=== PATIENT | female | born 1950 | race American Indian/Alaskan Native ===

== ENCOUNTER 2018-10-23 15:21 | Inpatient (IN) | payer MEDICARE, OTHER ==
[2018-10-23] MEDS ORDERED: MAGNESIUM SULFATE 2GM/50ML 2 GM/50 ML BAG IV ONE (15:53)
[2018-10-23] MEDS ORDERED: SUBLIMAZE IV PRN (15:53)
[2018-10-23] MEDS ORDERED: SOLU-Medrol IV ONE (15:53)
[2018-10-23] MEDS ORDERED: PROVENTIL IH ONE (15:53)
[2018-10-23] MEDS ORDERED: VASELINE LIP THERAPY TP PRN (15:53)
[2018-10-23] MEDS ORDERED: ATROVENT IH ONE (15:53)
[2018-10-23] MEDS ORDERED: VERSED IV PRN (15:53)
[2018-10-23] MEDS ORDERED: NACL 0.9% 500 ML IV PRN (15:53)
[2018-10-23] MEDS ORDERED: NACL 0.9% 500 ML 500 ML IV ONE (15:53)
[2018-10-23] MEDS ORDERED: ARTIFICIAL TEARS OPHTH OINT OU PRN (15:53)
[2018-10-23] MEDS ORDERED: NACL 0.9% 1000 ML IV ONE (15:59)
[2018-10-23] MEDS ORDERED: VANCOMYCIN 1,500 MG in NACL 0.9% 500 ML 500 ML IV ONE (15:59)
[2018-10-23] MEDS ORDERED: VANCOMYCIN PHARMACY TO DOSE IV SCH (16:00)
[2018-10-23] MEDS ORDERED: DECADRON IV ONE (16:00)
[2018-10-23] MEDS ORDERED: MIDAZOLAM 100 MG in NACL 0.9% 80 ML IV SCH (16:00)
[2018-10-23] MEDS ORDERED: ROCEPHIN/NS 2 GM/100 ML 2 GM/100 ML BAG IV SCH (16:00)
--- NOTE | 2018-10-23 16:01 | Emergency Department Report ---
<MARIA LUISA PHOENIX - Last Filed: 10/23/18 21:21> ED General Adult HPI - General Chief complaint: Altered Mental Status Stated complaint: UNRESPONSIVE Time Seen by Provider: 10/23/18 15:52 - Related Data Home Medications Medication Instructions Recorded Confirmed Last Taken ARIPiprazole [Abilify TAB] 5 mg PO DAILY 01/02/15 10/25/18 01/08/15 Acetaminophen [Tylenol] 325 mg PO Q6HR PRN 01/02/15 01/09/15 01/07/15 Albuterol Sulfate [Proair Hfa] 2 puff IH TID 01/02/15 01/09/15 01/09/15 Budesoni/Formotero 160-4.5(Nf) 1 puff IH QDAY 01/02/15 01/09/15 01/09/15 [Symbicort 160-4.5] Carvedilol 6.25 mg PO BID 01/02/15 10/25/18 01/09/15 Cetirizine HCl [ZyrTEC] 10 mg PO QDAY 01/02/15 10/25/18 01/08/15 Furosemide 40 mg PO QDAY 01/02/15 10/25/18 01/08/15 Levothyroxine [Synthroid] 0.125 mcg PO QAM 01/02/15 10/25/18 01/09/15 Lisinopril 2.5 mg PO QDAY 01/02/15 10/25/18 01/09/15 Simvastatin 5 mg PO QDAY 01/02/15 10/25/18 01/08/15 buPROPion XL [Wellbutrin Xl] 300 mg PO QDAY 01/02/15 10/25/18 01/08/15 Norvasc 10 mg PO DAILY 01/09/15 10/25/18 01/09/15 Omeprazole Magnesium [PriLOSEC Otc] 20 mg PO DAILY 10/25/18 10/25/18 Unknown acetaZOLAMIDE ER [Diamox Sequels] 500 mg PO Q12HR 10/25/18 10/25/18 Unknown traZODone [Desyrel] 50 mg PO HS 10/25/18 10/25/18 Unknown Allergies Allergy/AdvReac Type Severity Reaction Status Date / Time ibuprofen [From Motrin] AdvReac Shortness Verified 10/25/18 08:15 of Breath nickel AdvReac Rash Verified 10/25/18 08:15 ED Past Medical Hx - Medications Home Medications: Home Medications Medication Instructions Recorded Confirmed Last Taken Type ARIPiprazole [Abilify TAB] 5 mg PO DAILY 01/02/15 10/25/18 01/08/15 History Acetaminophen [Tylenol] 325 mg PO Q6HR PRN 01/02/15 01/09/15 01/07/15 History Albuterol Sulfate [Proair Hfa] 2 puff IH TID 01/02/15 01/09/15 01/09/15 History Budesoni/Formotero 160-4.5(Nf) 1 puff IH QDAY 01/02/15 01/09/15 01/09/15 History [Symbicort 160-4.5] Carvedilol 6.25 mg PO BID 01/02/15 10/25/18 01/09/15 History Cetirizine HCl [ZyrTEC] 10 mg PO QDAY 01/02/15 10/25/18 01/08/15 History Furosemide 40 mg PO QDAY 01/02/15 10/25/18 01/08/15 History Levothyroxine [Synthroid] 0.125 mcg PO QAM 01/02/15 10/25/18 01/09/15 History Lisinopril 2.5 mg PO QDAY 01/02/15 10/25/18 01/09/15 History Simvastatin 5 mg PO QDAY 01/02/15 10/25/18 01/08/15 History buPROPion XL [Wellbutrin Xl] 300 mg PO QDAY 01/02/15 10/25/18 01/08/15 History Norvasc 10 mg PO DAILY 01/09/15 10/25/18 01/09/15 History Omeprazole Magnesium [PriLOSEC Otc] 20 mg PO DAILY 10/25/18 10/25/18 Unknown History acetaZOLAMIDE ER [Diamox Sequels] 500 mg PO Q12HR 10/25/18 10/25/18 Unknown History traZODone [Desyrel] 50 mg PO HS 10/25/18 10/25/18 Unknown History ED Medical Decision Making - Lab Data Result diagrams: 10/23/18 16:27 10/23/18 16:27 - Medical Decision Making I assumed care of patient Mrs. Negro from my colleague Dr. Quinn who performed a comprehensive work up. Mrs. Negro presents with acute respiratory failure, acute encephalopathy as well as hyperthermia. Intubated for airway control and ventilation. I reviewed arterial blood gas values with respiratory therapist. I agreed with suggested ventilator setting changes including increased respiratory rate and increased tidal volume. I spoke with hospitalist Dr. Salguero for admission to ICU. Reviewed CT head did not reveal acute process. I revealed CT cervical spine which did not reveal acute fracture but abnormality at the C1 arch. Also reviewed CT abdomen and pelvis and CT angiogram of the chest did not reveal acute process. No obvious source of infection. My colleague appropriately treated Ms. Negro for sepsis considering hypothermia and SIRS. Admitted to the ICU in critical condition. 100 total minutes of critical care time excluding procedures were used in the care of the patient. Patient required multiple interventions and assessments. I spoke directly with hospitalist Dr. Cary and Dr. Salazar. I also coordinated care with respiratory therapist. I reassessed the patient several times. Reviewed electronic record. I reviewed workup including lab, CT results, x-ray results I reassessed Mrs. Negro several times. Critical care time in (mins) excluding proc time.: 100 ED Disposition Clinical Impression: Respiratory arrest, Systemic inflammatory response syndrome (SIRS), Acute encephalopathy, Acute respiratory failure, End stage COPD Disposition: OP ADMIT IP TO THIS HOSP Is pt being admited?: Yes Does the pt Need Aspirin: No Condition: Critical <DENIS QUINN - Last Filed: 10/25/18 19:52> ED General Adult HPI - General Source: EMS (verbal report received from EMS.ems notes not available at time of chart dictation), RN notes reviewed, old records reviewed Mode of arrival: Stretcher Limitations: Altered Mental Status, Other - History of Present Illness Initial comments: This is a 67-year-old female. Past medical history includes congestive heart failure, hypotension, hypothyroidism, history of adenoma in the cecum, status post right hemicolectomy The patient is brought to the hospital by emergency medical services for altered mental status and respiratory distress. The patient apparently lives at a fci facility or neighborhood. She was apparently found down, by neighbors, naked, for uncertain duration of time, and uncertain mechanism. The patient's last known well time is not known. EMS reports normal Accu-Chek in the field. Upon arrival to the emergency room, the patient is obtunded, with insufficient respiratory effort, and inability to maintain or protect her airway. She is placed on a nasal cannula at 15 L/m, received [id number] ventilation, and is intubated with direct laryngoscopy. She does not desaturate. The remainder of her primary survey is remarkable for a GCS of 3, preintubation, postintubation, and hypothermia with a core temperature of 94. She is also found to have a left lower quadrant ecchymosis of uncertain etiology. No family or friends available at this time for collateral information or additional information. -: unknown Radiation: other Quality: other Consistency: other Improves with: other Worsens with: other ED Review of Systems ROS: Stated complaint: UNRESPONSIVE Other details as noted in HPI Comment: Unobtainable due to pts medical conditions ED Past Medical Hx - Past Medical History Hx Hypertension: Yes (several meds took beta carlita today) Hx Heart Attack/AMI: (high cholesterol - no chest pain) - Social History Smoking Status: Former Smoker ED Physical Exam - General Limitations: Altered Mental Status, Other General appearance: obtunded - Head Head exam: Present: atraumatic - Eye Eye exam: Absent: normal appearance (bilateral proptotic eyes noted. Pupils are 2 mm minimal reaction to light) - ENT ENT exam: Present: normal exam, normal external ear exam, other (copious secre tions noted in the oropharynx) - Neck Neck exam: Present: normal inspection. Absent: tenderness, meningismus - Respiratory Respiratory exam: Present: respiratory distress, wheezes, rhonchi - Cardiovascular Cardiovascular Exam: Present: regular rate, normal rhythm, tachycardia, normal heart sounds - GI/Abdominal GI/Abdominal exam: Present: soft, other (left lower quadrant ecchymosis). Absent: distended, tenderness, guarding, rebound, rigid, pulsatile mass - Rectal Rectal exam: Present: normal inspection - External exam: Present: normal external exam - Extremities Exam Extremities exam: Present: normal inspection, other (2+ pulses noted in the bilateral upper, lower extremities. Compartments soft. No long bony te nderness. The pelvis is stable.). Absent: tenderness, calf tenderness - Back Exam Back exam: Present: normal inspection. Absent: CVA tenderness (R), paraspinal tenderness - Neurological Exam Neurological exam: Present: altered, other (GCS of 3) - Psychiatric Psychiatric exam: Present: other (patient is nonverbal) - Skin Skin exam: Present: ecchymosis (ecchymosis in the left lower quadrant) ED Course Vital Signs 10/23/18 10/23/18 10/23/18 15:51 16:00 16:17 Temperature 94.3 F L Pulse Rate 81 82 Pulse Rate [ 92 H Anterior Bilateral Throughout] Respiratory 15 Rate Respiratory 20 Rate [Anterior Bilateral Throughout] Blood Pressure 125/60 125/60 Blood Pressure 125/60 [Right] O2 Sat by Pulse 100 100 Oximetry 10/23/18 10/23/18 10/23/18 16:40 17:05 17:18 Temperature Pulse Rate 82 75 Pulse Rate [ 96 H Anterior Bilateral Throughout] Respiratory 18 Rate Respiratory 20 Rate [Anterior Bilateral Throughout] Blood Pressure 125/60 125/60 Blood Pressure [Right] O2 Sat by Pulse 100 100 Oximetry 10/23/18 10/23/18 10/23/18 17:30 17:42 17:46 Temperature Pulse Rate 75 78 68 Pulse Rate [ Anterior Bilateral Throughout] Respiratory 18 18 18 Rate Respiratory Rate [Anterior Bilateral Throughout] Blood Pressure 140/85 140/85 Blood Pressure 140/85 [Right] O2 Sat by Pulse 100 100 99 Oximetry 10/23/18 10/23/18 10/23/18 18:00 18:06 19:16 Temperature Pulse Rate 70 71 78 Pulse Rate [ Anterior Bilateral Throughout] Respiratory 18 10 L Rate Respiratory Rate [Anterior Bilateral Throughout] Blood Pressure 140/85 140/85 140/85 Blood Pressure [Right] O2 Sat by Pulse 100 100 100 Oximetry 10/23/18 10/23/18 10/23/18 19:17 19:30 19:46 Temperature 96.6 F L Pulse Rate 81 82 80 Pulse Rate [ Anterior Bilateral Throughout] Respiratory 22 20 18 Rate Respiratory Rate [Anterior Bilateral Throughout] Blood Pressure 137/84 137/84 Blood Pressure 137/84 [Right] O2 Sat by Pulse 100 100 99 Oximetry 10/23/18 10/23/18 10/23/18 20:00 20:15 20:30 Temperature 97.5 F L Pulse Rate 86 81 80 Pulse Rate [ Anterior Bilateral Throughout] Respiratory 24 19 20 Rate Respiratory Rate [Anterior Bilateral Throughout] Blood Pressure 65/27 125/75 110/74 Blood Pressure 113/68 [Right] O2 Sat by Pulse 100 98 99 Oximetry 10/23/18 10/23/18 10/23/18 20:41 20:46 21:00 Temperature Pulse Rate 80 83 76 Pulse Rate [ Anterior Bilateral Throughout] Respiratory 24 17 Rate Respiratory Rate [Anterior Bilateral Throughout] Blood Pressure 110/74 122/84 114/74 Blood Pressure 112/88 [Right] O2 Sat by Pulse 98 100 100 Oximetry 10/23/18 10/23/18 10/23/18 21:18 21:30 21:45 Temperature Pulse Rate 75 70 73 Pulse Rate [ Anterior Bilateral Throughout] Respiratory 26 H 26 H 26 H Rate Respiratory Rate [Anterior Bilateral Throughout] Blood Pressure 107/66 105/68 Blood Pressure [Right] O2 Sat by Pulse 100 100 100 Oximetry 10/23/18 10/23/18 10/23/18 22:00 22:15 22:30 Temperature Pulse Rate 73 74 77 Pulse Rate [ Anterior Bilateral Throughout] Respiratory 26 H 26 H 26 H Rate Respiratory Rate [Anterior Bilateral Throughout] Blood Pressure 111/68 101/67 99/67 Blood Pressure [Right] O2 Sat by Pulse 100 100 Oximetry 10/23/18 10/23/18 10/23/18 22:45 23:00 23:15 Temperature Pulse Rate 82 77 76 Pulse Rate [ Anterior Bilateral Throughout] Respiratory 26 H 26 H 26 H Rate Respiratory Rate [Anterior Bilateral Throughout] Blood Pressure 95/64 90/59 100/61 Blood Pressure [Right] O2 Sat by Pulse Oximetry 10/23/18 10/23/18 10/24/18 23:30 23:45 00:00 Temperature Pulse Rate 77 78 81 Pulse Rate [ Anterior Bilateral Throughout] Respiratory 26 H 26 H 24 Rate Respiratory Rate [Anterior Bilateral Throughout] Blood Pressure 96/63 104/63 93/63 Blood Pressure [Right] O2 Sat by Pulse 100 99 100 Oximetry 10/24/18 10/24/18 10/24/18 00:02 00:05 00:15 Temperature Pulse Rate 89 81 79 Pulse Rate [ Anterior Bilateral Throughout] Respiratory 18 24 Rate Respiratory Rate [Anterior Bilateral Throughout] Blood Pressure 93/63 93/63 108/66 Blood Pressure [Right] O2 Sat by Pulse 100 98 100 Oximetry 10/24/18 10/24/18 10/24/18 00:30 00:45 01:00 Temperature Pulse Rate 78 79 76 Pulse Rate [ Anterior Bilateral Throughout] Respiratory 24 24 24 Rate Respiratory Rate [Anterior Bilateral Throughout] Blood Pressure 106/69 103/67 110/68 Blood Pressure [Right] O2 Sat by Pulse Oximetry 10/24/18 10/24/18 01:15 01:52 Temperature 100.8 F H Pulse Rate 80 Pulse Rate [ Anterior Bilateral Throughout] Respiratory 24 Rate Respiratory Rate [Anterior Bilateral Throughout] Blood Pressure 105/67 Blood Pressure [Right] O2 Sat by Pulse Oximetry - Reevaluation(s) Reevaluation #1: 10/23/18 17:01 Differential diagnosis, including but not limited to: Intracranial injury, cervical spine injury, hypercarbic respiratory failure, pulmonary embolus, intra-abdominal injury, intra-abdominal infection, bacteremia, viremia, urinary tract infection, toxic encephalopathy, metabolic encephalopathy, multiple factorial encephalopathy Assessment and plan: 67-year-old female, hypothermic, altered, found down, last known well time is not known, requiring intubation for respiratory support. We will treat the patient empirically for sepsis, with vancomycin, ceftriaxone. She'll be treated for presumed COPD exacerbation, with albuterol, Atrovent, steroids and magnesium. She will be given appropriate IV fluids. CT imaging of the brain, cervical spine will be obtained. CT scan of the abdomen and pelvis will be obtained. Patient will be placed on isolation precautions. We may need to obtain a spinal tap to exclude infectious etiology. Suspect a component of hypercarbic respiratory failure, therefore, the patient will be ventilated on the lung protective strategy, with an appropriate inspiration to expiration ratio. Discussed with critical care physician, Dr. Waldron, who will follow in consultation. Reevaluation #2: 10/23/18 17:50 Additional history obtained from family. Patient apparently has a history of end-stage COPD. The patient was instructed previously to look at a lung transplant list, but apparently has not done so. She's had multiple hospitalizations at [facility] within the past few weeks to months. She also may have had a recent echocardiogram or stress test, which suggested, "silent heart attack" as per the family. I have updated the patient's family on her condition, plan of care, and thus far they are amenable. CT scans pending at this time. Reevaluation #3: 10/23/18 20:00 CT scan of brain negative for acute disease. CT scan of the cervical spine demonstrates incidental abnormality at C1, likely nontraumatic. Patient does not have any external physical exam findings on her neck to suggest acute neck fracture. Furthermore, even on sedation, she was moving 4 extremities. Therefore, I doubt an acute cervical spine injury. Spinal tap was attempted however, unsuccessful secondary to patient's body habitus. CT scan of the chest, abdomen and pelvis pending at this time. Care will be transferred to oncoming physician, Dr. Elsa Phoenix, to follow up on CT scan of the chest, abdomen, pelvis, and then one Speck, contact the medical team to arrange admission. - EJ/Peripheral Line Neck L Time Out Performed: Yes Indications: nurses unable to establis Skin Cleansed in Sterile Fashion: Yes Size: 18 Dressing Placed: Tegaderm Patient Tolerated Procedure: well Neck R Time Out Performed: Yes Indications: nurses unable to establis Skin Cleansed in Sterile Fashion: Yes Size: 18 Dressing Placed: Tegaderm Patient Tolerated Procedure: well - Intubation Time Out Performed: No (emergency situation) Sedative: Etomidate Mg Given: 20 Paralytic: Rocuronium Mg Given: 100 Laryngoscope: Krysten Size: 3 Assist Device Used: fiberoptic device ET Tube Size: 7.5 Tube Secured Depth (cm): 23 Tube Secured Location: teeth Tube Placement Confirmation: visualized tube passing t, equal breath sounds bilat, no breath sounds over epi, confirmation by capnometr Patient Tolerated Procedure: well Intubation Complications: none - Lumbar Puncture Consent Obtained: written consent (discussed with brother, verbalizes understanding) Time Out Performed: Yes Indication for Procedure: change in mental status Patient Position: left lateral decubitus Local Anesthetic Used: Lidocaine 1% Amount of anesthesia used (mls): 10 Spinal Needle Gauge: 20G Spinal Needle Length: 3in Interspace Used: L4-L5 Complications: none, unable to obtain CSF ED Medical Decision Making - Lab Data Result diagrams: 10/25/18 06:38 10/25/18 03:57 Vital Signs 10/23/18 15:51 Pulse Rate 81 Blood Pressure 125/60 O2 Sat by Pulse 100 Oximetry Vital Signs 10/23/18 10/23/18 10/23/18 15:51 16:00 16:40 Temperature 94.3 F L Pulse Rate 81 82 82 Respiratory 15 Rate Blood Pressure 125/60 125/60 125/60 Blood Pressure 125/60 [Right] O2 Sat by Pulse 100 100 100 Oximetry Lab Results 10/23/18 10/23/18 10/23/18 Range/Units 16:18 16:18 16:27 WBC 12.5 H (4.5-11.0) K/mm3 RBC 4.82 (3.65-5.03) M/mm3 Hgb 11.3 (10.1-14.3) gm/dl Hct 37.5 (30.3-42.9) % MCV 78 L (79-97) fl MCH 23 L (28-32) pg MCHC 30 (30-34) % RDW 16.0 H (13.2-15.2) % Plt Count 239 (140-440) K/mm3 PT (12.2-14.9) Sec. INR (0.87-1.13) APTT (24.2-36.6) Sec. Sodium (137-145) mmol/L Potassium (3.6-5.0) mmol/L Chloride (98-107) mmol/L Carbon Dioxide (22-30) mmol/L Anion Gap mmol/L BUN (7-17) mg/dL Creatinine (0.7-1.2) mg/dL Estimated GFR ml/min BUN/Creatinine Ratio % Glucose (65-100) mg/dL Lactic Acid (0.7-2.0) mmol/L Calcium (8.4-10.2) mg/dL Magnesium (1.7-2.3) mg/dL Total Bilirubin (0.1-1.2) mg/dL AST (5-40) units/L ALT (7-56) units/L Alkaline Phosphatase (35-129) units/L Total Creatine Kinase (30-135) units/L Troponin T (0.00-0.029) ng/mL Total Protein (6.3-8.2) g/dL Albumin (3.9-5) g/dL Albumin/Globulin Ratio % Urine Color Yellow (Yellow) Urine Turbidity Slightly-cloudy (Clear) Urine pH 5.0 (5.0-7.0) Ur Specific [place] 1.016 (1.003-1.030) Urine Protein <15 mg/dl (Negative) mg/dL Urine Glucose (UA) Neg (Negative) mg/dL Urine Ketones Neg (Negative) mg/dL Urine Blood Neg (Negative) Urine Nitrite Neg (Negative) Urine Bilirubin Neg (Negative) Urine Urobilinogen 2.0 (<2.0) mg/dL Ur Leukocyte Esterase Neg (Negative) Urine WBC (Auto) < 1.0 (0.0-6.0) /HPF Urine RBC (Auto) 1.0 (0.0-6.0) /HPF U Epithel Cells (Auto) < 1.0 (0-13.0) /HPF Urine Mucus Few /HPF Urine Opiates Screen Presumptive negative Urine Methadone Screen Presumptive negative Ur Barbiturates Screen Presumptive negative Ur Phencyclidine Scrn Presumptive negative Ur Amphetamines Screen Presumptive negative U Benzodiazepines Scrn Presumptive negative Urine Cocaine Screen Presumptive negative U Marijuana (THC) Screen Presumptive negative Drugs of Abuse Note Disclamer Plasma/Serum Alcohol (0-0.07) % 10/23/18 10/23/18 10/23/18 Range/Units 16:27 16:27 16:27 WBC (4.5-11.0) K/mm3 RBC (3.65-5.03) M/mm3 Hgb (10.1-14.3) gm/dl Hct (30.3-42.9) % MCV (79-97) fl MCH (28-32) pg MCHC (30-34) % RDW (13.2-15.2) % Plt Count (140-440) K/mm3 PT 12.0 L (12.2-14.9) Sec. INR 0.84 L (0.87-1.13) APTT 21.0 L (24.2-36.6) Sec. Sodium 136 L (137-145) mmol/L Potassium 4.5 (3.6-5.0) mmol/L Chloride 95.8 L (98-107) mmol/L Carbon Dioxide 30 (22-30) mmol/L Anion Gap 15 mmol/L BUN 29 H (7-17) mg/dL Creatinine 0.4 L (0.7-1.2) mg/dL Estimated GFR > 60 ml/min BUN/Creatinine Ratio 73 % Glucose 115 H (65-100) mg/dL Lactic Acid (0.7-2.0) mmol/L Calcium 9.2 (8.4-10.2) mg/dL Magnesium (1.7-2.3) mg/dL Total Bilirubin 0.30 (0.1-1.2) mg/dL AST 61 H (5-40) units/L ALT 72 H (7-56) units/L Alkaline Phosphatase 97 (35-129) units/L Total Creatine Kinase (30-135) units/L Troponin T < 0.010 (0.00-0.029) ng/mL Total Protein 6.7 (6.3-8.2) g/dL Albumin 3.7 L (3.9-5) g/dL Albumin/Globulin Ratio 1.2 % Urine Color (Yellow) Urine Turbidity (Clear) Urine pH (5.0-7.0) Ur Specific [place] (1.003-1.030) Urine Protein (Negative) mg/dL Urine Glucose (UA) (Negative) mg/dL Urine Ketones (Negative) mg/dL Urine Blood (Negative) Urine Nitrite (Negative) Urine Bilirubin (Negative) Urine Urobilinogen (<2.0) mg/dL Ur Leukocyte Esterase (Negative) Urine WBC (Auto) (0.0-6.0) /HPF Urine RBC (Auto) (0.0-6.0) /HPF U Epithel Cells (Auto) (0-13.0) /HPF Urine Mucus /HPF Urine Opiates Screen Urine Methadone Screen Ur Barbiturates Screen Ur Phencyclidine Scrn Ur Amphetamines Screen U Benzodiazepines Scrn Urine Cocaine Screen U Marijuana (THC) Screen Drugs of Abuse Note Plasma/Serum Alcohol < 0.01 (0-0.07) % 10/23/18 10/23/18 Range/Units 16:27 16:27 WBC (4.5-11.0) K/mm3 RBC (3.65-5.03) M/mm3 Hgb (10.1-14.3) gm/dl Hct (30.3-42.9) % MCV (79-97) fl MCH (28-32) pg MCHC (30-34) % RDW (13.2-15.2) % Plt Count (140-440) K/mm3 PT (12.2-14.9) Sec. INR (0.87-1.13) APTT (24.2-36.6) Sec. Sodium (137-145) mmol/L Potassium (3.6-5.0) mmol/L Chloride (98-107) mmol/L Carbon Dioxide (22-30) mmol/L Anion Gap mmol/L BUN (7-17) mg/dL Creatinine (0.7-1.2) mg/dL Estimated GFR ml/min BUN/Creatinine Ratio % Glucose (65-100) mg/dL Lactic Acid 0.80 (0.7-2.0) mmol/L Calcium (8.4-10.2) mg/dL Magnesium 4.60 H (1.7-2.3) mg/dL Total Bilirubin (0.1-1.2) mg/dL AST (5-40) units/L ALT (7-56) units/L Alkaline Phosphatase (35-129) units/L Total Creatine Kinase 66 (30-135) units/L Troponin T (0.00-0.029) ng/mL Total Protein (6.3-8.2) g/dL Albumin (3.9-5) g/dL Albumin/Globulin Ratio % Urine Color (Yellow) Urine Turbidity (Clear) Urine pH (5.0-7.0) Ur Specific [place] (1.003-1.030) Urine Protein (Negative) mg/dL Urine Glucose (UA) (Negative) mg/dL Urine Ketones (Negative) mg/dL Urine Blood (Negative) Urine Nitrite (Negative) Urine Bilirubin (Negative) Urine Urobilinogen (<2.0) mg/dL Ur Leukocyte Esterase (Negative) Urine WBC (Auto) (0.0-6.0) /HPF Urine RBC (Auto) (0.0-6.0) /HPF U Epithel Cells (Auto) (0-13.0) /HPF Urine Mucus /HPF Urine Opiates Screen Urine Methadone Screen Ur Barbiturates Screen Ur Phencyclidine Scrn Ur Amphetamines Screen U Benzodiazepines Scrn Urine Cocaine Screen U Marijuana (THC) Screen Drugs of Abuse Note Plasma/Serum Alcohol (0-0.07) % - EKG Data -: EKG Interpreted by Nm EKG shows normal: sinus rhythm - EKG Data 10/23/18 18:49 This is a sinus rhythm, approximately 60 bpm, normal axis, QTC prolonged, motion artifact, abnormal EKG, not consistent with ST elevation myocardial infarction. - Radiology Data Radiology results: report reviewed, image reviewed X-ray of the chest shows appropriate placement of endotracheal tube. No obvious pneumothorax. No obvious pneumonia. Critical Care Time: Yes Critical care time in (mins) excluding proc time.: 60 Critical care attestation.: If time is entered above; I have spent that time in minutes in the direct care of this critically ill patient, excluding procedure time. ED Disposition Is pt being admited?: Yes
[2018-10-23] MEDS: fentaNYL DRIP Premix 2,000 MCG/100 ML BAG IV SCH (16:24)
--- NOTE | 2018-10-23 16:25 | XRay Report ---
XR CHEST 1V AP CLINICAL INDICATION: Female, 67 years of age. ETT placement COMPARISON: None available. Findings: Frontal view(s) of the chest obtained. Heart borderline enlarged. ET tube present. Distal tip approximately 5.7 cm from the leslie. Lungs are grossly clear. No pneumothorax. IMPRESSION: ET tube in satisfactory position. Lungs are grossly clear. This document is electronically signed by Pacheco Serna DO., October 23 2018 04:23:35 PM ET
[2018-10-23 17:00] LABS: Bilirubin,Urine NEG (Negative); Blood,Urine NEG (Negative); Color,Urine Yellow (Yellow); Mucus,Urine FEW /HPF; Protein,Urine <15 mg/dL mg/dL (Negative); WBC,Urine < 1.0 /HPF (0.0-6.0)
[2018-10-23 17:04] LABS: Amphetamine Screen,Urine PRESUMPTIVE NEGATIVE; Benzodiazepines Screen,Urine PRESUMPTIVE NEGATIVE; Cannabinoid Screen,Urine PRESUMPTIVE NEGATIVE; Cocaine Screen,Urine PRESUMPTIVE NEGATIVE; Methadone Screen,Urine PRESUMPTIVE NEGATIVE; Opiate Screen,Urine PRESUMPTIVE NEGATIVE
[2018-10-23 17:22] LABS: Mean Corpuscular HGB Conc 30 % (30-34); Mean Corpuscular Volume 78 fl (79-97); Platelet Count 239 K/mm3 (140-440); Red Blood Count 4.82 M/mm3 (3.65-5.03)
[2018-10-23 17:24] LABS: Hematocrit 37.5 % (30.3-42.9); Hemoglobin 11.3 gm/dl (10.1-14.3)
[2018-10-23 17:32] LABS: Alanine Aminotransferase 72 units/L (7-56); Albumin 3.7 g/dL (3.9-5); BUN/Creatinine Ratio 73; Blood Urea Nitrogen 29 mg/dL (7-17); Calcium 9.2 mg/dL (8.4-10.2); Hemolysis Index 25; INR 0.84 (0.87-1.13)
[2018-10-23] MEDS ORDERED: XYLOCAINE 2%/EPI 1:100,000 INFILTRATI ONE (18:58)
--- NOTE | 2018-10-23 19:37 | Cat Scan Report ---
CT HEAD/BRAIN WO CON CLINICAL INDICATION: Female, 67 years of age. ams resp failure COMPARISON: None TECHNIQUE: Contiguous axial images were obtained from the vertex through the skull base.This CT exam was perform ed using one or more of the following dose reduction techniques: automated exposure control, adjustme nt of the mA and/or kV according to patient size, or use of iterative reconstruction technique. FINDINGS: No acute intracranial hemorrhage, midline shift, or extra-axial fluid collection. Ventricles and cis terns are normal in size and configuration for the patient's age. Méndez white differentiation is main tained. Calvarium is grossly intact. Mild chronic small vessel ischemic disease. Fluid in the dependent portion of nasopharynx. This may relate to patient's intubated state. Mild verónica ateral proptosis. IMPRESSION: No grossly acute intracranial abnormality. This document is electronically signed by Pacheco Serna DO., October 23 2018 07:35:32 PM ET
--- NOTE | 2018-10-23 19:41 | Cat Scan Report ---
CT CERVICAL SPINE WO CON CLINICAL INDICATION: Female, 67 years of age. ams fall COMPARISON: None available. TECHNIQUE: Contiguous axial images were obtained of the cervical spine. This CT exam was performed u sing one or more of the following dose reduction techniques: automated exposure control, adjustment o f the mA and/or kV according to patient size, or use of iterative reconstruction technique. Additiona l sagittal and coronal reformatted images were obtained. Findings: There is straightening of the cervical spine which may reflect patient positioning or under lying muscle spasm. Cervical vertebral body heights are maintained. No acute fracture or traumatic subluxation of the vertebral body. This focal disruption of the left C1 lateral body. (Series 2, daniel ge 25). This does not have the appearance of a focal fracture line may be developmental or could rela te to sequelae of prior trauma or degenerative change. Otherwise, the odontoid process, articular pil lars, and occipital condyles are intact. Moderate loss of disc height of the majority of the cervical spine. Hjjp-za-[id number] canal stenosis a nd moderate severe foraminal narrowing at several levels due to endplate osteophyte, uncovertebral hy pertrophy and facet changes. Lung apices are clear. Partial visualization of ET tube. Visualized ET tube is in satisfactory position. IMPRESSION: 1. Focal disruption at the lateral margin of the left C1 arch. This does not have the typical appeara nce of an acute fracture and may relate to sequelae of prior trauma or may be developmental or relate d to degenerative change. MRI of the cervical spine may be of benefit to assess for bony edema in thi s region. Presence of edema would favor acute injury. 2. No acute fracture or traumatic subluxation of the cervical spine otherwise. There is straightening of the cervical spine which may reflect patient positioning or underlying muscle spasm. Moderate deg enerative changes. This document is electronically signed by Pacheco Serna DO., October 23 2018 07:39:29 PM PAMELA
--- NOTE | 2018-10-23 20:05 | Cat Scan Report ---
CT ABDOMEN PELVIS W CON CLINICAL INDICATION: Female, 67 years of age. and found down llq ecchmyosuis COMPARISON: None available. TECHNIQUE: Contiguous axial images were obtained. This CT exam was performed using one or more of th e following dose reduction techniques: automated exposure control, adjustment of the mA and/or kV acc ording to patient size, or use of iterative reconstruction technique. Additional sagittal and coronal reformatted images were obtained. IV contrast administered per institution protocol. Images are subm itted for interpretation. FINDINGS: Please see CT of the chest from the same day for further details of the lung bases. Diffuse fatty infiltration of the liver. Liver is normal in size measuring 23 cm in axial dimension. Gallbladder is distended but otherwise unremarkable. No biliary dilatation. The common bile duct neftali ures 5 mm. Symmetric enhancement kidneys. Small benign bilateral renal cysts. Aorta and IVC are normal in calibe r. Miller catheter decompresses the urinary bladder. Uterus is surgically absent. No free fluid or lympha denopathy in the pelvic cavity. Moderate large amount stool throughout the colon most pronounced within the right colon. No focal inf lammatory changes of bowel or bowel obstruction. Probable prior surgery involving the right colon. Th e appendix is not visualized. However, there is no pericecal stranding or fluid collection to suggest acute inflammation. No free air or hemoperitoneum. Lumbar vertebral body heights preserved. Probable benign hemangioma at the L4 and L5 levels. Bony pelvis is grossly intact. IMPRESSION: 1. No acute abdominal or pelvic organ injury. No focal inflammatory changes. 2. Fatty infiltration of the liver. 3. Moderate large amount stool within the colon most pronounced within the right colon. Probable prio r surgery involving the right colon. This document is electronically signed by Pacheco Serna DO., October 23 2018 08:03:08 PM ET
--- NOTE | 2018-10-23 20:20 | Cat Scan Report ---
CT ANGIO CHEST CLINICAL INDICATION: Female, 67 years of age. ams resp failure COMPARISON: CT abdomen and pelvis from the same day. TECHNIQUE: Contiguous axial images were obtained. This CT exam was performed using one or more of th e following dose reduction techniques: automated exposure control, adjustment of the mA and/or kV acc ording to patient size, or use of iterative reconstruction technique. Additional sagittal and coronal reformatted images were obtained. IV contrast administered per institution protocol. Images are subm itted for interpretation. Maximum intensity projection images. FINDINGS: Mild cardiac enlargement. Thoracic aorta normal in caliber. No acute dissection or rupture of the thoracic aorta. Ascending thoracic aorta measures 2.6 cm in diameter. Descending thoracic aort a measures up to 2.4 cm in diameter. Slight tortuous course of the thoracic aorta. No pulmonary embolus. Mild dilatation of the main pulmonary arteries measuring up to 2.6 in diameter compatible with mild pulmonary arterial hypertension. No pathologically enlarged intrathoracic or axi llary lymph nodes. ET tube is present. Distal tip terminates above the leslie. There is frothy material at the margin of the ET tube likely reflecting secretions or mucous. No obstructive lesions within the mainstem bronc hi. Nonspecific nodular airspace opacities right lower lobe concerning for infection. This has a bronchov ascular distribution. Moderate to severe underlying emphysema. Linear density left lower lobe likely reflecting atelectasis. No pneumothorax or pneumomediastinum. [id number] degenerative changes of the thoracic spine. No acute, displaced rib fractures. Sternum is intact. Please see CT of the abdomen and pelvis from the same date for further details of visualized upper ab domen. IMPRESSION: 1. No acute intrathoracic injury. 2. Thoracic aorta is normal in caliber. No acute dissection or rupture. No pulmonary embolus. Mild pu lmonary arterial hypertension. 3. Small patchy nodular airspace opacity right lower lobe concerning for infection. 4. Moderate to severe emphysema. 5. ET tube in satisfactory position. Frothy material along the margin of the distal ET tube likely re flecting mucus or secretions. This document is electronically signed by Pacheco Serna DO., October 23 2018 08:18:49 PM ET
[2018-10-23] MEDS ORDERED: ZOFRAN IV PRN (21:55)
[2018-10-23] MEDS ORDERED: SODIUM CHLORIDE FLUSH SYRINGE 10 ML IV PRN (21:55)
[2018-10-23] MEDS ORDERED: NACL 0.9% 1000 ML 1,000 ML IV SCH (22:00)
--- NOTE | 2018-10-23 22:34 | History and Physical Report ---
History of Present Illness Date of examination: 10/23/18 Date of admission: 10/23/18 21:55 Chief complaint: Patient was found unresponsive at home per report History of present illness: Pt is a 67-year-old -[place] female with history of end-stage COPD and h ypothyroidism who was brought to the ED via EMS on account of unresponsiveness.The patient lives at a half-way facility and was apparently found down, by neighbors for uncertain duration of time. Her last known well time is not known. EMS reported normal Accu-Chek in the field. Upon arrival to the emergency room, the patient was obtunded, with insufficient respiratory effort, and inability to maintain or protect her airway. She was then intubated and placed on mechanical ventilator. No family or friends were available for additional information. Past History Past Medical History: COPD (on home oxygen 2 L), heart failure, hyperlipidemia, hypothyroidism, other (depression, adenoma in the caecum) Past Surgical History: thyroidectomy, Other (right hemicolectomy) Social history: smoking (patient is a former smoker per chart), other (alcohol and illicit drug use history could not be obtained due to altered mental status) Family history: other (could not be obtained due to altered mental status) Medications and Allergies Allergies Allergy/AdvReac Type Severity Reaction Status Date / Time ibuprofen [From Motrin] AdvReac Shortness Unverified 01/02/15 16:37 of Breath nickel AdvReac Rash Verified 01/09/15 11:22 Home Medications Medication Instructions Recorded Confirmed Last Taken Type ARIPiprazole [Abilify TAB] 10 mg PO DAILY 01/02/15 01/09/15 01/08/15 History Acetaminophen [Tylenol] 325 mg PO Q6HR PRN 01/02/15 01/09/15 01/07/15 History Albuterol Sulfate [Proair Hfa] 2 puff IH TID 01/02/15 01/09/15 01/09/15 History Budesoni/Formotero 160-4.5(Nf) 1 puff IH QDAY 01/02/15 01/09/15 01/09/15 History [Symbicort 160-4.5] Carvedilol 6.25 mg PO BID 01/02/15 01/09/15 01/09/15 History Cetirizine HCl [ZyrTEC] 10 mg PO QDAY 01/02/15 01/09/15 01/08/15 History Estradiol 0.5 mg PO QDAY 01/02/15 01/09/15 01/08/15 History Furosemide 20 mg PO QDAY 01/02/15 01/09/15 01/08/15 History Levothyroxine [Synthroid] 125 mcg PO QAM 01/02/15 01/09/15 01/09/15 History Lisinopril 10 mg PO QDAY 01/02/15 01/09/15 01/09/15 History Mirtazapine 30 mg PO QDAY 01/02/15 01/09/15 01/08/15 History Simvastatin 10 mg PO QDAY 01/02/15 01/09/15 01/08/15 History buPROPion XL [Wellbutrin Xl] 300 mg PO QDAY 01/02/15 01/09/15 01/08/15 History Norvasc 10 mg PO DAILY 01/09/15 01/09/15 01/09/15 History Active Meds: Active Medications Acetaminophen (Tylenol) 650 mg PO Q4H PRN PRN Reason: Pain MILD(1-3)/Fever >100.5/LOU Enoxaparin Sodium (Lovenox) 40 mg SUB-Q QDAY GABRIEL Fentanyl (Sublimaze) 50 mcg IV Q10MIN PRN PRN Reason: ANALGESIA Last Admin: 10/23/18 16:10 Dose: 50 mcg Documented by: Hydrophilic Ointment (Vaseline Lip Therapy) 1 applic TP Q2HR PRN PRN Reason: Dry Lips Fentanyl Citrate (Fentanyl Drip Premix) 2,000 mcg in 100 mls @ 3.7 mls/hr IV TITR GABRIEL; Protocol Last Admin: 10/23/18 16:24 Dose: 1 mcg/kg/hr, 3.7 mls/hr Documented by: Midazolam HCl 100 mg/ Sodium (Chloride) 100 mls @ 2 mls/hr IV TITR GABRIEL; Protocol Last Admin: 10/23/18 16:40 Dose: 2 mg/hr, 2 mls/hr Documented by: Ceftriaxone Sodium (Rocephin/Ns 2 Gm/100 Ml) 2 gm in 100 mls @ 200 mls/hr IV NOW GABRIEL; Protocol Last Admin: 10/23/18 17:40 Dose: 200 mls/hr Documented by: Vancomycin HCl 1,250 mg/ (Sodium Chloride) 275 mls @ 166.667 mls/hr IV Q12H GABRIEL Sodium Chloride (Nacl 0.9% 1000 Ml) 1,000 mls @ 75 mls/hr IV DIRECT GABRIEL Piperacillin Sod/Tazobactam Sod (Zosyn/Ns 4.5gm/100ml) 4.5 gm in 100 mls @ 200 mls/hr IV Q8HR GABRIEL; Protocol Methylprednisolone Sodium Succinate (Solu-Medrol) 80 mg IV Q6HR GABRIEL Midazolam HCl (Versed) 2 mg IV Q10MIN PRN PRN Reason: Sedation Multi-Ingred Cream/Lotion/Oil/Oint (Artificial Tears Ophth Oint) 1 applic OU Q4HR PRN PRN Reason: Dry Eye(s) Ondansetron HCl (Zofran) 4 mg IV Q8H PRN PRN Reason: Nausea And Vomiting Sodium Chloride (Nacl 0.9% 500 Ml) 5 ml IV DIRECT PRN PRN Reason: [employer]ERIAL [employer] Sodium Chloride (Sodium Chloride Flush Syringe 10 Ml) 10 ml IV BID GABRIEL Sodium Chloride (Sodium Chloride Flush Syringe 10 Ml) 10 ml IV PRN PRN PRN Reason: LINE FLUSH Review of Systems ROS unobtainable: due to mental status (patient is altered and intubated) Exam - Constitutional Vitals: Temp Pulse Resp BP Pulse Ox 97.5 F L 75 26 H 112/88 100 10/23/18 20:00 10/23/18 21:18 10/23/18 21:18 10/23/18 21:00 10/23/18 21:18 General appearance: Present: mild distress (patient is mildly tachypneic), other (patient is intubated) - EENT Eyes: Present: PERRL ENT: other (patient is intubated) - Neck Neck: Present: supple - Respiratory Respiratory effort: other (patient is mildly tachypneic) Respiratory: bilateral: CTA, diminished - Cardiovascular Rhythm: regular Heart Sounds: Present: S1 & S2 - Extremities Extremities: No edema Peripheral Pulses: within normal limits - Abdominal General gastrointestinal: Present: soft, non-tender, non-distended, normal bowel sounds Female genitourinary: Present: deferred - Integumentary Integumentary: Present: clear, warm, dry - Musculoskeletal Musculoskeletal: other (unable to assess because patient is intubated and sedated) - Psychiatric Psychiatric: other (unable to assess because patient is intubated and sedated) - Neurologic Neurologic: other (patient is intubated and sedated) Results - Labs CBC & Chem 7: 10/23/18 16:27 10/23/18 16:27 Labs: Laboratory Last Values WBC 12.5 K/mm3 (4.5-11.0) H 10/23/18 16:27 RBC 4.82 M/mm3 (3.65-5.03) 10/23/18 16:27 Hgb 11.3 gm/dl (10.1-14.3) 10/23/18 16:27 Hct 37.5 % (30.3-42.9) 10/23/18 16:27 MCV 78 fl (79-97) L 10/23/18 16:27 MCH 23 pg (28-32) L 10/23/18 16:27 MCHC 30 % (30-34) 10/23/18 16:27 RDW 16.0 % (13.2-15.2) H 10/23/18 16:27 Plt Count 239 K/mm3 (140-440) 10/23/18 16:27 PT 12.0 Sec. (12.2-14.9) L 10/23/18 16:27 INR 0.84 (0.87-1.13) L 10/23/18 16:27 APTT 21.0 Sec. (24.2-36.6) L 10/23/18 16:27 POC ABG pH 7.231 (7.35-7.45) L 10/23/18 20:41 POC ABG pCO2 66.6 (35-45) H 10/23/18 20:41 POC ABG pO2 72 (80-105) L 10/23/18 20:41 POC ABG HCO3 27.9 (22-26 mml/L) 10/23/18 20:41 POC ABG Total CO2 30 (23-27mmol/L) 10/23/18 20:41 POC ABG O2 Sat 90 10/23/18 20:41 POC ABG Base Excess 0 ((-2) - (+3)mmol/L) 10/23/18 20:41 FiO2 40 % 10/23/18 20:41 Sodium 136 mmol/L (137-145) L 10/23/18 16:27 Potassium 4.5 mmol/L (3.6-5.0) 10/23/18 16:27 Chloride 95.8 mmol/L (98-107) L 10/23/18 16:27 Carbon Dioxide 30 mmol/L (22-30) 10/23/18 16:27 Anion Gap 15 mmol/L 10/23/18 16:27 BUN 29 mg/dL (7-17) H 10/23/18 16:27 Creatinine 0.4 mg/dL (0.7-1.2) L 10/23/18 16:27 Estimated GFR > 60 ml/min 10/23/18 16:27 BUN/Creatinine Ratio 73 % 10/23/18 16:27 Glucose 115 mg/dL (65-100) H 10/23/18 16:27 POC Glucose 113 (70-105) H 10/23/18 15:38 Lactic Acid 0.80 mmol/L (0.7-2.0) 10/23/18 16:27 Calcium 9.2 mg/dL (8.4-10.2) 10/23/18 16:27 Magnesium 4.60 mg/dL (1.7-2.3) H 10/23/18 16:27 Total Bilirubin 0.30 mg/dL (0.1-1.2) 10/23/18 16:27 AST 61 units/L (5-40) H 10/23/18 16:27 ALT 72 units/L (7-56) H 10/23/18 16:27 Alkaline Phosphatase 97 units/L (35-129) 10/23/18 16:27 Total Creatine Kinase 66 units/L (30-135) 10/23/18 16:27 Troponin T < 0.010 ng/mL (0.00-0.029) 10/23/18 16:27 Total Protein 6.7 g/dL (6.3-8.2) 10/23/18 16:27 Albumin 3.7 g/dL (3.9-5) L 10/23/18 16:27 Albumin/Globulin Ratio 1.2 % 10/23/18 16:27 Urine Color Yellow (Yellow) 10/23/18 16:18 Urine Turbidity Slightly-cloudy (Clear) 10/23/18 16:18 Urine pH 5.0 (5.0-7.0) 10/23/18 16:18 Ur Specific [place] 1.016 (1.003-1.030) 10/23/18 16:18 Urine Protein <15 mg/dl mg/dL (Negative) 10/23/18 16:18 Urine Glucose (UA) Neg mg/dL (Negative) 10/23/18 16:18 Urine Ketones Neg mg/dL (Negative) 10/23/18 16:18 Urine Blood Neg (Negative) 10/23/18 16:18 Urine Nitrite Neg (Negative) 10/23/18 16:18 Urine Bilirubin Neg (Negative) 10/23/18 16:18 Urine Urobilinogen 2.0 mg/dL (<2.0) 10/23/18 16:18 Ur Leukocyte Esterase Neg (Negative) 10/23/18 16:18 Urine WBC (Auto) < 1.0 /HPF (0.0-6.0) 10/23/18 16:18 Urine RBC (Auto) 1.0 /HPF (0.0-6.0) 10/23/18 16:18 U Epithel Cells (Auto) < 1.0 /HPF (0-13.0) 10/23/18 16:18 Urine Mucus Few /HPF 10/23/18 16:18 Salicylates < 0.3 mg/dL (2.8-20.0) L 10/23/18 16:27 Urine Opiates Screen Presumptive negative 10/23/18 16:18 Urine Methadone Screen Presumptive negative 10/23/18 16:18 Acetaminophen < 5.0 ug/mL (10.0-30.0) L 10/23/18 16:27 Ur Barbiturates Screen Presumptive negative 10/23/18 16:18 Ur Phencyclidine Scrn Presumptive negative 10/23/18 16:18 Ur Amphetamines Screen Presumptive negative 10/23/18 16:18 U Benzodiazepines Scrn Presumptive negative 10/23/18 16:18 Urine Cocaine Screen Presumptive negative 10/23/18 16:18 U Marijuana (THC) Screen Presumptive negative 10/23/18 16:18 Drugs of Abuse Note Disclamer 10/23/18 16:18 Plasma/Serum Alcohol < 0.01 % (0-0.07) 10/23/18 16:27 Assessment and Plan Assessment and plan: Acute on chronic respiratory failure with hypoxia and hypercapnia -Probably secondary to acute COPD exacerbation -Status post intubation and mechanical ventilator -On IV steroid and antibiotics -Pulmonology consulted Acute metabolic encephalopathy -Probably secondary to CO2 narcosis -CT head negative Sepsis (evidenced by hypothermia and leukocytosis) probably secondary to p neumonia -CTA chest showed small patchy nodular airspace opacity in the RT lower lobe concerning for infection -On IV broad-spectrum antibiotics with vanc and zosyn -Blood and sputum cultures pending Hypotension -Probably secondary to the sepsis -Her Blood pressure responded to IV fluid, will monitor Transaminitis -Probably due to the sepsis, will monitor levels Abnormal cervical spine CT scan -MRI cervical spine for further evaluation pending Hypermagnesemia -We'll hydrate patient and monitor level Hypothyroidism -We will check thyroid function test levels History of CHF -EF unknown, will order echocardiogram History of end-stage COPD on lung transplant list per report DVT prophylaxis with Lovenox Disposition: I spent 45 minutes providing critical care to this seriously ill patient who requires frequent reassessments of her respiratory and neurological status
[2018-10-23] MEDS: SODIUM CHLORIDE FLUSH SYRINGE 10 ML IV SCH (23:50)
[2018-10-23] MEDS: ZOSYN/NS 4.5GM/100ML 4.5 GM/100 ML VIAL IV SCH (23:50)
[2018-10-23] MEDS ORDERED: SOLU-Medrol ONE (23:58)
[2018-10-24] MEDS: SOLU-Medrol IV SCH ×5 (00:44→23:38)
[2018-10-24] MEDS: fentaNYL DRIP Premix 2,000 MCG/100 ML BAG IV SCH (06:16)
--- NOTE | 2018-10-24 08:16 | Progress Note ---
Assessment and Plan Pt is a 67-year-old -Italian female with history of end-stage COPD and hypothyroidism who was brought to the ED via EMS on account of unresponsiveness.The patient lives at a [place] [facility] facility and was apparently found down, by neighbors for uncertain duration of time. Her last known well time is not known. EMS reported normal Accu-Chek in the field. Upon arrival to the emergency room, the patient was obtunded, with insufficient respiratory effort, and inability to maintain or protect her airway. She was then intubated and placed on mechanical ventilator. No family or friends were available for additional information. Acute on chronic respiratory failure with hypoxia and hypercapnia. < 96 hrs on mechanical ventilation support. Intubated 10/23/18 -Continue bronchodilators -On IV steroid and antibiotics -Pulmonology inputs appreciated Acute metabolic encephalopathy -Probably secondary to CO2 narcosis -CT head negative - unremarkable Sepsis (evidenced by hypothermia and leukocytosis) probably secondary to pneu monia -CTA chest showed small patchy nodular airspace opacity in the RT lower lobe concerning for infection -On IV broad-spectrum antibiotics with vanc and zosyn -Follow up with Blood and sputum cultures Hypotension -Probably secondary to the sepsis -Her Blood pressure responded to IV fluid, -Continue to monitor Transaminitis -Probably due to the sepsis, -will trend Abnormal cervical spine CT scan -MRI cervical spine for further evaluation pending Hypermagnesemia -We'll hydrate patient - Trend Hypothyroidism -We will check thyroid function test levels History of CHF -EF unknown, will order echocardiogram -F/u with ECHO Reports History of end-stage COPD on lung transplant list per report DVT prophylaxis with Lovenox Disposition: CCT 35 min Subjective Date of service: 10/24/18 Principal diagnosis: acute respiratory failure, COPD exacerbation, pneumonia, sepsis with hypote Interval history: Patient remains intubated. Discussed with metastatic. No fever. Objective - Exam Narrative Exam: Constitutional: Ill-looking. On mechanical ventilation. Intubated on Head: Normocephalic atraumatic Eyes: Pupils are equal round and reactive to light Nose: No enlarged turbinates, no septal deviation. Mouth: ET tube in place Neck: Supple no thyromegaly. No bruit. No JVD Heart: Regular rate and rhythm, S1-S2 normal. No rubs murmurs or gallop Lungs: Decreased breath sounds bilaterally. no rales or rhonchi Abdomen: Soft, nontender. Bowel sound are present. Extremities: No edema, no cyanosis, no clubbing. Neuro: On mechanical ventilation . No focal sensory or motor deficit. Skin: No rashes or hyperpigmented spots Musculoskeletal system: No joint pain or swelling Hematological: No petechia or subcutanous hemorrhages. Immunological: No multiple septic spots on the skin Lymphatic: No generalized lymphadenopathy Psychiatry: Intubated - Constitutional Vitals: Vital Signs - 12hr 10/23/18 10/23/18 10/23/18 20:15 20:30 20:41 Temperature Pulse Rate 81 80 80 Pulse Rate [ From Monitor] Respiratory 19 20 Rate Blood Pressure 125/75 110/74 110/74 Blood Pressure [Right] O2 Sat by Pulse 98 99 98 Oximetry 10/23/18 10/23/18 10/23/18 20:46 21:00 21:18 Temperature Pulse Rate 83 76 75 Pulse Rate [ From Monitor] Respiratory 24 17 26 H Rate Blood Pressure 122/84 114/74 Blood Pressure 112/88 [Right] O2 Sat by Pulse 100 100 100 Oximetry 10/23/18 10/23/18 10/23/18 21:30 21:45 22:00 Temperature Pulse Rate 70 73 73 Pulse Rate [ From Monitor] Respiratory 26 H 26 H 26 H Rate Blood Pressure 107/66 105/68 111/68 Blood Pressure [Right] O2 Sat by Pulse 100 100 100 Oximetry 10/23/18 10/23/18 10/23/18 22:15 22:30 22:45 Temperature Pulse Rate 74 77 82 Pulse Rate [ From Monitor] Respiratory 26 H 26 H 26 H Rate Blood Pressure 101/67 99/67 95/64 Blood Pressure [Right] O2 Sat by Pulse 100 Oximetry 10/23/18 10/23/18 10/23/18 23:00 23:15 23:30 Temperature Pulse Rate 77 76 77 Pulse Rate [ From Monitor] Respiratory 26 H 26 H 26 H Rate Blood Pressure 90/59 100/61 96/63 Blood Pressure [Right] O2 Sat by Pulse 100 Oximetry 10/23/18 10/24/18 10/24/18 23:45 00:00 00:02 Temperature Pulse Rate 78 81 89 Pulse Rate [ From Monitor] Respiratory 26 H 24 18 Rate Blood Pressure 104/63 93/63 93/63 Blood Pressure [Right] O2 Sat by Pulse 99 100 100 Oximetry 10/24/18 10/24/18 10/24/18 00:05 00:15 00:30 Temperature Pulse Rate 81 79 78 Pulse Rate [ From Monitor] Respiratory 24 24 Rate Blood Pressure 93/63 108/66 106/69 Blood Pressure [Right] O2 Sat by Pulse 98 100 Oximetry 10/24/18 10/24/18 10/24/18 00:45 01:00 01:15 Temperature Pulse Rate 79 76 80 Pulse Rate [ From Monitor] Respiratory 24 24 24 Rate Blood Pressure 103/67 110/68 105/67 Blood Pressure [Right] O2 Sat by Pulse Oximetry 10/24/18 10/24/18 10/24/18 01:52 03:40 04:00 Temperature 100.8 F H 100.9 F H Pulse Rate 63 Pulse Rate [ 83 From Monitor] Respiratory Rate Blood Pressure 119/73 Blood Pressure [Right] O2 Sat by Pulse 98 Oximetry 10/24/18 10/24/18 07:37 08:00 Temperature 98.6 F Pulse Rate 58 L Pulse Rate [ From Monitor] Respiratory Rate Blood Pressure 114/72 Blood Pressure [Right] O2 Sat by Pulse 98 Oximetry - Labs CBC & Chem 7: 10/23/18 16:27 10/23/18 16:27 Labs: Abnormal lab results 10/23/18 10/23/18 10/23/18 Range/Units 15:38 16:27 16:27 WBC 12.5 H (4.5-11.0) K/mm3 MCV 78 L (79-97) fl MCH 23 L (28-32) pg RDW 16.0 H (13.2-15.2) % PT 12.0 L (12.2-14.9) Sec. INR 0.84 L (0.87-1.13) APTT 21.0 L (24.2-36.6) Sec. POC ABG pH (7.35-7.45) POC ABG pCO2 (35-45) POC ABG pO2 (80-105) Sodium (137-145) mmol/L Chloride (98-107) mmol/L BUN (7-17) mg/dL Creatinine (0.7-1.2) mg/dL Glucose (65-100) mg/dL POC Glucose 113 H (70-105) Lactic Acid (0.7-2.0) mmol/L Magnesium (1.7-2.3) mg/dL AST (5-40) units/L ALT (7-56) units/L Albumin (3.9-5) g/dL Salicylates (2.8-20.0) mg/dL Acetaminophen (10.0-30.0) ug/mL 10/23/18 10/23/18 10/23/18 Range/Units 16:27 16:27 16:27 WBC (4.5-11.0) K/mm3 MCV (79-97) fl MCH (28-32) pg RDW (13.2-15.2) % PT (12.2-14.9) Sec. INR (0.87-1.13) APTT (24.2-36.6) Sec. POC ABG pH (7.35-7.45) POC ABG pCO2 (35-45) POC ABG pO2 (80-105) Sodium 136 L (137-145) mmol/L Chloride 95.8 L (98-107) mmol/L BUN 29 H (7-17) mg/dL Creatinine 0.4 L (0.7-1.2) mg/dL Glucose 115 H (65-100) mg/dL POC Glucose (70-105) Lactic Acid (0.7-2.0) mmol/L Magnesium (1.7-2.3) mg/dL AST 61 H (5-40) units/L ALT 72 H (7-56) units/L Albumin 3.7 L (3.9-5) g/dL Salicylates < 0.3 L (2.8-20.0) mg/dL Acetaminophen < 5.0 L (10.0-30.0) ug/mL 10/23/18 10/23/18 10/23/18 Range/Units 16:27 16:40 18:06 WBC (4.5-11.0) K/mm3 MCV (79-97) fl MCH (28-32) pg RDW (13.2-15.2) % PT (12.2-14.9) Sec. INR (0.87-1.13) APTT (24.2-36.6) Sec. POC ABG pH 7.320 L 7.258 L (7.35-7.45) POC ABG pCO2 65.1 H 62.6 H (35-45) POC ABG pO2 79 L (80-105) Sodium (137-145) mmol/L Chloride (98-107) mmol/L BUN (7-17) mg/dL Creatinine (0.7-1.2) mg/dL Glucose (65-100) mg/dL POC Glucose (70-105) Lactic Acid (0.7-2.0) mmol/L Magnesium 4.60 H (1.7-2.3) mg/dL AST (5-40) units/L ALT (7-56) units/L Albumin (3.9-5) g/dL Salicylates (2.8-20.0) mg/dL Acetaminophen (10.0-30.0) ug/mL 10/23/18 10/23/18 10/24/18 Range/Units 20:41 21:53 00:06 WBC (4.5-11.0) K/mm3 MCV (79-97) fl MCH (28-32) pg RDW (13.2-15.2) % PT (12.2-14.9) Sec. INR (0.87-1.13) APTT (24.2-36.6) Sec. POC ABG pH 7.231 L 7.489 H (7.35-7.45) POC ABG pCO2 66.6 H 33.0 L (35-45) POC ABG pO2 72 L 108 H (80-105) Sodium (137-145) mmol/L Chloride (98-107) mmol/L BUN (7-17) mg/dL Creatinine (0.7-1.2) mg/dL Glucose (65-100) mg/dL POC Glucose (70-105) Lactic Acid 2.30 H* (0.7-2.0) mmol/L Magnesium (1.7-2.3) mg/dL AST (5-40) units/L ALT (7-56) units/L Albumin (3.9-5) g/dL Salicylates (2.8-20.0) mg/dL Acetaminophen (10.0-30.0) ug/mL 10/24/18 10/24/18 Range/Units 01:05 04:59 WBC (4.5-11.0) K/mm3 MCV (79-97) fl MCH (28-32) pg RDW (13.2-15.2) % PT (12.2-14.9) Sec. INR (0.87-1.13) APTT (24.2-36.6) Sec. POC ABG pH 7.498 H (7.35-7.45) POC ABG pCO2 32.3 L (35-45) POC ABG pO2 114 H (80-105) Sodium (137-145) mmol/L Chloride (98-107) mmol/L BUN (7-17) mg/dL Creatinine (0.7-1.2) mg/dL Glucose (65-100) mg/dL POC Glucose (70-105) Lactic Acid 3.60 H* (0.7-2.0) mmol/L Magnesium (1.7-2.3) mg/dL AST (5-40) units/L ALT (7-56) units/L Albumin (3.9-5) g/dL Salicylates (2.8-20.0) mg/dL Acetaminophen (10.0-30.0) ug/mL
[2018-10-24] MEDS: ZOSYN/NS 4.5GM/100ML 4.5 GM/100 ML VIAL IV SCH ×3 (09:18→22:05)
[2018-10-24] MEDS: VANCOMYCIN 1,250 MG in NACL 0.9% 250ML 250 ML IV SCH ×2 (09:53→20:18)
[2018-10-24] MEDS: SODIUM CHLORIDE FLUSH SYRINGE 10 ML IV SCH ×2 (09:54→22:06)
[2018-10-24] MEDS: LOVENOX SUB-Q SCH (10:16)
--- NOTE | 2018-10-24 10:25 | XRay Report ---
PROCEDURE: XR CHEST 1V AP TECHNIQUE: Single frontal view of the chest HISTORY: follow up respiratory failure COMPARISONS: The 32,019 FINDINGS: Endotracheal tube with tip in the midtrachea. The cardiomediastinal silhouette is normal in appearance. Streaky opacity at the right lung base. No pleural effusion or pneumothorax. No acute bony or soft tissue abnormality. IMPRESSION: Streaky opacity at the right lung base that may reflect atelectasis. This document is electronically signed by Anastacia Murguia MD., October 24 2018 10:23:03 AM ET
[2018-10-24 12:09] LABS: BUN/Creatinine Ratio 44; Blood Urea Nitrogen 22 mg/dL (7-17); Calcium 8.8 mg/dL (8.4-10.2); Hemolysis Index 95
[2018-10-24] MEDS ORDERED: LASIX IV ONE (12:11)
[2018-10-24 12:13] LABS: Bilirubin,Direct < 0.2 mg/dL (0-0.2)
--- NOTE | 2018-10-24 12:20 | Consultation ---
History of Present Illness Consult date: 10/24/18 Requesting physician: DENIS PALMER Reason for consult: other (Altered Mental State with acute respiratory failure. ) History of present illness: 67 y/o female, admitted yesterday via the ED for altered mental status and acute respiratory failure with hypothermia. Per ED charting, patient was brought from [facility] [place]. She was altered (per documentation, obtunded with GCS of 3 and not able to protect her airway). Patient was intubated and then ABG was obtained. Patient was then immediately started on continuous sedation despite the documentation of mental state. This morning, all sedation is now off, and patient is awake and alert. She follows with Dr. Fausto Spears in [place]. She does have end stage COPD and was being considered for transplant at one point. She wears oxygen at home. There is no family at bedside and not able to obtain any more history. Past History Past Medical History: COPD (on home oxygen 2 L), heart failure, hyperlipidemia, hypothyroidism, other (depression, adenoma in the caecum) Past Surgical History: thyroidectomy, Other (right hemicolectomy) Social history: smoking (patient is a former smoker per chart), other (alcohol and illicit drug use history could not be obtained due to altered mental status) Family history: other (could not be obtained due to altered mental status) Medications and Allergies Allergies Allergy/AdvReac Type Severity Reaction Status Date / Time ibuprofen [From Motrin] AdvReac Shortness Unverified 01/02/15 16:37 of Breath nickel AdvReac Rash Verified 01/09/15 11:22 Home Medications Medication Instructions Recorded Confirmed Last Taken Type ARIPiprazole [Abilify TAB] 10 mg PO DAILY 01/02/15 01/09/15 01/08/15 History Acetaminophen [Tylenol] 325 mg PO Q6HR PRN 01/02/15 01/09/15 01/07/15 History Albuterol Sulfate [Proair Hfa] 2 puff IH TID 01/02/15 01/09/15 01/09/15 History Budesoni/Formotero 160-4.5(Nf) 1 puff IH QDAY 01/02/15 01/09/15 01/09/15 History [Symbicort 160-4.5] Carvedilol 6.25 mg PO BID 01/02/15 01/09/15 01/09/15 History Cetirizine HCl [ZyrTEC] 10 mg PO QDAY 01/02/15 01/09/15 01/08/15 History Estradiol 0.5 mg PO QDAY 01/02/15 01/09/15 01/08/15 History Furosemide 20 mg PO QDAY 01/02/15 01/09/15 01/08/15 History Levothyroxine [Synthroid] 125 mcg PO QAM 01/02/15 01/09/15 01/09/15 History Lisinopril 10 mg PO QDAY 01/02/15 01/09/15 01/09/15 History Mirtazapine 30 mg PO QDAY 01/02/15 01/09/15 01/08/15 History Simvastatin 10 mg PO QDAY 01/02/15 01/09/15 01/08/15 History buPROPion XL [Wellbutrin Xl] 300 mg PO QDAY 01/02/15 01/09/15 01/08/15 History Norvasc 10 mg PO DAILY 01/09/15 01/09/15 01/09/15 History Active Meds: Active Medications Acetaminophen (Tylenol) 650 mg PO Q4H PRN PRN Reason: Pain MILD(1-3)/Fever >100.5/LOU Enoxaparin Sodium (Lovenox) 40 mg SUB-Q QDAY [facility] Last Admin: 10/24/18 10:16 Dose: 40 mg Documented by: Fentanyl (Sublimaze) 50 mcg IV Q10MIN PRN PRN Reason: ANALGESIA Last Admin: 10/23/18 16:10 Dose: 50 mcg Documented by: Furosemide (Lasix) 20 mg IV ONCE ONE Stop: 10/24/18 12:12 Hydrophilic Ointment (Vaseline Lip Therapy) 1 applic TP Q2HR PRN PRN Reason: Dry Lips Vancomycin HCl 1,250 mg/ (Sodium Chloride) 275 mls @ 166.667 mls/hr IV Q12H [facility] Last Admin: 10/24/18 09:53 Dose: 166.667 mls/hr Documented by: Sodium Chloride (Nacl 0.9% 1000 Ml) 1,000 mls @ 75 mls/hr IV DIRECT [facility] Piperacillin Sod/Tazobactam Sod (Zosyn/Ns 4.5gm/100ml) 4.5 gm in 100 mls @ 200 mls/hr IV Q8HR [facility]; Protocol Last Admin: 10/24/18 09:18 Dose: 200 mls/hr Documented by: Methylprednisolone Sodium Succinate (Solu-Medrol) 60 mg IV Q6HR [facility] Midazolam HCl (Versed) 2 mg IV Q10MIN PRN PRN Reason: Sedation Multi-Ingred Cream/Lotion/Oil/Oint (Artificial Tears Ophth Oint) 1 applic OU Q4HR PRN PRN Reason: Dry Eye(s) Ondansetron HCl (Zofran) 4 mg IV Q8H PRN PRN Reason: Nausea And Vomiting Sodium Chloride (Nacl 0.9% 500 Ml) 5 ml IV DIRECT PRN PRN Reason: [employer] Sodium Chloride (Sodium Chloride Flush Syringe 10 Ml) 10 ml IV BID [facility] Last Admin: 10/24/18 09:54 Dose: 10 ml Documented by: Sodium Chloride (Sodium Chloride Flush Syringe 10 Ml) 10 ml IV PRN PRN PRN Reason: LINE FLUSH Review of Systems ROS unobtainable: due to endotracheal tube Physical Examination Vital signs: Vital Signs Pulse BP Pulse Ox 81 125/60 100 10/23/18 15:51 10/23/18 15:51 10/23/18 15:51 General appearance: no acute distress, alert Eyes: non-icteric ENT: other (orally intubated, not on sedation) Effort: normal Ascultation: Bilateral: diminished breath sounds Percussion: Bilateral: not dull Cardiovascular: regular rate and rhythm Gastrointestinal: normoactive bowel sounds, soft, non-tender Integumentary: normal Extremities: no edema, pink and warm, pulses normal normal mental status Results - Laboratory Findings CBC and BMP: 10/23/18 16:27 10/24/18 10:35 ABG POC ABG pH 7.498 (7.35-7.45) H 10/24/18 04:59 POC ABG pCO2 32.3 (35-45) L 10/24/18 04:59 POC ABG pO2 114 (80-105) H 10/24/18 04:59 POC ABG HCO3 25.1 (22-26 mml/L) 10/24/18 04:59 POC ABG Total CO2 26 (23-27mmol/L) 10/24/18 04:59 POC ABG O2 Sat 99 10/24/18 04:59 PT/INR, D-dimer PT 12.0 Sec. (12.2-14.9) L 10/23/18 16:27 INR 0.84 (0.87-1.13) L 10/23/18 16:27 Abnormal lab findings: Abnormal Labs 10/23/18 10/23/18 10/23/18 15:38 16:27 16:27 WBC 12.5 H MCV 78 L MCH 23 L RDW 16.0 H PT 12.0 L INR 0.84 L APTT 21.0 L POC ABG pH POC ABG pCO2 POC ABG pO2 Sodium Chloride BUN Creatinine Glucose POC Glucose 113 H Lactic Acid Magnesium AST ALT Total Protein Albumin Salicylates Acetaminophen 10/23/18 10/23/18 10/23/18 16:27 16:27 16:27 WBC MCV MCH RDW PT INR APTT POC ABG pH POC ABG pCO2 POC ABG pO2 Sodium 136 L Chloride 95.8 L BUN 29 H Creatinine 0.4 L Glucose 115 H POC Glucose Lactic Acid Magnesium AST 61 H ALT 72 H Total Protein Albumin 3.7 L Salicylates < 0.3 L Acetaminophen < 5.0 L 10/23/18 10/23/18 10/23/18 16:27 16:40 18:06 WBC MCV MCH RDW PT INR APTT POC ABG pH 7.320 L 7.258 L POC ABG pCO2 65.1 H 62.6 H POC ABG pO2 79 L Sodium Chloride BUN Creatinine Glucose POC Glucose Lactic Acid Magnesium 4.60 H AST ALT Total Protein Albumin Salicylates Acetaminophen 10/23/18 10/23/18 10/24/18 20:41 21:53 00:06 WBC MCV MCH RDW PT INR APTT POC ABG pH 7.231 L 7.489 H POC ABG pCO2 66.6 H 33.0 L POC ABG pO2 72 L 108 H Sodium Chloride BUN Creatinine Glucose POC Glucose Lactic Acid 2.30 H* Magnesium AST ALT Total Protein Albumin Salicylates Acetaminophen 10/24/18 10/24/18 10/24/18 01:05 04:59 10:35 WBC MCV MCH RDW PT INR APTT POC ABG pH 7.498 H POC ABG pCO2 32.3 L POC ABG pO2 114 H Sodium Chloride BUN 22 H Creatinine 0.5 L Glucose 111 H POC Glucose Lactic Acid 3.60 H* Magnesium 2.50 H AST ALT Total Protein 5.9 L Albumin 3.0 L Salicylates Acetaminophen - Diagnostic Findings Chest x-ray: image reviewed CT scan - chest: image reviewed Assessment and Plan 67 y/o female with known COPD, chronic respiratory failure, admitted with altered mental state, hypothermia and possible acute respiratory failure with hypercapnea. 1. Will attempt PSV and then attempt extubation 2. Will given lasix 20mg IV x1 now. Per patient has taken lasix in the past. 3. Agree with steroids but changed them to 60q6 4. Continue pulmicort and brovana 5. Agree with broad spectrum abx but need to start to tailor soon as cultures come back CCT 31 minutes.
[2018-10-24 12:30] LABS: Alanine Aminotransferase 60 units/L (7-56)
[2018-10-24 13:54] LABS: Monocytes # (Auto) 0.4 K/mm3 (0.0-0.8); Monocytes % (Auto) 4.8 % (0.0-7.3)
[2018-10-24 13:55] LABS: Hematocrit 34.1 % (30.3-42.9); Hemoglobin 10.7 gm/dl (10.1-14.3); Mean Corpuscular HGB Conc 31 % (30-34); Mean Corpuscular Volume 76 fl (79-97); Platelet Count 246 K/mm3 (140-440); Red Blood Count 4.51 M/mm3 (3.65-5.03); Red Cell Distribution Width 15.6 % (13.2-15.2)
[2018-10-24 13:56] LABS: Basophils % (Auto) 0.1 % (0.0-1.8); Lymphocytes # (Auto) 0.6 K/mm3 (1.2-5.4); Lymphocytes % (Auto) 6.9 % (13.4-35.0)
--- NOTE | 2018-10-25 02:39 | XRay Report ---
PROCEDURE: XR CHEST 1V AP TECHNIQUE: Chest radiograph single view. HISTORY: follow up respiratory failure COMPARISONS: None . FINDINGS: Heart: Normal. Mediastinum/Vessels: Normal. Lungs/Pleural space: Normal. Bony thorax: No acute osseous abnormality. Life support devices: None. IMPRESSION: No acute cardiopulmonary abnormality. This document is electronically signed by Angie Phoeinx DO., October 25 2018 02:37:34 AM ET
[2018-10-25 05:11] LABS: Alanine Aminotransferase 55 units/L (7-56); Albumin 3.3 g/dL (3.9-5); BUN/Creatinine Ratio 43; Blood Urea Nitrogen 26 mg/dL (7-17); Hemolysis Index 12
[2018-10-25] MEDS: ZOSYN/NS 4.5GM/100ML 4.5 GM/100 ML VIAL IV SCH ×2 (05:31→15:00)
[2018-10-25] MEDS: SOLU-Medrol IV SCH ×2 (05:32→13:00)
[2018-10-25 07:50] LABS: Mean Corpuscular HGB Conc 30 % (30-34); Mean Corpuscular Volume 78 fl (79-97); Platelet Count 225 K/mm3 (140-440); Red Blood Count 4.81 M/mm3 (3.65-5.03); Red Cell Distribution Width 16.9 % (13.2-15.2)
[2018-10-25 08:01] LABS: Hematocrit 37.5 % (30.3-42.9); Hemoglobin 11.2 gm/dl (10.1-14.3)
--- NOTE | 2018-10-25 08:51 | Progress Note ---
Assessment and Plan COPD. Status post extubation. acute/chronic respiratory failure AMS Hypothermia Rec She had no order for today so are going to start her on DuoNeb every 4-6 hours Initiate BiPAP support postextubation to minimize work of breathing Continue pulmicort and brovana Thyroid profile lapse Advanced nutrition/diet as tolerated DVT prophylaxis Increase, encourage water sips Findings discussed with the patient and nursing detail. All questions answered. Critical care time was 31 minutes of [id number] evaluation and coordination of care Subjective Date of service: 10/25/18 Principal diagnosis: acute respiratory failure, COPD exacerbation, pneumonia, sepsis with hypote Interval history: Some shortness of breath. Noted with eye swelling, she reports that this problem was present before admission Objective Vital Signs - 12hr 10/24/18 10/24/18 10/24/18 21:00 21:10 21:20 Temperature Pulse Rate 77 98 H 83 Pulse Rate [ From Monitor] Respiratory 25 H 25 H 23 Rate Blood Pressure 123/66 123/66 123/66 O2 Sat by Pulse 98 98 98 Oximetry 10/24/18 10/24/18 10/24/18 21:30 21:40 21:50 Temperature Pulse Rate 90 87 79 Pulse Rate [ From Monitor] Respiratory 26 H 24 26 H Rate Blood Pressure 117/68 123/66 123/66 O2 Sat by Pulse 98 98 99 Oximetry 10/24/18 10/24/18 10/24/18 22:00 22:10 22:20 Temperature Pulse Rate 93 H 85 79 Pulse Rate [ From Monitor] Respiratory 29 H 25 H 25 H Rate Blood Pressure 121/66 117/68 117/68 O2 Sat by Pulse 97 98 99 Oximetry 10/24/18 10/24/18 10/24/18 22:30 22:40 22:50 Temperature Pulse Rate 83 92 H 92 H Pulse Rate [ From Monitor] Respiratory 24 16 24 Rate Blood Pressure 122/59 122/59 122/59 O2 Sat by Pulse 100 98 97 Oximetry 10/24/18 10/24/18 10/24/18 23:00 23:10 23:18 Temperature 98.9 F Pulse Rate 88 100 H Pulse Rate [ From Monitor] Respiratory 27 H 26 H Rate Blood Pressure 111/63 111/63 O2 Sat by Pulse 97 97 Oximetry 10/24/18 10/24/18 10/24/18 23:20 23:30 23:40 Temperature Pulse Rate 90 86 91 H Pulse Rate [ From Monitor] Respiratory 26 H 25 H 20 Rate Blood Pressure 111/63 119/61 111/63 O2 Sat by Pulse 98 99 98 Oximetry 10/24/18 10/25/18 10/25/18 23:50 00:00 00:10 Temperature Pulse Rate 89 93 H 102 H Pulse Rate [ 95 H From Monitor] Respiratory 27 H 23 19 Rate Blood Pressure 111/63 112/66 119/61 O2 Sat by Pulse 98 98 97 Oximetry 10/25/18 10/25/18 10/25/18 00:20 00:22 00:30 Temperature Pulse Rate 92 H 99 H 90 Pulse Rate [ From Monitor] Respiratory 26 H 29 H 19 Rate Blood Pressure 119/61 119/61 109/65 O2 Sat by Pulse 97 97 97 Oximetry 10/25/18 10/25/18 10/25/18 00:40 00:50 01:00 Temperature Pulse Rate 94 H 93 H 91 H Pulse Rate [ From Monitor] Respiratory 22 27 H 28 H Rate Blood Pressure 109/65 109/65 115/65 O2 Sat by Pulse 98 98 98 Oximetry 10/25/18 10/25/18 10/25/18 01:10 01:20 01:30 Temperature Pulse Rate 88 86 93 H Pulse Rate [ From Monitor] Respiratory 26 H 24 27 H Rate Blood Pressure 115/65 115/65 113/63 O2 Sat by Pulse 98 99 98 Oximetry 10/25/18 10/25/18 10/25/18 01:40 01:50 02:00 Temperature Pulse Rate 90 86 83 Pulse Rate [ From Monitor] Respiratory 17 33 H 34 H Rate Blood Pressure 113/63 113/63 122/64 O2 Sat by Pulse 99 99 100 Oximetry 10/25/18 10/25/18 10/25/18 02:10 02:20 02:30 Temperature Pulse Rate 81 83 85 Pulse Rate [ From Monitor] Respiratory 32 H 27 H 27 H Rate Blood Pressure 122/64 122/64 119/69 O2 Sat by Pulse 99 99 100 Oximetry 10/25/18 10/25/18 10/25/18 02:40 02:50 03:00 Temperature Pulse Rate 95 H 86 84 Pulse Rate [ From Monitor] Respiratory 23 24 24 Rate Blood Pressure 122/64 122/64 121/58 O2 Sat by Pulse 99 99 99 Oximetry 10/25/18 10/25/18 10/25/18 03:10 03:16 03:18 Temperature 97.8 F Pulse Rate 90 80 Pulse Rate [ From Monitor] Respiratory 24 24 Rate Blood Pressure 121/58 121/58 O2 Sat by Pulse 98 99 Oximetry 10/25/18 10/25/18 10/25/18 03:30 03:46 04:00 Temperature Pulse Rate 83 81 86 Pulse Rate [ 82 From Monitor] Respiratory 25 H 22 21 Rate Blood Pressure 114/61 114/61 119/67 O2 Sat by Pulse 98 99 100 Oximetry 10/25/18 10/25/18 10/25/18 04:16 04:30 04:46 Temperature Pulse Rate 82 89 79 Pulse Rate [ From Monitor] Respiratory 26 H 29 H 26 H Rate Blood Pressure 119/67 126/61 119/67 O2 Sat by Pulse 98 99 99 Oximetry 10/25/18 10/25/18 10/25/18 05:00 05:16 05:30 Temperature Pulse Rate 81 87 76 Pulse Rate [ From Monitor] Respiratory 25 H 29 H 27 H Rate Blood Pressure 118/50 118/50 126/57 O2 Sat by Pulse 99 100 100 Oximetry 10/25/18 10/25/18 10/25/18 05:46 06:00 06:16 Temperature Pulse Rate 79 87 93 H Pulse Rate [ From Monitor] Respiratory 22 23 37 H Rate Blood Pressure 126/57 105/57 105/57 O2 Sat by Pulse 100 99 100 Oximetry 10/25/18 10/25/18 10/25/18 06:30 06:46 07:00 Temperature Pulse Rate 85 79 85 Pulse Rate [ From Monitor] Respiratory 34 H 31 H 23 Rate Blood Pressure 105/57 112/64 116/62 O2 Sat by Pulse 99 99 99 Oximetry 10/25/18 10/25/18 10/25/18 07:16 07:30 07:46 Temperature Pulse Rate 86 94 H 80 Pulse Rate [ From Monitor] Respiratory 25 H 26 H 24 Rate Blood Pressure 116/62 109/69 109/69 O2 Sat by Pulse 99 99 99 Oximetry 10/25/18 10/25/18 10/25/18 08:00 08:16 08:30 Temperature Pulse Rate 97 H 83 91 H Pulse Rate [ From Monitor] Respiratory 14 34 H 21 Rate Blood Pressure 112/70 112/70 124/73 O2 Sat by Pulse 99 99 100 Oximetry 10/25/18 08:46 Temperature Pulse Rate 113 H Pulse Rate [ From Monitor] Respiratory 19 Rate Blood Pressure 124/73 O2 Sat by Pulse 95 Oximetry Constitutional: alert, other (mild respiratory distress) Eyes: non-icteric, other (moderate eyelid and scleral conjunctival swelling. Exophthalmus?) Neck: no JVD Effort: normal Ascultation: Bilateral: diminished breath sounds Percussion: Bilateral: not dull Cardiovascular: regular rate and rhythm Gastrointestinal: normoactive bowel sounds, soft, non-tender Integumentary: normal Extremities: no edema, pink and warm, pulses normal Neurologic: normal mental status Psychiatric: mood appropriate CBC and BMP: 10/25/18 06:38 10/25/18 03:57 ABG, PT/INR, D-dimer: ABG POC ABG pH 7.498 (7.35-7.45) H 10/24/18 04:59 POC ABG pCO2 32.3 (35-45) L 10/24/18 04:59 POC ABG pO2 114 (80-105) H 10/24/18 04:59 POC ABG HCO3 25.1 (22-26 mml/L) 10/24/18 04:59 POC ABG Total CO2 26 (23-27mmol/L) 10/24/18 04:59 POC ABG O2 Sat 99 10/24/18 04:59 PT/INR, D-dimer PT 12.0 Sec. (12.2-14.9) L 10/23/18 16:27 INR 0.84 (0.87-1.13) L 10/23/18 16:27 Abnormal lab findings: Abnormal Labs 10/23/18 10/23/18 10/23/18 15:38 16:27 16:27 WBC 12.5 H MCV 78 L MCH 23 L RDW 16.0 H Lymph % (Auto) Lymph # Seg Neutrophils % PT 12.0 L INR 0.84 L APTT 21.0 L POC ABG pH POC ABG pCO2 POC ABG pO2 Sodium Chloride BUN Creatinine Glucose POC Glucose 113 H Lactic Acid Magnesium AST ALT Total Protein Albumin Salicylates Acetaminophen 10/23/18 10/23/18 10/23/18 16:27 16:27 16:27 WBC MCV MCH RDW Lymph % (Auto) Lymph # Seg Neutrophils % PT INR APTT POC ABG pH POC ABG pCO2 POC ABG pO2 Sodium 136 L Chloride 95.8 L BUN 29 H Creatinine 0.4 L Glucose 115 H POC Glucose Lactic Acid Magnesium AST 61 H ALT 72 H Total Protein Albumin 3.7 L Salicylates < 0.3 L Acetaminophen < 5.0 L 10/23/18 10/23/18 10/23/18 16:27 16:40 18:06 WBC MCV MCH RDW Lymph % (Auto) Lymph # Seg Neutrophils % PT INR APTT POC ABG pH 7.320 L 7.258 L POC ABG pCO2 65.1 H 62.6 H POC ABG pO2 79 L Sodium Chloride BUN Creatinine Glucose POC Glucose Lactic Acid Magnesium 4.60 H AST ALT Total Protein Albumin Salicylates Acetaminophen 10/23/18 10/23/18 10/24/18 20:41 21:53 00:06 WBC MCV MCH RDW Lymph % (Auto) Lymph # Seg Neutrophils % PT INR APTT POC ABG pH 7.231 L 7.489 H POC ABG pCO2 66.6 H 33.0 L POC ABG pO2 72 L 108 H Sodium Chloride BUN Creatinine Glucose POC Glucose Lactic Acid 2.30 H* Magnesium AST ALT Total Protein Albumin Salicylates Acetaminophen 10/24/18 10/24/18 10/24/18 01:05 04:59 10:35 WBC MCV MCH RDW Lymph % (Auto) Lymph # Seg Neutrophils % PT INR APTT POC ABG pH 7.498 H POC ABG pCO2 32.3 L POC ABG pO2 114 H Sodium Chloride BUN 22 H Creatinine 0.5 L Glucose 111 H POC Glucose Lactic Acid 3.60 H* Magnesium 2.50 H AST 42 H ALT 60 H Total Protein 5.9 L Albumin 3.0 L Salicylates Acetaminophen 10/24/18 10/24/18 10/24/18 13:25 13:56 18:49 WBC MCV 76 L MCH 24 L RDW 15.6 H Lymph % (Auto) 6.9 L Lymph # 0.6 L Seg Neutrophils % 88.2 H PT INR APTT POC ABG pH POC ABG pCO2 POC ABG pO2 Sodium Chloride BUN Creatinine Glucose POC Glucose 124 H 131 H Lactic Acid Magnesium AST ALT Total Protein Albumin Salicylates Acetaminophen 10/24/18 10/25/18 10/25/18 21:41 02:04 03:57 WBC MCV MCH RDW Lymph % (Auto) Lymph # Seg Neutrophils % PT INR APTT POC ABG pH POC ABG pCO2 POC ABG pO2 Sodium 149 H D Chloride 109.5 H BUN 26 H Creatinine 0.6 L Glucose 127 H POC Glucose 119 H 123 H Lactic Acid Magnesium 2.50 H AST ALT Total Protein 6.1 L Albumin 3.3 L Salicylates Acetaminophen 10/25/18 10/25/18 05:22 06:38 WBC MCV 78 L MCH 23 L RDW 16.9 H Lymph % (Auto) Lymph # Seg Neutrophils % PT INR APTT POC ABG pH POC ABG pCO2 POC ABG pO2 Sodium Chloride BUN Creatinine Glucose POC Glucose 115 H Lactic Acid Magnesium AST ALT Total Protein Albumin Salicylates Acetaminophen
[2018-10-25] MEDS: LOVENOX SUB-Q SCH (09:31)
[2018-10-25] MEDS: VANCOMYCIN 1,250 MG in NACL 0.9% 250ML 250 ML IV SCH ×2 (09:32→20:33)
[2018-10-25] MEDS: SODIUM CHLORIDE FLUSH SYRINGE 10 ML IV SCH ×2 (09:33→21:24)
[2018-10-25 09:41] LABS: Basophils % (Manual) 0 % (0.0-1.8); Eosinophils % (Manual) 0 % (0.0-4.3); Ovalocytes Rare; Poikilocytosis Few; Target Cells 1+; Total Cells Counted 100
[2018-10-25 09:42] LABS: Platelet Estimate Consistent w Auto
[2018-10-25] MEDS: DUONEB *Not for PRN Use IH SCH ×3 (10:53→19:58)
[2018-10-25] MEDS ORDERED: LASIX PO SCH ×2 (12:00→15:00)
[2018-10-25] MEDS ORDERED: ZESTRIL PO SCH ×2 (13:00→15:00)
--- NOTE | 2018-10-25 14:25 | Progress Note ---
Assessment and Plan Pt is a 67-year-old -[place] female with history of end-stage COPD and hypothyroidism who was brought to the ED via EMS on account of unresponsiveness.The patient lives at a halfway facility and was apparently found down, by neighbors for uncertain duration of time. Her last known well time is not known. EMS reported normal Accu-Chek in the field. Upon arrival to the emergency room, the patient was obtunded, with insufficient respiratory effort, and inability to maintain or protect her airway. She was then intubated and placed on mechanical ventilator. No family or friends were available for additional information. CT Abdomen and pelvis - 10/23/18 IMPRESSION: 1. No acute intrathoracic injury. 2. Thoracic aorta is normal in caliber. No acute dissection or rupture. No pulmonary embolus. Mild pulmonary arterial hypertension. 3. Small patchy nodular airspace opacity right lower lobe concerning for infection. 4. Moderate to severe emphysema. 5. ET tube in satisfactory position. Frothy material along the margin of the distal ET tube likely reflecting mucus or secretions. Assessment and Plan Acute on chronic respiratory failure with hypoxia and hypercapnia. < 96 hrs on mechanical ventilation support. Intubated 10/23/18 extubated 10/24/18 -Continue bronchodilators -On IV steroid and antibiotics -Pulmonology inputs appreciated Acute metabolic encephalopathy -Probably secondary to CO2 narcosis -CT head negative - unremarkable Sepsis (evidenced by hypothermia and leukocytosis) probably secondary to pneumonia -CTA chest showed small patchy nodular airspace opacity in the RT lower lobe concerning for infection CT abdomen and pelvis showed no fatty liver disease. Avoid APAP -On IV broad-spectrum antibiotics with vanc and zosyn -Follow up with Blood and sputum cultures Hypotension - imporved -Probably secondary to the sepsis -Her Blood pressure responded to IV fluid, -Continue to monitor Transaminitis -Probably due to the sepsis, -will trend Abnormal cervical spine CT scan -MRI cervical spine for further evaluation pending Hypermagnesemia -We'll hydrate patient - Trend Hypothyroidism -We will check thyroid function test levels History of CHF -EF unknown, will order echocardiogram -F/u with ECHO Reports History of end-stage COPD on lung transplant list per report DVT prophylaxis with Lovenox Disposition: CCT > 35 mins Subjective Date of service: 10/25/18 Principal diagnosis: acute respiratory failure, COPD exacerbation, pneumonia, sepsis with hypote Interval history: Extubated. still having shortness of breath. No fever. Objective - Exam Narrative Exam: Constitutional: Ill-looking. Extubated 10/24/18 < 96 hrs on mechanical vent Still having increased work of breathing Head: Normocephalic atraumatic Eyes: Pupils are equal round and reactive to light Nose: No enlarged turbinates, no septal deviation. Mouth: ET tube in place Neck: Supple no thyromegaly. No bruit. No JVD Heart: Regular rate and rhythm, S1-S2 normal. No rubs murmurs or gallop Lungs: Decreased breath sounds bilaterally. no rales or rhonchi Abdomen: Soft, nontender. Bowel sound are present. Extremities: No edema, no cyanosis, no clubbing. Neuro: On mechanical ventilation . No focal sensory or motor deficit. Skin: No rashes or hyperpigmented spots Musculoskeletal system: No joint pain or swelling Hematological: No petechia or subcutanous hemorrhages. Immunological: No multiple septic spots on the skin Lymphatic: No generalized lymphadenopathy Psychiatry: Intubated - Constitutional Vitals: Vital Signs - 12hr 10/25/18 10/25/18 10/25/18 02:30 02:40 02:50 Temperature Pulse Rate 85 95 H 86 Pulse Rate [ Anterior Bilateral Throughout] Pulse Rate [ From Monitor] Respiratory 27 H 23 24 Rate Respiratory Rate [Anterior Bilateral Throughout] Blood Pressure 119/69 122/64 122/64 O2 Sat by Pulse 100 99 99 Oximetry 10/25/18 10/25/18 10/25/18 03:00 03:10 03:16 Temperature Pulse Rate 84 90 80 Pulse Rate [ Anterior Bilateral Throughout] Pulse Rate [ From Monitor] Respiratory 24 24 24 Rate Respiratory Rate [Anterior Bilateral Throughout] Blood Pressure 121/58 121/58 121/58 O2 Sat by Pulse 99 98 99 Oximetry 10/25/18 10/25/18 10/25/18 03:18 03:30 03:46 Temperature 97.8 F Pulse Rate 83 81 Pulse Rate [ Anterior Bilateral Throughout] Pulse Rate [ From Monitor] Respiratory 25 H 22 Rate Respiratory Rate [Anterior Bilateral Throughout] Blood Pressure 114/61 114/61 O2 Sat by Pulse 98 99 Oximetry 10/25/18 10/25/18 10/25/18 04:00 04:16 04:30 Temperature Pulse Rate 86 82 89 Pulse Rate [ Anterior Bilateral Throughout] Pulse Rate [ 82 From Monitor] Respiratory 21 26 H 29 H Rate Respiratory Rate [Anterior Bilateral Throughout] Blood Pressure 119/67 119/67 126/61 O2 Sat by Pulse 100 98 99 Oximetry 10/25/18 10/25/18 10/25/18 04:46 05:00 05:16 Temperature Pulse Rate 79 81 87 Pulse Rate [ Anterior Bilateral Throughout] Pulse Rate [ From Monitor] Respiratory 26 H 25 H 29 H Rate Respiratory Rate [Anterior Bilateral Throughout] Blood Pressure 119/67 118/50 118/50 O2 Sat by Pulse 99 99 100 Oximetry 10/25/18 10/25/18 10/25/18 05:30 05:46 06:00 Temperature Pulse Rate 76 79 87 Pulse Rate [ Anterior Bilateral Throughout] Pulse Rate [ From Monitor] Respiratory 27 H 22 23 Rate Respiratory Rate [Anterior Bilateral Throughout] Blood Pressure 126/57 126/57 105/57 O2 Sat by Pulse 100 100 99 Oximetry 10/25/18 10/25/18 10/25/18 06:16 06:30 06:46 Temperature Pulse Rate 93 H 85 79 Pulse Rate [ Anterior Bilateral Throughout] Pulse Rate [ From Monitor] Respiratory 37 H 34 H 31 H Rate Respiratory Rate [Anterior Bilateral Throughout] Blood Pressure 105/57 105/57 112/64 O2 Sat by Pulse 100 99 99 Oximetry 10/25/18 10/25/18 10/25/18 07:00 07:16 07:30 Temperature Pulse Rate 85 86 94 H Pulse Rate [ Anterior Bilateral Throughout] Pulse Rate [ From Monitor] Respiratory 23 25 H 26 H Rate Respiratory Rate [Anterior Bilateral Throughout] Blood Pressure 116/62 116/62 109/69 O2 Sat by Pulse 99 99 99 Oximetry 10/25/18 10/25/18 10/25/18 07:46 08:00 08:16 Temperature 98.3 F Pulse Rate 80 97 H 83 Pulse Rate [ Anterior Bilateral Throughout] Pulse Rate [ 103 H From Monitor] Respiratory 24 14 34 H Rate Respiratory Rate [Anterior Bilateral Throughout] Blood Pressure 109/69 112/70 112/70 O2 Sat by Pulse 99 99 99 Oximetry 10/25/18 10/25/18 10/25/18 08:30 08:46 09:00 Temperature Pulse Rate 91 H 113 H 103 H Pulse Rate [ Anterior Bilateral Throughout] Pulse Rate [ From Monitor] Respiratory 21 19 19 Rate Respiratory Rate [Anterior Bilateral Throughout] Blood Pressure 124/73 124/73 121/74 O2 Sat by Pulse 100 95 96 Oximetry 10/25/18 10/25/18 10/25/18 09:15 09:20 09:52 Temperature Pulse Rate 101 H 118 H Pulse Rate [ 82 Anterior Bilateral Throughout] Pulse Rate [ From Monitor] Respiratory 30 H Rate Respiratory 38 H Rate [Anterior Bilateral Throughout] Blood Pressure 121/74 O2 Sat by Pulse Oximetry 10/25/18 10/25/18 10/25/18 10:10 10:57 12:00 Temperature 97.8 F Pulse Rate Pulse Rate [ 63 Anterior Bilateral Throughout] Pulse Rate [ From Monitor] Respiratory Rate Respiratory 15 Rate [Anterior Bilateral Throughout] Blood Pressure O2 Sat by Pulse 99 Oximetry 10/25/18 10/25/18 14:07 14:14 Temperature Pulse Rate Pulse Rate [ 71 88 Anterior Bilateral Throughout] Pulse Rate [ From Monitor] Respiratory Rate Respiratory 20 15 Rate [Anterior Bilateral Throughout] Blood Pressure O2 Sat by Pulse Oximetry - Labs CBC & Chem 7: 10/25/18 06:38 10/25/18 03:57 Labs: Abnormal lab results 10/24/18 10/24/18 10/25/18 Range/Units 18:49 21:41 02:04 MCV (79-97) fl MCH (28-32) pg RDW (13.2-15.2) % Seg Neuts % (Manual) (40.0-70.0) % Lymphocytes % (Manual) (13.4-35.0) % Seg Neutrophils # Man (1.8-7.7) K/mm3 Lymphocytes # (Manual) (1.2-5.4) K/mm3 Sodium (137-145) mmol/L Chloride (98-107) mmol/L BUN (7-17) mg/dL Creatinine (0.7-1.2) mg/dL Glucose (65-100) mg/dL POC Glucose 131 H 119 H 123 H (70-105) Magnesium (1.7-2.3) mg/dL Total Protein (6.3-8.2) g/dL Albumin (3.9-5) g/dL 10/25/18 10/25/18 10/25/18 Range/Units 03:57 05:22 06:38 MCV 78 L (79-97) fl MCH 23 L (28-32) pg RDW 16.9 H (13.2-15.2) % Seg Neuts % (Manual) 96.0 H (40.0-70.0) % Lymphocytes % (Manual) 2.0 L (13.4-35.0) % Seg Neutrophils # Man 8.8 H (1.8-7.7) K/mm3 Lymphocytes # (Manual) 0.2 L (1.2-5.4) K/mm3 Sodium 149 H D (137-145) mmol/L Chloride 109.5 H (98-107) mmol/L BUN 26 H (7-17) mg/dL Creatinine 0.6 L (0.7-1.2) mg/dL Glucose 127 H (65-100) mg/dL POC Glucose 115 H (70-105) Magnesium 2.50 H (1.7-2.3) mg/dL Total Protein 6.1 L (6.3-8.2) g/dL Albumin 3.3 L (3.9-5) g/dL
[2018-10-25] MEDS ORDERED: NON-FORMULARY (Budesoni/Formotero 160-4.5(Nf) 1 PUFF) IH SCH (14:30)
[2018-10-25] MEDS ORDERED: NON-FORMULARY (Norvasc 10 MG) PO SCH (14:30)
[2018-10-25] MEDS ORDERED: WELLBUTRIN XL PO SCH (15:00)
[2018-10-25] MEDS: DIAMOX PO SCH (21:23)
[2018-10-25] MEDS: REMERON PO SCH (21:23)
[2018-10-25] MEDS: DESYREL PO SCH (21:23)
[2018-10-25] MEDS: PRAVACHOL PO SCH (21:23)
[2018-10-25] MEDS: COREG PO SCH (21:23)
[2018-10-26] MEDS: SOLU-Medrol IV SCH ×5 (01:47→20:04)
[2018-10-26] MEDS: DUONEB *Not for PRN Use IH SCH ×4 (04:25→21:25)
[2018-10-26 05:13] LABS: Mean Corpuscular HGB Conc 30 % (30-34); Mean Corpuscular Volume 79 fl (79-97); Platelet Count 200 K/mm3 (140-440); Red Blood Count 4.35 M/mm3 (3.65-5.03); Red Cell Distribution Width 16.5 % (13.2-15.2)
[2018-10-26 05:23] LABS: Hematocrit 34.3 % (30.3-42.9); Hemoglobin 10.1 gm/dl (10.1-14.3)
[2018-10-26 05:45] LABS: Alanine Aminotransferase 42 units/L (7-56); Albumin 3.1 g/dL (3.9-5); BUN/Creatinine Ratio 50; Blood Urea Nitrogen 30 mg/dL (7-17); Calcium 8.8 mg/dL (8.4-10.2); Hemolysis Index 7
[2018-10-26 06:11] LABS: Basophils % (Manual) 0 % (0.0-1.8); Eosinophils % (Manual) 0 % (0.0-4.3); Hypochromasia 2+; Platelet Estimate Consistent w Auto; Target Cells 1+; Total Cells Counted 100
[2018-10-26] MEDS: ZOSYN/NS 4.5GM/100ML 4.5 GM/100 ML VIAL IV SCH ×3 (06:43→21:56)
[2018-10-26] MEDS: SYNTHROID PO SCH (06:47)
--- NOTE | 2018-10-26 08:52 | XRay Report ---
AP CHEST: HISTORY: Followup respiratory failure No significant change is appreciated since 10/25/18. The lungs appear mildly hyperinflated. Heart size and pulmonary vessels are borderline with mild cephalization of blood flow. The lungs are clear. No evidence for pneumonia, CHF or pneumothorax. IMPRESSION: No acute process identified. Mild hyperinflation. Borderline heart size and pulmonary vessels.
[2018-10-26] MEDS: COREG PO SCH (10:00)
[2018-10-26] MEDS ORDERED: SYNTHROID PO SCH (10:00)
--- NOTE | 2018-10-26 10:36 | Progress Note ---
Assessment and Plan COPD. Status post extubation. acute/chronic respiratory failure AMS Hypothermia Rec Continue nebs Discontinue BiPAP support, and continue with nasal cannula support during the day as tolerated Continue pulmicort and brovana Thyroid profile lapse Advanced nutrition/diet as tolerated DVT prophylaxis Increase, encourage water sips Findings discussed with the patient and nursing detail. All questions answered. Subjective Date of service: 10/26/18 Principal diagnosis: acute respiratory failure, COPD exacerbation, pneumonia, s epsis with hypote Interval history: No events overnight. Patient reports breathing comfortably with BiPAP overnight, no respiratory complaints this morning Objective Vital Signs - 12hr 10/25/18 10/25/18 10/25/18 22:46 23:00 23:16 Temperature Pulse Rate 76 60 58 L Pulse Rate [ Anterior Bilateral Throughout] Pulse Rate [ From Monitor] Pulse Rate [ Throughout] Respiratory 21 19 27 H Rate Respiratory Rate [Anterior Bilateral Throughout] Respiratory Rate [ Throughout] Blood Pressure 117/56 109/60 O2 Sat by Pulse 90 96 97 Oximetry 10/25/18 10/25/18 10/26/18 23:30 23:46 00:00 Temperature Pulse Rate 68 60 56 L Pulse Rate [ Anterior Bilateral Throughout] Pulse Rate [ 52 L From Monitor] Pulse Rate [ Throughout] Respiratory 25 H 26 H 26 H Rate Respiratory Rate [Anterior Bilateral Throughout] Respiratory Rate [ Throughout] Blood Pressure 109/60 109/60 109/60 O2 Sat by Pulse 92 98 99 Oximetry 10/26/18 10/26/18 10/26/18 00:16 00:30 00:46 Temperature Pulse Rate 53 L 50 L 73 Pulse Rate [ Anterior Bilateral Throughout] Pulse Rate [ From Monitor] Pulse Rate [ Throughout] Respiratory 27 H 25 H 22 Rate Respiratory Rate [Anterior Bilateral Throughout] Respiratory Rate [ Throughout] Blood Pressure 113/60 113/60 113/60 O2 Sat by Pulse 98 97 96 Oximetry 10/26/18 10/26/18 10/26/18 01:00 01:16 01:30 Temperature Pulse Rate 63 47 L 77 Pulse Rate [ Anterior Bilateral Throughout] Pulse Rate [ From Monitor] Pulse Rate [ Throughout] Respiratory 23 23 23 Rate Respiratory Rate [Anterior Bilateral Throughout] Respiratory Rate [ Throughout] Blood Pressure 113/60 118/58 113/60 O2 Sat by Pulse 97 98 99 Oximetry 10/26/18 10/26/18 10/26/18 01:39 01:46 02:00 Temperature Pulse Rate 52 L 43 L 42 L Pulse Rate [ Anterior Bilateral Throughout] Pulse Rate [ From Monitor] Pulse Rate [ Throughout] Respiratory 28 H 17 18 Rate Respiratory Rate [Anterior Bilateral Throughout] Respiratory Rate [ Throughout] Blood Pressure 118/58 118/58 118/58 O2 Sat by Pulse 99 99 100 Oximetry 10/26/18 10/26/18 10/26/18 02:16 02:30 02:46 Temperature Pulse Rate 42 L 43 L 46 L Pulse Rate [ Anterior Bilateral Throughout] Pulse Rate [ From Monitor] Pulse Rate [ Throughout] Respiratory 19 19 18 Rate Respiratory Rate [Anterior Bilateral Throughout] Respiratory Rate [ Throughout] Blood Pressure 109/65 109/65 109/65 O2 Sat by Pulse 100 100 100 Oximetry 10/26/18 10/26/18 10/26/18 03:00 03:16 03:30 Temperature Pulse Rate 43 L 49 L 46 L Pulse Rate [ Anterior Bilateral Throughout] Pulse Rate [ From Monitor] Pulse Rate [ Throughout] Respiratory 19 18 19 Rate Respiratory Rate [Anterior Bilateral Throughout] Respiratory Rate [ Throughout] Blood Pressure 117/66 117/66 117/66 O2 Sat by Pulse 100 100 100 Oximetry 10/26/18 10/26/18 10/26/18 03:46 03:48 04:00 Temperature 98.0 F Pulse Rate 45 L 44 L Pulse Rate [ Anterior Bilateral Throughout] Pulse Rate [ 40 L From Monitor] Pulse Rate [ Throughout] Respiratory 18 19 Rate Respiratory Rate [Anterior Bilateral Throughout] Respiratory Rate [ Throughout] Blood Pressure 117/66 107/58 O2 Sat by Pulse 100 99 Oximetry 10/26/18 10/26/18 10/26/18 04:16 04:27 04:30 Temperature Pulse Rate 46 L 42 L Pulse Rate [ 51 L Anterior Bilateral Throughout] Pulse Rate [ From Monitor] Pulse Rate [ Throughout] Respiratory 20 18 Rate Respiratory 17 Rate [Anterior Bilateral Throughout] Respiratory Rate [ Throughout] Blood Pressure 107/58 107/58 O2 Sat by Pulse 99 100 Oximetry 10/26/18 10/26/18 10/26/18 04:31 04:46 04:51 Temperature Pulse Rate 46 L 46 L Pulse Rate [ 57 L Anterior Bilateral Throughout] Pulse Rate [ From Monitor] Pulse Rate [ Throughout] Respiratory 19 16 Rate Respiratory 19 Rate [Anterior Bilateral Throughout] Respiratory Rate [ Throughout] Blood Pressure 107/58 107/58 O2 Sat by Pulse 100 99 Oximetry 10/26/18 10/26/18 10/26/18 05:00 05:16 07:59 Temperature Pulse Rate 40 L 68 Pulse Rate [ 52 L Anterior Bilateral Throughout] Pulse Rate [ From Monitor] Pulse Rate [ 58 L Throughout] Respiratory 16 30 H Rate Respiratory 16 Rate [Anterior Bilateral Throughout] Respiratory 16 Rate [ Throughout] Blood Pressure 105/56 105/56 O2 Sat by Pulse 99 100 Oximetry 10/26/18 10/26/18 08:00 08:01 Temperature 97.4 F L Pulse Rate Pulse Rate [ Anterior Bilateral Throughout] Pulse Rate [ From Monitor] Pulse Rate [ Throughout] Respiratory Rate Respiratory Rate [Anterior Bilateral Throughout] Respiratory Rate [ Throughout] Blood Pressure O2 Sat by Pulse 100 Oximetry Constitutional: no acute distress, alert Eyes: non-icteric, other (moderate eyelid and scleral conjunctival swelling. Exophthalmus?) Neck: no JVD Effort: normal Ascultation: Bilateral: clear, diminished breath sounds Cardiovascular: regular rate and rhythm Gastrointestinal: normoactive bowel sounds, soft, non-tender Integumentary: normal Extremities: no edema, pink and warm, pulses normal Neurologic: normal mental status, non-focal exam, pupils equal and round, CN II-XII normal, motor strength normal and Psychiatric: mood appropriate CBC and BMP: 10/26/18 04:38 10/26/18 04:38 ABG, PT/INR, D-dimer: ABG POC ABG pH 7.498 (7.35-7.45) H 10/24/18 04:59 POC ABG pCO2 32.3 (35-45) L 10/24/18 04:59 POC ABG pO2 114 (80-105) H 10/24/18 04:59 POC ABG HCO3 25.1 (22-26 mml/L) 10/24/18 04:59 POC ABG Total CO2 26 (23-27mmol/L) 10/24/18 04:59 POC ABG O2 Sat 99 10/24/18 04:59 PT/INR, D-dimer PT 12.0 Sec. (12.2-14.9) L 10/23/18 16:27 INR 0.84 (0.87-1.13) L 10/23/18 16:27 Abnormal lab findings: Abnormal Labs 10/23/18 10/23/18 10/23/18 15:38 16:27 16:27 WBC 12.5 H MCV 78 L MCH 23 L RDW 16.0 H Lymph % (Auto) Lymph # Seg Neutrophils % Seg Neuts % (Manual) Lymphocytes % (Manual) Nucleated RBC % Seg Neutrophils # Man Lymphocytes # (Manual) PT 12.0 L INR 0.84 L APTT 21.0 L POC ABG pH POC ABG pCO2 POC ABG pO2 Sodium Chloride Carbon Dioxide BUN Creatinine Glucose POC Glucose 113 H Lactic Acid Magnesium AST ALT Total Protein Albumin Salicylates Acetaminophen 10/23/18 10/23/18 10/23/18 16:27 16:27 16:27 WBC MCV MCH RDW Lymph % (Auto) Lymph # Seg Neutrophils % Seg Neuts % (Manual) Lymphocytes % (Manual) Nucleated RBC % Seg Neutrophils # Man Lymphocytes # (Manual) PT INR APTT POC ABG pH POC ABG pCO2 POC ABG pO2 Sodium 136 L Chloride 95.8 L Carbon Dioxide BUN 29 H Creatinine 0.4 L Glucose 115 H POC Glucose Lactic Acid Magnesium AST 61 H ALT 72 H Total Protein Albumin 3.7 L Salicylates < 0.3 L Acetaminophen < 5.0 L 10/23/18 10/23/18 10/23/18 16:27 16:40 18:06 WBC MCV MCH RDW Lymph % (Auto) Lymph # Seg Neutrophils % Seg Neuts % (Manual) Lymphocytes % (Manual) Nucleated RBC % Seg Neutrophils # Man Lymphocytes # (Manual) PT INR APTT POC ABG pH 7.320 L 7.258 L POC ABG pCO2 65.1 H 62.6 H POC ABG pO2 79 L Sodium Chloride Carbon Dioxide BUN Creatinine Glucose POC Glucose Lactic Acid Magnesium 4.60 H AST ALT Total Protein Albumin Salicylates Acetaminophen 10/23/18 10/23/18 10/24/18 20:41 21:53 00:06 WBC MCV MCH RDW Lymph % (Auto) Lymph # Seg Neutrophils % Seg Neuts % (Manual) Lymphocytes % (Manual) Nucleated RBC % Seg Neutrophils # Man Lymphocytes # (Manual) PT INR APTT POC ABG pH 7.231 L 7.489 H POC ABG pCO2 66.6 H 33.0 L POC ABG pO2 72 L 108 H Sodium Chloride Carbon Dioxide BUN Creatinine Glucose POC Glucose Lactic Acid 2.30 H* Magnesium AST ALT Total Protein Albumin Salicylates Acetaminophen 10/24/18 10/24/18 10/24/18 01:05 04:59 10:35 WBC MCV MCH RDW Lymph % (Auto) Lymph # Seg Neutrophils % Seg Neuts % (Manual) Lymphocytes % (Manual) Nucleated RBC % Seg Neutrophils # Man Lymphocytes # (Manual) PT INR APTT POC ABG pH 7.498 H POC ABG pCO2 32.3 L POC ABG pO2 114 H Sodium Chloride Carbon Dioxide BUN 22 H Creatinine 0.5 L Glucose 111 H POC Glucose Lactic Acid 3.60 H* Magnesium 2.50 H AST 42 H ALT 60 H Total Protein 5.9 L Albumin 3.0 L Salicylates Acetaminophen 10/24/18 10/24/18 10/24/18 13:25 13:56 18:49 WBC MCV 76 L MCH 24 L RDW 15.6 H Lymph % (Auto) 6.9 L Lymph # 0.6 L Seg Neutrophils % 88.2 H Seg Neuts % (Manual) Lymphocytes % (Manual) Nucleated RBC % Seg Neutrophils # Man Lymphocytes # (Manual) PT INR APTT POC ABG pH POC ABG pCO2 POC ABG pO2 Sodium Chloride Carbon Dioxide BUN Creatinine Glucose POC Glucose 124 H 131 H Lactic Acid Magnesium AST ALT Total Protein Albumin Salicylates Acetaminophen 10/24/18 10/25/18 10/25/18 21:41 02:04 03:57 WBC MCV MCH RDW Lymph % (Auto) Lymph # Seg Neutrophils % Seg Neuts % (Manual) Lymphocytes % (Manual) Nucleated RBC % Seg Neutrophils # Man Lymphocytes # (Manual) PT INR APTT POC ABG pH POC ABG pCO2 POC ABG pO2 Sodium 149 H D Chloride 109.5 H Carbon Dioxide BUN 26 H Creatinine 0.6 L Glucose 127 H POC Glucose 119 H 123 H Lactic Acid Magnesium 2.50 H AST ALT Total Protein 6.1 L Albumin 3.3 L Salicylates Acetaminophen 10/25/18 10/25/18 10/26/18 05:22 06:38 02:00 WBC MCV 78 L MCH 23 L RDW 16.9 H Lymph % (Auto) Lymph # Seg Neutrophils % Seg Neuts % (Manual) 96.0 H Lymphocytes % (Manual) 2.0 L Nucleated RBC % Seg Neutrophils # Man 8.8 H Lymphocytes # (Manual) 0.2 L PT INR APTT POC ABG pH POC ABG pCO2 POC ABG pO2 Sodium Chloride Carbon Dioxide BUN Creatinine Glucose POC Glucose 115 H 126 H Lactic Acid Magnesium AST ALT Total Protein Albumin Salicylates Acetaminophen 10/26/18 10/26/18 10/26/18 04:38 04:38 05:51 WBC MCV MCH 23 L RDW 16.5 H Lymph % (Auto) Lymph # Seg Neutrophils % Seg Neuts % (Manual) 91.0 H Lymphocytes % (Manual) 6.0 L Nucleated RBC % 1.0 H Seg Neutrophils # Man Lymphocytes # (Manual) 0.4 L PT INR APTT POC ABG pH POC ABG pCO2 POC ABG pO2 Sodium 146 H Chloride 108.5 H Carbon Dioxide 32 H BUN 30 H Creatinine 0.6 L Glucose 123 H POC Glucose 147 H Lactic Acid Magnesium AST ALT Total Protein 5.7 L Albumin 3.1 L Salicylates Acetaminophen
[2018-10-26] MEDS: VANCOMYCIN 1,250 MG in NACL 0.9% 250ML 250 ML IV SCH ×2 (11:22→20:53)
[2018-10-26] MEDS: WELLBUTRIN XL PO SCH (11:23)
[2018-10-26] MEDS: DIAMOX PO SCH ×2 (11:24→21:57)
[2018-10-26] MEDS: LOVENOX SUB-Q SCH (11:24)
[2018-10-26] MEDS: ABILIFY PO SCH ×2 (11:25→11:26)
[2018-10-26] MEDS: NORVASC PO SCH (13:52)
[2018-10-26] MEDS: CLARITIN PO SCH (13:59)
[2018-10-26] MEDS: ZESTRIL PO SCH (14:00)
[2018-10-26] MEDS: SODIUM CHLORIDE FLUSH SYRINGE 10 ML IV SCH ×2 (14:00→21:59)
[2018-10-26] MEDS: LASIX PO SCH (14:01)
--- NOTE | 2018-10-26 14:52 | Progress Note ---
Assessment and Plan Assessment and plan: 67-year-old woman with history of end-stage COPD on home oxygen, hypothyroid. She was brought to the hospital for decreased responsiveness. She was admitted for respiratory failure, she was intubated for airway protection and because she was obtunded. She was treated with the ventilator, steroids nebs. The patient improved. She was weaned of ventilator to nasal cannula oxygen. She continued to improve. She received pulmonology consult. She received echo which showed preserved EF. -She became bradycardic after initiation of carvedilol. Coreg was therefore discontinued. Tentative discharge tomorrow if patient continues to improve Diagnoses Acute on chronic hypoxic respiratory failure, requiring mechanical ventilator less than 96 hours COPD exacerbation Pneumonia was ruled out, with serial imaging Sepsis was ruled out SIRS without acute organ dysfunction Bradycardia, likely iatrogenic History Interval history: Review of systems Constitutional: No fevers, no malaise, no joint pains CVS: No chest pain, no orthopnea, no dyspnea on exertion, no pedal edema GI: No abdominal pain, no diarrhea, no vomiting, no constipation Respiratory: No shortness of breath, no wheezing, no coughing Hospitalist Physical - Physical exam Narrative exam: General.: Appears well, no distress, nontoxic HEENT: Moist mucous membranes, extraocular muscles intact, no lymphadenopathy Neck: supple Cardiac: S1-S2 heard Lungs: Diminished air entry Abdomen: soft , nontender, nondistended, bowel sounds positive Extremities: no edema clubbing or cyanosis Skin: no rash or lesions Neurologic: no gross focal deficits Psych: calm, and cooperative - Constitutional Vitals: Temp Pulse Resp BP Pulse Ox 99.0 F 83 31 H 126/65 94 10/26/18 12:00 10/26/18 14:30 10/26/18 14:30 10/26/18 14:30 10/26/18 14:30 General appearance: Present: mild distress (patient is mildly tachypneic), other (patient is intubated) Results - Labs CBC & Chem 7: 10/26/18 04:38 10/26/18 04:38 Labs: Laboratory Last Values WBC 6.5 K/mm3 (4.5-11.0) 10/26/18 04:38 RBC 4.35 M/mm3 (3.65-5.03) 10/26/18 04:38 Hgb 10.1 gm/dl (10.1-14.3) 10/26/18 04:38 Hct 34.3 % (30.3-42.9) 10/26/18 04:38 MCV 79 fl (79-97) 10/26/18 04:38 MCH 23 pg (28-32) L 10/26/18 04:38 MCHC 30 % (30-34) 10/26/18 04:38 RDW 16.5 % (13.2-15.2) H 10/26/18 04:38 Plt Count 200 K/mm3 (140-440) 10/26/18 04:38 Lymph % (Auto) 6.9 % (13.4-35.0) L 10/24/18 13:25 [place] % (Auto) 4.8 % (0.0-7.3) 10/24/18 13:25 Eos % (Auto) 0.0 % (0.0-4.3) 10/24/18 13:25 Baso % (Auto) 0.1 % (0.0-1.8) 10/24/18 13:25 Lymph # 0.6 K/mm3 (1.2-5.4) L 10/24/18 13:25 [place] # 0.4 K/mm3 (0.0-0.8) 10/24/18 13:25 Eos # 0.0 K/mm3 (0.0-0.4) 10/24/18 13:25 Baso # 0.0 K/mm3 (0.0-0.1) 10/24/18 13:25 Add Manual Diff Complete 10/26/18 04:38 Total Counted 100 10/26/18 04:38 Seg Neutrophils % Perioperative Manager 10/26/18 04:38 Seg Neuts % (Manual) 91.0 % (40.0-70.0) H 10/26/18 04:38 Band Neutrophils % 0 % 10/26/18 04:38 Lymphocytes % (Manual) 6.0 % (13.4-35.0) L 10/26/18 04:38 Reactive Lymphs % (Man) 0 % 10/26/18 04:38 Monocytes % (Manual) 3.0 % (0.0-7.3) 10/26/18 04:38 Eosinophils % (Manual) 0 % (0.0-4.3) 10/26/18 04:38 Basophils % (Manual) 0 % (0.0-1.8) 10/26/18 04:38 Metamyelocytes % 0 % 10/26/18 04:38 Myelocytes % 0 % 10/26/18 04:38 Promyelocytes % 0 % 10/26/18 04:38 Blast Cells % 0 % 10/26/18 04:38 Nucleated RBC % 1.0 % (0.0-0.9) H 10/26/18 04:38 Seg Neutrophils # 7.4 K/mm3 (1.8-7.7) 10/24/18 13:25 Seg Neutrophils # Man 5.9 K/mm3 (1.8-7.7) 10/26/18 04:38 Band Neutrophils # 0.0 K/mm3 10/26/18 04:38 Lymphocytes # (Manual) 0.4 K/mm3 (1.2-5.4) L 10/26/18 04:38 Abs React Lymphs (Man) 0.0 K/mm3 10/26/18 04:38 Monocytes # (Manual) 0.2 K/mm3 (0.0-0.8) 10/26/18 04:38 Eosinophils # (Manual) 0.0 K/mm3 (0.0-0.4) 10/26/18 04:38 Basophils # (Manual) 0.0 K/mm3 (0.0-0.1) 10/26/18 04:38 Metamyelocytes # 0.0 K/mm3 10/26/18 04:38 Myelocytes # 0.0 K/mm3 10/26/18 04:38 Promyelocytes # 0.0 K/mm3 10/26/18 04:38 Blast Cells # 0.0 K/mm3 10/26/18 04:38 WBC Morphology Not Reportable 10/26/18 04:38 Hypersegmented Neuts Not Reportable 10/26/18 04:38 Hyposegmented Neuts Not Reportable 10/26/18 04:38 Hypogranular Neuts Not Reportable 10/26/18 04:38 Smudge Cells Not Reportable 10/26/18 04:38 Toxic Granulation Not Reportable 10/26/18 04:38 Toxic Vacuolation Not Reportable 10/26/18 04:38 Dohle Bodies Not Reportable 10/26/18 04:38 Pelger-Huet Anomaly Not Reportable 10/26/18 04:38 Damien Rods Not Reportable 10/26/18 04:38 Platelet Estimate Consistent w auto 10/26/18 04:38 Clumped Platelets Not Reportable 10/26/18 04:38 Plt Clumps, EDTA Not Reportable 10/26/18 04:38 Large Platelets Not Reportable 10/26/18 04:38 Giant Platelets Not Reportable 10/26/18 04:38 Platelet Satelliting Not Reportable 10/26/18 04:38 Plt Morphology Comment Not Reportable 10/26/18 04:38 RBC Morphology Not Reportable 10/26/18 04:38 Dimorphic RBCs Not Reportable 10/26/18 04:38 Polychromasia Not Reportable 10/26/18 04:38 Hypochromasia 2+ 10/26/18 04:38 Poikilocytosis Not Reportable 10/26/18 04:38 Anisocytosis Not Reportable 10/26/18 04:38 Microcytosis Not Reportable 10/26/18 04:38 Macrocytosis Not Reportable 10/26/18 04:38 Spherocytes Not Reportable 10/26/18 04:38 Pappenheimer Bodies Not Reportable 10/26/18 04:38 Sickle Cells Not Reportable 10/26/18 04:38 Target Cells 1+ 10/26/18 04:38 Tear Drop Cells Not Reportable 10/26/18 04:38 Ovalocytes Not Reportable 10/26/18 04:38 Helmet Cells Not Reportable 10/26/18 04:38 Fong-Ricketts Bodies Not Reportable 10/26/18 04:38 [place] Rings Not Reportable 10/26/18 04:38 Ariella Cells Not Reportable 10/26/18 04:38 Bite Cells Not Reportable 10/26/18 04:38 Crenated Cell Not Reportable 10/26/18 04:38 Elliptocytes Not Reportable 10/26/18 04:38 Acanthocytes (Spur) Not Reportable 10/26/18 04:38 Rouleaux Not Reportable 10/26/18 04:38 Hemoglobin C Crystals Not Reportable 10/26/18 04:38 Schistocytes Not Reportable 10/26/18 04:38 Malaria parasites Not Reportable 10/26/18 04:38 [place] Bodies Not Reportable 10/26/18 04:38 Hem Pathologist Commnt No 10/26/18 04:38 PT 12.0 Sec. (12.2-14.9) L 10/23/18 16:27 INR 0.84 (0.87-1.13) L 10/23/18 16:27 APTT 21.0 Sec. (24.2-36.6) L 10/23/18 16:27 POC ABG pH 7.498 (7.35-7.45) H 10/24/18 04:59 POC ABG pCO2 32.3 (35-45) L 10/24/18 04:59 POC ABG pO2 114 (80-105) H 10/24/18 04:59 POC ABG HCO3 25.1 (22-26 mml/L) 10/24/18 04:59 POC ABG Total CO2 26 (23-27mmol/L) 10/24/18 04:59 POC ABG O2 Sat 99 10/24/18 04:59 POC ABG Base Excess 2 ((-2) - (+3)mmol/L) 10/24/18 04:59 FiO2 40 % 10/24/18 04:59 Sodium 146 mmol/L (137-145) H 10/26/18 04:38 Potassium 4.3 mmol/L (3.6-5.0) 10/26/18 04:38 Chloride 108.5 mmol/L (98-107) H 10/26/18 04:38 Carbon Dioxide 32 mmol/L (22-30) H 10/26/18 04:38 Anion Gap 10 mmol/L 10/26/18 04:38 BUN 30 mg/dL (7-17) H 10/26/18 04:38 Creatinine 0.6 mg/dL (0.7-1.2) L 10/26/18 04:38 Estimated GFR > 60 ml/min 10/26/18 04:38 BUN/Creatinine Ratio 50 % 10/26/18 04:38 Glucose 123 mg/dL (65-100) H 10/26/18 04:38 POC Glucose 147 (70-105) H 10/26/18 05:51 Lactic Acid 1.00 mmol/L (0.7-2.0) 10/24/18 13:25 Calcium 8.8 mg/dL (8.4-10.2) 10/26/18 04:38 Magnesium 2.50 mg/dL (1.7-2.3) H 10/25/18 03:57 Total Bilirubin 0.30 mg/dL (0.1-1.2) 10/26/18 04:38 Direct Bilirubin < 0.2 mg/dL (0-0.2) 10/24/18 10:35 Indirect Bilirubin 0.2 mg/dL 10/24/18 10:35 AST 16 units/L (5-40) 10/26/18 04:38 ALT 42 units/L (7-56) 10/26/18 04:38 Alkaline Phosphatase 63 units/L (35-129) 10/26/18 04:38 Total Creatine Kinase 66 units/L (30-135) 10/23/18 16:27 Troponin T < 0.010 ng/mL (0.00-0.029) 10/23/18 16:27 NT-Pro-B Natriuret Pep 835.8 pg/mL (0-900) 10/24/18 13:25 Total Protein 5.7 g/dL (6.3-8.2) L 10/26/18 04:38 Albumin 3.1 g/dL (3.9-5) L 10/26/18 04:38 Albumin/Globulin Ratio 1.2 % 10/26/18 04:38 TSH 0.527 mlU/mL (0.270-4.200) 10/24/18 10:35 Free T4 1.10 ng/dL (0.76-1.46) 10/24/18 10:35 Urine Color Yellow (Yellow) 10/23/18 16:18 Urine Turbidity Slightly-cloudy (Clear) 10/23/18 16:18 Urine pH 5.0 (5.0-7.0) 10/23/18 16:18 Ur Specific [place] 1.016 (1.003-1.030) 10/23/18 16:18 Urine Protein <15 mg/dl mg/dL (Negative) 10/23/18 16:18 Urine Glucose (UA) Neg mg/dL (Negative) 10/23/18 16:18 Urine Ketones Neg mg/dL (Negative) 10/23/18 16:18 Urine Blood Neg (Negative) 10/23/18 16:18 Urine Nitrite Neg (Negative) 10/23/18 16:18 Urine Bilirubin Neg (Negative) 10/23/18 16:18 Urine Urobilinogen 2.0 mg/dL (<2.0) 10/23/18 16:18 Ur Leukocyte Esterase Neg (Negative) 10/23/18 16:18 Urine WBC (Auto) < 1.0 /HPF (0.0-6.0) 10/23/18 16:18 Urine RBC (Auto) 1.0 /HPF (0.0-6.0) 10/23/18 16:18 U Epithel Cells (Auto) < 1.0 /HPF (0-13.0) 10/23/18 16:18 Urine Mucus Few /HPF 10/23/18 16:18 Salicylates < 0.3 mg/dL (2.8-20.0) L 10/23/18 16:27 Urine Opiates Screen Presumptive negative 10/23/18 16:18 Urine Methadone Screen Presumptive negative 10/23/18 16:18 Acetaminophen < 5.0 ug/mL (10.0-30.0) L 10/23/18 16:27 Ur Barbiturates Screen Presumptive negative 10/23/18 16:18 Ur Phencyclidine Scrn Presumptive negative 10/23/18 16:18 Ur Amphetamines Screen Presumptive negative 10/23/18 16:18 U Benzodiazepines Scrn Presumptive negative 10/23/18 16:18 Urine Cocaine Screen Presumptive negative 10/23/18 16:18 U Marijuana (THC) Screen Presumptive negative 10/23/18 16:18 Drugs of Abuse Note Disclamer 10/23/18 16:18 Plasma/Serum Alcohol < 0.01 % (0-0.07) 10/23/18 16:27 Active Medications - Current Medications Current Medications: Generic Name Dose Route Start Last Admin Trade Name Freq PRN Reason Stop Dose Admin Acetaminophen 650 mg 10/23/18 21:55 Tylenol PO Q4H PRN Pain MILD(1-3)/Fever >100.5/LOU Acetazolamide 500 mg 10/25/18 22:00 10/26/18 11:24 Diamox PO 500 mg BID GABRIEL Administration Albuterol/Ipratropium 1 ampul 10/25/18 10:15 10/26/18 13:31 Duoneb *Not For Prn Use* IH 1 ampul Q6HRT GABRIEL Administration Amlodipine Besylate 10 mg 10/25/18 12:00 10/26/18 13:52 Norvasc PO Not Given DAILY GABRIEL Aripiprazole 10 mg 10/25/18 12:00 10/26/18 11:26 Abilify PO 10 mg QDAY GABRIEL Administration Bupropion HCl 300 mg 10/25/18 12:00 10/26/18 11:23 Wellbutrin Xl PO 300 mg DAILY GABRIEL Administration Enoxaparin Sodium 40 mg 10/24/18 10:00 10/26/18 11:24 Lovenox SUB-Q 40 mg QDAY GABRIEL Administration Furosemide 40 mg 10/26/18 10:00 10/26/18 14:01 Lasix PO 40 mg QAM GABRIEL Administration Hydrophilic Ointment 1 applic 10/23/18 15:53 Vaseline Lip Therapy TP Q2HR PRN Dry Lips Vancomycin HCl 1,250 mg/ 275 mls @ 166.667 mls/hr 10/24/18 08:30 10/26/18 11:22 Sodium Chloride IV 10/27/18 23:59 166.667 mls/hr Q12H GABRIEL Administration Piperacillin Sod/Tazobactam Sod 4.5 gm in 100 mls @ 200 mls/hr 10/23/18 23:00 10/26/18 13:56 Zosyn/Ns 4.5gm/100ml IV 10/29/18 22:59 200 mls/hr Q8HR GABRIEL Administration Protocol Levothyroxine Sodium 125 mcg 10/25/18 13:00 10/26/18 06:47 Synthroid PO 125 mcg DAILY@0600 GABRIEL Administration Lisinopril 2.5 mg 10/26/18 10:00 10/26/18 14:00 Zestril PO Not Given QDAY GABRIEL Loratadine 10 mg 10/25/18 13:00 10/26/18 13:59 Claritin PO 10 mg DAILY GABRIEL Administration Methylprednisolone Sodium Succinate 60 mg 10/24/18 12:11 10/26/18 13:55 Solu-Medrol IV 60 mg Q6HR GABRIEL Administration Mirtazapine 30 mg 10/25/18 22:00 10/25/18 21:23 Remeron PO 30 mg QHS GABRIEL Administration Multi-Ingred Cream/Lotion/Oil/Oint 1 applic 10/23/18 15:53 Artificial Tears Ophth Oint OU Q4HR PRN Dry Eye(s) Ondansetron HCl 4 mg 10/23/18 21:55 Zofran IV Q8H PRN Nausea And Vomiting Pravastatin Sodium 20 mg 10/25/18 22:00 10/25/18 21:23 Pravachol PO 20 mg QHS GABRIEL Administration Sodium Chloride 5 ml 10/23/18 15:53 Nacl 0.9% 500 Ml IV DIRECT PRN ARTERIAL DIRECTOR OF FIELD SALES Sodium Chloride 10 ml 10/23/18 22:00 10/26/18 14:00 Sodium Chloride Flush Syringe 10 Ml IV 10 ml BID GABRIEL Administration Sodium Chloride 10 ml 10/23/18 21:55 Sodium Chloride Flush Syringe 10 Ml IV PRN PRN LINE FLUSH Trazodone HCl 50 mg 10/25/18 22:00 10/25/18 21:23 Desyrel PO 50 mg HS GABRIEL Administration Nutrition/Malnutrition Assess - Dietary Evaluation Nutrition/Malnutrition Findings: Nutrition Notes Start: 10/25/18 16:29 Freq: Status: Active Protocol: Document 10/26/18 12:58 EB (Rec: 10/26/18 13:04 [id number]) Co-Sign 10/26/18 12:58 LP Nutrition Notes Initial or Follow up Reassessment Current Diet Cardiac diet Labs/Tests Reviewed Pertinent Medications Lasix Height 5 ft 6 in Weight 77.7 kg [place] Body Weight (kg) 59.09 BMI 27.6 Subjective/Other Information Pt on oxygen mask and cannot eat meal that was delivered to her for breakfast. RN states nasal canula will be placed today so pt can begin eating again. Percent of energy/protein needs met: 0%/0% Burn Absent Trauma Absent #1 Nutrition Diagnosis Inadequate oral intake Etiology pt on oxygen mask As Evidenced by Signs and Symptoms unable to eat meals with mask on, resulting in 0% consumption of breakfast this am Diagnosis Progress(for reassessment Continues documentation) Is patient on ventilator? No Is Patient Ambulatory and/or Out of Bed No REE-([place]-St[place] Jeor-confined to bed) 0165.900 Calculation Used for Recommendations [place] Jeor Additional Notes protein (1-1.2g/kg): 78-94g fluid: 1mL/kcal Nutrition Intervention Change Diet Order: Continue cardiac diet Add Supplement/Snack (indicate name/kcal Ensure Enlive daily /protein ) Provides kCal: 350 Provides Protein (gm) 20 Goal #1 meet at least 75% [place] and pro needs via PO and ONS intake Anticipated Discharge Needs: Cardiac Follow-Up By: 10/28/18 Additional Comments f/u: PO and ONS intake
[2018-10-26] MEDS: REMERON PO SCH (21:57)
[2018-10-26] MEDS: PRAVACHOL PO SCH (21:58)
[2018-10-26] MEDS: DESYREL PO SCH (21:59)
[2018-10-27] MEDS: SOLU-Medrol IV SCH ×6 (00:12→23:26)
[2018-10-27] MEDS: DUONEB *Not for PRN Use IH SCH ×4 (02:25→20:06)
[2018-10-27 05:32] LABS: Mean Corpuscular HGB Conc 30 % (30-34); Mean Corpuscular Volume 78 fl (79-97); Platelet Count 195 K/mm3 (140-440); Red Blood Count 4.44 M/mm3 (3.65-5.03); Red Cell Distribution Width 16.2 % (13.2-15.2)
[2018-10-27 05:49] LABS: Hematocrit 34.8 % (30.3-42.9); Hemoglobin 10.3 gm/dl (10.1-14.3)
[2018-10-27] MEDS: ZOSYN/NS 4.5GM/100ML 4.5 GM/100 ML VIAL IV SCH ×3 (06:00→21:02)
[2018-10-27] MEDS: SYNTHROID PO SCH ×2 (06:01→23:20)
[2018-10-27 06:04] LABS: Alanine Aminotransferase 40 units/L (7-56); Albumin 3.3 g/dL (3.9-5); BUN/Creatinine Ratio 55; Blood Urea Nitrogen 33 mg/dL (7-17); Calcium 8.5 mg/dL (8.4-10.2); Hemolysis Index 0
[2018-10-27 06:57] LABS: Basophils % (Manual) 0 % (0.0-1.8); Eosinophils % (Manual) 0 % (0.0-4.3); Hypochromasia 2+; Platelet Estimate Consistent w Auto; Total Cells Counted 100
--- NOTE | 2018-10-27 08:08 | XRay Report ---
Single view chest: Compared to 10/26/18. History: Followup respiratory failure. Findings: Borderline cardiomegaly. Trachea is midline. No consolidation, pneumothorax or pleural effusion. Impression: Cardiomegaly. No acute lung changes.
[2018-10-27] MEDS: VANCOMYCIN 1,250 MG in NACL 0.9% 250ML 250 ML IV SCH ×2 (08:52→21:04)
[2018-10-27] MEDS: CLARITIN PO SCH ×2 (09:00→23:20)
[2018-10-27] MEDS: NORVASC PO SCH ×2 (09:01→23:20)
[2018-10-27] MEDS: ABILIFY PO SCH ×2 (09:01→23:20)
[2018-10-27] MEDS: WELLBUTRIN XL PO SCH ×2 (09:01→23:20)
[2018-10-27] MEDS: LASIX PO SCH (09:02)
[2018-10-27] MEDS: SODIUM CHLORIDE FLUSH SYRINGE 10 ML IV SCH ×2 (09:02→21:08)
[2018-10-27] MEDS: LOVENOX SUB-Q SCH ×3 (09:02→23:23)
[2018-10-27] MEDS: ZESTRIL PO SCH (09:07)
--- NOTE | 2018-10-27 09:34 | Progress Note ---
Assessment and Plan COPD. Status post extubation. acute/chronic respiratory failure AMS Hypothermia Rec Continue nebs Discontinue BiPAP support, and continue with nasal cannula support during the day as tolerated Continue pulmicort and brovana while inpatient Ambulate patient as tolerated and monitor oximetry May need inpatient rehabilitation depending on level of tolerance Update influenza and pneumonia vaccination, if not completed already. Candidate for pulmonary rehabilitation after outpatient check. She follows with Dr. Spears in [place] for pulmonary Outpatient pulmonary evaluation, PFT workup for COPD severity stratification Inhaler therapy including LAMA, LABA/ICS therapy, per GOLD guidelines. Recommend Trelegy one inhalation daily plus her nebulization albuterol every 4 hours as needed plus oxygen support Prednisone 30 mg by mouth unless limited by blood sugar problems with 7 day taper We'll continue to follow up as inpatient and then sign off Findings discussed with the patient and nursing detail. All questions answered. Subjective Date of service: 10/27/18 Principal diagnosis: acute respiratory failure, COPD exacerbation, pneumonia, sepsis with hypote Interval history: Breathing much better. No events overnight. Tolerated BiPAP at night without problems. Now on nasal cannula at 3 L/m, bedside oximetry is 95% Objective Vital Signs - 12hr 10/26/18 10/26/18 10/26/18 21:39 21:46 22:00 Temperature Pulse Rate 72 62 Pulse Rate [ 75 Anterior Bilateral Throughout] Respiratory 33 H 35 H Rate Respiratory Rate [Anterior Bilateral Throughout] Blood Pressure 106/61 118/68 O2 Sat by Pulse 98 97 Oximetry 10/26/18 10/26/18 10/26/18 22:02 22:15 22:30 Temperature Pulse Rate 50 L 67 62 Pulse Rate [ Anterior Bilateral Throughout] Respiratory 29 H 33 H 20 Rate Respiratory Rate [Anterior Bilateral Throughout] Blood Pressure 118/68 118/68 106/61 O2 Sat by Pulse 100 100 100 Oximetry 10/26/18 10/26/18 10/26/18 22:46 23:00 23:16 Temperature Pulse Rate 62 71 65 Pulse Rate [ Anterior Bilateral Throughout] Respiratory 22 23 24 Rate Respiratory Rate [Anterior Bilateral Throughout] Blood Pressure 118/68 118/68 111/63 O2 Sat by Pulse 99 98 99 Oximetry 10/26/18 10/26/18 10/27/18 23:30 23:46 00:00 Temperature 98.9 F Pulse Rate 65 65 66 Pulse Rate [ Anterior Bilateral Throughout] Respiratory 23 16 21 Rate Respiratory Rate [Anterior Bilateral Throughout] Blood Pressure 111/63 111/63 113/60 O2 Sat by Pulse 99 99 95 Oximetry 10/27/18 10/27/18 10/27/18 00:16 00:30 00:46 Temperature Pulse Rate 59 L 62 61 Pulse Rate [ Anterior Bilateral Throughout] Respiratory 16 23 18 Rate Respiratory Rate [Anterior Bilateral Throughout] Blood Pressure 113/60 113/60 113/60 O2 Sat by Pulse 99 100 100 Oximetry 10/27/18 10/27/18 10/27/18 01:00 01:16 01:30 Temperature Pulse Rate 66 49 L 60 Pulse Rate [ Anterior Bilateral Throughout] Respiratory 25 H 24 21 Rate Respiratory Rate [Anterior Bilateral Throughout] Blood Pressure 113/60 116/70 116/70 O2 Sat by Pulse 100 100 Oximetry 10/27/18 10/27/18 10/27/18 01:46 02:00 02:16 Temperature Pulse Rate 61 61 63 Pulse Rate [ Anterior Bilateral Throughout] Respiratory 22 20 20 Rate Respiratory Rate [Anterior Bilateral Throughout] Blood Pressure 116/70 106/61 106/61 O2 Sat by Pulse 100 98 100 Oximetry 10/27/18 10/27/18 10/27/18 02:25 02:30 02:35 Temperature Pulse Rate 54 L Pulse Rate [ 67 52 L Anterior Bilateral Throughout] Respiratory 23 Rate Respiratory 37 H 27 H Rate [Anterior Bilateral Throughout] Blood Pressure 106/61 O2 Sat by Pulse 100 Oximetry 10/27/18 10/27/18 10/27/18 02:46 03:00 03:16 Temperature Pulse Rate 64 59 L 69 Pulse Rate [ Anterior Bilateral Throughout] Respiratory 20 17 21 Rate Respiratory Rate [Anterior Bilateral Throughout] Blood Pressure 106/61 106/61 117/69 O2 Sat by Pulse 100 100 100 Oximetry 10/27/18 10/27/18 10/27/18 03:30 03:46 04:00 Temperature 98.7 F Pulse Rate 64 60 49 L Pulse Rate [ Anterior Bilateral Throughout] Respiratory 20 18 17 Rate Respiratory Rate [Anterior Bilateral Throughout] Blood Pressure 117/69 117/69 117/69 O2 Sat by Pulse 100 100 100 Oximetry 10/27/18 10/27/18 10/27/18 04:16 04:30 04:46 Temperature Pulse Rate 58 L 59 L 61 Pulse Rate [ Anterior Bilateral Throughout] Respiratory 17 21 21 Rate Respiratory Rate [Anterior Bilateral Throughout] Blood Pressure 122/69 122/69 122/69 O2 Sat by Pulse 100 100 99 Oximetry 10/27/18 10/27/18 10/27/18 05:00 05:16 05:30 Temperature Pulse Rate 55 L 59 L 61 Pulse Rate [ Anterior Bilateral Throughout] Respiratory 19 20 19 Rate Respiratory Rate [Anterior Bilateral Throughout] Blood Pressure 119/69 119/69 119/69 O2 Sat by Pulse 98 99 100 Oximetry 10/27/18 10/27/18 10/27/18 05:46 06:00 06:16 Temperature Pulse Rate 60 51 L 49 L Pulse Rate [ Anterior Bilateral Throughout] Respiratory 16 16 16 Rate Respiratory Rate [Anterior Bilateral Throughout] Blood Pressure 119/69 120/57 120/57 O2 Sat by Pulse 100 98 100 Oximetry 10/27/18 06:30 Temperature Pulse Rate 45 L Pulse Rate [ Anterior Bilateral Throughout] Respiratory 20 Rate Respiratory Rate [Anterior Bilateral Throughout] Blood Pressure 120/57 O2 Sat by Pulse 100 Oximetry Constitutional: no acute distress, alert Eyes: non-icteric Neck: no JVD Effort: normal Ascultation: Bilateral: clear, diminished breath sounds Percussion: Bilateral: not dull Cardiovascular: regular rate and rhythm Gastrointestinal: normoactive bowel sounds, soft, non-tender Integumentary: normal Extremities: no edema, pink and warm, pulses normal Neurologic: normal mental status, non-focal exam, pupils equal and round, CN II- XII normal, motor strength normal and Psychiatric: mood appropriate CBC and BMP: 10/27/18 04:18 10/27/18 04:18 ABG, PT/INR, D-dimer: ABG POC ABG pH 7.498 (7.35-7.45) H 10/24/18 04:59 POC ABG pCO2 32.3 (35-45) L 10/24/18 04:59 POC ABG pO2 114 (80-105) H 10/24/18 04:59 POC ABG HCO3 25.1 (22-26 mml/L) 10/24/18 04:59 POC ABG Total CO2 26 (23-27mmol/L) 10/24/18 04:59 POC ABG O2 Sat 99 10/24/18 04:59 PT/INR, D-dimer PT 12.0 Sec. (12.2-14.9) L 10/23/18 16:27 INR 0.84 (0.87-1.13) L 10/23/18 16:27 Abnormal lab findings: Abnormal Labs 10/23/18 10/23/18 10/23/18 15:38 16:27 16:27 WBC 12.5 H MCV 78 L MCH 23 L RDW 16.0 H Lymph % (Auto) Lymph # Seg Neutrophils % Seg Neuts % (Manual) Lymphocytes % (Manual) Nucleated RBC % Seg Neutrophils # Man Lymphocytes # (Manual) PT 12.0 L INR 0.84 L APTT 21.0 L POC ABG pH POC ABG pCO2 POC ABG pO2 Sodium Chloride Carbon Dioxide BUN Creatinine Glucose POC Glucose 113 H Lactic Acid Magnesium AST ALT Total Protein Albumin Salicylates Acetaminophen 10/23/18 10/23/18 10/23/18 16:27 16:27 16:27 WBC MCV MCH RDW Lymph % (Auto) Lymph # Seg Neutrophils % Seg Neuts % (Manual) Lymphocytes % (Manual) Nucleated RBC % Seg Neutrophils # Man Lymphocytes # (Manual) PT INR APTT POC ABG pH POC ABG pCO2 POC ABG pO2 Sodium 136 L Chloride 95.8 L Carbon Dioxide BUN 29 H Creatinine 0.4 L Glucose 115 H POC Glucose Lactic Acid Magnesium AST 61 H ALT 72 H Total Protein Albumin 3.7 L Salicylates < 0.3 L Acetaminophen < 5.0 L 10/23/18 10/23/18 10/23/18 16:27 16:40 18:06 WBC MCV MCH RDW Lymph % (Auto) Lymph # Seg Neutrophils % Seg Neuts % (Manual) Lymphocytes % (Manual) Nucleated RBC % Seg Neutrophils # Man Lymphocytes # (Manual) PT INR APTT POC ABG pH 7.320 L 7.258 L POC ABG pCO2 65.1 H 62.6 H POC ABG pO2 79 L Sodium Chloride Carbon Dioxide BUN Creatinine Glucose POC Glucose Lactic Acid Magnesium 4.60 H AST ALT Total Protein Albumin Salicylates Acetaminophen 10/23/18 10/23/18 10/24/18 20:41 21:53 00:06 WBC MCV MCH RDW Lymph % (Auto) Lymph # Seg Neutrophils % Seg Neuts % (Manual) Lymphocytes % (Manual) Nucleated RBC % Seg Neutrophils # Man Lymphocytes # (Manual) PT INR APTT POC ABG pH 7.231 L 7.489 H POC ABG pCO2 66.6 H 33.0 L POC ABG pO2 72 L 108 H Sodium Chloride Carbon Dioxide BUN Creatinine Glucose POC Glucose Lactic Acid 2.30 H* Magnesium AST ALT Total Protein Albumin Salicylates Acetaminophen 10/24/18 10/24/18 10/24/18 01:05 04:59 10:35 WBC MCV MCH RDW Lymph % (Auto) Lymph # Seg Neutrophils % Seg Neuts % (Manual) Lymphocytes % (Manual) Nucleated RBC % Seg Neutrophils # Man Lymphocytes # (Manual) PT INR APTT POC ABG pH 7.498 H POC ABG pCO2 32.3 L POC ABG pO2 114 H Sodium Chloride Carbon Dioxide BUN 22 H Creatinine 0.5 L Glucose 111 H POC Glucose Lactic Acid 3.60 H* Magnesium 2.50 H AST 42 H ALT 60 H Total Protein 5.9 L Albumin 3.0 L Salicylates Acetaminophen 10/24/18 10/24/18 10/24/18 13:25 13:56 18:49 WBC MCV 76 L MCH 24 L RDW 15.6 H Lymph % (Auto) 6.9 L Lymph # 0.6 L Seg Neutrophils % 88.2 H Seg Neuts % (Manual) Lymphocytes % (Manual) Nucleated RBC % Seg Neutrophils # Man Lymphocytes # (Manual) PT INR APTT POC ABG pH POC ABG pCO2 POC ABG pO2 Sodium Chloride Carbon Dioxide BUN Creatinine Glucose POC Glucose 124 H 131 H Lactic Acid Magnesium AST ALT Total Protein Albumin Salicylates Acetaminophen 10/24/18 10/25/18 10/25/18 21:41 02:04 03:57 WBC MCV MCH RDW Lymph % (Auto) Lymph # Seg Neutrophils % Seg Neuts % (Manual) Lymphocytes % (Manual) Nucleated RBC % Seg Neutrophils # Man Lymphocytes # (Manual) PT INR APTT POC ABG pH POC ABG pCO2 POC ABG pO2 Sodium 149 H D Chloride 109.5 H Carbon Dioxide BUN 26 H Creatinine 0.6 L Glucose 127 H POC Glucose 119 H 123 H Lactic Acid Magnesium 2.50 H AST ALT Total Protein 6.1 L Albumin 3.3 L Salicylates Acetaminophen 10/25/18 10/25/18 10/25/18 05:22 06:38 08:13 WBC MCV 78 L MCH 23 L RDW 16.9 H Lymph % (Auto) Lymph # Seg Neutrophils % Seg Neuts % (Manual) 96.0 H Lymphocytes % (Manual) 2.0 L Nucleated RBC % Seg Neutrophils # Man 8.8 H Lymphocytes # (Manual) 0.2 L PT INR APTT POC ABG pH POC ABG pCO2 POC ABG pO2 Sodium Chloride Carbon Dioxide BUN Creatinine Glucose POC Glucose 115 H 117 H Lactic Acid Magnesium AST ALT Total Protein Albumin Salicylates Acetaminophen 10/26/18 10/26/18 10/26/18 02:00 04:38 04:38 WBC MCV MCH 23 L RDW 16.5 H Lymph % (Auto) Lymph # Seg Neutrophils % Seg Neuts % (Manual) 91.0 H Lymphocytes % (Manual) 6.0 L Nucleated RBC % 1.0 H Seg Neutrophils # Man Lymphocytes # (Manual) 0.4 L PT INR APTT POC ABG pH POC ABG pCO2 POC ABG pO2 Sodium 146 H Chloride 108.5 H Carbon Dioxide 32 H BUN 30 H Creatinine 0.6 L Glucose 123 H POC Glucose 126 H Lactic Acid Magnesium AST ALT Total Protein 5.7 L Albumin 3.1 L Salicylates Acetaminophen 10/26/18 10/26/18 10/26/18 05:51 15:06 20:01 WBC MCV MCH RDW Lymph % (Auto) Lymph # Seg Neutrophils % Seg Neuts % (Manual) Lymphocytes % (Manual) Nucleated RBC % Seg Neutrophils # Man Lymphocytes # (Manual) PT INR APTT POC ABG pH POC ABG pCO2 POC ABG pO2 Sodium Chloride Carbon Dioxide BUN Creatinine Glucose POC Glucose 147 H 167 H 226 H Lactic Acid Magnesium AST ALT Total Protein Albumin Salicylates Acetaminophen 10/27/18 10/27/18 10/27/18 01:19 04:18 04:18 WBC 4.2 L MCV 78 L MCH 23 L RDW 16.2 H Lymph % (Auto) Lymph # Seg Neutrophils % Seg Neuts % (Manual) 96.0 H Lymphocytes % (Manual) 3.0 L Nucleated RBC % 2.0 H Seg Neutrophils # Man Lymphocytes # (Manual) 0.1 L PT INR APTT POC ABG pH POC ABG pCO2 POC ABG pO2 Sodium Chloride Carbon Dioxide 32 H BUN 33 H Creatinine 0.6 L Glucose 150 H POC Glucose 150 H Lactic Acid Magnesium AST ALT Total Protein 5.8 L Albumin 3.3 L Salicylates Acetaminophen
--- NOTE | 2018-10-27 10:12 | Consultation ---
History of Present Illness Consult date: 10/27/18 Requesting physician: PARAM CRANE Consult reason: bradycardia, other (cad) History of present illness: The pt is a 67 YO female with a past medical history of HTN, CAD, HF, COPD, chronic respiratory failure requiring home O2, hypothyroidism, tobacco use. She reports that she is regularly followed by [facility] [place]. She presented on 10/23 for evaluation of altered mental status and respiratory dist ress. Per pt, she fell out of her bed on the day of admission and was "out of it" until her neighbor came and found her on the floor and called EMS. Pt is unsure whether she experienced a syncopal episode. Following arrival, pt was intubated for airway protection and because she was obtunded. She has since been extubated. Coreg was initated and she developed bradycardia and thus cardiology has been consulted. Review of telemetry shows a transient period of sinus bradycardia with HR 40s. She is currently in NSR with HR 90s. No current cardiac complaints. Echo done here on 10/23 showed EF 50-55%, RV systolic function moderately reduced, mild MVP, mild MR, trace TR. [place] records reviewed: Echo done 08/2018 showed EF 55%, mild to mod MR, apical aneurysm. Lexiscan MPI stress test done 08/2018 showed partially reversible apical defect. LHC done 10/14/2018 showed 100% distal lcx, 100% distal LAD, EF 45%. Medical management was recommended. Past History Past Medical History: CAD, COPD (on home oxygen 2 L), heart failure, hypertension, hypothyroidism Past Surgical History: thyroidectomy, Other (right hemicolectomy) Social history: smoking (patient is a former smoker ) Medications and Allergies Allergies Allergy/AdvReac Type Severity Reaction Status Date / Time ibuprofen [From Motrin] AdvReac Shortness Verified 10/25/18 08:15 of Breath nickel AdvReac Rash Verified 10/25/18 08:15 Home Medications Medication Instructions Recorded Confirmed Last Taken Type ARIPiprazole [Abilify TAB] 5 mg PO DAILY 01/02/15 10/25/18 01/08/15 History Acetaminophen [Tylenol] 325 mg PO Q6HR PRN 01/02/15 01/09/15 01/07/15 History Albuterol Sulfate [Proair Hfa] 2 puff IH TID 01/02/15 01/09/15 01/09/15 History Budesoni/Formotero 160-4.5(Nf) 1 puff IH QDAY 01/02/15 01/09/15 01/09/15 History [Symbicort 160-4.5] Carvedilol 6.25 mg PO BID 01/02/15 10/25/18 01/09/15 History Cetirizine HCl [ZyrTEC] 10 mg PO QDAY 01/02/15 10/25/18 01/08/15 History Furosemide 40 mg PO QDAY 01/02/15 10/25/18 01/08/15 History Levothyroxine [Synthroid] 0.125 mcg PO QAM 01/02/15 10/25/18 01/09/15 History Lisinopril 2.5 mg PO QDAY 01/02/15 10/25/18 01/09/15 History Simvastatin 5 mg PO QDAY 01/02/15 10/25/18 01/08/15 History buPROPion XL [Wellbutrin Xl] 300 mg PO QDAY 01/02/15 10/25/18 01/08/15 History Norvasc 10 mg PO DAILY 01/09/15 10/25/18 01/09/15 History Omeprazole Magnesium [PriLOSEC Otc] 20 mg PO DAILY 10/25/18 10/25/18 Unknown History acetaZOLAMIDE ER [Diamox Sequels] 500 mg PO Q12HR 10/25/18 10/25/18 Unknown History traZODone [Desyrel] 50 mg PO HS 10/25/18 10/25/18 Unknown History Active Meds: Active Medications Acetaminophen (Tylenol) 650 mg PO Q4H PRN PRN Reason: Pain MILD(1-3)/Fever >100.5/LOU Acetazolamide (Diamox) 500 mg PO BID [facility] Last Admin: 10/26/18 21:57 Dose: 500 mg Documented by: Albuterol/Ipratropium (Duoneb *Not For Prn Use*) 1 ampul IH Q6HRT [facility] Last Admin: 10/27/18 02:25 Dose: 1 ampul Documented by: Amlodipine Besylate (Norvasc) 10 mg PO DAILY [facility] Last Admin: 10/27/18 09:01 Dose: 10 mg Documented by: Aripiprazole (Abilify) 10 mg PO QDAY [facility] Last Admin: 10/27/18 09:01 Dose: 10 mg Documented by: Bupropion HCl (Wellbutrin Xl) 300 mg PO DAILY [facility] Last Admin: 10/27/18 09:01 Dose: 300 mg Documented by: Enoxaparin Sodium (Lovenox) 40 mg SUB-Q QDAY [facility] Last Admin: 10/27/18 09:02 Dose: 40 mg Documented by: Furosemide (Lasix) 40 mg PO QAM [facility] Last Admin: 10/27/18 09:02 Dose: 40 mg Documented by: Hydrophilic Ointment (Vaseline Lip Therapy) 1 applic TP Q2HR PRN PRN Reason: Dry Lips Vancomycin HCl 1,250 mg/ (Sodium Chloride) 275 mls @ 166.667 mls/hr IV Q12H [facility] Stop: 10/27/18 23:59 Last Admin: 10/27/18 08:52 Dose: 166.667 mls/hr Documented by: Piperacillin Sod/Tazobactam Sod (Zosyn/Ns 4.5gm/100ml) 4.5 gm in 100 mls @ 200 mls/hr IV Q8HR [facility]; Protocol Stop: 10/29/18 22:59 Last Admin: 10/27/18 06:00 Dose: 200 mls/hr Documented by: Levothyroxine Sodium (Synthroid) 125 mcg PO DAILY@0600 [facility] Last Admin: 10/27/18 06:01 Dose: 125 mcg Documented by: Lisinopril (Zestril) 2.5 mg PO QDAY [facility] Last Admin: 10/27/18 09:07 Dose: 2.5 mg Documented by: Loratadine (Claritin) 10 mg PO DAILY [facility] Last Admin: 10/27/18 09:00 Dose: 10 mg Documented by: Methylprednisolone Sodium Succinate (Solu-Medrol) 60 mg IV Q6HR [facility] Last Admin: 10/27/18 06:03 Dose: 60 mg Documented by: Mirtazapine (Remeron) 30 mg PO QHS [facility] Last Admin: 10/26/18 21:57 Dose: 30 mg Documented by: Multi-Ingred Cream/Lotion/Oil/Oint (Artificial Tears Ophth Oint) 1 applic OU Q4HR PRN PRN Reason: Dry Eye(s) Ondansetron HCl (Zofran) 4 mg IV Q8H PRN PRN Reason: Nausea And Vomiting Pravastatin Sodium (Pravachol) 20 mg PO QHS [facility] Last Admin: 10/26/18 21:58 Dose: 20 mg Documented by: Sodium Chloride (Nacl 0.9% 500 Ml) 5 ml IV DIRECT PRN PRN Reason: [employer] Sodium Chloride (Sodium Chloride Flush Syringe 10 Ml) 10 ml IV BID [facility] Last Admin: 10/27/18 09:02 Dose: 10 ml Documented by: Sodium Chloride (Sodium Chloride Flush Syringe 10 Ml) 10 ml IV PRN PRN PRN Reason: LINE FLUSH Trazodone HCl (Desyrel) 50 mg PO HS [facility] Last Admin: 10/26/18 21:59 Dose: 50 mg Documented by: Review of Systems Constitutional: weakness, no fever, no chills, no sweats Ears, nose, mouth and throat: no ear pain, no nose pain, no sinus pressure, no sinus pain Cardiovascular: syncope (questionable), shortness of breath, dyspnea on exertion, no chest pain, no orthopnea, no palpitations, no rapid/irregular heart beat, no edema, no lightheadedness, no leg edema Respiratory: cough, shortness of breath, dyspnea on exertion, wheezing, no congestion, no pain on inspiration Gastrointestinal: no abdominal pain, no nausea, no vomiting, no diarrhea, no constipation, no change in bowel habits Genitourinary Female: no pelvic pain, no flank pain, no dysuria, no urinary frequency, no urgency Musculoskeletal: no neck stiffness, no neck pain, no shooting arm pain, no arm numbness/tingling, no low back pain, no shooting leg pain Integumentary: no rash, no pruritis, no redness, no sores, no wounds Neurological: weakness (generalized), syncope (questionable), no head injury, no paralysis, no parathesias, no numbness, no tingling, no seizures Psychiatric: no anxiety Endocrine: no cold intolerance, no heat intolerance Hematologic/Lymphatic: no easy bruising, no easy bleeding Allergic/Immunologic: no urticaria, no wheezing Physical Examination Vital Signs Pulse BP Pulse Ox 81 125/60 100 10/23/18 15:51 10/23/18 15:51 10/23/18 15:51 General appearance: no acute distress HEENT: Positive: PERRL, Normocephaly, Mucus Membranes Moist Neck: Positive: neck supple, trachea midline Cardiac: Positive: Reg Rate and Rhythm, S1/S2, Systolic Murmur Lungs: Positive: Decreased Breath Sounds Neuro: Positive: Grossly Intact Abdomen: Positive: Soft. Negative: Tender Skin: Negative: Rash, Wound Musculoskeletal: No Pain Extremities: Absent: edema Results 10/27/18 04:18 10/27/18 04:18 Cardiac Enzymes 10/27/18 Range/Units 04:18 AST 13 (5-40) units/L CBC 10/27/18 Range/Units 04:18 WBC 4.2 L (4.5-11.0) K/mm3 RBC 4.44 (3.65-5.03) M/mm3 Hgb 10.3 (10.1-14.3) gm/dl Hct 34.8 (30.3-42.9) % Plt Count 195 (140-440) K/mm3 Comprehensive Metabolic Panel 10/27/18 Range/Units 04:18 Sodium 145 (137-145) mmol/L Potassium 3.7 (3.6-5.0) mmol/L Chloride 104.0 (98-107) mmol/L Carbon Dioxide 32 H (22-30) mmol/L BUN 33 H (7-17) mg/dL Creatinine 0.6 L (0.7-1.2) mg/dL Glucose 150 H (65-100) mg/dL Calcium 8.5 (8.4-10.2) mg/dL AST 13 (5-40) units/L ALT 40 (7-56) units/L Alkaline Phosphatase 61 (35-129) units/L Total Protein 5.8 L (6.3-8.2) g/dL Albumin 3.3 L (3.9-5) g/dL - Imaging and Cardiology Echo: report reviewed (10/23 showed EF 50-55%, RV systolic function moderately reduced, mild MVP, mild MR, trace TR. ) Cardiac cath: report reviewed (10/14/2018 showed 100% distal lcx, 100% distal LAD, EF 45%. Medical management was recommended. ) EKG: report reviewed, image reviewed EKG interpretations - Telemetry EKG Rhythm: Sinus Rhythm - EKG Sinus rhythms and dysrhythmias: sinus rhythm Assessment and Plan Currently stable cardiac status. Sinus bradycardia appears to be resolved after discontinuation of coreg. Cont to avoid AV willie blocking agents. Thyroid profile noted to be WNL. [place] records reviewed: Echo done 08/2018 showed EF 55%, mild to mod MR, apical aneurysm. Lexiscan MPI stress test done 08/2018 showed partially reversible apical defect. LHC done 10/14/2018 showed 100% distal lcx, 100% distal LAD, EF 45%. Medical management was recommended. The patient has been seen in conjunction with Dr. Trevnio who agrees with the assessment and plan of care. - Patient Problems (1) Sinus bradycardia Current Visit: Yes Status: Resolved (2) Acute and chronic respiratory failure Current Visit: Yes Status: Acute (3) End stage COPD Current Visit: Yes Status: Chronic (4) Altered mental status Current Visit: Yes Status: Acute (5) Syncope and collapse Current Visit: Yes Status: Suspected (6) CAD (coronary artery disease) Current Visit: Yes Status: Chronic (7) HTN (hypertension) Current Visit: Yes Status: Chronic (8) History of heart failure Current Visit: Yes Status: Chronic
--- NOTE | 2018-10-27 11:08 | Discharge Summary ---
Providers - Providers Date of Admission: 10/23/18 21:55 Attending physician: PARAM CRANE MD 10/23/18 15:53 Consult to Physician [CONS] Stat Comment: Dr. Waldron notified @ 16:47- [facility] Consulting Provider: GARETT WALDRON Physician Instructions: Reason For Exam: resp failure 10/26/18 19:56 Consult to Physician [CONS] Routine Comment: Consulting Provider: JOSETTE RAMEY Physician Instructions: Reason For Exam: cad, bradycardia Hospitalization Condition: Critical Hospital course: 67-year-old woman with history of end-stage COPD on home oxygen, hypothyroid. She was brought to the hospital for decreased responsiveness. She was admitted for respiratory failure, she was intubated for airway protection and because she was obtunded. She was treated with the ventilator, steroids nebs. The patient improved. She was weaned of ventilator to nasal cannula oxygen. She continued to improve. She received pulmonology consult. She received echo which showed preserved EF. -She became bradycardic after initiation of carvedilol. Coreg was therefore discontinued. Tentative discharge tomorrow if patient continues to improve Diagnoses Acute on chronic hypoxic respiratory failure, requiring mechanical ventilator less than 96 hours COPD exacerbation Pneumonia was ruled out, with serial imaging Sepsis was ruled out SIRS without acute organ dysfunction Bradycardia, likely iatrogenic Disposition: [id number] HOME UNDER HOME [facility] Time spent for discharge: 33 mins Core Measure Documentation - Palliative Care Palliative Care/ Comfort Measures: Not Applicable - Core Measures Any of the following diagnoses?: none Exam - Physical Exam Narrative exam: General.: Appears well, no distress, nontoxic HEENT: Moist mucous membranes, extraocular muscles intact, no lymphadenopathy Neck: supple Cardiac: S1-S2 heard Lungs: Diminished air entry Abdomen: soft , nontender, nondistended, bowel sounds positive Extremities: no edema clubbing or cyanosis Skin: no rash or lesions Neurologic: no gross focal deficits Psych: calm, and cooperative - Constitutional Vitals: Temp Pulse Resp BP Pulse Ox 98.7 F 100 H 28 H 107/77 96 10/27/18 04:00 10/27/18 10:00 10/27/18 10:00 10/27/18 10:00 10/27/18 09:00 Plan Follow up with: JESSICA MARTINEZ [Other] - 3-5 Days Prescriptions: Furosemide [Lasix TAB] 40 mg PO QAM #30 tablet
--- NOTE | 2018-10-27 13:16 | Magnetic Resonance Report ---
MRI scan of cervical spine: History: Abnormal cervical spine CT scan. Technique multiple multisequence images were obtained without contrast injection. Findings: The upper half of the odontoid process and the C1 arch is not included in the study on axial images. On sagittal images there is no obvious evidence of fracture noted. There is no prevertebral soft tissue edema and identified. Height and signal intensity of vertebral bodies appears normal. Decrease in height and signal intensity of intervertebral disc spaces with evidence of severe cervical spondylosis. C1 not optimally visualized. C2-C3 normal. C3-C4. Bilateral moderate neuroforaminal narrowing secondary to disc osteophyte complex and uncovertebral joint hypertrophy and facet hypertrophy. No definite central canal spinal stenosis. C4-C5. Mild bilateral neuroforamina narrowing secondary disc osteophyte complex and joint hypertrophy and facet joint hypertrophy. No central canal spinal stenosis. C5-C6. Mild bilateral neural foramina narrowing secondary to disc osteophyte complex and uncovertebral joint hypertrophy and facet joint hypertrophy. No central canal spinal stenosis. C6-C7. Mild bilateral neuroforaminal narrowing secondary disc osteophyte complex and uncovertebral joint hypertrophy and facet joint hypertrophy. No central canal spinal stenosis. No evidence of cord edema or hemorrhage. Normal cervicomedullary junction and cerebellar tonsils. Impression: Multilevel bilateral neural foramina narrowing secondary to disc osteophyte complex and uncovertebral joint hypertrophy. No central canal spinal stenosis or cord edema.
[2018-10-27] MEDS ORDERED: LOPRESSOR IV PRN (14:16)
--- NOTE | 2018-10-27 14:29 | Progress Note ---
Assessment and Plan Assessment and plan: 67-year-old woman with history of end-stage COPD on home oxygen, hypothyroid. She was brought to the hospital for decreased responsiveness. She was admitted for respiratory failure, she was intubated for airway protection and because she was obtunded. She was treated with the ventilator, steroids nebs. The patient improved. She was weaned of ventilator to nasal cannula oxygen. She continued to improve. She received pulmonology consult. She received echo which showed preserved EF. -She became bradycardic after initiation of carvedilol. Coreg was therefore discontinued. she was planned for discharge, but then went into rapid A. fib with heart rates in the 140s. She was then started on Cardizem drip, cardiology input appreciated Diagnoses rapid afib Acute on chronic hypoxic respiratory failure, requiring mechanical ventilator less than 96 hours COPD exacerbation Pneumonia was ruled out, with serial imaging Sepsis was ruled out SIRS without acute organ dysfunction Bradycardia, likely iatrogenic, now resolved History Interval history: Review of systems Constitutional: No fevers, no malaise, no joint pains CVS: No chest pain, no orthopnea, no dyspnea on exertion, no pedal edema c/o palpitations GI: No abdominal pain, no diarrhea, no vomiting, no constipation Respiratory: No shortness of breath, no wheezing, no coughing Hospitalist Physical - Physical exam Narrative exam: General.: Appears well, no distress, nontoxic HEENT: Moist mucous membranes, extraocular muscles intact, no lymphadenopathy Neck: supple Cardiac: S1-S2 heard Lungs: Diminished air entry Abdomen: soft , nontender, nondistended, bowel sounds positive Extremities: no edema clubbing or cyanosis Skin: no rash or lesions Neurologic: no gross focal deficits Psych: calm, and cooperative - Constitutional Vitals: Temp Pulse Resp BP Pulse Ox 97.9 F 112 H 16 122/73 99 10/27/18 12:00 10/27/18 13:46 10/27/18 13:46 10/27/18 12:00 10/27/18 12:00 General appearance: Present: no acute distress Results - Labs CBC & Chem 7: 10/27/18 04:18 10/27/18 04:18 Labs: Laboratory Last Values WBC 4.2 K/mm3 (4.5-11.0) L 10/27/18 04:18 RBC 4.44 M/mm3 (3.65-5.03) 10/27/18 04:18 Hgb 10.3 gm/dl (10.1-14.3) 10/27/18 04:18 Hct 34.8 % (30.3-42.9) 10/27/18 04:18 MCV 78 fl (79-97) L 10/27/18 04:18 MCH 23 pg (28-32) L 10/27/18 04:18 MCHC 30 % (30-34) 10/27/18 04:18 RDW 16.2 % (13.2-15.2) H 10/27/18 04:18 Plt Count 195 K/mm3 (140-440) 10/27/18 04:18 Lymph % (Auto) 6.9 % (13.4-35.0) L 10/24/18 13:25 [place] % (Auto) 4.8 % (0.0-7.3) 10/24/18 13:25 Eos % (Auto) 0.0 % (0.0-4.3) 10/24/18 13:25 Baso % (Auto) 0.1 % (0.0-1.8) 10/24/18 13:25 Lymph # 0.6 K/mm3 (1.2-5.4) L 10/24/18 13:25 [place] # 0.4 K/mm3 (0.0-0.8) 10/24/18 13:25 Eos # 0.0 K/mm3 (0.0-0.4) 10/24/18 13:25 Baso # 0.0 K/mm3 (0.0-0.1) 10/24/18 13:25 Add Manual Diff Complete 10/27/18 04:18 Total Counted 100 10/27/18 04:18 Seg Neutrophils % Fence Machine Operator 10/27/18 04:18 Seg Neuts % (Manual) 96.0 % (40.0-70.0) H 10/27/18 04:18 Band Neutrophils % 0 % 10/27/18 04:18 Lymphocytes % (Manual) 3.0 % (13.4-35.0) L 10/27/18 04:18 Reactive Lymphs % (Man) 0 % 10/27/18 04:18 Monocytes % (Manual) 1.0 % (0.0-7.3) 10/27/18 04:18 Eosinophils % (Manual) 0 % (0.0-4.3) 10/27/18 04:18 Basophils % (Manual) 0 % (0.0-1.8) 10/27/18 04:18 Metamyelocytes % 0 % 10/27/18 04:18 Myelocytes % 0 % 10/27/18 04:18 Promyelocytes % 0 % 10/27/18 04:18 Blast Cells % 0 % 10/27/18 04:18 Nucleated RBC % 2.0 % (0.0-0.9) H 10/27/18 04:18 Seg Neutrophils # 7.4 K/mm3 (1.8-7.7) 10/24/18 13:25 Seg Neutrophils # Man 4.0 K/mm3 (1.8-7.7) 10/27/18 04:18 Band Neutrophils # 0.0 K/mm3 10/27/18 04:18 Lymphocytes # (Manual) 0.1 K/mm3 (1.2-5.4) L 10/27/18 04:18 Abs React Lymphs (Man) 0.0 K/mm3 10/27/18 04:18 Monocytes # (Manual) 0.0 K/mm3 (0.0-0.8) 10/27/18 04:18 Eosinophils # (Manual) 0.0 K/mm3 (0.0-0.4) 10/27/18 04:18 Basophils # (Manual) 0.0 K/mm3 (0.0-0.1) 10/27/18 04:18 Metamyelocytes # 0.0 K/mm3 10/27/18 04:18 Myelocytes # 0.0 K/mm3 10/27/18 04:18 Promyelocytes # 0.0 K/mm3 10/27/18 04:18 Blast Cells # 0.0 K/mm3 10/27/18 04:18 WBC Morphology Not Reportable 10/27/18 04:18 Hypersegmented Neuts Not Reportable 10/27/18 04:18 Hyposegmented Neuts Not Reportable 10/27/18 04:18 Hypogranular Neuts Not Reportable 10/27/18 04:18 Smudge Cells Not Reportable 10/27/18 04:18 Toxic Granulation Not Reportable 10/27/18 04:18 Toxic Vacuolation Not Reportable 10/27/18 04:18 Dohle Bodies Not Reportable 10/27/18 04:18 Pelger-Huet Anomaly Not Reportable 10/27/18 04:18 Damien Rods Not Reportable 10/27/18 04:18 Platelet Estimate Consistent w auto 10/27/18 04:18 Clumped Platelets Not Reportable 10/27/18 04:18 Plt Clumps, EDTA Not Reportable 10/27/18 04:18 Large Platelets Not Reportable 10/27/18 04:18 Giant Platelets Not Reportable 10/27/18 04:18 Platelet Satelliting Not Reportable 10/27/18 04:18 Plt Morphology Comment Not Reportable 10/27/18 04:18 RBC Morphology Not Reportable 10/27/18 04:18 Dimorphic RBCs Not Reportable 10/27/18 04:18 Polychromasia Not Reportable 10/27/18 04:18 Hypochromasia 2+ 10/27/18 04:18 Poikilocytosis Not Reportable 10/27/18 04:18 Anisocytosis Not Reportable 10/27/18 04:18 Microcytosis Not Reportable 10/27/18 04:18 Macrocytosis Not Reportable 10/27/18 04:18 Spherocytes Not Reportable 10/27/18 04:18 Pappenheimer Bodies Not Reportable 10/27/18 04:18 Sickle Cells Not Reportable 10/27/18 04:18 Target Cells Not Reportable 10/27/18 04:18 Tear Drop Cells Not Reportable 10/27/18 04:18 Ovalocytes Not Reportable 10/27/18 04:18 Helmet Cells Not Reportable 10/27/18 04:18 [place] Bodies Not Reportable 10/27/18 04:18 [place] Rings Not Reportable 10/27/18 04:18 [place] Cells Not Reportable 10/27/18 04:18 Bite Cells Not Reportable 10/27/18 04:18 Crenated Cell Not Reportable 10/27/18 04:18 Elliptocytes Not Reportable 10/27/18 04:18 Acanthocytes (Spur) Not Reportable 10/27/18 04:18 Rouleaux Not Reportable 10/27/18 04:18 Hemoglobin C Crystals Not Reportable 10/27/18 04:18 Schistocytes Not Reportable 10/27/18 04:18 Malaria parasites Not Reportable 10/27/18 04:18 [place] Bodies Not Reportable 10/27/18 04:18 Hem Pathologist Commnt No 10/27/18 04:18 PT 12.0 Sec. (12.2-14.9) L 10/23/18 16:27 INR 0.84 (0.87-1.13) L 10/23/18 16:27 APTT 21.0 Sec. (24.2-36.6) L 10/23/18 16:27 POC ABG pH 7.498 (7.35-7.45) H 10/24/18 04:59 POC ABG pCO2 32.3 (35-45) L 10/24/18 04:59 POC ABG pO2 114 (80-105) H 10/24/18 04:59 POC ABG HCO3 25.1 (22-26 mml/L) 10/24/18 04:59 POC ABG Total CO2 26 (23-27mmol/L) 10/24/18 04:59 POC ABG O2 Sat 99 10/24/18 04:59 POC ABG Base Excess 2 ((-2) - (+3)mmol/L) 10/24/18 04:59 FiO2 40 % 10/24/18 04:59 Sodium 145 mmol/L (137-145) 10/27/18 04:18 Potassium 3.7 mmol/L (3.6-5.0) 10/27/18 04:18 Chloride 104.0 mmol/L (98-107) 10/27/18 04:18 Carbon Dioxide 32 mmol/L (22-30) H 10/27/18 04:18 Anion Gap 13 mmol/L 10/27/18 04:18 BUN 33 mg/dL (7-17) H 10/27/18 04:18 Creatinine 0.6 mg/dL (0.7-1.2) L 10/27/18 04:18 Estimated GFR > 60 ml/min 10/27/18 04:18 BUN/Creatinine Ratio 55 % 10/27/18 04:18 Glucose 150 mg/dL (65-100) H 10/27/18 04:18 POC Glucose 182 (70-105) H 10/27/18 12:08 Lactic Acid 1.00 mmol/L (0.7-2.0) 10/24/18 13:25 Calcium 8.5 mg/dL (8.4-10.2) 10/27/18 04:18 Magnesium 2.50 mg/dL (1.7-2.3) H 10/25/18 03:57 Total Bilirubin 0.20 mg/dL (0.1-1.2) 10/27/18 04:18 Direct Bilirubin < 0.2 mg/dL (0-0.2) 10/24/18 10:35 Indirect Bilirubin 0.2 mg/dL 10/24/18 10:35 AST 13 units/L (5-40) 10/27/18 04:18 ALT 40 units/L (7-56) 10/27/18 04:18 Alkaline Phosphatase 61 units/L (35-129) 10/27/18 04:18 Total Creatine Kinase 66 units/L (30-135) 10/23/18 16:27 Troponin T < 0.010 ng/mL (0.00-0.029) 10/23/18 16:27 NT-Pro-B Natriuret Pep 835.8 pg/mL (0-900) 10/24/18 13:25 Total Protein 5.8 g/dL (6.3-8.2) L 10/27/18 04:18 Albumin 3.3 g/dL (3.9-5) L 10/27/18 04:18 Albumin/Globulin Ratio 1.3 % 10/27/18 04:18 TSH 0.527 mlU/mL (0.270-4.200) 10/24/18 10:35 Free T4 1.10 ng/dL (0.76-1.46) 10/24/18 10:35 Urine Color Yellow (Yellow) 10/23/18 16:18 Urine Turbidity Slightly-cloudy (Clear) 10/23/18 16:18 Urine pH 5.0 (5.0-7.0) 10/23/18 16:18 Ur Specific [place] 1.016 (1.003-1.030) 10/23/18 16:18 Urine Protein <15 mg/dl mg/dL (Negative) 10/23/18 16:18 Urine Glucose (UA) Neg mg/dL (Negative) 10/23/18 16:18 Urine Ketones Neg mg/dL (Negative) 10/23/18 16:18 Urine Blood Neg (Negative) 10/23/18 16:18 Urine Nitrite Neg (Negative) 10/23/18 16:18 Urine Bilirubin Neg (Negative) 10/23/18 16:18 Urine Urobilinogen 2.0 mg/dL (<2.0) 10/23/18 16:18 Ur Leukocyte Esterase Neg (Negative) 10/23/18 16:18 Urine WBC (Auto) < 1.0 /HPF (0.0-6.0) 10/23/18 16:18 Urine RBC (Auto) 1.0 /HPF (0.0-6.0) 10/23/18 16:18 U Epithel Cells (Auto) < 1.0 /HPF (0-13.0) 10/23/18 16:18 Urine Mucus Few /HPF 10/23/18 16:18 Salicylates < 0.3 mg/dL (2.8-20.0) L 10/23/18 16:27 Urine Opiates Screen Presumptive negative 10/23/18 16:18 Urine Methadone Screen Presumptive negative 10/23/18 16:18 Acetaminophen < 5.0 ug/mL (10.0-30.0) L 10/23/18 16:27 Ur Barbiturates Screen Presumptive negative 10/23/18 16:18 Ur Phencyclidine Scrn Presumptive negative 10/23/18 16:18 Ur Amphetamines Screen Presumptive negative 10/23/18 16:18 U Benzodiazepines Scrn Presumptive negative 10/23/18 16:18 Urine Cocaine Screen Presumptive negative 10/23/18 16:18 U Marijuana (THC) Screen Presumptive negative 10/23/18 16:18 Drugs of Abuse Note Disclamer 10/23/18 16:18 Plasma/Serum Alcohol < 0.01 % (0-0.07) 10/23/18 16:27 Active Medications - Current Medications Current Medications: Generic Name Dose Route Start Last Admin Trade Name Freq PRN Reason Stop Dose Admin Acetaminophen 650 mg 10/23/18 21:55 Tylenol PO Q4H PRN Pain MILD(1-3)/Fever >100.5/LOU Acetazolamide 500 mg 10/25/18 22:00 10/26/18 21:57 Diamox PO 500 mg BID GABRIEL Administration Albuterol/Ipratropium 1 ampul 10/25/18 10:15 10/27/18 13:50 Duoneb *Not For Prn Use* IH Not Given Q6HRT [facility] Amlodipine Besylate 10 mg 10/25/18 12:00 10/27/18 09:01 Norvasc PO 10 mg DAILY GABRIEL Administration Aripiprazole 10 mg 10/25/18 12:00 10/27/18 09:01 Abilify PO 10 mg QDAY GABRIEL Administration Aspirin 81 mg 10/28/18 10:00 Baby Aspirin PO QDAY GABRIEL Bupropion HCl 300 mg 10/25/18 12:00 10/27/18 09:01 Wellbutrin Xl PO 300 mg DAILY GABRIEL Administration Enoxaparin Sodium 40 mg 10/24/18 10:00 10/27/18 09:02 Lovenox SUB-Q 40 mg QDAY GABRIEL Administration Furosemide 40 mg 10/26/18 10:00 10/27/18 09:02 Lasix PO 40 mg QAM GABRIEL Administration Hydrophilic Ointment 1 applic 10/23/18 15:53 Vaseline Lip Therapy TP Q2HR PRN Dry Lips Vancomycin HCl 1,250 mg/ 275 mls @ 166.667 mls/hr 10/24/18 08:30 10/27/18 08:52 Sodium Chloride IV 10/27/18 23:59 166.667 mls/hr Q12H GABRIEL Administration Piperacillin Sod/Tazobactam Sod 4.5 gm in 100 mls @ 200 mls/hr 10/23/18 23:00 10/27/18 13:14 Zosyn/Ns 4.5gm/100ml IV 10/29/18 22:59 200 mls/hr Q8HR GABRIEL Administration Protocol Levothyroxine Sodium 125 mcg 10/25/18 13:00 10/27/18 06:01 Synthroid PO 125 mcg DAILY@0600 GABRIEL Administration Lisinopril 2.5 mg 10/26/18 10:00 10/27/18 09:07 Zestril PO 2.5 mg QDAY GABRIEL Administration Loratadine 10 mg 10/25/18 13:00 10/27/18 09:00 Claritin PO 10 mg DAILY GABRIEL Administration Methylprednisolone Sodium Succinate 60 mg 10/24/18 12:11 10/27/18 12:04 Solu-Medrol IV 60 mg Q6HR GABRIEL Administration Metoprolol Tartrate 5 mg 10/27/18 14:16 Lopressor IV Q6HR PRN sustained HR >130 Multi-Ingred Cream/Lotion/Oil/Oint 1 applic 10/23/18 15:53 Artificial Tears Ophth Oint OU Q4HR PRN Dry Eye(s) Ondansetron HCl 4 mg 10/23/18 21:55 Zofran IV Q8H PRN Nausea And Vomiting Pravastatin Sodium 20 mg 10/25/18 22:00 10/26/18 21:58 Pravachol PO 20 mg QHS GABRIEL Administration Sodium Chloride 5 ml 10/23/18 15:53 Nacl 0.9% 500 Ml IV DIRECT PRN ARTERIAL ASSISTANT INFANT TODDLER TEACHER Sodium Chloride 10 ml 10/23/18 22:00 10/27/18 09:02 Sodium Chloride Flush Syringe 10 Ml IV 10 ml BID GABRIEL Administration Sodium Chloride 10 ml 10/23/18 21:55 Sodium Chloride Flush Syringe 10 Ml IV PRN PRN LINE FLUSH Trazodone HCl 50 mg 10/25/18 22:00 10/26/18 21:59 Desyrel PO 50 mg HS GABRIEL Administration Nutrition/Malnutrition Assess - Dietary Evaluation Nutrition/Malnutrition Findings: Nutrition Notes Start: 10/25/18 16:29 Freq: Status: Active Protocol: Document 10/26/18 12:58 EB (Rec: 10/26/18 13:04 [id number]) Co-Sign 10/26/18 12:58 LP Nutrition Notes Initial or Follow up Reassessment Current Diet Cardiac diet Labs/Tests Reviewed Pertinent Medications Lasix Height 5 ft 6 in Weight 77.7 kg [place] Body Weight (kg) 59.09 BMI 27.6 Subjective/Other Information Pt on oxygen mask and cannot eat meal that was delivered to her for breakfast. RN states nasal canula will be placed today so pt can begin eating again. Percent of energy/protein needs met: 0%/0% Burn Absent Trauma Absent #1 Nutrition Diagnosis Inadequate oral intake Etiology pt on oxygen mask As Evidenced by Signs and Symptoms unable to eat meals with mask on, resulting in 0% consumption of breakfast this am Diagnosis Progress(for reassessment Continues documentation) Is patient on ventilator? No Is Patient Ambulatory and/or Out of Bed No REE-([place]-StEmelina Nixon-confined to bed) 1605.900 Calculation Used for Recommendations [place]-St Jeor Additional Notes protein (1-1.2g/kg): 78-94g fluid: 1mL/kcal Nutrition Intervention Change Diet Order: Continue cardiac diet Add Supplement/Snack (indicate name/kcal Ensure Enlive daily /protein ) Provides kCal: 350 Provides Protein (gm) 20 Goal #1 meet at least 75% [place] and pro needs via PO and ONS intake Anticipated Discharge Needs: Cardiac Follow-Up By: 10/28/18 Additional Comments f/u: PO and ONS intake
--- NOTE | 2018-10-27 14:37 | Event Note ---
Date: 10/27/18 Pt noted to have rhythm change to AFib with RVR. Cancel discharge. Initiate cardizem gtt and full dosage lovenox. Storm JARRETT NP / DR. LERNER
[2018-10-27] MEDS: DIAMOX PO SCH ×2 (14:52→21:07)
[2018-10-27] MEDS: BABY ASPIRIN PO SCH (14:53)
[2018-10-27] MEDS ORDERED: LOVENOX SUB-Q SCH (15:00)
[2018-10-27] MEDS ORDERED: CARDIZEM IV ONE (15:00)
[2018-10-27] MEDS ORDERED: CARDIZEM 100 MG in D5W 80 ML IV SCH (15:30)
[2018-10-27] MEDS: DESYREL PO SCH (21:02)
[2018-10-27] MEDS: PRAVACHOL PO SCH (23:00)
[2018-10-27] MEDS: COREG PO SCH (23:27)
[2018-10-28] MEDS: SOLU-Medrol IV SCH ×3 (01:00→13:00)
[2018-10-28] MEDS: DUONEB *Not for PRN Use IH SCH ×4 (01:38→19:27)
--- NOTE | 2018-10-28 03:57 | XRay Report ---
PROCEDURE: XR CHEST 1V AP TECHNIQUE: Chest radiograph single view. HISTORY: follow up respiratory failure COMPARISONS: October 27, 2018 . FINDINGS: Heart: Normal. Mediastinum/Vessels: Normal. Lungs/Pleural space: Lungs are expanded. There is mild atelectasis versus infiltrate at the right radha ng base. There are no pleural effusions or pneumothoraces.. Bony thorax: No acute osseous abnormality. Life support devices: None. IMPRESSION: The heart size is normal. Lungs are expanded. There is mild atelectasis versus infiltrate at the right lung base. There are no pleural effusions or pneumothoraces.. This document is electronically signed by Den Stewart MD., October 28 2018 03:55:13 AM ET
[2018-10-28 05:48] LABS: Alanine Aminotransferase 42 units/L (7-56); Albumin 3.2 g/dL (3.9-5); BUN/Creatinine Ratio 56; Blood Urea Nitrogen 28 mg/dL (7-17); Calcium 8.3 mg/dL (8.4-10.2); Hemolysis Index 5
[2018-10-28 05:49] LABS: Hemoglobin 10.1 gm/dl (10.1-14.3); Mean Corpuscular HGB Conc 30 % (30-34); Mean Corpuscular Volume 78 fl (79-97); Platelet Count 186 K/mm3 (140-440); Red Blood Count 4.36 M/mm3 (3.65-5.03); Red Cell Distribution Width 16.5 % (13.2-15.2)
[2018-10-28] MEDS: SYNTHROID PO SCH (07:20)
[2018-10-28] MEDS: ZOSYN/NS 4.5GM/100ML 4.5 GM/100 ML VIAL IV SCH ×3 (07:21→21:07)
[2018-10-28] MEDS: ZESTRIL PO SCH (09:44)
[2018-10-28] MEDS: NORVASC PO SCH (09:44)
[2018-10-28] MEDS: BABY ASPIRIN PO SCH (09:45)
[2018-10-28] MEDS: LASIX PO SCH (09:45)
[2018-10-28] MEDS: CLARITIN PO SCH (09:45)
[2018-10-28] MEDS: WELLBUTRIN XL PO SCH (09:46)
[2018-10-28] MEDS: ABILIFY PO SCH (09:46)
[2018-10-28] MEDS: DIAMOX PO SCH ×2 (09:46→21:05)
[2018-10-28] MEDS: LOVENOX SUB-Q SCH (09:46)
[2018-10-28] MEDS: SODIUM CHLORIDE FLUSH SYRINGE 10 ML IV SCH ×2 (09:47→21:06)
--- NOTE | 2018-10-28 11:21 | Progress Note ---
Assessment and Plan Tele reviewed - pt in SR, appears to have converted back to SR yesterday evening. D/c amlodipine and initiate lopressor. Pt would benefit from systemic AC in regards to AFib. Indications, potential risks and benefits of terminal worker AC reviewed with pt and she is agreeable. Initiate Eliquis. The patient has been seen in conjunction with Dr. Trevino who agrees with the assessment and plan of care. - Patient Problems (1) Sinus bradycardia Current Visit: Yes Status: Resolved (2) Atrial fibrillation with RVR Current Visit: Yes Status: Acute (3) Acute and chronic respiratory failure Current Visit: Yes Status: Acute (4) End stage COPD Current Visit: Yes Status: Chronic (5) Altered mental status Current Visit: Yes Status: Resolved (6) Syncope and collapse Current Visit: Yes Status: Suspected (7) CAD (coronary artery disease) Current Visit: Yes Status: Chronic (8) HTN (hypertension) Current Visit: Yes Status: Chronic (9) History of heart failure Current Visit: Yes Status: Chronic Subjective Date of service: 10/28/18 Principal diagnosis: acute respiratory failure, COPD exacerbation, pneumonia, sepsis with hypote Interval history: pt resting in bed, no current complaints. tele reviewed - pt in SR, appears to have converted back to SR yesterday evening. Objective Last Vital Signs Temp 98.4 F 10/28/18 07:27 Pulse 84 10/28/18 09:04 Resp 19 10/28/18 09:04 BP 115/71 10/28/18 07:00 Pulse Ox 98 10/28/18 09:05 - Physical Examination General: No Apparent Distress HEENT: Positive: PERRL, Normocephaly, Mucus Membranes Moist Neck: Positive: neck supple, trachea midline Cardiac: Positive: Reg Rate and Rhythm, S1/S2 Lungs: Positive: Decreased Breath Sounds Neuro: Positive: Grossly Intact Abdomen: Positive: Soft. Negative: Tender Skin: Negative: Rash, Wound Musculoskeletal: No Pain Extremities: Absent: edema - Labs and Meds Cardiac Enzymes 10/28/18 Range/Units 04:45 AST 15 (5-40) units/L CBC 10/28/18 Range/Units 04:45 WBC 5.5 (4.5-11.0) K/mm3 RBC 4.36 (3.65-5.03) M/mm3 Hgb 10.1 (10.1-14.3) gm/dl Hct 34.0 (30.3-42.9) % Plt Count 186 (140-440) K/mm3 Comprehensive Metabolic Panel 10/28/18 Range/Units 04:45 Sodium 145 (137-145) mmol/L Potassium 3.8 (3.6-5.0) mmol/L Chloride 101.5 (98-107) mmol/L Carbon Dioxide 36 H (22-30) mmol/L BUN 28 H (7-17) mg/dL Creatinine 0.5 L (0.7-1.2) mg/dL Glucose 190 H (65-100) mg/dL Calcium 8.3 L (8.4-10.2) mg/dL AST 15 (5-40) units/L ALT 42 (7-56) units/L Alkaline Phosphatase 62 (35-129) units/L Total Protein 5.5 L (6.3-8.2) g/dL Albumin 3.2 L (3.9-5) g/dL - Imaging and Cardiology EKG: report reviewed, image reviewed Echo: report reviewed (10/23 showed EF 50-55%, RV systolic function moderately reduced, mild MVP, mild MR, trace TR. ) Cardiac cath: report reviewed (10/14/2018 showed 100% distal lcx, 100% distal LAD, EF 45%. Medical management was recommended. ) - EKG Sinus rhythms and dysrhythmias: sinus rhythm
--- NOTE | 2018-10-28 11:25 | Progress Note ---
Assessment and Plan COPD. Status post extubation. acute/chronic respiratory failure A. fib episode. Brovana discontinued yesterday as a precaution Atelectasis changes left base. Patient with very limited expectoration, excursions, breathing effort AMS Hypothermia Rec Continue nebs. Transition to LABA/ LMA/ICS, If Agreeable with Cardiology Need to monitor response with beta carlita therapy from respiratory standpoint Candidate for pulmonary rehabilitation after outpatient check. She follows with Dr. Spears in [place] for pulmonary Outpatient pulmonary evaluation, PFT workup for COPD severity stratification with primary pulmonologists Prednisone 30 mg by mouth unless limited by blood sugar problems with 7 day taper We'll continue to follow up as inpatient and then sign off Findings discussed with the patient and nursing detail. All questions answered. Subjective Date of service: 10/28/18 Principal diagnosis: acute respiratory failure, COPD exacerbation, pneumonia, sepsis with hypote Interval history: Feels better today. Limited expectoration. No chest pain, sputum, palpitation or hemoptysis reported. Use BiPAP last night without problems. Hot A. fib episode, see cardiology notes. Objective Vital Signs - 12hr 10/28/18 10/28/18 10/28/18 00:00 00:01 01:01 Temperature 98.6 F Pulse Rate 66 64 Pulse Rate [ Anterior Bilateral Throughout] Pulse Rate [ 99 H Left Posterior Tibial] Respiratory 20 24 24 Rate Respiratory Rate [Anterior Bilateral Throughout] Blood Pressure 106/67 106/67 O2 Sat by Pulse 99 99 100 Oximetry 10/28/18 10/28/18 10/28/18 01:16 01:38 01:55 Temperature Pulse Rate 57 L Pulse Rate [ 89 64 Anterior Bilateral Throughout] Pulse Rate [ Left Posterior Tibial] Respiratory 20 Rate Respiratory 19 21 Rate [Anterior Bilateral Throughout] Blood Pressure 106/67 O2 Sat by Pulse 100 Oximetry 10/28/18 10/28/18 10/28/18 02:00 03:00 04:00 Temperature Pulse Rate 83 79 55 L Pulse Rate [ Anterior Bilateral Throughout] Pulse Rate [ 99 H Left Posterior Tibial] Respiratory 23 22 19 Rate Respiratory Rate [Anterior Bilateral Throughout] Blood Pressure 104/59 110/56 110/56 O2 Sat by Pulse 97 95 100 Oximetry 10/28/18 10/28/18 10/28/18 05:00 06:00 07:00 Temperature Pulse Rate 57 L 75 66 Pulse Rate [ Anterior Bilateral Throughout] Pulse Rate [ Left Posterior Tibial] Respiratory 19 21 20 Rate Respiratory Rate [Anterior Bilateral Throughout] Blood Pressure 116/57 103/55 115/71 O2 Sat by Pulse 100 98 Oximetry 10/28/18 10/28/18 10/28/18 07:27 09:04 09:05 Temperature 98.4 F Pulse Rate Pulse Rate [ 84 Anterior Bilateral Throughout] Pulse Rate [ Left Posterior Tibial] Respiratory Rate Respiratory 19 Rate [Anterior Bilateral Throughout] Blood Pressure O2 Sat by Pulse 98 Oximetry Constitutional: no acute distress, alert Eyes: non-icteric ENT: other (orally intubated, not on sedation) Neck: no JVD Effort: normal Ascultation: Bilateral: clear, diminished breath sounds Percussion: Bilateral: not dull Cardiovascular: regular rate and rhythm Gastrointestinal: normoactive bowel sounds, soft, non-tender Integumentary: normal Extremities: no edema, pink and warm, pulses normal Neurologic: normal mental status, non-focal exam, pupils equal and round, CN II- XII normal, motor strength normal and Psychiatric: mood appropriate CBC and BMP: 10/28/18 04:45 10/28/18 04:45 ABG, PT/INR, D-dimer: ABG POC ABG pH 7.498 (7.35-7.45) H 10/24/18 04:59 POC ABG pCO2 32.3 (35-45) L 10/24/18 04:59 POC ABG pO2 114 (80-105) H 10/24/18 04:59 POC ABG HCO3 25.1 (22-26 mml/L) 10/24/18 04:59 POC ABG Total CO2 26 (23-27mmol/L) 10/24/18 04:59 POC ABG O2 Sat 99 10/24/18 04:59 PT/INR, D-dimer PT 12.0 Sec. (12.2-14.9) L 10/23/18 16:27 INR 0.84 (0.87-1.13) L 10/23/18 16:27 Abnormal lab findings: Abnormal Labs 10/23/18 10/23/18 10/23/18 15:38 16:27 16:27 WBC 12.5 H MCV 78 L MCH 23 L RDW 16.0 H Lymph % (Auto) Lymph # Seg Neutrophils % Seg Neuts % (Manual) Lymphocytes % (Manual) Nucleated RBC % Seg Neutrophils # Man Lymphocytes # (Manual) PT 12.0 L INR 0.84 L APTT 21.0 L POC ABG pH POC ABG pCO2 POC ABG pO2 Sodium Chloride Carbon Dioxide BUN Creatinine Glucose POC Glucose 113 H Lactic Acid Calcium Magnesium AST ALT Total Protein Albumin Salicylates Acetaminophen 10/23/18 10/23/18 10/23/18 16:27 16:27 16:27 WBC MCV MCH RDW Lymph % (Auto) Lymph # Seg Neutrophils % Seg Neuts % (Manual) Lymphocytes % (Manual) Nucleated RBC % Seg Neutrophils # Man Lymphocytes # (Manual) PT INR APTT POC ABG pH POC ABG pCO2 POC ABG pO2 Sodium 136 L Chloride 95.8 L Carbon Dioxide BUN 29 H Creatinine 0.4 L Glucose 115 H POC Glucose Lactic Acid Calcium Magnesium AST 61 H ALT 72 H Total Protein Albumin 3.7 L Salicylates < 0.3 L Acetaminophen < 5.0 L 10/23/18 10/23/18 10/23/18 16:27 16:40 18:06 WBC MCV MCH RDW Lymph % (Auto) Lymph # Seg Neutrophils % Seg Neuts % (Manual) Lymphocytes % (Manual) Nucleated RBC % Seg Neutrophils # Man Lymphocytes # (Manual) PT INR APTT POC ABG pH 7.320 L 7.258 L POC ABG pCO2 65.1 H 62.6 H POC ABG pO2 79 L Sodium Chloride Carbon Dioxide BUN Creatinine Glucose POC Glucose Lactic Acid Calcium Magnesium 4.60 H AST ALT Total Protein Albumin Salicylates Acetaminophen 10/23/18 10/23/18 10/24/18 20:41 21:53 00:06 WBC MCV MCH RDW Lymph % (Auto) Lymph # Seg Neutrophils % Seg Neuts % (Manual) Lymphocytes % (Manual) Nucleated RBC % Seg Neutrophils # Man Lymphocytes # (Manual) PT INR APTT POC ABG pH 7.231 L 7.489 H POC ABG pCO2 66.6 H 33.0 L POC ABG pO2 72 L 108 H Sodium Chloride Carbon Dioxide BUN Creatinine Glucose POC Glucose Lactic Acid 2.30 H* Calcium Magnesium AST ALT Total Protein Albumin Salicylates Acetaminophen 10/24/18 10/24/18 10/24/18 01:05 04:59 10:35 WBC MCV MCH RDW Lymph % (Auto) Lymph # Seg Neutrophils % Seg Neuts % (Manual) Lymphocytes % (Manual) Nucleated RBC % Seg Neutrophils # Man Lymphocytes # (Manual) PT INR APTT POC ABG pH 7.498 H POC ABG pCO2 32.3 L POC ABG pO2 114 H Sodium Chloride Carbon Dioxide BUN 22 H Creatinine 0.5 L Glucose 111 H POC Glucose Lactic Acid 3.60 H* Calcium Magnesium 2.50 H AST 42 H ALT 60 H Total Protein 5.9 L Albumin 3.0 L Salicylates Acetaminophen 10/24/18 10/24/18 10/24/18 13:25 13:56 18:49 WBC MCV 76 L MCH 24 L RDW 15.6 H Lymph % (Auto) 6.9 L Lymph # 0.6 L Seg Neutrophils % 88.2 H Seg Neuts % (Manual) Lymphocytes % (Manual) Nucleated RBC % Seg Neutrophils # Man Lymphocytes # (Manual) PT INR APTT POC ABG pH POC ABG pCO2 POC ABG pO2 Sodium Chloride Carbon Dioxide BUN Creatinine Glucose POC Glucose 124 H 131 H Lactic Acid Calcium Magnesium AST ALT Total Protein Albumin Salicylates Acetaminophen 10/24/18 10/25/18 10/25/18 21:41 02:04 03:57 WBC MCV MCH RDW Lymph % (Auto) Lymph # Seg Neutrophils % Seg Neuts % (Manual) Lymphocytes % (Manual) Nucleated RBC % Seg Neutrophils # Man Lymphocytes # (Manual) PT INR APTT POC ABG pH POC ABG pCO2 POC ABG pO2 Sodium 149 H D Chloride 109.5 H Carbon Dioxide BUN 26 H Creatinine 0.6 L Glucose 127 H POC Glucose 119 H 123 H Lactic Acid Calcium Magnesium 2.50 H AST ALT Total Protein 6.1 L Albumin 3.3 L Salicylates Acetaminophen 10/25/18 10/25/18 10/25/18 05:22 06:38 08:13 WBC MCV 78 L MCH 23 L RDW 16.9 H Lymph % (Auto) Lymph # Seg Neutrophils % Seg Neuts % (Manual) 96.0 H Lymphocytes % (Manual) 2.0 L Nucleated RBC % Seg Neutrophils # Man 8.8 H Lymphocytes # (Manual) 0.2 L PT INR APTT POC ABG pH POC ABG pCO2 POC ABG pO2 Sodium Chloride Carbon Dioxide BUN Creatinine Glucose POC Glucose 115 H 117 H Lactic Acid Calcium Magnesium AST ALT Total Protein Albumin Salicylates Acetaminophen 10/26/18 10/26/18 10/26/18 02:00 04:38 04:38 WBC MCV MCH 23 L RDW 16.5 H Lymph % (Auto) Lymph # Seg Neutrophils % Seg Neuts % (Manual) 91.0 H Lymphocytes % (Manual) 6.0 L Nucleated RBC % 1.0 H Seg Neutrophils # Man Lymphocytes # (Manual) 0.4 L PT INR APTT POC ABG pH POC ABG pCO2 POC ABG pO2 Sodium 146 H Chloride 108.5 H Carbon Dioxide 32 H BUN 30 H Creatinine 0.6 L Glucose 123 H POC Glucose 126 H Lactic Acid Calcium Magnesium AST ALT Total Protein 5.7 L Albumin 3.1 L Salicylates Acetaminophen 10/26/18 10/26/18 10/26/18 05:51 15:06 20:01 WBC MCV MCH RDW Lymph % (Auto) Lymph # Seg Neutrophils % Seg Neuts % (Manual) Lymphocytes % (Manual) Nucleated RBC % Seg Neutrophils # Man Lymphocytes # (Manual) PT INR APTT POC ABG pH POC ABG pCO2 POC ABG pO2 Sodium Chloride Carbon Dioxide BUN Creatinine Glucose POC Glucose 147 H 167 H 226 H Lactic Acid Calcium Magnesium AST ALT Total Protein Albumin Salicylates Acetaminophen 10/27/18 10/27/18 10/27/18 01:19 04:18 04:18 WBC 4.2 L MCV 78 L MCH 23 L RDW 16.2 H Lymph % (Auto) Lymph # Seg Neutrophils % Seg Neuts % (Manual) 96.0 H Lymphocytes % (Manual) 3.0 L Nucleated RBC % 2.0 H Seg Neutrophils # Man Lymphocytes # (Manual) 0.1 L PT INR APTT POC ABG pH POC ABG pCO2 POC ABG pO2 Sodium Chloride Carbon Dioxide 32 H BUN 33 H Creatinine 0.6 L Glucose 150 H POC Glucose 150 H Lactic Acid Calcium Magnesium AST ALT Total Protein 5.8 L Albumin 3.3 L Salicylates Acetaminophen 10/27/18 10/27/18 10/27/18 12:08 17:37 21:21 WBC MCV MCH RDW Lymph % (Auto) Lymph # Seg Neutrophils % Seg Neuts % (Manual) Lymphocytes % (Manual) Nucleated RBC % Seg Neutrophils # Man Lymphocytes # (Manual) PT INR APTT POC ABG pH POC ABG pCO2 POC ABG pO2 Sodium Chloride Carbon Dioxide BUN Creatinine Glucose POC Glucose 182 H 156 H 135 H Lactic Acid Calcium Magnesium AST ALT Total Protein Albumin Salicylates Acetaminophen 10/28/18 10/28/1810/28/19 01:50 04:45 04:45 WBC MCV 78 L MCH 23 L RDW 16.5 H Lymph % (Auto) Lymph # Seg Neutrophils % Seg Neuts % (Manual) Lymphocytes % (Manual) Nucleated RBC % Seg Neutrophils # Man Lymphocytes # (Manual) PT INR APTT POC ABG pH POC ABG pCO2 POC ABG pO2 Sodium Chloride Carbon Dioxide 36 H BUN 28 H Creatinine 0.5 L Glucose 190 H POC Glucose 168 H Lactic Acid Calcium 8.3 L Magnesium AST ALT Total Protein 5.5 L Albumin 3.2 L Salicylates Acetaminophen 10/28/18 10/28/18 04:57 07:21 WBC MCV MCH RDW Lymph % (Auto) Lymph # Seg Neutrophils % Seg Neuts % (Manual) Lymphocytes % (Manual) Nucleated RBC % Seg Neutrophils # Man Lymphocytes # (Manual) PT INR APTT POC ABG pH POC ABG pCO2 POC ABG pO2 Sodium Chloride Carbon Dioxide BUN Creatinine Glucose POC Glucose 201 H 151 H Lactic Acid Calcium Magnesium AST ALT Total Protein Albumin Salicylates Acetaminophen Chest x-ray: report reviewed, image reviewed
--- NOTE | 2018-10-28 11:25 | Progress Note ---
Assessment and Plan Assessment and plan: 67-year-old woman with history of end-stage COPD on home oxygen, hypothyroid. She was brought to the hospital for decreased responsiveness. She was admitted for respiratory failure, she was intubated for airway protection and because she was obtunded. She was treated with the ventilator, steroids nebs. The patient improved. She was weaned of ventilator to nasal cannula oxygen. She continued to improve. She received pulmonology consult. She received echo which showed preserved EF. -She became bradycardic after initiation of carvedilol. Coreg was therefore discontinued. she was planned for discharge, but then went into rapid A. fib with heart rates in the 140s. She was then started on Cardizem drip on 10/27, on 10/28 she's converted to oral beta blockers. Cardiology input appreciated, the patient was also started on anticoagulation MRI cervical spine; multilevel bilateral neural foramina narrowing secondary to disc osteophyte complex and vertebral joint hypertrophy. No central canal spinal stenosis or cord edema. Chest x-ray; no infiltrate Diagnoses rapid afib with hypercoagulable states Acute on chronic hypoxic respiratory failure, requiring mechanical ventilator less than 96 hours COPD exacerbation Pneumonia was ruled out, with serial imaging Sepsis was ruled out SIRS without acute organ dysfunction Bradycardia, likely iatrogenic, now resolved History Interval history: Review of systems Constitutional: No fevers, no malaise, no joint pains CVS: No chest pain, no orthopnea, no dyspnea on exertion, no pedal edema GI: No abdominal pain, no diarrhea, no vomiting, no constipation Respiratory: No shortness of breath, no wheezing, no coughing Hospitalist Physical - Physical exam Narrative exam: General.: Appears well, no distress, nontoxic HEENT: Moist mucous membranes, extraocular muscles intact, no lymphadenopathy Neck: supple Cardiac: S1-S2 heard Lungs: Diminished air entry Abdomen: soft , nontender, nondistended, bowel sounds positive Extremities: no edema clubbing or cyanosis Skin: no rash or lesions Neurologic: no gross focal deficits Psych: calm, and cooperative - Constitutional Vitals: Temp Pulse Resp BP Pulse Ox 98.4 F 84 19 115/71 98 10/28/18 07:27 10/28/18 09:04 10/28/18 09:04 10/28/18 07:00 10/28/18 09:05 General appearance: Present: no acute distress Results - Labs CBC & Chem 7: 10/28/18 04:45 10/29/18 05:11 Labs: Laboratory Last Values WBC 5.5 K/mm3 (4.5-11.0) 10/28/18 04:45 RBC 4.36 M/mm3 (3.65-5.03) 10/28/18 04:45 Hgb 10.1 gm/dl (10.1-14.3) 10/28/18 04:45 Hct 34.0 % (30.3-42.9) 10/28/18 04:45 MCV 78 fl (79-97) L 10/28/18 04:45 MCH 23 pg (28-32) L 10/28/18 04:45 MCHC 30 % (30-34) 10/28/18 04:45 RDW 16.5 % (13.2-15.2) H 10/28/18 04:45 Plt Count 186 K/mm3 (140-440) 10/28/18 04:45 Lymph % (Auto) 6.9 % (13.4-35.0) L 10/24/18 13:25 [place] % (Auto) 4.8 % (0.0-7.3) 10/24/18 13:25 Eos % (Auto) 0.0 % (0.0-4.3) 10/24/18 13:25 Baso % (Auto) 0.1 % (0.0-1.8) 10/24/18 13:25 Lymph # 0.6 K/mm3 (1.2-5.4) L 10/24/18 13:25 [place] # 0.4 K/mm3 (0.0-0.8) 10/24/18 13:25 Eos # 0.0 K/mm3 (0.0-0.4) 10/24/18 13:25 Baso # 0.0 K/mm3 (0.0-0.1) 10/24/18 13:25 Add Manual Diff Complete 10/27/18 04:18 Total Counted 100 10/27/18 04:18 Seg Neutrophils % Senior Quality Engineer 10/27/18 04:18 Seg Neuts % (Manual) 96.0 % (40.0-70.0) H 10/27/18 04:18 Band Neutrophils % 0 % 10/27/18 04:18 Lymphocytes % (Manual) 3.0 % (13.4-35.0) L 10/27/18 04:18 Reactive Lymphs % (Man) 0 % 10/27/18 04:18 Monocytes % (Manual) 1.0 % (0.0-7.3) 10/27/18 04:18 Eosinophils % (Manual) 0 % (0.0-4.3) 10/27/18 04:18 Basophils % (Manual) 0 % (0.0-1.8) 10/27/18 04:18 Metamyelocytes % 0 % 10/27/18 04:18 Myelocytes % 0 % 10/27/18 04:18 Promyelocytes % 0 % 10/27/18 04:18 Blast Cells % 0 % 10/27/18 04:18 Nucleated RBC % 2.0 % (0.0-0.9) H 10/27/18 04:18 Seg Neutrophils # 7.4 K/mm3 (1.8-7.7) 10/24/18 13:25 Seg Neutrophils # Man 4.0 K/mm3 (1.8-7.7) 10/27/18 04:18 Band Neutrophils # 0.0 K/mm3 10/27/18 04:18 Lymphocytes # (Manual) 0.1 K/mm3 (1.2-5.4) L 10/27/18 04:18 Abs React Lymphs (Man) 0.0 K/mm3 10/27/18 04:18 Monocytes # (Manual) 0.0 K/mm3 (0.0-0.8) 10/27/18 04:18 Eosinophils # (Manual) 0.0 K/mm3 (0.0-0.4) 10/27/18 04:18 Basophils # (Manual) 0.0 K/mm3 (0.0-0.1) 10/27/18 04:18 Metamyelocytes # 0.0 K/mm3 10/27/18 04:18 Myelocytes # 0.0 K/mm3 10/27/18 04:18 Promyelocytes # 0.0 K/mm3 10/27/18 04:18 Blast Cells # 0.0 K/mm3 10/27/18 04:18 WBC Morphology Not Reportable 10/27/18 04:18 Hypersegmented Neuts Not Reportable 10/27/18 04:18 Hyposegmented Neuts Not Reportable 10/27/18 04:18 Hypogranular Neuts Not Reportable 10/27/18 04:18 Smudge Cells Not Reportable 10/27/18 04:18 Toxic Granulation Not Reportable 10/27/18 04:18 Toxic Vacuolation Not Reportable 10/27/18 04:18 Dohle Bodies Not Reportable 10/27/18 04:18 Pelger-Huet Anomaly Not Reportable 10/27/18 04:18 Damien Rods Not Reportable 10/27/18 04:18 Platelet Estimate Consistent w auto 10/27/18 04:18 Clumped Platelets Not Reportable 10/27/18 04:18 Plt Clumps, EDTA Not Reportable 10/27/18 04:18 Large Platelets Not Reportable 10/27/18 04:18 Giant Platelets Not Reportable 10/27/18 04:18 Platelet Satelliting Not Reportable 10/27/18 04:18 Plt Morphology Comment Not Reportable 10/27/18 04:18 RBC Morphology Not Reportable 10/27/18 04:18 Dimorphic RBCs Not Reportable 10/27/18 04:18 Polychromasia Not Reportable 10/27/18 04:18 Hypochromasia 2+ 10/27/18 04:18 Poikilocytosis Not Reportable 10/27/18 04:18 Anisocytosis Not Reportable 10/27/18 04:18 Microcytosis Not Reportable 10/27/18 04:18 Macrocytosis Not Reportable 10/27/18 04:18 Spherocytes Not Reportable 10/27/18 04:18 Pappenheimer Bodies Not Reportable 10/27/18 04:18 Sickle Cells Not Reportable 10/27/18 04:18 Target Cells Not Reportable 10/27/18 04:18 Tear Drop Cells Not Reportable 10/27/18 04:18 Ovalocytes Not Reportable 10/27/18 04:18 Helmet Cells Not Reportable 10/27/18 04:18 Fong-[place] Bodies Not Reportable 10/27/18 04:18 [place] Rings Not Reportable 10/27/18 04:18 [place] Cells Not Reportable 10/27/18 04:18 Bite Cells Not Reportable 10/27/18 04:18 Crenated Cell Not Reportable 10/27/18 04:18 Elliptocytes Not Reportable 10/27/18 04:18 Acanthocytes (Spur) Not Reportable 10/27/18 04:18 Rouleaux Not Reportable 10/27/18 04:18 Hemoglobin C Crystals Not Reportable 10/27/18 04:18 Schistocytes Not Reportable 10/27/18 04:18 Malaria parasites Not Reportable 10/27/18 04:18 Cayden Bodies Not Reportable 10/27/18 04:18 Hem Pathologist Commnt No 10/27/18 04:18 PT 12.0 Sec. (12.2-14.9) L 10/23/18 16:27 INR 0.84 (0.87-1.13) L 10/23/18 16:27 APTT 21.0 Sec. (24.2-36.6) L 10/23/18 16:27 POC ABG pH 7.498 (7.35-7.45) H 10/24/18 04:59 POC ABG pCO2 32.3 (35-45) L 10/24/18 04:59 POC ABG pO2 114 (80-105) H 10/24/18 04:59 POC ABG HCO3 25.1 (22-26 mml/L) 10/24/18 04:59 POC ABG Total CO2 26 (23-27mmol/L) 10/24/18 04:59 POC ABG O2 Sat 99 10/24/18 04:59 POC ABG Base Excess 2 ((-2) - (+3)mmol/L) 10/24/18 04:59 FiO2 40 % 10/24/18 04:59 Sodium 145 mmol/L (137-145) 10/28/18 04:45 Potassium 3.8 mmol/L (3.6-5.0) 10/28/18 04:45 Chloride 101.5 mmol/L (98-107) 10/28/18 04:45 Carbon Dioxide 36 mmol/L (22-30) H 10/28/18 04:45 Anion Gap 11 mmol/L 10/28/18 04:45 BUN 28 mg/dL (7-17) H 10/28/18 04:45 Creatinine 0.5 mg/dL (0.7-1.2) L 10/28/18 04:45 Estimated GFR > 60 ml/min 10/28/18 04:45 BUN/Creatinine Ratio 56 % 10/28/18 04:45 Glucose 190 mg/dL (65-100) H 10/28/18 04:45 POC Glucose 151 (70-105) H 10/28/18 07:21 Lactic Acid 1.00 mmol/L (0.7-2.0) 10/24/18 13:25 Calcium 8.3 mg/dL (8.4-10.2) L 10/28/18 04:45 Magnesium 2.50 mg/dL (1.7-2.3) H 10/25/18 03:57 Total Bilirubin < 0.20 mg/dL (0.1-1.2) 10/28/18 04:45 Direct Bilirubin < 0.2 mg/dL (0-0.2) 10/24/18 10:35 Indirect Bilirubin 0.2 mg/dL 10/24/18 10:35 AST 15 units/L (5-40) 10/28/18 04:45 ALT 42 units/L (7-56) 10/28/18 04:45 Alkaline Phosphatase 62 units/L (35-129) 10/28/18 04:45 Total Creatine Kinase 66 units/L (30-135) 10/23/18 16:27 Troponin T < 0.010 ng/mL (0.00-0.029) 10/23/18 16:27 NT-Pro-B Natriuret Pep 835.8 pg/mL (0-900) 10/24/18 13:25 Total Protein 5.5 g/dL (6.3-8.2) L 10/28/18 04:45 Albumin 3.2 g/dL (3.9-5) L 10/28/18 04:45 Albumin/Globulin Ratio 1.4 % 10/28/18 04:45 TSH 0.527 mlU/mL (0.270-4.200) 10/24/18 10:35 Free T4 1.10 ng/dL (0.76-1.46) 10/24/18 10:35 Urine Color Yellow (Yellow) 10/23/18 16:18 Urine Turbidity Slightly-cloudy (Clear) 10/23/18 16:18 Urine pH 5.0 (5.0-7.0) 10/23/18 16:18 Ur Specific [place] 1.016 (1.003-1.030) 10/23/18 16:18 Urine Protein <15 mg/dl mg/dL (Negative) 10/23/18 16:18 Urine Glucose (UA) Neg mg/dL (Negative) 10/23/18 16:18 Urine Ketones Neg mg/dL (Negative) 10/23/18 16:18 Urine Blood Neg (Negative) 10/23/18 16:18 Urine Nitrite Neg (Negative) 10/23/18 16:18 Urine Bilirubin Neg (Negative) 10/23/18 16:18 Urine Urobilinogen 2.0 mg/dL (<2.0) 10/23/18 16:18 Ur Leukocyte Esterase Neg (Negative) 10/23/18 16:18 Urine WBC (Auto) < 1.0 /HPF (0.0-6.0) 10/23/18 16:18 Urine RBC (Auto) 1.0 /HPF (0.0-6.0) 10/23/18 16:18 U Epithel Cells (Auto) < 1.0 /HPF (0-13.0) 10/23/18 16:18 Urine Mucus Few /HPF 10/23/18 16:18 Salicylates < 0.3 mg/dL (2.8-20.0) L 10/23/18 16:27 Urine Opiates Screen Presumptive negative 10/23/18 16:18 Urine Methadone Screen Presumptive negative 10/23/18 16:18 Acetaminophen < 5.0 ug/mL (10.0-30.0) L 10/23/18 16:27 Ur Barbiturates Screen Presumptive negative 10/23/18 16:18 Ur Phencyclidine Scrn Presumptive negative 10/23/18 16:18 Ur Amphetamines Screen Presumptive negative 10/23/18 16:18 U Benzodiazepines Scrn Presumptive negative 10/23/18 16:18 Urine Cocaine Screen Presumptive negative 10/23/18 16:18 U Marijuana (THC) Screen Presumptive negative 10/23/18 16:18 Drugs of Abuse Note Disclamer 10/23/18 16:18 Plasma/Serum Alcohol < 0.01 % (0-0.07) 10/23/18 16:27 Active Medications - Current Medications Current Medications: Generic Name Dose Route Start Last Admin Trade Name Freq PRN Reason Stop Dose Admin Acetaminophen 650 mg 10/23/18 21:55 Tylenol PO Q4H PRN Pain MILD(1-3)/Fever >100.5/LOU Acetazolamide 500 mg 10/25/18 22:00 10/28/18 09:46 Diamox PO 500 mg BID GABRIEL Administration Albuterol/Ipratropium 1 ampul 10/25/18 10:15 10/28/18 09:04 Duoneb *Not For Prn Use* IH 1 ampul Q6HRT GABRIEL Administration Apixaban 5 mg 10/28/18 22:00 Eliquis PO Q12HR [facility] Protocol Aripiprazole 10 mg 10/25/18 12:00 10/28/18 09:46 Abilify PO 10 mg QDAY GABRIEL Administration Aspirin 81 mg 10/27/18 15:00 10/28/18 09:45 Baby Aspirin PO 81 mg QDAY [facility] Administration Bupropion HCl 300 mg 10/25/18 12:00 10/28/18 09:46 Wellbutrin Xl PO 300 mg DAILY GABRIEL Administration Furosemide 40 mg 10/26/18 10:00 10/28/18 09:45 Lasix PO 40 mg QAM [facility] Administration Hydrophilic Ointment 1 applic 10/23/18 15:53 Vaseline Lip Therapy TP Q2HR PRN Dry Lips Piperacillin Sod/Tazobactam Sod 4.5 gm in 100 mls @ 200 mls/hr 10/23/18 23:00 10/28/18 07:21 Zosyn/Ns 4.5gm/100ml IV 10/29/18 22:59 200 mls/hr Q8HR GABRIEL Administration Protocol Levothyroxine Sodium 125 mcg 10/25/18 13:00 10/28/18 07:20 Synthroid PO 125 mcg DAILY@0600 [facility] Administration Lisinopril 2.5 mg 10/26/18 10:00 10/28/18 09:44 Zestril PO Not Given QDAY [facility] Loratadine 10 mg 10/25/18 13:00 10/28/18 09:45 Claritin PO 10 mg DAILY [facility] Administration Methylprednisolone Sodium Succinate 60 mg 10/24/18 12:11 10/28/18 07:20 Solu-Medrol IV 60 mg Q6HR GABRIEL Administration Metoprolol Tartrate 25 mg 10/28/18 22:00 Lopressor PO BID [facility] Multi-Ingred Cream/Lotion/Oil/Oint 1 applic 10/23/18 15:53 Artificial Tears Ophth Oint OU Q4HR PRN Dry Eye(s) Ondansetron HCl 4 mg 10/23/18 21:55 Zofran IV Q8H PRN Nausea And Vomiting Pravastatin Sodium 20 mg 10/25/18 22:00 10/27/18 23:00 Pravachol PO 20 mg QHS GABRIEL Administration Sodium Chloride 5 ml 10/23/18 15:53 Nacl 0.9% 500 Ml IV DIRECT PRN [employer] Sodium Chloride 10 ml 10/23/18 22:00 10/28/18 09:47 Sodium Chloride Flush Syringe 10 Ml IV 10 ml BID GABRIEL Administration Sodium Chloride 10 ml 10/23/18 21:55 Sodium Chloride Flush Syringe 10 Ml IV PRN PRN LINE FLUSH Trazodone HCl 50 mg 10/25/18 22:00 10/27/18 21:02 Desyrel PO 50 mg HS GABRIEL Administration Nutrition/Malnutrition Assess - Dietary Evaluation Nutrition/Malnutrition Findings: Nutrition Notes Start: 10/25/18 16 :29 Freq: Status: Active Protocol: Document 10/28/18 11:08 EB (Rec: 10/28/18 11:12 [id number]) Co-Sign 10/28/18 11:08 LP Nutrition Notes Initial or Follow up Reassessment Current Diagnosis COPD Current Diet Cardiac diet Labs/Tests Reviewed Pertinent Medications Lasix Height 5 ft 6 in Weight 77.7 kg [place] Body Weight (kg) 59.09 BMI 27.6 Subjective/Other Information F/u for intakes. Pt on nasal canula and eating 100% of meals and ONS. No reports of trouble chewing or swallowing. Burn Absent Trauma Absent #1 Nutrition Diagnosis Inadequate oral intake As Evidenced by Signs and Symptoms Nasal canula placed yesterday and pt eating 100% meals and ONS supplements Diagnosis Progress(for reassessment Resolved documentation) Is patient on ventilator? No Is Patient Ambulatory and/or Out of Bed No REE-([facility]-confined to bed) 1605.900 Calculation Used for Recommendations [facility] Additional Notes protein (1-1.2g/kg): 78-94g fluid: 1mL/kcal Nutrition Intervention Change Diet Order: Continue cardiac diet Add Supplement/Snack (indicate name/kcal Ensure Enlive daily /protein ) Provides kCal: 350 Provides Protein (gm) 20 Goal #1 Continue to meet at least 75% camilla and pro needs via PO and ONS intake Anticipated Discharge Needs: Cardiac Follow-Up By: 11/04/18 Additional Comments F/u: PO and ONS intake
[2018-10-28 11:53] LABS: Basophils % (Manual) 0 % (0.0-1.8); Eosinophils % (Manual) 0 % (0.0-4.3); Hypochromasia 2+; Platelet Estimate Consistent w Auto; Total Cells Counted 100
--- NOTE | 2018-10-28 13:49 | XRay Report ---
Chest 2 views: Compared to 10/28/18. History: Shortness of breath. Findings: Cardiomegaly. Trachea is midline. Evidence of COPD. No acute consolidation or pleural effusion. Pleural thickening bilaterally. Impression: Emphysema. No acute lung changes.
[2018-10-28] MEDS ORDERED: VASELINE TP PRN (19:19)
[2018-10-28] MEDS: PRAVACHOL PO SCH (21:04)
[2018-10-28] MEDS: LOPRESSOR PO SCH (21:04)
[2018-10-28] MEDS: DESYREL PO SCH (21:05)
[2018-10-28] MEDS: TYLENOL PO PRN (21:05)
[2018-10-28] MEDS: ELIQUIS PO SCH (21:08)
[2018-10-29] MEDS: DUONEB *Not for PRN Use IH SCH ×4 (03:07→20:55)
[2018-10-29] MEDS: SYNTHROID PO SCH (05:13)
[2018-10-29] MEDS: ZOSYN/NS 4.5GM/100ML 4.5 GM/100 ML VIAL IV SCH ×3 (05:13→21:49)
[2018-10-29] MEDS: TYLENOL PO PRN (05:14)
--- NOTE | 2018-10-29 05:17 | XRay Report ---
PROCEDURE: XR CHEST 1V AP HISTORY: follow up respiratory failure FINDINGS: Single frontal view of the chest was acquired and compared to the prior examination of [place] 4. The heart is mildly large although unchanged from prior exam. There is blunting of both costophrenic sulci which could represent small pleural effusions or pleural thickening, unchanged. There is no evidence of congestive heart failure. There is no consolidative infiltrate. IMPRESSION: Cardiomegaly No consolidative infiltrate This document is electronically signed by Vickey Robert MD., October 29 2018 05:15:00 AM ET
[2018-10-29 06:25] LABS: Alanine Aminotransferase 30 units/L (7-56); Albumin 2.8 g/dL (3.9-5); BUN/Creatinine Ratio 56; Blood Urea Nitrogen 28 mg/dL (7-17); Calcium 8.3 mg/dL (8.4-10.2); Hemolysis Index 20
--- NOTE | 2018-10-29 09:35 | Progress Note ---
Assessment and Plan COPD exacerbation. Status post extubation. Acute/chronic respiratory failure A. fib episode. No evidence today Atelectasis changes left base. Patient with very limited expectoration, excursions, breathing effort. Chest clear today AMS Hypothermia Rec Continue nebs. Transition to LABA/ LMA/ICS, If Agreeable with Cardiology Need to monitor response with beta carlita therapy from respiratory standpoint Candidate for pulmonary rehabilitation after outpatient check. She follows with Dr. Spears in [place] for pulmonary Outpatient pulmonary evaluation, PFT workup for COPD severity stratification with primary pulmonologists Prednisone 30 mg by mouth unless limited by blood sugar problems with 7 day taper LTAC outpatient physical rehabilitation per hospitalist, patient We'll continue to follow up as inpatient and then sign off Findings discussed with the patient detail. All questions answered. Subjective Date of service: 10/29/18 Principal diagnosis: acute respiratory failure, COPD exacerbation, pneumonia, sepsis with hypote Interval history: Feels better today. No events overnight. Minimal expectoration. Objective Vital Signs - 12hr 10/28/18 10/28/18 10/28/18 22:00 22:59 23:00 Temperature Pulse Rate 91 H 91 H 76 Pulse Rate [ Anterior Bilateral Throughout] Pulse Rate [ From Monitor] Respiratory 26 H 25 H Rate Respiratory Rate [Anterior Bilateral Throughout] Blood Pressure 104/49 106/61 O2 Sat by Pulse 95 95 Oximetry 10/28/18 10/28/18 10/29/18 23:03 23:13 00:00 Temperature 99.3 F Pulse Rate 77 76 71 Pulse Rate [ Anterior Bilateral Throughout] Pulse Rate [ 71 From Monitor] Respiratory 25 H 24 19 Rate Respiratory Rate [Anterior Bilateral Throughout] Blood Pressure 106/61 106/61 O2 Sat by Pulse 95 96 98 Oximetry 10/29/18 10/29/18 10/29/18 01:00 02:00 02:59 Temperature Pulse Rate 75 58 L 55 L Pulse Rate [ Anterior Bilateral Throughout] Pulse Rate [ From Monitor] Respiratory 26 H 24 Rate Respiratory Rate [Anterior Bilateral Throughout] Blood Pressure 109/61 108/52 O2 Sat by Pulse 97 98 Oximetry 10/29/18 10/29/18 10/29/18 03:00 03:07 03:08 Temperature Pulse Rate 61 55 L Pulse Rate [ 61 Anterior Bilateral Throughout] Pulse Rate [ From Monitor] Respiratory 13 25 H Rate Respiratory 25 H Rate [Anterior Bilateral Throughout] Blood Pressure 107/65 107/65 O2 Sat by Pulse 99 99 Oximetry 10/29/18 10/29/18 10/29/18 03:18 04:00 05:00 Temperature 98.5 F Pulse Rate 57 L 58 L Pulse Rate [ 61 Anterior Bilateral Throughout] Pulse Rate [ 71 From Monitor] Respiratory 28 H 22 Rate Respiratory 21 Rate [Anterior Bilateral Throughout] Blood Pressure 114/64 97/49 O2 Sat by Pulse 99 98 Oximetry 10/29/18 10/29/18 10/29/18 06:00 07:01 08:00 Temperature 98.6 F Pulse Rate 55 L 56 L 60 Pulse Rate [ Anterior Bilateral Throughout] Pulse Rate [ 64 From Monitor] Respiratory 14 14 27 H Rate Respiratory Rate [Anterior Bilateral Throughout] Blood Pressure 104/66 122/52 101/60 O2 Sat by Pulse 98 99 100 Oximetry 10/29/18 10/29/18 08:48 09:00 Temperature Pulse Rate 70 Pulse Rate [ 60 Anterior Bilateral Throughout] Pulse Rate [ From Monitor] Respiratory 10 L Rate Respiratory 20 Rate [Anterior Bilateral Throughout] Blood Pressure 105/76 O2 Sat by Pulse 100 Oximetry Constitutional: no acute distress, alert Eyes: non-icteric ENT: other (orally intubated, not on sedation) Neck: no JVD Effort: normal Ascultation: Bilateral: clear, diminished breath sounds Percussion: Bilateral: not dull Cardiovascular: regular rate and rhythm Gastrointestinal: normoactive bowel sounds, soft, non-tender Integumentary: normal Extremities: no edema, pink and warm, pulses normal Neurologic: normal mental status, non-focal exam, pupils equal and round, CN II- XII normal, motor strength normal and Psychiatric: mood appropriate CBC and BMP: 10/28/18 04:45 10/29/18 05:11 ABG, PT/INR, D-dimer: ABG POC ABG pH 7.498 (7.35-7.45) H 10/24/18 04:59 POC ABG pCO2 32.3 (35-45) L 10/24/18 04:59 POC ABG pO2 114 (80-105) H 10/24/18 04:59 POC ABG HCO3 25.1 (22-26 mml/L) 10/24/18 04:59 POC ABG Total CO2 26 (23-27mmol/L) 10/24/18 04:59 POC ABG O2 Sat 99 10/24/18 04:59 PT/INR, D-dimer PT 12.0 Sec. (12.2-14.9) L 10/23/18 16:27 INR 0.84 (0.87-1.13) L 10/23/18 16:27 Abnormal lab findings: Abnormal Labs 10/23/18 10/23/18 10/23/18 15:38 16:27 16:27 WBC 12.5 H MCV 78 L MCH 23 L RDW 16.0 H Lymph % (Auto) Lymph # Seg Neutrophils % Seg Neuts % (Manual) Lymphocytes % (Manual) Nucleated RBC % Seg Neutrophils # Man Lymphocytes # (Manual) PT 12.0 L INR 0.84 L APTT 21.0 L POC ABG pH POC ABG pCO2 POC ABG pO2 Sodium Chloride Carbon Dioxide BUN Creatinine Glucose POC Glucose 113 H Lactic Acid Calcium Magnesium AST ALT Total Protein Albumin Salicylates Acetaminophen 10/23/18 10/23/18 10/23/18 16:27 16:27 16:27 WBC MCV MCH RDW Lymph % (Auto) Lymph # Seg Neutrophils % Seg Neuts % (Manual) Lymphocytes % (Manual) Nucleated RBC % Seg Neutrophils # Man Lymphocytes # (Manual) PT INR APTT POC ABG pH POC ABG pCO2 POC ABG pO2 Sodium 136 L Chloride 95.8 L Carbon Dioxide BUN 29 H Creatinine 0.4 L Glucose 115 H POC Glucose Lactic Acid Calcium Magnesium AST 61 H ALT 72 H Total Protein Albumin 3.7 L Salicylates < 0.3 L Acetaminophen < 5.0 L 10/23/18 10/23/18 10/23/18 16:27 16:40 18:06 WBC MCV MCH RDW Lymph % (Auto) Lymph # Seg Neutrophils % Seg Neuts % (Manual) Lymphocytes % (Manual) Nucleated RBC % Seg Neutrophils # Man Lymphocytes # (Manual) PT INR APTT POC ABG pH 7.320 L 7.258 L POC ABG pCO2 65.1 H 62.6 H POC ABG pO2 79 L Sodium Chloride Carbon Dioxide BUN Creatinine Glucose POC Glucose Lactic Acid Calcium Magnesium 4.60 H AST ALT Total Protein Albumin Salicylates Acetaminophen 10/23/18 10/23/18 10/24/18 20:41 21:53 00:06 WBC MCV MCH RDW Lymph % (Auto) Lymph # Seg Neutrophils % Seg Neuts % (Manual) Lymphocytes % (Manual) Nucleated RBC % Seg Neutrophils # Man Lymphocytes # (Manual) PT INR APTT POC ABG pH 7.231 L 7.489 H POC ABG pCO2 66.6 H 33.0 L POC ABG pO2 72 L 108 H Sodium Chloride Carbon Dioxide BUN Creatinine Glucose POC Glucose Lactic Acid 2.30 H* Calcium Magnesium AST ALT Total Protein Albumin Salicylates Acetaminophen 10/24/18 10/24/18 10/24/18 01:05 04:59 10:35 WBC MCV MCH RDW Lymph % (Auto) Lymph # Seg Neutrophils % Seg Neuts % (Manual) Lymphocytes % (Manual) Nucleated RBC % Seg Neutrophils # Man Lymphocytes # (Manual) PT INR APTT POC ABG pH 7.498 H POC ABG pCO2 32.3 L POC ABG pO2 114 H Sodium Chloride Carbon Dioxide BUN 22 H Creatinine 0.5 L Glucose 111 H POC Glucose Lactic Acid 3.60 H* Calcium Magnesium 2.50 H AST 42 H ALT 60 H Total Protein 5.9 L Albumin 3.0 L Salicylates Acetaminophen 10/24/18 10/24/18 10/24/18 13:25 13:56 18:49 WBC MCV 76 L MCH 24 L RDW 15.6 H Lymph % (Auto) 6.9 L Lymph # 0.6 L Seg Neutrophils % 88.2 H Seg Neuts % (Manual) Lymphocytes % (Manual) Nucleated RBC % Seg Neutrophils # Man Lymphocytes # (Manual) PT INR APTT POC ABG pH POC ABG pCO2 POC ABG pO2 Sodium Chloride Carbon Dioxide BUN Creatinine Glucose POC Glucose 124 H 131 H Lactic Acid Calcium Magnesium AST ALT Total Protein Albumin Salicylates Acetaminophen 10/24/18 10/25/18 10/25/18 21:41 02:04 03:57 WBC MCV MCH RDW Lymph % (Auto) Lymph # Seg Neutrophils % Seg Neuts % (Manual) Lymphocytes % (Manual) Nucleated RBC % Seg Neutrophils # Man Lymphocytes # (Manual) PT INR APTT POC ABG pH POC ABG pCO2 POC ABG pO2 Sodium 149 H D Chloride 109.5 H Carbon Dioxide BUN 26 H Creatinine 0.6 L Glucose 127 H POC Glucose 119 H 123 H Lactic Acid Calcium Magnesium 2.50 H AST ALT Total Protein 6.1 L Albumin 3.3 L Salicylates Acetaminophen 10/25/18 10/25/18 10/25/18 05:22 06:38 08:13 WBC MCV 78 L MCH 23 L RDW 16.9 H Lymph % (Auto) Lymph # Seg Neutrophils % Seg Neuts % (Manual) 96.0 H Lymphocytes % (Manual) 2.0 L Nucleated RBC % Seg Neutrophils # Man 8.8 H Lymphocytes # (Manual) 0.2 L PT INR APTT POC ABG pH POC ABG pCO2 POC ABG pO2 Sodium Chloride Carbon Dioxide BUN Creatinine Glucose POC Glucose 115 H 117 H Lactic Acid Calcium Magnesium AST ALT Total Protein Albumin Salicylates Acetaminophen 10/26/18 10/26/18 10/26/18 02:00 04:38 04:38 WBC MCV MCH 23 L RDW 16.5 H Lymph % (Auto) Lymph # Seg Neutrophils % Seg Neuts % (Manual) 91.0 H Lymphocytes % (Manual) 6.0 L Nucleated RBC % 1.0 H Seg Neutrophils # Man Lymphocytes # (Manual) 0.4 L PT INR APTT POC ABG pH POC ABG pCO2 POC ABG pO2 Sodium 146 H Chloride 108.5 H Carbon Dioxide 32 H BUN 30 H Creatinine 0.6 L Glucose 123 H POC Glucose 126 H Lactic Acid Calcium Magnesium AST ALT Total Protein 5.7 L Albumin 3.1 L Salicylates Acetaminophen 10/26/18 10/26/18 10/26/18 05:51 15:06 20:01 WBC MCV MCH RDW Lymph % (Auto) Lymph # Seg Neutrophils % Seg Neuts % (Manual) Lymphocytes % (Manual) Nucleated RBC % Seg Neutrophils # Man Lymphocytes # (Manual) PT INR APTT POC ABG pH POC ABG pCO2 POC ABG pO2 Sodium Chloride Carbon Dioxide BUN Creatinine Glucose POC Glucose 147 H 167 H 226 H Lactic Acid Calcium Magnesium AST ALT Total Protein Albumin Salicylates Acetaminophen 10/27/18 10/27/18 10/27/18 01:19 04:18 04:18 WBC 4.2 L MCV 78 L MCH 23 L RDW 16.2 H Lymph % (Auto) Lymph # Seg Neutrophils % Seg Neuts % (Manual) 96.0 H Lymphocytes % (Manual) 3.0 L Nucleated RBC % 2.0 H Seg Neutrophils # Man Lymphocytes # (Manual) 0.1 L PT INR APTT POC ABG pH POC ABG pCO2 POC ABG pO2 Sodium Chloride Carbon Dioxide 32 H BUN 33 H Creatinine 0.6 L Glucose 150 H POC Glucose 150 H Lactic Acid Calcium Magnesium AST ALT Total Protein 5.8 L Albumin 3.3 L Salicylates Acetaminophen 10/27/18 10/27/18 10/27/18 12:08 17:37 21:21 WBC MCV MCH RDW Lymph % (Auto) Lymph # Seg Neutrophils % Seg Neuts % (Manual) Lymphocytes % (Manual) Nucleated RBC % Seg Neutrophils # Man Lymphocytes # (Manual) PT INR APTT POC ABG pH POC ABG pCO2 POC ABG pO2 Sodium Chloride Carbon Dioxide BUN Creatinine Glucose POC Glucose 182 H 156 H 135 H Lactic Acid Calcium Magnesium AST ALT Total Protein Albumin Salicylates Acetaminophen 10/28/18 10/28/18 10/28/18 01:50 04:45 04:45 WBC MCV 78 L MCH 23 L RDW 16.5 H Lymph % (Auto) Lymph # Seg Neutrophils % Seg Neuts % (Manual) 96.0 H Lymphocytes % (Manual) 2.0 L Nucleated RBC % 2.0 H Seg Neutrophils # Man Lymphocytes # (Manual) 0.1 L PT INR APTT POC ABG pH POC ABG pCO2 POC ABG pO2 Sodium Chloride Carbon Dioxide 36 H BUN 28 H Creatinine 0.5 L Glucose 190 H POC Glucose 168 H Lactic Acid Calcium 8.3 L Magnesium AST ALT Total Protein 5.5 L Albumin 3.2 L Salicylates Acetaminophen 10/28/18 10/28/18 10/28/18 04:57 07:21 11:24 WBC MCV MCH RDW Lymph % (Auto) Lymph # Seg Neutrophils % Seg Neuts % (Manual) Lymphocytes % (Manual) Nucleated RBC % Seg Neutrophils # Man Lymphocytes # (Manual) PT INR APTT POC ABG pH POC ABG pCO2 POC ABG pO2 Sodium Chloride Carbon Dioxide BUN Creatinine Glucose POC Glucose 201 H 151 H 244 H Lactic Acid Calcium Magnesium AST ALT Total Protein Albumin Salicylates Acetaminophen 10/28/18 10/28/18 10/29/18 15:48 21:25 05:11 WBC MCV MCH RDW Lymph % (Auto) Lymph # Seg Neutrophils % Seg Neuts % (Manual) Lymphocytes % (Manual) Nucleated RBC % Seg Neutrophils # Man Lymphocytes # (Manual) PT INR APTT POC ABG pH POC ABG pCO2 POC ABG pO2 Sodium Chloride Carbon Dioxide 35 H BUN 28 H Creatinine 0.5 L Glucose POC Glucose 129 H 193 H Lactic Acid Calcium 8.3 L Magnesium AST ALT Total Protein 5.1 L Albumin 2.8 L Salicylates Acetaminophen
[2018-10-29] MEDS: CLARITIN PO SCH (09:46)
[2018-10-29] MEDS: BABY ASPIRIN PO SCH (09:46)
[2018-10-29] MEDS: ELIQUIS PO SCH ×2 (09:46→21:44)
[2018-10-29] MEDS: LASIX PO SCH (09:47)
[2018-10-29] MEDS: WELLBUTRIN XL PO SCH (09:48)
[2018-10-29] MEDS: ZESTRIL PO SCH (09:48)
[2018-10-29] MEDS: LOPRESSOR PO SCH ×2 (09:48→21:44)
[2018-10-29] MEDS: DIAMOX PO SCH ×2 (09:49→23:59)
[2018-10-29] MEDS: SODIUM CHLORIDE FLUSH SYRINGE 10 ML IV SCH ×2 (09:49→21:45)
[2018-10-29] MEDS: ABILIFY PO SCH (09:49)
[2018-10-29] MEDS ORDERED: DELTASONE PO SCH (10:00)
--- NOTE | 2018-10-29 12:18 | Progress Note ---
Assessment and Plan Tele reviewed - pt remains in SR. Cont present cardiac management, including lopressor and Eliquis. Pt may discharge from cardiology standpoint. Recommend that she follow up with either her primary cardiology team at [facility] or in our office with Dr. Trevino within 1-2 weeks of hospital discharge ([phone]). Pt verbalizes understanding. The patient has been seen in conjunction with Dr. Trevino who agrees with the assessment and plan of care. - Patient Problems (1) Sinus bradycardia Current Visit: Yes Status: Resolved (2) Atrial fibrillation with RVR Current Visit: Yes Status: Acute (3) Acute and chronic respiratory failure Current Visit: Yes Status: Acute (4) End stage COPD Current Visit: Yes Status: Chronic (5) Altered mental status Current Visit: Yes Status: Resolved (6) Syncope and collapse Current Visit: Yes Status: Suspected (7) CAD (coronary artery disease) Current Visit: Yes Status: Chronic (8) HTN (hypertension) Current Visit: Yes Status: Chronic (9) History of heart failure Current Visit: Yes Status: Chronic Subjective Date of service: 10/29/18 Principal diagnosis: acute respiratory failure, COPD exacerbation, pneumonia, sepsis with hypote Interval history: pt resting in bed, no current complaints. tele reviewed - pt in SR. Objective Last Vital Signs Temp 98.6 F 10/29/18 08:00 Pulse 70 10/29/18 09:00 Resp 10 L 10/29/18 09:00 BP 105/76 10/29/18 09:00 Pulse Ox 100 10/29/18 09:00 - Physical Examination General: No Apparent Distress HEENT: Positive: PERRL, Normocephaly, Mucus Membranes Moist Neck: Positive: neck supple, trachea midline Cardiac: Positive: Reg Rate and Rhythm, S1/S2 Lungs: Positive: Decreased Breath Sounds Neuro: Positive: Grossly Intact Abdomen: Positive: Soft. Negative: Tender Skin: Negative: Rash, Wound Musculoskeletal: No Pain Extremities: Absent: edema - Labs and Meds Cardiac Enzymes 10/29/18 Range/Units 05:11 AST 14 (5-40) units/L Comprehensive Metabolic Panel 10/29/18 Range/Units 05:11 Sodium 143 (137-145) mmol/L Potassium 4.3 (3.6-5.0) mmol/L Chloride 104.2 (98-107) mmol/L Carbon Dioxide 35 H (22-30) mmol/L BUN 28 H (7-17) mg/dL Creatinine 0.5 L (0.7-1.2) mg/dL Glucose 90 (65-100) mg/dL Calcium 8.3 L (8.4-10.2) mg/dL AST 14 (5-40) units/L ALT 30 (7-56) units/L Alkaline Phosphatase 47 (35-129) units/L Total Protein 5.1 L (6.3-8.2) g/dL Albumin 2.8 L (3.9-5) g/dL - Imaging and Cardiology EKG: report reviewed, image reviewed Echo: report reviewed (10/23 showed EF 50-55%, RV systolic function moderately reduced, mild MVP, mild MR, trace TR. ) Cardiac cath: report reviewed (10/14/2018 showed 100% distal lcx, 100% distal LAD, EF 45%. Medical management was recommended. ) - EKG Sinus rhythms and dysrhythmias: sinus rhythm
--- NOTE | 2018-10-29 14:20 | Progress Note ---
Assessment and Plan Assessment and plan: 67-year-old woman with history of end-stage COPD on home oxygen, hypothyroid. She was brought to the hospital for decreased responsiveness. She was admitted for respiratory failure, she was intubated for airway protection and because she was obtunded. She was treated with the ventilator, steroids nebs. The patient improved. She was weaned of ventilator to nasal cannula oxygen. She continued to improve. She received pulmonology consult. She received echo which showed preserved EF. -She became bradycardic after initiation of carvedilol. Coreg was therefore discontinued. she was planned for discharge, but then went into rapid A. fib with heart rates in the 140s. She was then started on Cardizem drip on 10/27, on 10/28 she's converted to oral beta blockers. Cardiology input appreciated, the patient was also started on anticoagulation -has severe debility , receiving PT, awaiting ANDREA placement MRI cervical spine; multilevel bilateral neural foramina narrowing secondary to disc osteophyte complex and vertebral joint hypertrophy. No central canal spinal stenosis or cord edema. Chest x-ray; no infiltrate Diagnoses rapid afib with hypercoagulable states Acute on chronic hypoxic respiratory failure, requiring mechanical ventilator le ss than 96 hours COPD exacerbation Pneumonia was ruled out, with serial imaging Sepsis was ruled out SIRS without acute organ dysfunction Bradycardia, now resolved Ataxia, debility History Interval history: Review of systems Constitutional: No fevers, no malaise, no joint pains CVS: No chest pain, no orthopnea, no dyspnea on exertion, no pedal edema GI: No abdominal pain, no diarrhea, no vomiting, no constipation Respiratory: No shortness of breath, no wheezing, no coughing Hospitalist Physical - Physical exam Narrative exam: General.: Appears well, no distress, nontoxic HEENT: Moist mucous membranes, extraocular muscles intact, no lymphadenopathy Neck: supple Cardiac: S1-S2 heard Lungs: Diminished air entry Abdomen: soft , nontender, nondistended, bowel sounds positive Extremities: no edema clubbing or cyanosis Skin: no rash or lesions Neurologic: no gross focal deficits Psych: calm, and cooperative - Constitutional Vitals: Temp Pulse Resp BP Pulse Ox 98.6 F 93 H 17 104/50 97 10/29/18 12:00 10/29/18 13:01 10/29/18 13:01 10/29/18 13:01 10/29/18 11:00 General appearance: Present: no acute distress Results - Labs CBC & Chem 7: 10/28/18 04:45 10/29/18 05:11 Labs: Laboratory Last Values WBC 5.5 K/mm3 (4.5-11.0) 10/28/18 04:45 RBC 4.36 M/mm3 (3.65-5.03) 10/28/18 04:45 Hgb 10.1 gm/dl (10.1-14.3) 10/28/18 04:45 Hct 34.0 % (30.3-42.9) 10/28/18 04:45 MCV 78 fl (79-97) L 10/28/18 04:45 MCH 23 pg (28-32) L 10/28/18 04:45 MCHC 30 % (30-34) 10/28/18 04:45 RDW 16.5 % (13.2-15.2) H 10/28/18 04:45 Plt Count 186 K/mm3 (140-440) 10/28/18 04:45 Lymph % (Auto) 6.9 % (13.4-35.0) L 10/24/18 13:25 [place] % (Auto) 4.8 % (0.0-7.3) 10/24/18 13:25 Eos % (Auto) 0.0 % (0.0-4.3) 10/24/18 13:25 Baso % (Auto) 0.1 % (0.0-1.8) 10/24/18 13:25 Lymph # 0.6 K/mm3 (1.2-5.4) L 10/24/18 13:25 [place] # 0.4 K/mm3 (0.0-0.8) 10/24/18 13:25 Eos # 0.0 K/mm3 (0.0-0.4) 10/24/18 13:25 Baso # 0.0 K/mm3 (0.0-0.1) 10/24/18 13:25 Add Manual Diff Complete 10/28/18 04:45 Total Counted 100 10/28/18 04:45 Seg Neutrophils % [place] 10/27/18 04:18 Seg Neuts % (Manual) 96.0 % (40.0-70.0) H 10/28/18 04:45 Band Neutrophils % 0 % 10/28/18 04:45 Lymphocytes % (Manual) 2.0 % (13.4-35.0) L 10/28/18 04:45 Reactive Lymphs % (Man) 0 % 10/28/18 04:45 Monocytes % (Manual) 2.0 % (0.0-7.3) 10/28/18 04:45 Eosinophils % (Manual) 0 % (0.0-4.3) 10/28/18 04:45 Basophils % (Manual) 0 % (0.0-1.8) 10/28/18 04:45 Metamyelocytes % 0 % 10/28/18 04:45 Myelocytes % 0 % 10/28/18 04:45 Promyelocytes % 0 % 10/28/18 04:45 Blast Cells % 0 % 10/28/18 04:45 Nucleated RBC % 2.0 % (0.0-0.9) H 10/28/18 04:45 Seg Neutrophils # 7.4 K/mm3 (1.8-7.7) 10/24/18 13:25 Seg Neutrophils # Man 5.3 K/mm3 (1.8-7.7) 10/28/18 04:45 Band Neutrophils # 0.0 K/mm3 10/28/18 04:45 Lymphocytes # (Manual) 0.1 K/mm3 (1.2-5.4) L 10/28/18 04:45 Abs React Lymphs (Man) 0.0 K/mm3 10/28/18 04:45 Monocytes # (Manual) 0.1 K/mm3 (0.0-0.8) 10/28/18 04:45 Eosinophils # (Manual) 0.0 K/mm3 (0.0-0.4) 10/28/18 04:45 Basophils # (Manual) 0.0 K/mm3 (0.0-0.1) 10/28/18 04:45 Metamyelocytes # 0.0 K/mm3 10/28/18 04:45 Myelocytes # 0.0 K/mm3 10/28/18 04:45 Promyelocytes # 0.0 K/mm3 10/28/18 04:45 Blast Cells # 0.0 K/mm3 10/28/18 04:45 WBC Morphology Not Reportable 10/28/18 04:45 Hypersegmented Neuts Not Reportable 10/28/18 04:45 Hyposegmented Neuts Not Reportable 10/28/18 04:45 Hypogranular Neuts Not Reportable 10/28/18 04:45 Smudge Cells Not Reportable 10/28/18 04:45 Toxic Granulation Not Reportable 10/28/18 04:45 Toxic Vacuolation Not Reportable 10/28/18 04:45 Dohle Bodies Not Reportable 10/28/18 04:45 Pelger-Huet Anomaly Not Reportable 10/28/18 04:45 Damien Rods Not Reportable 10/28/18 04:45 Platelet Estimate Consistent w auto 10/28/18 04:45 Clumped Platelets Not Reportable 10/28/18 04:45 Plt Clumps, EDTA Not Reportable 10/28/18 04:45 Large Platelets Not Reportable 10/28/18 04:45 Giant Platelets Not Reportable 10/28/18 04:45 Platelet Satelliting Not Reportable 10/28/18 04:45 Plt Morphology Comment Not Reportable 10/28/18 04:45 RBC Morphology Not Reportable 10/28/18 04:45 Dimorphic RBCs Not Reportable 10/28/18 04:45 Polychromasia Not Reportable 10/28/18 04:45 Hypochromasia 2+ 10/28/18 04:45 Poikilocytosis Not Reportable 10/28/18 04:45 Anisocytosis Not Reportable 10/28/18 04:45 Microcytosis Not Reportable 10/28/18 04:45 Macrocytosis Not Reportable 10/28/18 04:45 Spherocytes Not Reportable 10/28/18 04:45 Pappenheimer Bodies Not Reportable 10/28/18 04:45 Sickle Cells Not Reportable 10/28/18 04:45 Target Cells Not Reportable 10/28/18 04:45 Tear Drop Cells Not Reportable 10/28/18 04:45 Ovalocytes Not Reportable 10/28/18 04:45 Helmet Cells Not Reportable 10/28/18 04:45 Fong-Herman Bodies Not Reportable 10/28/18 04:45 [place] Rings Not Reportable 10/28/18 04:45 Dickens Cells Not Reportable 10/28/18 04:45 Bite Cells Not Reportable 10/28/18 04:45 Crenated Cell Not Reportable 10/28/18 04:45 Elliptocytes Not Reportable 10/28/18 04:45 Acanthocytes (Spur) Not Reportable 10/28/18 04:45 Rouleaux Not Reportable 10/28/18 04:45 Hemoglobin C Crystals Not Reportable 10/28/18 04:45 Schistocytes Not Reportable 10/28/18 04:45 Malaria parasites Not Reportable 10/28/18 04:45 [place] Bodies Not Reportable 10/28/18 04:45 Hem Pathologist Commnt No 10/28/18 04:45 PT 12.0 Sec. (12.2-14.9) L 10/23/18 16:27 INR 0.84 (0.87-1.13) L 10/23/18 16:27 APTT 21.0 Sec. (24.2-36.6) L 10/23/18 16:27 POC ABG pH 7.498 (7.35-7.45) H 10/24/18 04:59 POC ABG pCO2 32.3 (35-45) L 10/24/18 04:59 POC ABG pO2 114 (80-105) H 10/24/18 04:59 POC ABG HCO3 25.1 (22-26 mml/L) 10/24/18 04:59 POC ABG Total CO2 26 (23-27mmol/L) 10/24/18 04:59 POC ABG O2 Sat 99 10/24/18 04:59 POC ABG Base Excess 2 ((-2) - (+3)mmol/L) 10/24/18 04:59 FiO2 40 % 10/24/18 04:59 Sodium 143 mmol/L (137-145) 10/29/18 05:11 Potassium 4.3 mmol/L (3.6-5.0) 10/29/18 05:11 Chloride 104.2 mmol/L (98-107) 10/29/18 05:11 Carbon Dioxide 35 mmol/L (22-30) H 10/29/18 05:11 Anion Gap 8 mmol/L 10/29/18 05:11 BUN 28 mg/dL (7-17) H 10/29/18 05:11 Creatinine 0.5 mg/dL (0.7-1.2) L 10/29/18 05:11 Estimated GFR > 60 ml/min 10/29/18 05:11 BUN/Creatinine Ratio 56 % 10/29/18 05:11 Glucose 90 mg/dL (65-100) 10/29/18 05:11 POC Glucose 124 (70-105) H 10/29/18 10:16 Lactic Acid 1.00 mmol/L (0.7-2.0) 10/24/18 13:25 Calcium 8.3 mg/dL (8.4-10.2) L 10/29/18 05:11 Magnesium 2.50 mg/dL (1.7-2.3) H 10/25/18 03:57 Total Bilirubin 0.20 mg/dL (0.1-1.2) 10/29/18 05:11 Direct Bilirubin < 0.2 mg/dL (0-0.2) 10/24/18 10:35 Indirect Bilirubin 0.2 mg/dL 10/24/18 10:35 AST 14 units/L (5-40) 10/29/18 05:11 ALT 30 units/L (7-56) 10/29/18 05:11 Alkaline Phosphatase 47 units/L (35-129) 10/29/18 05:11 Total Creatine Kinase 66 units/L (30-135) 10/23/18 16:27 Troponin T < 0.010 ng/mL (0.00-0.029) 10/23/18 16:27 NT-Pro-B Natriuret Pep 835.8 pg/mL (0-900) 10/24/18 13:25 Total Protein 5.1 g/dL (6.3-8.2) L 10/29/18 05:11 Albumin 2.8 g/dL (3.9-5) L 10/29/18 05:11 Albumin/Globulin Ratio 1.2 % 10/29/18 05:11 TSH 0.527 mlU/mL (0.270-4.200) 10/24/18 10:35 Free T4 1.10 ng/dL (0.76-1.46) 10/24/18 10:35 Urine Color Yellow (Yellow) 10/23/18 16:18 Urine Turbidity Slightly-cloudy (Clear) 10/23/18 16:18 Urine pH 5.0 (5.0-7.0) 10/23/18 16:18 Ur Specific [place] 1.016 (1.003-1.030) 10/23/18 16:18 Urine Protein <15 mg/dl mg/dL (Negative) 10/23/18 16:18 Urine Glucose (UA) Neg mg/dL (Negative) 10/23/18 16:18 Urine Ketones Neg mg/dL (Negative) 10/23/18 16:18 Urine Blood Neg (Negative) 10/23/18 16:18 Urine Nitrite Neg (Negative) 10/23/18 16:18 Urine Bilirubin Neg (Negative) 10/23/18 16:18 Urine Urobilinogen 2.0 mg/dL (<2.0) 10/23/18 16:18 Ur Leukocyte Esterase Neg (Negative) 10/23/18 16:18 Urine WBC (Auto) < 1.0 /HPF (0.0-6.0) 10/23/18 16:18 Urine RBC (Auto) 1.0 /HPF (0.0-6.0) 10/23/18 16:18 U Epithel Cells (Auto) < 1.0 /HPF (0-13.0) 10/23/18 16:18 Urine Mucus Few /HPF 10/23/18 16:18 Salicylates < 0.3 mg/dL (2.8-20.0) L 10/23/18 16:27 Urine Opiates Screen Presumptive negative 10/23/18 16:18 Urine Methadone Screen Presumptive negative 10/23/18 16:18 Acetaminophen < 5.0 ug/mL (10.0-30.0) L 10/23/18 16:27 Ur Barbiturates Screen Presumptive negative 10/23/18 16:18 Ur Phencyclidine Scrn Presumptive negative 10/23/18 16:18 Ur Amphetamines Screen Presumptive negative 10/23/18 16:18 U Benzodiazepines Scrn Presumptive negative 10/23/18 16:18 Urine Cocaine Screen Presumptive negative 10/23/18 16:18 U Marijuana (THC) Screen Presumptive negative 10/23/18 16:18 Drugs of Abuse Note Disclamer 10/23/18 16:18 Plasma/Serum Alcohol < 0.01 % (0-0.07) 10/23/18 16:27 Active Medications - Current Medications Current Medications: Generic Name Dose Route Start Last Admin Trade Name Freq PRN Reason Stop Dose Admin Acetaminophen 650 mg 10/23/18 21:55 10/29/18 05:14 Tylenol PO 650 mg Q4H PRN Administration Pain MILD(1-3)/Fever >100.5/LOU Acetazolamide 500 mg 10/25/18 22:00 10/29/18 09:49 Diamox PO 500 mg BID GABRIEL Administration Albuterol/Ipratropium 1 ampul 10/25/18 10:15 10/29/18 08:48 Duoneb *Not For Prn Use* IH 1 ampul Q6HRT GABRIEL Administration Apixaban 5 mg 10/28/18 22:00 10/29/18 09:46 Eliquis PO 5 mg Q12HR GABRIEL Administration Protocol Aripiprazole 10 mg 10/25/18 12:00 10/29/18 09:49 Abilify PO 10 mg QDAY GABRIEL Administration Aspirin 81 mg 10/27/18 15:00 10/29/18 09:46 Baby Aspirin PO 81 mg QDAY GABRIEL Administration Bupropion HCl 300 mg 10/25/18 12:00 10/29/18 09:48 Wellbutrin Xl PO 300 mg DAILY GABRIEL Administration Furosemide 40 mg 10/26/18 10:00 10/29/18 09:47 Lasix PO 40 mg QAM GABRIEL Administration Hydrophilic Ointment 1 applic 10/23/18 15:53 Vaseline Lip Therapy TP Q2HR PRN Dry Lips Hydrophilic Ointment 1 applic 10/28/18 19:19 Vaseline TP PRN PRN Dry Nasal Passages Piperacillin Sod/Tazobactam Sod 4.5 gm in 100 mls @ 200 mls/hr 10/23/18 23:00 10/29/18 13:11 Zosyn/Ns 4.5gm/100ml IV 10/29/18 22:59 200 mls/hr Q8HR GABRIEL Administration Protocol Levothyroxine Sodium 125 mcg 10/25/18 13:00 10/29/18 05:13 Synthroid PO 125 mcg DAILY@0600 GABRIEL Administration Lisinopril 2.5 mg 10/26/18 10:00 10/29/18 09:48 Zestril PO 2.5 mg QDAY GABRIEL Administration Loratadine 10 mg 10/25/18 13:00 10/29/18 09:46 Claritin PO 10 mg DAILY GABRIEL Administration Metoprolol Tartrate 25 mg 10/28/18 22:00 10/29/18 09:48 Lopressor PO 25 mg BID GABRIEL Administration Multi-Ingred Cream/Lotion/Oil/Oint 1 applic 10/23/18 15:53 Artificial Tears Ophth Oint OU Q4HR PRN Dry Eye(s) Ondansetron HCl 4 mg 10/23/18 21:55 Zofran IV Q8H PRN Nausea And Vomiting Pravastatin Sodium 20 mg 10/25/18 22:00 10/28/18 21:04 Pravachol PO 20 mg QHS GABRIEL Administration Prednisone 20 mg 10/30/18 10:00 Deltasone PO 10/30/18 10:01 QDAY GABRIEL Prednisone 10 mg 10/31/18 10:00 Deltasone PO 10/31/18 10:01 QDAY GABRIEL Prednisone 5 mg 11/01/18 10:00 Deltasone PO 11/01/18 10:01 QDAY GABRIEL Prednisone 2.5 mg 11/02/18 10:00 Deltasone PO 11/04/18 10:01 QDAY GABRIEL Sodium Chloride 5 ml 10/23/18 15:53 Nacl 0.9% 500 Ml IV DIRECT PRN ARTERIAL CHAPTER RELATIONS ADMINISTRATOR Sodium Chloride 10 ml 10/23/18 22:00 10/29/18 09:49 Sodium Chloride Flush Syringe 10 Ml IV 10 ml BID GABRIEL Administration Sodium Chloride 10 ml 10/23/18 21:55 Sodium Chloride Flush Syringe 10 Ml IV PRN PRN LINE FLUSH Trazodone HCl 50 mg 10/25/18 22:00 10/28/18 21:05 Desyrel PO 50 mg HS GABRIEL Administration Nutrition/Malnutrition Assess - Dietary Evaluation Nutrition/Malnutrition Findings: Nutrition Notes Start: 10/25/18 16:29 Freq: Status: Active Protocol: Document 10/28/18 11:08 EB (Rec: 10/28/18 11:12 [email or web address]) Co-Sign 10/28/18 11:08 LP Nutrition Notes Initial or Follow up Reassessment Current Diagnosis COPD Current Diet Cardiac diet Labs/Tests Reviewed Pertinent Medications Lasix Height 5 ft 6 in Weight 77.7 kg [place] Body Weight (kg) 59.09 BMI 27.6 Subjective/Other Information F/u for intakes. Pt on nasal canula and eating 100% of meals and ONS. No reports of trouble chewing or swallowing. Percent of energy/protein needs met: 100%/100% Burn Absent Trauma Absent #1 Nutrition Diagnosis Inadequate oral intake As Evidenced by Signs and Symptoms Nasal canula placed yesterday and pt eating 100% meals and ONS supplements Diagnosis Progress(for reassessment Resolved documentation) Is patient on ventilator? No Is Patient Ambulatory and/or Out of Bed No REE-([facility]-confined to bed) 1605.900 Calculation Used for Recommendations [facility] Additional Notes protein (1-1.2g/kg): 78-94g fluid: 1mL/kcal Nutrition Intervention Change Diet Order: Continue cardiac diet Add Supplement/Snack (indicate name/kcal Ensure Enlive daily /protein ) Provides kCal: 350 Provides Protein (gm) 20 Goal #1 Continue to meet at least 75% [place] and pro needs via PO and ONS intake Anticipated Discharge Needs: Cardiac Follow-Up By: 11/04/18 Additional Comments F/u: PO and ONS intake
[2018-10-29] MEDS: DESYREL PO SCH (21:44)
[2018-10-29] MEDS: PRAVACHOL PO SCH (21:44)
[2018-10-30] MEDS: DUONEB *Not for PRN Use IH SCH ×4 (02:50→20:20)
[2018-10-30] MEDS: SYNTHROID PO SCH (05:59)
--- NOTE | 2018-10-30 09:41 | Progress Note ---
Assessment and Plan Assessment and plan: 67-year-old woman with history of end-stage COPD on home oxygen, hypothyroid. She was brought to the hospital for decreased responsiveness. She was admitted for respiratory failure, she was intubated for airway protection and because she was obtunded. She was treated with the ventilator, steroids nebs. The patient improved. She was weaned of ventilator to nasal cannula oxygen. She continued to improve. She received pulmonology consult. She received echo which showed preserved EF. -She became bradycardic after initiation of carvedilol. Coreg was therefore discontinued. she was planned for discharge, but then went into rapid A. fib with heart rates in the 140s. She was then started on Cardizem drip on 10/27, on 10/28 she's converted to oral beta blockers. Cardiology input appreciated, the patient was also started on anticoagulation -has severe debility , receiving PT, awaiting ANDREA placement MRI cervical spine; multilevel bilateral neural foramina narrowing secondary to disc osteophyte complex and vertebral joint hypertrophy. No central canal spinal stenosis or cord edema. Chest x-ray; no infiltrate Diagnoses rapid afib with hypercoagulable states Acute on chronic hypoxic respiratory failure, requiring mechanical ventilator gr eater than 96 hours COPD exacerbation Pneumonia was ruled out, with serial imaging Sepsis was ruled out SIRS without acute organ dysfunction Bradycardia, now resolved Ataxia, debility History Interval history: Review of systems Constitutional: No fevers, no malaise, no joint pains CVS: No chest pain, no orthopnea, no dyspnea on exertion, no pedal edema GI: No abdominal pain, no diarrhea, no vomiting, no constipation Respiratory: No shortness of breath, no wheezing, no coughing Hospitalist Physical - Physical exam Narrative exam: General.: Appears well, no distress, nontoxic HEENT: Moist mucous membranes, extraocular muscles intact, no lymphadenopathy Neck: supple Cardiac: S1-S2 heard Lungs: Diminished air entry Abdomen: soft , nontender, nondistended, bowel sounds positive Extremities: no edema clubbing or cyanosis Skin: skin breakdown around labia and sacrum Neurologic: no gross focal deficits Psych: calm, and cooperative - Constitutional Vitals: Temp Pulse Resp BP Pulse Ox 98.1 F 56 L 16 115/68 95 10/30/18 08:20 10/30/18 08:20 10/30/18 08:20 10/30/18 08:20 10/30/18 08:20 General appearance: Present: no acute distress Results - Labs CBC & Chem 7: 10/28/18 04:45 10/29/18 05:11 Labs: Laboratory Last Values WBC 5.5 K/mm3 (4.5-11.0) 10/28/18 04:45 RBC 4.36 M/mm3 (3.65-5.03) 10/28/18 04:45 Hgb 10.1 gm/dl (10.1-14.3) 10/28/18 04:45 Hct 34.0 % (30.3-42.9) 10/28/18 04:45 MCV 78 fl (79-97) L 10/28/18 04:45 MCH 23 pg (28-32) L 10/28/18 04:45 MCHC 30 % (30-34) 10/28/18 04:45 RDW 16.5 % (13.2-15.2) H 10/28/18 04:45 Plt Count 186 K/mm3 (140-440) 10/28/18 04:45 Lymph % (Auto) 6.9 % (13.4-35.0) L 10/24/18 13:25 [place] % (Auto) 4.8 % (0.0-7.3) 10/24/18 13:25 Eos % (Auto) 0.0 % (0.0-4.3) 10/24/18 13:25 Baso % (Auto) 0.1 % (0.0-1.8) 10/24/18 13:25 Lymph # 0.6 K/mm3 (1.2-5.4) L 10/24/18 13:25 [place] # 0.4 K/mm3 (0.0-0.8) 10/24/18 13:25 Eos # 0.0 K/mm3 (0.0-0.4) 10/24/18 13:25 Baso # 0.0 K/mm3 (0.0-0.1) 10/24/18 13:25 Add Manual Diff Complete 10/28/18 04:45 Total Counted 100 10/28/18 04:45 Seg Neutrophils % Communications Tech 10/27/18 04:18 Seg Neuts % (Manual) 96.0 % (40.0-70.0) H 10/28/18 04:45 Band Neutrophils % 0 % 10/28/18 04:45 Lymphocytes % (Manual) 2.0 % (13.4-35.0) L 10/28/18 04:45 Reactive Lymphs % (Man) 0 % 10/28/18 04:45 Monocytes % (Manual) 2.0 % (0.0-7.3) 10/28/18 04:45 Eosinophils % (Manual) 0 % (0.0-4.3) 10/28/18 04:45 Basophils % (Manual) 0 % (0.0-1.8) 10/28/18 04:45 Metamyelocytes % 0 % 10/28/18 04:45 Myelocytes % 0 % 10/28/18 04:45 Promyelocytes % 0 % 10/28/18 04:45 Blast Cells % 0 % 10/28/18 04:45 Nucleated RBC % 2.0 % (0.0-0.9) H 10/28/18 04:45 Seg Neutrophils # 7.4 K/mm3 (1.8-7.7) 10/24/18 13:25 Seg Neutrophils # Man 5.3 K/mm3 (1.8-7.7) 10/28/18 04:45 Band Neutrophils # 0.0 K/mm3 10/28/18 04:45 Lymphocytes # (Manual) 0.1 K/mm3 (1.2-5.4) L 10/28/18 04:45 Abs React Lymphs (Man) 0.0 K/mm3 10/28/18 04:45 Monocytes # (Manual) 0.1 K/mm3 (0.0-0.8) 10/28/18 04:45 Eosinophils # (Manual) 0.0 K/mm3 (0.0-0.4) 10/28/18 04:45 Basophils # (Manual) 0.0 K/mm3 (0.0-0.1) 10/28/18 04:45 Metamyelocytes # 0.0 K/mm3 10/28/18 04:45 Myelocytes # 0.0 K/mm3 10/28/18 04:45 Promyelocytes # 0.0 K/mm3 10/28/18 04:45 Blast Cells # 0.0 K/mm3 10/28/18 04:45 WBC Morphology Not Reportable 10/28/18 04:45 Hypersegmented Neuts Not Reportable 10/28/18 04:45 Hyposegmented Neuts Not Reportable 10/28/18 04:45 Hypogranular Neuts Not Reportable 10/28/18 04:45 Smudge Cells Not Reportable 10/28/18 04:45 Toxic Granulation Not Reportable 10/28/18 04:45 Toxic Vacuolation Not Reportable 10/28/18 04:45 Dohle Bodies Not Reportable 10/28/18 04:45 Pelger-Huet Anomaly Not Reportable 10/28/18 04:45 Damien Rods Not Reportable 10/28/18 04:45 Platelet Estimate Consistent w auto 10/28/18 04:45 Clumped Platelets Not Reportable 10/28/18 04:45 Plt Clumps, EDTA Not Reportable 10/28/18 04:45 Large Platelets Not Reportable 10/28/18 04:45 Giant Platelets Not Reportable 10/28/18 04:45 Platelet Satelliting Not Reportable 10/28/18 04:45 Plt Morphology Comment Not Reportable 10/28/18 04:45 RBC Morphology Not Reportable 10/28/18 04:45 Dimorphic RBCs Not Reportable 10/28/18 04:45 Polychromasia Not Reportable 10/28/18 04:45 Hypochromasia 2+ 10/28/18 04:45 Poikilocytosis Not Reportable 10/28/18 04:45 Anisocytosis Not Reportable 10/28/18 04:45 Microcytosis Not Reportable 10/28/18 04:45 Macrocytosis Not Reportable 10/28/18 04:45 Spherocytes Not Reportable 10/28/18 04:45 Pappenheimer Bodies Not Reportable 10/28/18 04:45 Sickle Cells Not Reportable 10/28/18 04:45 Target Cells Not Reportable 10/28/18 04:45 Tear Drop Cells Not Reportable 10/28/18 04:45 Ovalocytes Not Reportable 10/28/18 04:45 Helmet Cells Not Reportable 10/28/18 04:45 Fong-Raven Bodies Not Reportable 10/28/18 04:45 [place] Rings Not Reportable 10/28/18 04:45 [place] Cells Not Reportable 10/28/18 04:45 Bite Cells Not Reportable 10/28/18 04:45 Crenated Cell Not Reportable 10/28/18 04:45 Elliptocytes Not Reportable 10/28/18 04:45 Acanthocytes (Spur) Not Reportable 10/28/18 04:45 Rouleaux Not Reportable 10/28/18 04:45 Hemoglobin C Crystals Not Reportable 10/28/18 04:45 Schistocytes Not Reportable 10/28/18 04:45 Malaria parasites Not Reportable 10/28/18 04:45 [place] Bodies Not Reportable 10/28/18 04:45 Hem Pathologist Commnt No 10/28/18 04:45 PT 12.0 Sec. (12.2-14.9) L 10/23/18 16:27 INR 0.84 (0.87-1.13) L 10/23/18 16:27 APTT 21.0 Sec. (24.2-36.6) L 10/23/18 16:27 POC ABG pH 7.498 (7.35-7.45) H 10/24/18 04:59 POC ABG pCO2 32.3 (35-45) L 10/24/18 04:59 POC ABG pO2 114 (80-105) H 10/24/18 04:59 POC ABG HCO3 25.1 (22-26 mml/L) 10/24/18 04:59 POC ABG Total CO2 26 (23-27mmol/L) 10/24/18 04:59 POC ABG O2 Sat 99 10/24/18 04:59 POC ABG Base Excess 2 ((-2) - (+3)mmol/L) 10/24/18 04:59 FiO2 40 % 10/24/18 04:59 Sodium 143 mmol/L (137-145) 10/29/18 05:11 Potassium 4.3 mmol/L (3.6-5.0) 10/29/18 05:11 Chloride 104.2 mmol/L (98-107) 10/29/18 05:11 Carbon Dioxide 35 mmol/L (22-30) H 10/29/18 05:11 Anion Gap 8 mmol/L 10/29/18 05:11 BUN 28 mg/dL (7-17) H 10/29/18 05:11 Creatinine 0.5 mg/dL (0.7-1.2) L 10/29/18 05:11 Estimated GFR > 60 ml/min 10/29/18 05:11 BUN/Creatinine Ratio 56 % 10/29/18 05:11 Glucose 90 mg/dL (65-100) 10/29/18 05:11 POC Glucose 146 (70-105) H 10/29/18 16:19 Lactic Acid 1.00 mmol/L (0.7-2.0) 10/24/18 13:25 Calcium 8.3 mg/dL (8.4-10.2) L 10/29/18 05:11 Magnesium 2.50 mg/dL (1.7-2.3) H 10/25/18 03:57 Total Bilirubin 0.20 mg/dL (0.1-1.2) 10/29/18 05:11 Direct Bilirubin < 0.2 mg/dL (0-0.2) 10/24/18 10:35 Indirect Bilirubin 0.2 mg/dL 10/24/18 10:35 AST 14 units/L (5-40) 10/29/18 05:11 ALT 30 units/L (7-56) 10/29/18 05:11 Alkaline Phosphatase 47 units/L (35-129) 10/29/18 05:11 Total Creatine Kinase 66 units/L (30-135) 10/23/18 16:27 Troponin T < 0.010 ng/mL (0.00-0.029) 10/23/18 16:27 NT-Pro-B Natriuret Pep 835.8 pg/mL (0-900) 10/24/18 13:25 Total Protein 5.1 g/dL (6.3-8.2) L 10/29/18 05:11 Albumin 2.8 g/dL (3.9-5) L 10/29/18 05:11 Albumin/Globulin Ratio 1.2 % 10/29/18 05:11 TSH 0.527 mlU/mL (0.270-4.200) 10/24/18 10:35 Free T4 1.10 ng/dL (0.76-1.46) 10/24/18 10:35 Urine Color Yellow (Yellow) 10/23/18 16:18 Urine Turbidity Slightly-cloudy (Clear) 10/23/18 16:18 Urine pH 5.0 (5.0-7.0) 10/23/18 16:18 Ur Specific [place] 1.016 (1.003-1.030) 10/23/18 16:18 Urine Protein <15 mg/dl mg/dL (Negative) 10/23/18 16:18 Urine Glucose (UA) Neg mg/dL (Negative) 10/23/18 16:18 Urine Ketones Neg mg/dL (Negative) 10/23/18 16:18 Urine Blood Neg (Negative) 10/23/18 16:18 Urine Nitrite Neg (Negative) 10/23/18 16:18 Urine Bilirubin Neg (Negative) 10/23/18 16:18 Urine Urobilinogen 2.0 mg/dL (<2.0) 10/23/18 16:18 Ur Leukocyte Esterase Neg (Negative) 10/23/18 16:18 Urine WBC (Auto) < 1.0 /HPF (0.0-6.0) 10/23/18 16:18 Urine RBC (Auto) 1.0 /HPF (0.0-6.0) 10/23/18 16:18 U Epithel Cells (Auto) < 1.0 /HPF (0-13.0) 10/23/18 16:18 Urine Mucus Few /HPF 10/23/18 16:18 Salicylates < 0.3 mg/dL (2.8-20.0) L 10/23/18 16:27 Urine Opiates Screen Presumptive negative 10/23/18 16:18 Urine Methadone Screen Presumptive negative 10/23/18 16:18 Acetaminophen < 5.0 ug/mL (10.0-30.0) L 10/23/18 16:27 Ur Barbiturates Screen Presumptive negative 10/23/18 16:18 Ur Phencyclidine Scrn Presumptive negative 10/23/18 16:18 Ur Amphetamines Screen Presumptive negative 10/23/18 16:18 U Benzodiazepines Scrn Presumptive negative 10/23/18 16:18 Urine Cocaine Screen Presumptive negative 10/23/18 16:18 U Marijuana (THC) Screen Presumptive negative 10/23/18 16:18 Drugs of Abuse Note Disclamer 10/23/18 16:18 Plasma/Serum Alcohol < 0.01 % (0-0.07) 10/23/18 16:27 Active Medications - Current Medications Current Medications: Generic Name Dose Route Start Last Admin Trade Name Freq PRN Reason Stop Dose Admin Acetaminophen 650 mg 10/23/18 21:55 10/29/18 05:14 Tylenol PO 650 mg Q4H PRN Administration Pain MILD(1-3)/Fever >100.5/LOU Acetazolamide 500 mg 10/25/18 22:00 10/29/18 23:59 Diamox PO 500 mg BID GABRIEL Administration Albuterol/Ipratropium 1 ampul 10/25/18 10:15 10/30/18 08:00 Duoneb *Not For Prn Use* IH 1 ampul Q6HRT GABRIEL Administration Apixaban 5 mg 10/28/18 22:00 10/29/18 21:44 Eliquis PO 5 mg Q12HR GABRIEL Administration Protocol Aripiprazole 10 mg 10/25/18 12:00 10/29/18 09:49 Abilify PO 10 mg QDAY GABRIEL Administration Aspirin 81 mg 10/27/18 15:00 10/29/18 09:46 Baby Aspirin PO 81 mg QDAY GABRIEL Administration Bupropion HCl 300 mg 10/25/18 12:00 10/29/18 09:48 Wellbutrin Xl PO 300 mg DAILY GABRIEL Administration Furosemide 40 mg 10/26/18 10:00 10/29/18 09:47 Lasix PO 40 mg QAM GABRIEL Administration Hydrophilic Ointment 1 applic 10/23/18 15:53 Vaseline Lip Therapy TP Q2HR PRN Dry Lips Hydrophilic Ointment 1 applic 10/28/18 19:19 Vaseline TP PRN PRN Dry Nasal Passages Levothyroxine Sodium 125 mcg 10/25/18 13:00 10/30/18 05:59 Synthroid PO 125 mcg DAILY@0600 GABRIEL Administration Lisinopril 2.5 mg 10/26/18 10:00 10/29/18 09:48 Zestril PO 2.5 mg QDAY GABRIEL Administration Loratadine 10 mg 10/25/18 13:00 10/29/18 09:46 Claritin PO 10 mg DAILY GABRIEL Administration Metoprolol Tartrate 25 mg 10/28/18 22:00 10/29/18 21:44 Lopressor PO 25 mg BID GABRIEL Administration Multi-Ingred Cream/Lotion/Oil/Oint 1 applic 10/23/18 15:53 Artificial Tears Ophth Oint OU Q4HR PRN Dry Eye(s) Ondansetron HCl 4 mg 10/23/18 21:55 Zofran IV Q8H PRN Nausea And Vomiting Pravastatin Sodium 20 mg 10/25/18 22:00 10/29/18 21:44 Pravachol PO 20 mg QHS GABRIEL Administration Prednisone 20 mg 10/30/18 10:00 Deltasone PO 10/30/18 10:01 QDAY GABRIEL Prednisone 10 mg 10/31/18 10:00 Deltasone PO 10/31/18 10:01 QDAY GABRIEL Prednisone 5 mg 11/01/18 10:00 Deltasone PO 11/01/18 10:01 QDAY GABRIEL Prednisone 2.5 mg 11/02/18 10:00 Deltasone PO 11/04/18 10:01 QDAY GABRIEL Sodium Chloride 5 ml 10/23/18 15:53 Nacl 0.9% 500 Ml IV DIRECT PRN ARTERIAL CERTIFIED MEETING PROFESSIONAL Sodium Chloride 10 ml 10/23/18 22:00 10/29/18 21:45 Sodium Chloride Flush Syringe 10 Ml IV 10 ml BID GABRIEL Administration Sodium Chloride 10 ml 10/23/18 21:55 Sodium Chloride Flush Syringe 10 Ml IV PRN PRN LINE FLUSH Trazodone HCl 50 mg 10/25/18 22:00 10/29/18 21:44 Desyrel PO 50 mg HS GABRIEL Administration Nutrition/Malnutrition Assess - Dietary Evaluation Nutrition/Malnutrition Findings: Nutrition Notes Start: 10/25/18 16:29 Freq: Status: Active Protocol: Document 10/28/18 11:08 EB (Rec: 10/28/18 11:12 [email or web address]) Co-Sign 10/28/18 11:08 LP Nutrition Notes Initial or Follow up Reassessment Current Diagnosis COPD Current Diet Cardiac diet Labs/Tests Reviewed Pertinent Medications Lasix Height 5 ft 6 in Weight 77.7 kg [place] Body Weight (kg) 59.09 BMI 27.6 Subjective/Other Information F/u for intakes. Pt on nasal canula and eating 100% of meals and ONS. No reports of trouble chewing or swallowing. Percent of energy/protein needs met: 100%/100% Burn Absent Trauma Absent #1 Nutrition Diagnosis Inadequate oral intake As Evidenced by Signs and Symptoms Nasal canula placed yesterday and pt eating 100% meals and ONS supplements Diagnosis Progress(for reassessment Resolved documentation) Is patient on ventilator? No Is Patient Ambulatory and/or Out of Bed No REE-([facility]-confined to bed) 1605.900 Calculation Used for Recommendations [facility] Additional Notes protein (1-1.2g/kg): 78-94g fluid: 1mL/kcal Nutrition Intervention Change Diet Order: Continue cardiac diet Add Supplement/Snack (indicate name/kcal Ensure Enlive daily /protein ) Provides kCal: 350 Provides Protein (gm) 20 Goal #1 Continue to meet at least 75% [place] and pro needs via PO and ONS intake Anticipated Discharge Needs: Cardiac Follow-Up By: 11/04/18 Additional Comments F/u: PO and ONS intake
[2018-10-30] MEDS: ZESTRIL PO SCH (09:54)
[2018-10-30] MEDS: CLARITIN PO SCH (09:54)
[2018-10-30] MEDS: ABILIFY PO SCH (09:54)
[2018-10-30] MEDS: BABY ASPIRIN PO SCH (09:55)
[2018-10-30] MEDS: ELIQUIS PO SCH ×2 (09:55→21:45)
[2018-10-30] MEDS: LASIX PO SCH (09:55)
[2018-10-30] MEDS: WELLBUTRIN XL PO SCH (09:56)
[2018-10-30] MEDS: SODIUM CHLORIDE FLUSH SYRINGE 10 ML IV SCH ×2 (09:56→21:46)
[2018-10-30] MEDS: DIAMOX PO SCH ×2 (09:56→22:54)
[2018-10-30] MEDS: LOPRESSOR PO SCH ×3 (09:59→21:46)
[2018-10-30] MEDS ORDERED: DELTASONE PO SCH (10:00)
[2018-10-30] MEDS: DESYREL PO SCH (21:45)
[2018-10-30] MEDS: PRAVACHOL PO SCH (22:54)
[2018-10-31] MEDS: DUONEB *Not for PRN Use IH SCH ×4 (03:04→21:21)
[2018-10-31] MEDS: SYNTHROID PO SCH (05:10)
[2018-10-31] MEDS: LOPRESSOR PO SCH ×3 (05:12→21:48)
[2018-10-31] MEDS ORDERED: DUONEB *Not for PRN Use IH ONE (07:32)
--- NOTE | 2018-10-31 08:51 | Progress Note ---
Assessment and Plan Assessment and plan: 67-year-old woman with history of end-stage COPD on home oxygen, hypothyroid. She was brought to the hospital for decreased responsiveness. She was admitted for respiratory failure, she was intubated for airway protection and because she was obtunded. She was treated with the ventilator, steroids nebs. The patient improved. She was weaned of ventilator to nasal cannula oxygen. She continued to improve. She received pulmonology consult. She received echo which showed preserved EF. -She became bradycardic after initiation of carvedilol. Coreg was therefore discontinued. she was planned for discharge, but then went into rapid A. fib with heart rates in the 140s. She was then started on Cardizem drip on 10/27, on 10/28 she's converted to oral beta blockers. Cardiology input appreciated, the patient was also started on anticoagulation -has severe debility , receiving PT, awaiting ANDREA placement MRI cervical spine; multilevel bilateral neural foramina narrowing secondary to disc osteophyte complex and vertebral joint hypertrophy. No central canal spinal stenosis or cord edema. Chest x-ray; no infiltrate Diagnoses rapid afib with hypercoagulable states Acute on chronic hypoxic respiratory failure, requiring mechanical ventilator le ss than 96 hours COPD exacerbation Pneumonia was ruled out, with serial imaging Sepsis was ruled out SIRS without acute organ dysfunction Bradycardia, now resolved Ataxia, debility History Interval history: Review of systems Constitutional: No fevers, no malaise, no joint pains CVS: No chest pain, no orthopnea, no dyspnea on exertion, no pedal edema GI: No abdominal pain, no diarrhea, no vomiting, no constipation Respiratory: No shortness of breath, no wheezing, no coughing Hospitalist Physical - Physical exam Narrative exam: General.: Appears well, no distress, nontoxic HEENT: Moist mucous membranes, extraocular muscles intact, no lymphadenopathy Neck: supple Cardiac: S1-S2 heard Lungs: Diminished air entry Abdomen: soft , nontender, nondistended, bowel sounds positive Extremities: no edema clubbing or cyanosis Skin: no rash or lesion Neurologic: no gross focal deficits Psych: calm, and cooperative - Constitutional Vitals: Temp Pulse Resp BP Pulse Ox 97.5 F L 48 L 22 92/47 97 10/31/18 07:42 10/31/18 07:42 10/31/18 08:43 10/31/18 07:42 10/31/18 07:42 General appearance: Present: no acute distress Results - Labs CBC & Chem 7: 10/28/18 04:45 10/29/18 05:11 Labs: Laboratory Last Values WBC 5.5 K/mm3 (4.5-11.0) 10/28/18 04:45 RBC 4.36 M/mm3 (3.65-5.03) 10/28/18 04:45 Hgb 10.1 gm/dl (10.1-14.3) 10/28/18 04:45 Hct 34.0 % (30.3-42.9) 10/28/18 04:45 MCV 78 fl (79-97) L 10/28/18 04:45 MCH 23 pg (28-32) L 10/28/18 04:45 MCHC 30 % (30-34) 10/28/18 04:45 RDW 16.5 % (13.2-15.2) H 10/28/18 04:45 Plt Count 186 K/mm3 (140-440) 10/28/18 04:45 Lymph % (Auto) 6.9 % (13.4-35.0) L 10/24/18 13:25 [place] % (Auto) 4.8 % (0.0-7.3) 10/24/18 13:25 Eos % (Auto) 0.0 % (0.0-4.3) 10/24/18 13:25 Baso % (Auto) 0.1 % (0.0-1.8) 10/24/18 13:25 Lymph # 0.6 K/mm3 (1.2-5.4) L 10/24/18 13:25 [place] # 0.4 K/mm3 (0.0-0.8) 10/24/18 13:25 Eos # 0.0 K/mm3 (0.0-0.4) 10/24/18 13:25 Baso # 0.0 K/mm3 (0.0-0.1) 10/24/18 13:25 Add Manual Diff Complete 10/28/18 04:45 Total Counted 100 10/28/18 04:45 Seg Neutrophils % Law Office Assistant 10/27/18 04:18 Seg Neuts % (Manual) 96.0 % (40.0-70.0) H 10/28/18 04:45 Band Neutrophils % 0 % 10/28/18 04:45 Lymphocytes % (Manual) 2.0 % (13.4-35.0) L 10/28/18 04:45 Reactive Lymphs % (Man) 0 % 10/28/18 04:45 Monocytes % (Manual) 2.0 % (0.0-7.3) 10/28/18 04:45 Eosinophils % (Manual) 0 % (0.0-4.3) 10/28/18 04:45 Basophils % (Manual) 0 % (0.0-1.8) 10/28/18 04:45 Metamyelocytes % 0 % 10/28/18 04:45 Myelocytes % 0 % 10/28/18 04:45 Promyelocytes % 0 % 10/28/18 04:45 Blast Cells % 0 % 10/28/18 04:45 Nucleated RBC % 2.0 % (0.0-0.9) H 10/28/18 04:45 Seg Neutrophils # 7.4 K/mm3 (1.8-7.7) 10/24/18 13:25 Seg Neutrophils # Man 5.3 K/mm3 (1.8-7.7) 10/28/18 04:45 Band Neutrophils # 0.0 K/mm3 10/28/18 04:45 Lymphocytes # (Manual) 0.1 K/mm3 (1.2-5.4) L 10/28/18 04:45 Abs React Lymphs (Man) 0.0 K/mm3 10/28/18 04:45 Monocytes # (Manual) 0.1 K/mm3 (0.0-0.8) 10/28/18 04:45 Eosinophils # (Manual) 0.0 K/mm3 (0.0-0.4) 10/28/18 04:45 Basophils # (Manual) 0.0 K/mm3 (0.0-0.1) 10/28/18 04:45 Metamyelocytes # 0.0 K/mm3 10/28/18 04:45 Myelocytes # 0.0 K/mm3 10/28/18 04:45 Promyelocytes # 0.0 K/mm3 10/28/18 04:45 Blast Cells # 0.0 K/mm3 10/28/18 04:45 WBC Morphology Not Reportable 10/28/18 04:45 Hypersegmented Neuts Not Reportable 10/28/18 04:45 Hyposegmented Neuts Not Reportable 10/28/18 04:45 Hypogranular Neuts Not Reportable 10/28/18 04:45 Smudge Cells Not Reportable 10/28/18 04:45 Toxic Granulation Not Reportable 10/28/18 04:45 Toxic Vacuolation Not Reportable 10/28/18 04:45 Dohle Bodies Not Reportable 10/28/18 04:45 Pelger-Huet Anomaly Not Reportable 10/28/18 04:45 Damien Rods Not Reportable 10/28/18 04:45 Platelet Estimate Consistent w auto 10/28/18 04:45 Clumped Platelets Not Reportable 10/28/18 04:45 Plt Clumps, EDTA Not Reportable 10/28/18 04:45 Large Platelets Not Reportable 10/28/18 04:45 Giant Platelets Not Reportable 10/28/18 04:45 Platelet Satelliting Not Reportable 10/28/18 04:45 Plt Morphology Comment Not Reportable 10/28/18 04:45 RBC Morphology Not Reportable 10/28/18 04:45 Dimorphic RBCs Not Reportable 10/28/18 04:45 Polychromasia Not Reportable 10/28/18 04:45 Hypochromasia 2+ 10/28/18 04:45 Poikilocytosis Not Reportable 10/28/18 04:45 Anisocytosis Not Reportable 10/28/18 04:45 Microcytosis Not Reportable 10/28/18 04:45 Macrocytosis Not Reportable 10/28/18 04:45 Spherocytes Not Reportable 10/28/18 04:45 Pappenheimer Bodies Not Reportable 10/28/18 04:45 Sickle Cells Not Reportable 10/28/18 04:45 Target Cells Not Reportable 10/28/18 04:45 Tear Drop Cells Not Reportable 10/28/18 04:45 Ovalocytes Not Reportable 10/28/18 04:45 Helmet Cells Not Reportable 10/28/18 04:45 Fong-Route 7 [place] Bodies Not Reportable 10/28/18 04:45 [place] Rings Not Reportable 10/28/18 04:45 [place] Cells Not Reportable 10/28/18 04:45 Bite Cells Not Reportable 10/28/18 04:45 Crenated Cell Not Reportable 10/28/18 04:45 Elliptocytes Not Reportable 10/28/18 04:45 Acanthocytes (Spur) Not Reportable 10/28/18 04:45 Rouleaux Not Reportable 10/28/18 04:45 Hemoglobin C Crystals Not Reportable 10/28/18 04:45 Schistocytes Not Reportable 10/28/18 04:45 Malaria parasites Not Reportable 10/28/18 04:45 [place] Bodies Not Reportable 10/28/18 04:45 Hem Pathologist Commnt No 10/28/18 04:45 PT 12.0 Sec. (12.2-14.9) L 10/23/18 16:27 INR 0.84 (0.87-1.13) L 10/23/18 16:27 APTT 21.0 Sec. (24.2-36.6) L 10/23/18 16:27 POC ABG pH 7.498 (7.35-7.45) H 10/24/18 04:59 POC ABG pCO2 32.3 (35-45) L 10/24/18 04:59 POC ABG pO2 114 (80-105) H 10/24/18 04:59 POC ABG HCO3 25.1 (22-26 mml/L) 10/24/18 04:59 POC ABG Total CO2 26 (23-27mmol/L) 10/24/18 04:59 POC ABG O2 Sat 99 10/24/18 04:59 POC ABG Base Excess 2 ((-2) - (+3)mmol/L) 10/24/18 04:59 FiO2 40 % 10/24/18 04:59 Sodium 143 mmol/L (137-145) 10/29/18 05:11 Potassium 4.3 mmol/L (3.6-5.0) 10/29/18 05:11 Chloride 104.2 mmol/L (98-107) 10/29/18 05:11 Carbon Dioxide 35 mmol/L (22-30) H 10/29/18 05:11 Anion Gap 8 mmol/L 10/29/18 05:11 BUN 28 mg/dL (7-17) H 10/29/18 05:11 Creatinine 0.5 mg/dL (0.7-1.2) L 10/29/18 05:11 Estimated GFR > 60 ml/min 10/29/18 05:11 BUN/Creatinine Ratio 56 % 10/29/18 05:11 Glucose 90 mg/dL (65-100) 10/29/18 05:11 POC Glucose 138 (70-105) H 10/30/18 18:01 Lactic Acid 1.00 mmol/L (0.7-2.0) 10/24/18 13:25 Calcium 8.3 mg/dL (8.4-10.2) L 10/29/18 05:11 Magnesium 2.50 mg/dL (1.7-2.3) H 10/25/18 03:57 Total Bilirubin 0.20 mg/dL (0.1-1.2) 10/29/18 05:11 Direct Bilirubin < 0.2 mg/dL (0-0.2) 10/24/18 10:35 Indirect Bilirubin 0.2 mg/dL 10/24/18 10:35 AST 14 units/L (5-40) 10/29/18 05:11 ALT 30 units/L (7-56) 10/29/18 05:11 Alkaline Phosphatase 47 units/L (35-129) 10/29/18 05:11 Total Creatine Kinase 66 units/L (30-135) 10/23/18 16:27 Troponin T < 0.010 ng/mL (0.00-0.029) 10/23/18 16:27 NT-Pro-B Natriuret Pep 835.8 pg/mL (0-900) 10/24/18 13:25 Total Protein 5.1 g/dL (6.3-8.2) L 10/29/18 05:11 Albumin 2.8 g/dL (3.9-5) L 10/29/18 05:11 Albumin/Globulin Ratio 1.2 % 10/29/18 05:11 TSH 0.527 mlU/mL (0.270-4.200) 10/24/18 10:35 Free T4 1.10 ng/dL (0.76-1.46) 10/24/18 10:35 Urine Color Yellow (Yellow) 10/23/18 16:18 Urine Turbidity Slightly-cloudy (Clear) 10/23/18 16:18 Urine pH 5.0 (5.0-7.0) 10/23/18 16:18 Ur Specific [place] 1.016 (1.003-1.030) 10/23/18 16:18 Urine Protein <15 mg/dl mg/dL (Negative) 10/23/18 16:18 Urine Glucose (UA) Neg mg/dL (Negative) 10/23/18 16:18 Urine Ketones Neg mg/dL (Negative) 10/23/18 16:18 Urine Blood Neg (Negative) 10/23/18 16:18 Urine Nitrite Neg (Negative) 10/23/18 16:18 Urine Bilirubin Neg (Negative) 10/23/18 16:18 Urine Urobilinogen 2.0 mg/dL (<2.0) 10/23/18 16:18 Ur Leukocyte Esterase Neg (Negative) 10/23/18 16:18 Urine WBC (Auto) < 1.0 /HPF (0.0-6.0) 10/23/18 16:18 Urine RBC (Auto) 1.0 /HPF (0.0-6.0) 10/23/18 16:18 U Epithel Cells (Auto) < 1.0 /HPF (0-13.0) 10/23/18 16:18 Urine Mucus Few /HPF 10/23/18 16:18 Salicylates < 0.3 mg/dL (2.8-20.0) L 10/23/18 16:27 Urine Opiates Screen Presumptive negative 10/23/18 16:18 Urine Methadone Screen Presumptive negative 10/23/18 16:18 Acetaminophen < 5.0 ug/mL (10.0-30.0) L 10/23/18 16:27 Ur Barbiturates Screen Presumptive negative 10/23/18 16:18 Ur Phencyclidine Scrn Presumptive negative 10/23/18 16:18 Ur Amphetamines Screen Presumptive negative 10/23/18 16:18 U Benzodiazepines Scrn Presumptive negative 10/23/18 16:18 Urine Cocaine Screen Presumptive negative 10/23/18 16:18 U Marijuana (THC) Screen Presumptive negative 10/23/18 16:18 Drugs of Abuse Note Disclamer 10/23/18 16:18 Plasma/Serum Alcohol < 0.01 % (0-0.07) 10/23/18 16:27 Active Medications - Current Medications Current Medications: Generic Name Dose Route Start Last Admin Trade Name Freq PRN Reason Stop Dose Admin Acetaminophen 650 mg 10/23/18 21:55 10/29/18 05:14 Tylenol PO 650 mg Q4H PRN Administration Pain MILD(1-3)/Fever >100.5/LOU Acetazolamide 500 mg 10/25/18 22:00 10/30/18 22:54 Diamox PO 500 mg BID GABRIEL Administration Albuterol/Ipratropium 1 ampul 10/25/18 10:15 10/31/18 08:07 Duoneb *Not For Prn Use* IH Not Given Q6HRT [facility] Apixaban 5 mg 10/28/18 22:00 10/30/18 21:45 Eliquis PO 5 mg Q12HR GABRIEL Administration Protocol Aripiprazole 10 mg 10/25/18 12:00 10/30/18 09:54 Abilify PO 10 mg QDAY GABRIEL Administration Aspirin 81 mg 10/27/18 15:00 10/30/18 09:55 Baby Aspirin PO 81 mg QDAY GABRIEL Administration Bupropion HCl 300 mg 10/25/18 12:00 10/30/18 09:56 Wellbutrin Xl PO 300 mg DAILY GABRIEL Administration Furosemide 40 mg 10/26/18 10:00 10/30/18 09:55 Lasix PO 40 mg QAM GABRIEL Administration Hydrophilic Ointment 1 applic 10/23/18 15:53 Vaseline Lip Therapy TP Q2HR PRN Dry Lips Hydrophilic Ointment 1 applic 10/28/18 19:19 Vaseline TP PRN PRN Dry Nasal Passages Levothyroxine Sodium 125 mcg 10/25/18 13:00 10/31/18 05:10 Synthroid PO 125 mcg DAILY@0600 GABRIEL Administration Lisinopril 2.5 mg 10/26/18 10:00 10/30/18 09:54 Zestril PO 2.5 mg QDAY GABRIEL Administration Loratadine 10 mg 10/25/18 13:00 10/30/18 09:54 Claritin PO 10 mg DAILY GABRIEL Administration Metoprolol Tartrate 12.5 mg 10/30/18 10:00 10/31/18 05:12 Lopressor PO 12.5 mg Q8HR GABRIEL Administration Multi-Ingred Cream/Lotion/Oil/Oint 1 applic 10/23/18 15:53 Artificial Tears Ophth Oint OU Q4HR PRN Dry Eye(s) Ondansetron HCl 4 mg 10/23/18 21:55 Zofran IV Q8H PRN Nausea And Vomiting Pravastatin Sodium 20 mg 10/25/18 22:00 10/30/18 22:54 Pravachol PO 20 mg QHS GABRIEL Administration Prednisone 10 mg 10/31/18 10:00 Deltasone PO 10/31/18 10:01 QDAY GABRIEL Prednisone 5 mg 11/01/18 10:00 Deltasone PO 11/01/18 10:01 QDAY GABRIEL Prednisone 2.5 mg 11/02/18 10:00 Deltasone PO 11/04/18 10:01 QDAY GABRIEL Sodium Chloride 5 ml 10/23/18 15:53 Nacl 0.9% 500 Ml IV DIRECT PRN [employer] Sodium Chloride 10 ml 10/23/18 22:00 10/30/18 21:46 Sodium Chloride Flush Syringe 10 Ml IV 10 ml BID GABRIEL Administration Sodium Chloride 10 ml 10/23/18 21:55 Sodium Chloride Flush Syringe 10 Ml IV PRN PRN LINE FLUSH Trazodone HCl 50 mg 10/25/18 22:00 10/30/18 21:45 Desyrel PO 50 mg HS GABRIEL Administration Nutrition/Malnutrition Assess - Dietary Evaluation Nutrition/Malnutrition Findings: Nutrition Notes Start: 10/25/18 16:29 Freq: Status: Active Protocol: Document 10/28/18 11:08 (Rec: 10/28/18 11:12 [email or web address]) Co-Sign 10/28/18 11:08 LP Nutrition Notes Initial or Follow up Reassessment Current Diagnosis COPD Current Diet Cardiac diet Labs/Tests Reviewed Pertinent Medications Lasix Height 5 ft 6 in Weight 77.7 kg [place] Body Weight (kg) 59.09 BMI 27.6 Subjective/Other Information F/u for intakes. Pt on nasal canula and eating 100% of meals and ONS. No reports of trouble chewing or swallowing. Percent of energy/protein needs met: 100%/100% Burn Absent Trauma Absent #1 Nutrition Diagnosis Inadequate oral intake As Evidenced by Signs and Symptoms Nasal canula placed yesterday and pt eating 100% meals and ONS supplements Diagnosis Progress(for reassessment Resolved documentation) Is patient on ventilator? No Is Patient Ambulatory and/or Out of Bed No REE-([facility]-confined to bed) 1605.900 Calculation Used for Recommendations Inderjit Nixon Additional Notes protein (1-1.2g/kg): 78-94g fluid: 1mL/kcal Nutrition Intervention Change Diet Order: Continue cardiac diet Add Supplement/Snack (indicate name/kcal Ensure Enlive daily /protein ) Provides kCal: 350 Provides Protein (gm) 20 Goal #1 Continue to meet at least 75% camilla and pro needs via PO and ONS intake Anticipated Discharge Needs: Cardiac Follow-Up By: 11/04/18 Additional Comments F/u: PO and ONS intake
[2018-10-31] MEDS: ELIQUIS PO SCH ×2 (09:49→21:48)
[2018-10-31] MEDS: CLARITIN PO SCH (09:49)
[2018-10-31] MEDS: BABY ASPIRIN PO SCH (09:49)
[2018-10-31] MEDS: SODIUM CHLORIDE FLUSH SYRINGE 10 ML IV SCH ×2 (09:51→21:49)
[2018-10-31] MEDS: WELLBUTRIN XL PO SCH (09:59)
[2018-10-31] MEDS: DIAMOX PO SCH ×2 (09:59→21:47)
[2018-10-31] MEDS: ABILIFY PO SCH (10:00)
[2018-10-31] MEDS: ZESTRIL PO SCH (10:00)
[2018-10-31] MEDS ORDERED: DELTASONE PO SCH (10:00)
[2018-10-31] MEDS: LASIX PO SCH (13:39)
[2018-10-31] MEDS: PRAVACHOL PO SCH (21:48)
[2018-10-31] MEDS: DESYREL PO SCH (21:48)
[2018-11-01] MEDS: DUONEB *Not for PRN Use IH SCH ×4 (01:54→23:10)
[2018-11-01] MEDS: SYNTHROID PO SCH (05:23)
[2018-11-01] MEDS: LOPRESSOR PO SCH ×2 (05:23→22:07)
[2018-11-01] MEDS ORDERED: DELTASONE PO SCH (10:00)
[2018-11-01] MEDS: ABILIFY PO SCH (10:54)
[2018-11-01] MEDS: LASIX PO SCH (10:55)
[2018-11-01] MEDS: WELLBUTRIN XL PO SCH (10:55)
[2018-11-01] MEDS: DIAMOX PO SCH ×2 (10:55→22:06)
[2018-11-01] MEDS: ELIQUIS PO SCH ×2 (10:56→22:06)
[2018-11-01] MEDS: SODIUM CHLORIDE FLUSH SYRINGE 10 ML IV SCH ×2 (10:56→22:10)
[2018-11-01] MEDS: BABY ASPIRIN PO SCH (10:56)
[2018-11-01] MEDS: CLARITIN PO SCH (10:56)
--- NOTE | 2018-11-01 12:24 | Progress Note ---
Assessment and Plan Assessment and plan: 67-year-old woman with history of end-stage COPD on home oxygen, hypothyroid. She was brought to the hospital for decreased responsiveness. She was admitted for respiratory failure, she was intubated for airway protection and because she was obtunded. She was treated with the ventilator, steroids nebs. The patient improved. She was weaned of ventilator to nasal cannula oxygen. She continued to improve. She received pulmonology consult. She received echo which showed preserved EF. -She became bradycardic after initiation of carvedilol. Coreg was therefore discontinued. she was planned for discharge, but then went into rapid A. fib with heart rates in the 140s. She was then started on Cardizem drip on 10/27, on 10/28 she's converted to oral beta blockers. Cardiology input appreciated, the patient was also started on anticoagulation -has severe debility , receiving PT, awaiting ANDREA placement MRI cervical spine; multilevel bilateral neural foramina narrowing secondary to disc osteophyte complex and vertebral joint hypertrophy. No central canal spinal stenosis or cord edema. Chest x-ray; no infiltrate Diagnoses rapid afib with hypercoagulable states Acute on chronic hypoxic respiratory failure, requiring mechanical ventilator le ss than 96 hours COPD exacerbation Pneumonia was ruled out, with serial imaging Sepsis was ruled out SIRS without acute organ dysfunction Bradycardia, now resolved Ataxia, debility History Interval history: Review of systems Constitutional: No fevers, no malaise, no joint pains CVS: No chest pain, no orthopnea, no dyspnea on exertion, no pedal edema GI: No abdominal pain, no diarrhea, no vomiting, no constipation Respiratory: No shortness of breath, no wheezing, no coughing Hospitalist Physical - Physical exam Narrative exam: General.: Appears well, no distress, nontoxic HEENT: Moist mucous membranes, extraocular muscles intact, no lymphadenopathy Neck: supple Cardiac: S1-S2 heard Lungs: Diminished air entry Abdomen: soft , nontender, nondistended, bowel sounds positive Extremities: no edema clubbing or cyanosis Skin: no rash or lesion Neurologic: no gross focal deficits Psych: calm, and cooperative - Constitutional Vitals: Temp Pulse Resp BP Pulse Ox 98.4 F 90 20 118/61 91 11/01/18 07:30 11/01/18 11:00 11/01/18 11:00 11/01/18 07:30 11/01/18 10:48 General appearance: Present: no acute distress Results - Labs CBC & Chem 7: 10/28/18 04:45 10/29/18 05:11 Labs: Laboratory Last Values WBC 5.5 K/mm3 (4.5-11.0) 10/28/18 04:45 RBC 4.36 M/mm3 (3.65-5.03) 10/28/18 04:45 Hgb 10.1 gm/dl (10.1-14.3) 10/28/18 04:45 Hct 34.0 % (30.3-42.9) 10/28/18 04:45 MCV 78 fl (79-97) L 10/28/18 04:45 MCH 23 pg (28-32) L 10/28/18 04:45 MCHC 30 % (30-34) 10/28/18 04:45 RDW 16.5 % (13.2-15.2) H 10/28/18 04:45 Plt Count 186 K/mm3 (140-440) 10/28/18 04:45 Lymph % (Auto) 6.9 % (13.4-35.0) L 10/24/18 13:25 [place] % (Auto) 4.8 % (0.0-7.3) 10/24/18 13:25 Eos % (Auto) 0.0 % (0.0-4.3) 10/24/18 13:25 Baso % (Auto) 0.1 % (0.0-1.8) 10/24/18 13:25 Lymph # 0.6 K/mm3 (1.2-5.4) L 10/24/18 13:25 [place] # 0.4 K/mm3 (0.0-0.8) 10/24/18 13:25 Eos # 0.0 K/mm3 (0.0-0.4) 10/24/18 13:25 Baso # 0.0 K/mm3 (0.0-0.1) 10/24/18 13:25 Add Manual Diff Complete 10/28/18 04:45 Total Counted 100 10/28/18 04:45 Seg Neutrophils % Photographic Specialist 10/27/18 04:18 Seg Neuts % (Manual) 96.0 % (40.0-70.0) H 10/28/18 04:45 Band Neutrophils % 0 % 10/28/18 04:45 Lymphocytes % (Manual) 2.0 % (13.4-35.0) L 10/28/18 04:45 Reactive Lymphs % (Man) 0 % 10/28/18 04:45 Monocytes % (Manual) 2.0 % (0.0-7.3) 10/28/18 04:45 Eosinophils % (Manual) 0 % (0.0-4.3) 10/28/18 04:45 Basophils % (Manual) 0 % (0.0-1.8) 10/28/18 04:45 Metamyelocytes % 0 % 10/28/18 04:45 Myelocytes % 0 % 10/28/18 04:45 Promyelocytes % 0 % 10/28/18 04:45 Blast Cells % 0 % 10/28/18 04:45 Nucleated RBC % 2.0 % (0.0-0.9) H 10/28/18 04:45 Seg Neutrophils # 7.4 K/mm3 (1.8-7.7) 10/24/18 13:25 Seg Neutrophils # Man 5.3 K/mm3 (1.8-7.7) 10/28/18 04:45 Band Neutrophils # 0.0 K/mm3 10/28/18 04:45 Lymphocytes # (Manual) 0.1 K/mm3 (1.2-5.4) L 10/28/18 04:45 Abs React Lymphs (Man) 0.0 K/mm3 10/28/18 04:45 Monocytes # (Manual) 0.1 K/mm3 (0.0-0.8) 10/28/18 04:45 Eosinophils # (Manual) 0.0 K/mm3 (0.0-0.4) 10/28/18 04:45 Basophils # (Manual) 0.0 K/mm3 (0.0-0.1) 10/28/18 04:45 Metamyelocytes # 0.0 K/mm3 10/28/18 04:45 Myelocytes # 0.0 K/mm3 10/28/18 04:45 Promyelocytes # 0.0 K/mm3 10/28/18 04:45 Blast Cells # 0.0 K/mm3 10/28/18 04:45 WBC Morphology Not Reportable 10/28/18 04:45 Hypersegmented Neuts Not Reportable 10/28/18 04:45 Hyposegmented Neuts Not Reportable 10/28/18 04:45 Hypogranular Neuts Not Reportable 10/28/18 04:45 Smudge Cells Not Reportable 10/28/18 04:45 Toxic Granulation Not Reportable 10/28/18 04:45 Toxic Vacuolation Not Reportable 10/28/18 04:45 Dohle Bodies Not Reportable 10/28/18 04:45 Pelger-Huet Anomaly Not Reportable 10/28/18 04:45 Damien Rods Not Reportable 10/28/18 04:45 Platelet Estimate Consistent w auto 10/28/18 04:45 Clumped Platelets Not Reportable 10/28/18 04:45 Plt Clumps, EDTA Not Reportable 10/28/18 04:45 Large Platelets Not Reportable 10/28/18 04:45 Giant Platelets Not Reportable 10/28/18 04:45 Platelet Satelliting Not Reportable 10/28/18 04:45 Plt Morphology Comment Not Reportable 10/28/18 04:45 RBC Morphology Not Reportable 10/28/18 04:45 Dimorphic RBCs Not Reportable 10/28/18 04:45 Polychromasia Not Reportable 10/28/18 04:45 Hypochromasia 2+ 10/28/18 04:45 Poikilocytosis Not Reportable 10/28/18 04:45 Anisocytosis Not Reportable 10/28/18 04:45 Microcytosis Not Reportable 10/28/18 04:45 Macrocytosis Not Reportable 10/28/18 04:45 Spherocytes Not Reportable 10/28/18 04:45 Pappenheimer Bodies Not Reportable 10/28/18 04:45 Sickle Cells Not Reportable 10/28/18 04:45 Target Cells Not Reportable 10/28/18 04:45 Tear Drop Cells Not Reportable 10/28/18 04:45 Ovalocytes Not Reportable 10/28/18 04:45 Helmet Cells Not Reportable 10/28/18 04:45 [place] Bodies Not Reportable 10/28/18 04:45 Anchor Rings Not Reportable 10/28/18 04:45 [place] Cells Not Reportable 10/28/18 04:45 Bite Cells Not Reportable 10/28/18 04:45 Crenated Cell Not Reportable 10/28/18 04:45 Elliptocytes Not Reportable 10/28/18 04:45 Acanthocytes (Spur) Not Reportable 10/28/18 04:45 Rouleaux Not Reportable 10/28/18 04:45 Hemoglobin C Crystals Not Reportable 10/28/18 04:45 Schistocytes Not Reportable 10/28/18 04:45 Malaria parasites Not Reportable 10/28/18 04:45 [place] Bodies Not Reportable 10/28/18 04:45 Hem Pathologist Commnt No 10/28/18 04:45 PT 12.0 Sec. (12.2-14.9) L 10/23/18 16:27 INR 0.84 (0.87-1.13) L 10/23/18 16:27 APTT 21.0 Sec. (24.2-36.6) L 10/23/18 16:27 POC ABG pH 7.498 (7.35-7.45) H 10/24/18 04:59 POC ABG pCO2 32.3 (35-45) L 10/24/18 04:59 POC ABG pO2 114 (80-105) H 10/24/18 04:59 POC ABG HCO3 25.1 (22-26 mml/L) 10/24/18 04:59 POC ABG Total CO2 26 (23-27mmol/L) 10/24/18 04:59 POC ABG O2 Sat 99 10/24/18 04:59 POC ABG Base Excess 2 ((-2) - (+3)mmol/L) 10/24/18 04:59 FiO2 40 % 10/24/18 04:59 Sodium 143 mmol/L (137-145) 10/29/18 05:11 Potassium 4.3 mmol/L (3.6-5.0) 10/29/18 05:11 Chloride 104.2 mmol/L (98-107) 10/29/18 05:11 Carbon Dioxide 35 mmol/L (22-30) H 10/29/18 05:11 Anion Gap 8 mmol/L 10/29/18 05:11 BUN 28 mg/dL (7-17) H 10/29/18 05:11 Creatinine 0.5 mg/dL (0.7-1.2) L 10/29/18 05:11 Estimated GFR > 60 ml/min 10/29/18 05:11 BUN/Creatinine Ratio 56 % 10/29/18 05:11 Glucose 90 mg/dL (65-100) 10/29/18 05:11 POC Glucose 138 (70-105) H 10/30/18 18:01 Lactic Acid 1.00 mmol/L (0.7-2.0) 10/24/18 13:25 Calcium 8.3 mg/dL (8.4-10.2) L 10/29/18 05:11 Magnesium 2.50 mg/dL (1.7-2.3) H 10/25/18 03:57 Total Bilirubin 0.20 mg/dL (0.1-1.2) 10/29/18 05:11 Direct Bilirubin < 0.2 mg/dL (0-0.2) 10/24/18 10:35 Indirect Bilirubin 0.2 mg/dL 10/24/18 10:35 AST 14 units/L (5-40) 10/29/18 05:11 ALT 30 units/L (7-56) 10/29/18 05:11 Alkaline Phosphatase 47 units/L (35-129) 10/29/18 05:11 Total Creatine Kinase 66 units/L (30-135) 10/23/18 16:27 Troponin T < 0.010 ng/mL (0.00-0.029) 10/23/18 16:27 NT-Pro-B Natriuret Pep 835.8 pg/mL (0-900) 10/24/18 13:25 Total Protein 5.1 g/dL (6.3-8.2) L 10/29/18 05:11 Albumin 2.8 g/dL (3.9-5) L 10/29/18 05:11 Albumin/Globulin Ratio 1.2 % 10/29/18 05:11 TSH 0.527 mlU/mL (0.270-4.200) 10/24/18 10:35 Free T4 1.10 ng/dL (0.76-1.46) 10/24/18 10:35 Urine Color Yellow (Yellow) 10/23/18 16:18 Urine Turbidity Slightly-cloudy (Clear) 10/23/18 16:18 Urine pH 5.0 (5.0-7.0) 10/23/18 16:18 Ur Specific [place] 1.016 (1.003-1.030) 10/23/18 16:18 Urine Protein <15 mg/dl mg/dL (Negative) 10/23/18 16:18 Urine Glucose (UA) Neg mg/dL (Negative) 10/23/18 16:18 Urine Ketones Neg mg/dL (Negative) 10/23/18 16:18 Urine Blood Neg (Negative) 10/23/18 16:18 Urine Nitrite Neg (Negative) 10/23/18 16:18 Urine Bilirubin Neg (Negative) 10/23/18 16:18 Urine Urobilinogen 2.0 mg/dL (<2.0) 10/23/18 16:18 Ur Leukocyte Esterase Neg (Negative) 10/23/18 16:18 Urine WBC (Auto) < 1.0 /HPF (0.0-6.0) 10/23/18 16:18 Urine RBC (Auto) 1.0 /HPF (0.0-6.0) 10/23/18 16:18 U Epithel Cells (Auto) < 1.0 /HPF (0-13.0) 10/23/18 16:18 Urine Mucus Few /HPF 10/23/18 16:18 Salicylates < 0.3 mg/dL (2.8-20.0) L 10/23/18 16:27 Urine Opiates Screen Presumptive negative 10/23/18 16:18 Urine Methadone Screen Presumptive negative 10/23/18 16:18 Acetaminophen < 5.0 ug/mL (10.0-30.0) L 10/23/18 16:27 Ur Barbiturates Screen Presumptive negative 10/23/18 16:18 Ur Phencyclidine Scrn Presumptive negative 10/23/18 16:18 Ur Amphetamines Screen Presumptive negative 10/23/18 16:18 U Benzodiazepines Scrn Presumptive negative 10/23/18 16:18 Urine Cocaine Screen Presumptive negative 10/23/18 16:18 U Marijuana (THC) Screen Presumptive negative 10/23/18 16:18 Drugs of Abuse Note Disclamer 10/23/18 16:18 Plasma/Serum Alcohol < 0.01 % (0-0.07) 10/23/18 16:27 Active Medications - Current Medications Current Medications: Generic Name Dose Route Start Last Admin Trade Name Freq PRN Reason Stop Dose Admin Acetaminophen 650 mg 10/23/18 21:55 10/29/18 05:14 Tylenol PO 650 mg Q4H PRN Administration Pain MILD(1-3)/Fever >100.5/LOU Acetazolamide 500 mg 10/25/18 22:00 11/01/18 10:55 Diamox PO 500 mg BID GABRIEL Administration Albuterol/Ipratropium 1 ampul 10/25/18 10:15 11/01/18 10:49 Duoneb *Not For Prn Use* IH 1 ampul Q6HRT GABRIEL Administration Apixaban 5 mg 10/28/18 22:00 11/01/18 10:56 Eliquis PO 5 mg Q12HR GABRIEL Administration Protocol Aripiprazole 10 mg 10/25/18 12:00 11/01/18 10:54 Abilify PO 10 mg QDAY GABRIEL Administration Aspirin 81 mg 10/27/18 15:00 11/01/18 10:56 Baby Aspirin PO 81 mg QDAY GABRIEL Administration Bupropion HCl 300 mg 10/25/18 12:00 11/01/18 10:55 Wellbutrin Xl PO 300 mg DAILY GABRIEL Administration Furosemide 40 mg 10/26/18 10:00 11/01/18 10:55 Lasix PO 40 mg QAM GABRIEL Administration Hydrophilic Ointment 1 applic 10/23/18 15:53 Vaseline Lip Therapy TP Q2HR PRN Dry Lips Hydrophilic Ointment 1 applic 10/28/18 19:19 Vaseline TP PRN PRN Dry Nasal Passages Levothyroxine Sodium 125 mcg 10/25/18 13:00 11/01/18 05:23 Synthroid PO 125 mcg DAILY@0600 GABRIEL Administration Lisinopril 2.5 mg 10/26/18 10:00 10/31/18 10:00 Zestril PO Not Given QDAY GABRIEL Loratadine 10 mg 10/25/18 13:00 11/01/18 10:56 Claritin PO 10 mg DAILY GABRIEL Administration Metoprolol Tartrate 12.5 mg 10/30/18 10:00 11/01/18 05:23 Lopressor PO 12.5 mg Q8HR GABRIEL Administration Multi-Ingred Cream/Lotion/Oil/Oint 1 applic 10/23/18 15:53 Artificial Tears Ophth Oint OU Q4HR PRN Dry Eye(s) Ondansetron HCl 4 mg 10/23/18 21:55 Zofran IV Q8H PRN Nausea And Vomiting Pravastatin Sodium 20 mg 10/25/18 22:00 10/31/18 21:48 Pravachol PO 20 mg QHS GABRIEL Administration Prednisone 2.5 mg 11/02/18 10:00 Deltasone PO 11/04/18 10:01 QDAY GABRIEL Sodium Chloride 5 ml 10/23/18 15:53 Nacl 0.9% 500 Ml IV DIRECT PRN ARTERIAL RISK CONTROL FIELD REPRESENTATIVE Sodium Chloride 10 ml 10/23/18 22:00 11/01/18 10:56 Sodium Chloride Flush Syringe 10 Ml IV 10 ml BID GABRIEL Administration Sodium Chloride 10 ml 10/23/18 21:55 Sodium Chloride Flush Syringe 10 Ml IV PRN PRN LINE FLUSH Trazodone HCl 50 mg 10/25/18 22:00 10/31/18 21:48 Desyrel PO 50 mg HS GABRIEL Administration Nutrition/Malnutrition Assess - Dietary Evaluation Nutrition/Malnutrition Findings: Nutrition Notes Start: 10/25/18 16:29 Freq: Status: Active Protocol: Document 10/28/18 11:08 EB (Rec: 10/28/18 11:12 [id number]) Co-Sign 10/28/18 11:08 LP Nutrition Notes Initial or Follow up Reassessment Current Diagnosis COPD Current Diet Cardiac diet Labs/Tests Reviewed Pertinent Medications Lasix Height 5 ft 6 in Weight 77.7 kg [place] Body Weight (kg) 59.09 BMI 27.6 Subjective/Other Information F/u for intakes. Pt on nasal canula and eating 100% of meals and ONS. No reports of trouble chewing or swallowing. Percent of energy/protein needs met: 100%/100% Burn Absent Trauma Absent #1 Nutrition Diagnosis Inadequate oral intake As Evidenced by Signs and Symptoms Nasal canula placed yesterday and pt eating 100% meals and ONS supplements Diagnosis Progress(for reassessment Resolved documentation) Is patient on ventilator? No Is Patient Ambulatory and/or Out of Bed No [facility] [phone] Calculation Used for Recommendations [facility] Additional Notes protein (1-1.2g/kg): 78-94g fluid: 1mL/kcal Nutrition Intervention Change Diet Order: Continue cardiac diet Add Supplement/Snack (indicate name/kcal Ensure Enlive daily /protein ) Provides kCal: 350 Provides Protein (gm) 20 Goal #1 Continue to meet at least 75% [place] and pro needs via PO and ONS intake Anticipated Discharge Needs: Cardiac Follow-Up By: 11/04/18 Additional Comments F/u: PO and ONS intake
[2018-11-01] MEDS: DESYREL PO SCH (22:06)
[2018-11-01] MEDS: PRAVACHOL PO SCH (22:07)
[2018-11-02] MEDS: ZESTRIL PO SCH ×2 (01:19→09:40)
[2018-11-02] MEDS: LOPRESSOR PO SCH ×4 (01:20→22:10)
[2018-11-02] MEDS: DUONEB *Not for PRN Use IH SCH ×4 (02:50→21:30)
[2018-11-02] MEDS: SYNTHROID PO SCH (05:41)
[2018-11-02] MEDS: LASIX PO SCH (09:40)
[2018-11-02] MEDS: DIAMOX PO SCH ×2 (09:42→22:09)
[2018-11-02] MEDS: ABILIFY PO SCH (09:42)
[2018-11-02] MEDS: DELTASONE PO SCH (09:43)
[2018-11-02] MEDS: CLARITIN PO SCH (09:43)
[2018-11-02] MEDS: BABY ASPIRIN PO SCH (09:43)
[2018-11-02] MEDS: ELIQUIS PO SCH ×2 (09:43→22:10)
[2018-11-02] MEDS: WELLBUTRIN XL PO SCH (10:00)
--- NOTE | 2018-11-02 11:35 | Progress Note ---
Assessment and Plan Assessment and plan: 67-year-old woman with history of end-stage COPD on home oxygen, hypothyroid. She was brought to the hospital for decreased responsiveness. She was admitted for respiratory failure, she was intubated for airway protection and because she was obtunded. She was treated with the ventilator, steroids nebs. The patient improved. She was weaned of ventilator to nasal cannula oxygen. She continued to improve. She received pulmonology consult. She received echo which showed preserved EF. -She became bradycardic after initiation of carvedilol. Coreg was therefore discontinued. she was planned for discharge, but then went into rapid A. fib with heart rates in the 140s. She was then started on Cardizem drip on 10/27, on 10/28 she's converted to oral beta blockers. Cardiology input appreciated, the patient was also started on anticoagulation -has severe debility , receiving PT, awaiting ANDREA placement MRI cervical spine; multilevel bilateral neural foramina narrowing secondary to disc osteophyte complex and vertebral joint hypertrophy. No central canal spinal stenosis or cord edema. Chest x-ray; no infiltrate Diagnoses rapid afib with hypercoagulable states Acute on chronic hypoxic respiratory failure, requiring mechanical ventilator le ss than 96 hours COPD exacerbation Pneumonia was ruled out, with serial imaging Sepsis was ruled out SIRS without acute organ dysfunction Bradycardia, now resolved Ataxia, debility History Interval history: Review of systems Constitutional: No fevers, no malaise, no joint pains CVS: No chest pain, no orthopnea, no dyspnea on exertion, no pedal edema GI: No abdominal pain, no diarrhea, no vomiting, no constipation Respiratory: No shortness of breath, no wheezing, no coughing Hospitalist Physical - Physical exam Narrative exam: General.: Appears well, no distress, nontoxic HEENT: Moist mucous membranes, extraocular muscles intact, no lymphadenopathy Neck: supple Cardiac: S1-S2 heard Lungs: Diminished air entry Abdomen: soft , nontender, nondistended, bowel sounds positive Extremities: no edema clubbing or cyanosis Skin: no rash or lesion Neurologic: no gross focal deficits Psych: calm, and cooperative - Constitutional Vitals: Temp Pulse Resp BP Pulse Ox 99.2 F 90 18 100/60 97 11/02/18 08:32 11/02/18 10:31 11/02/18 10:31 11/02/18 10:31 11/02/18 08:32 General appearance: Present: no acute distress Results - Labs CBC & Chem 7: 10/28/18 04:45 10/29/18 05:11 Labs: Laboratory Last Values WBC 5.5 K/mm3 (4.5-11.0) 10/28/18 04:45 RBC 4.36 M/mm3 (3.65-5.03) 10/28/18 04:45 Hgb 10.1 gm/dl (10.1-14.3) 10/28/18 04:45 Hct 34.0 % (30.3-42.9) 10/28/18 04:45 MCV 78 fl (79-97) L 10/28/18 04:45 MCH 23 pg (28-32) L 10/28/18 04:45 MCHC 30 % (30-34) 10/28/18 04:45 RDW 16.5 % (13.2-15.2) H 10/28/18 04:45 Plt Count 186 K/mm3 (140-440) 10/28/18 04:45 Lymph % (Auto) 6.9 % (13.4-35.0) L 10/24/18 13:25 Boyle % (Auto) 4.8 % (0.0-7.3) 10/24/18 13:25 Eos % (Auto) 0.0 % (0.0-4.3) 10/24/18 13:25 Baso % (Auto) 0.1 % (0.0-1.8) 10/24/18 13:25 Lymph # 0.6 K/mm3 (1.2-5.4) L 10/24/18 13:25 Boyle # 0.4 K/mm3 (0.0-0.8) 10/24/18 13:25 Eos # 0.0 K/mm3 (0.0-0.4) 10/24/18 13:25 Baso # 0.0 K/mm3 (0.0-0.1) 10/24/18 13:25 Add Manual Diff Complete 10/28/18 04:45 Total Counted 100 10/28/18 04:45 Seg Neutrophils % [employer] 10/27/18 04:18 Seg Neuts % (Manual) 96.0 % (40.0-70.0) H 10/28/18 04:45 Band Neutrophils % 0 % 10/28/18 04:45 Lymphocytes % (Manual) 2.0 % (13.4-35.0) L 10/28/18 04:45 Reactive Lymphs % (Man) 0 % 10/28/18 04:45 Monocytes % (Manual) 2.0 % (0.0-7.3) 10/28/18 04:45 Eosinophils % (Manual) 0 % (0.0-4.3) 10/28/18 04:45 Basophils % (Manual) 0 % (0.0-1.8) 10/28/18 04:45 Metamyelocytes % 0 % 10/28/18 04:45 Myelocytes % 0 % 10/28/18 04:45 Promyelocytes % 0 % 10/28/18 04:45 Blast Cells % 0 % 10/28/18 04:45 Nucleated RBC % 2.0 % (0.0-0.9) H 10/28/18 04:45 Seg Neutrophils # 7.4 K/mm3 (1.8-7.7) 10/24/18 13:25 Seg Neutrophils # Man 5.3 K/mm3 (1.8-7.7) 10/28/18 04:45 Band Neutrophils # 0.0 K/mm3 10/28/18 04:45 Lymphocytes # (Manual) 0.1 K/mm3 (1.2-5.4) L 10/28/18 04:45 Abs React Lymphs (Man) 0.0 K/mm3 10/28/18 04:45 Monocytes # (Manual) 0.1 K/mm3 (0.0-0.8) 10/28/18 04:45 Eosinophils # (Manual) 0.0 K/mm3 (0.0-0.4) 10/28/18 04:45 Basophils # (Manual) 0.0 K/mm3 (0.0-0.1) 10/28/18 04:45 Metamyelocytes # 0.0 K/mm3 10/28/18 04:45 Myelocytes # 0.0 K/mm3 10/28/18 04:45 Promyelocytes # 0.0 K/mm3 10/28/18 04:45 Blast Cells # 0.0 K/mm3 10/28/18 04:45 WBC Morphology Not Reportable 10/28/18 04:45 Hypersegmented Neuts Not Reportable 10/28/18 04:45 Hyposegmented Neuts Not Reportable 10/28/18 04:45 Hypogranular Neuts Not Reportable 10/28/18 04:45 Smudge Cells Not Reportable 10/28/18 04:45 Toxic Granulation Not Reportable 10/28/18 04:45 Toxic Vacuolation Not Reportable 10/28/18 04:45 Dohle Bodies Not Reportable 10/28/18 04:45 Pelger-Huet Anomaly Not Reportable 10/28/18 04:45 Damien Rods Not Reportable 10/28/18 04:45 Platelet Estimate Consistent w auto 10/28/18 04:45 Clumped Platelets Not Reportable 10/28/18 04:45 Plt Clumps, EDTA Not Reportable 10/28/18 04:45 Large Platelets Not Reportable 10/28/18 04:45 Giant Platelets Not Reportable 10/28/18 04:45 Platelet Satelliting Not Reportable 10/28/18 04:45 Plt Morphology Comment Not Reportable 10/28/18 04:45 RBC Morphology Not Reportable 10/28/18 04:45 Dimorphic RBCs Not Reportable 10/28/18 04:45 Polychromasia Not Reportable 10/28/18 04:45 Hypochromasia 2+ 10/28/18 04:45 Poikilocytosis Not Reportable 10/28/18 04:45 Anisocytosis Not Reportable 10/28/18 04:45 Microcytosis Not Reportable 10/28/18 04:45 Macrocytosis Not Reportable 10/28/18 04:45 Spherocytes Not Reportable 10/28/18 04:45 Pappenheimer Bodies Not Reportable 10/28/18 04:45 Sickle Cells Not Reportable 10/28/18 04:45 Target Cells Not Reportable 10/28/18 04:45 Tear Drop Cells Not Reportable 10/28/18 04:45 Ovalocytes Not Reportable 10/28/18 04:45 Helmet Cells Not Reportable 10/28/18 04:45 Fong-Pearcy Bodies Not Reportable 10/28/18 04:45 [place] Rings Not Reportable 10/28/18 04:45 [place] Cells Not Reportable 10/28/18 04:45 Bite Cells Not Reportable 10/28/18 04:45 Crenated Cell Not Reportable 10/28/18 04:45 Elliptocytes Not Reportable 10/28/18 04:45 Acanthocytes (Spur) Not Reportable 10/28/18 04:45 Rouleaux Not Reportable 10/28/18 04:45 Hemoglobin C Crystals Not Reportable 10/28/18 04:45 Schistocytes Not Reportable 10/28/18 04:45 Malaria parasites Not Reportable 10/28/18 04:45 Cayden Bodies Not Reportable 10/28/18 04:45 Hem Pathologist Commnt No 10/28/18 04:45 PT 12.0 Sec. (12.2-14.9) L 10/23/18 16:27 INR 0.84 (0.87-1.13) L 10/23/18 16:27 APTT 21.0 Sec. (24.2-36.6) L 10/23/18 16:27 POC ABG pH 7.498 (7.35-7.45) H 10/24/18 04:59 POC ABG pCO2 32.3 (35-45) L 10/24/18 04:59 POC ABG pO2 114 (80-105) H 10/24/18 04:59 POC ABG HCO3 25.1 (22-26 mml/L) 10/24/18 04:59 POC ABG Total CO2 26 (23-27mmol/L) 10/24/18 04:59 POC ABG O2 Sat 99 10/24/18 04:59 POC ABG Base Excess 2 ((-2) - (+3)mmol/L) 10/24/18 04:59 FiO2 40 % 10/24/18 04:59 Sodium 143 mmol/L (137-145) 10/29/18 05:11 Potassium 4.3 mmol/L (3.6-5.0) 10/29/18 05:11 Chloride 104.2 mmol/L (98-107) 10/29/18 05:11 Carbon Dioxide 35 mmol/L (22-30) H 10/29/18 05:11 Anion Gap 8 mmol/L 10/29/18 05:11 BUN 28 mg/dL (7-17) H 10/29/18 05:11 Creatinine 0.5 mg/dL (0.7-1.2) L 10/29/18 05:11 Estimated GFR > 60 ml/min 10/29/18 05:11 BUN/Creatinine Ratio 56 % 10/29/18 05:11 Glucose 90 mg/dL (65-100) 10/29/18 05:11 POC Glucose 138 (70-105) H 10/30/18 18:01 Lactic Acid 1.00 mmol/L (0.7-2.0) 10/24/18 13:25 Calcium 8.3 mg/dL (8.4-10.2) L 10/29/18 05:11 Magnesium 2.50 mg/dL (1.7-2.3) H 10/25/18 03:57 Total Bilirubin 0.20 mg/dL (0.1-1.2) 10/29/18 05:11 Direct Bilirubin < 0.2 mg/dL (0-0.2) 10/24/18 10:35 Indirect Bilirubin 0.2 mg/dL 10/24/18 10:35 AST 14 units/L (5-40) 10/29/18 05:11 ALT 30 units/L (7-56) 10/29/18 05:11 Alkaline Phosphatase 47 units/L (35-129) 10/29/18 05:11 Total Creatine Kinase 66 units/L (30-135) 10/23/18 16:27 Troponin T < 0.010 ng/mL (0.00-0.029) 10/23/18 16:27 NT-Pro-B Natriuret Pep 835.8 pg/mL (0-900) 10/24/18 13:25 Total Protein 5.1 g/dL (6.3-8.2) L 10/29/18 05:11 Albumin 2.8 g/dL (3.9-5) L 10/29/18 05:11 Albumin/Globulin Ratio 1.2 % 10/29/18 05:11 TSH 0.527 mlU/mL (0.270-4.200) 10/24/18 10:35 Free T4 1.10 ng/dL (0.76-1.46) 10/24/18 10:35 Urine Color Yellow (Yellow) 10/23/18 16:18 Urine Turbidity Slightly-cloudy (Clear) 10/23/18 16:18 Urine pH 5.0 (5.0-7.0) 10/23/18 16:18 Ur Specific [place] 1.016 (1.003-1.030) 10/23/18 16:18 Urine Protein <15 mg/dl mg/dL (Negative) 10/23/18 16:18 Urine Glucose (UA) Neg mg/dL (Negative) 10/23/18 16:18 Urine Ketones Neg mg/dL (Negative) 10/23/18 16:18 Urine Blood Neg (Negative) 10/23/18 16:18 Urine Nitrite Neg (Negative) 10/23/18 16:18 Urine Bilirubin Neg (Negative) 10/23/18 16:18 Urine Urobilinogen 2.0 mg/dL (<2.0) 10/23/18 16:18 Ur Leukocyte Esterase Neg (Negative) 10/23/18 16:18 Urine WBC (Auto) < 1.0 /HPF (0.0-6.0) 10/23/18 16:18 Urine RBC (Auto) 1.0 /HPF (0.0-6.0) 10/23/18 16:18 U Epithel Cells (Auto) < 1.0 /HPF (0-13.0) 10/23/18 16:18 Urine Mucus Few /HPF 10/23/18 16:18 Salicylates < 0.3 mg/dL (2.8-20.0) L 10/23/18 16:27 Urine Opiates Screen Presumptive negative 10/23/18 16:18 Urine Methadone Screen Presumptive negative 10/23/18 16:18 Acetaminophen < 5.0 ug/mL (10.0-30.0) L 10/23/18 16:27 Ur Barbiturates Screen Presumptive negative 10/23/18 16:18 Ur Phencyclidine Scrn Presumptive negative 10/23/18 16:18 Ur Amphetamines Screen Presumptive negative 10/23/18 16:18 U Benzodiazepines Scrn Presumptive negative 10/23/18 16:18 Urine Cocaine Screen Presumptive negative 10/23/18 16:18 U Marijuana (THC) Screen Presumptive negative 10/23/18 16:18 Drugs of Abuse Note Disclamer 10/23/18 16:18 Plasma/Serum Alcohol < 0.01 % (0-0.07) 10/23/18 16:27 Active Medications - Current Medications Current Medications: Generic Name Dose Route Start Last Admin Trade Name Freq PRN Reason Stop Dose Admin Acetaminophen 650 mg 10/23/18 21:55 10/29/18 05:14 Tylenol PO 650 mg Q4H PRN Administration Pain MILD(1-3)/Fever >100.5/LOU Acetazolamide 500 mg 10/25/18 22:00 11/02/18 09:42 Diamox PO 500 mg BID GABRIEL Administration Albuterol/Ipratropium 1 ampul 10/25/18 10:15 11/02/18 02:50 Duoneb *Not For Prn Use* IH 1 ampul Q6HRT GABRIEL Administration Apixaban 5 mg 10/28/18 22:00 11/02/18 09:43 Eliquis PO 5 mg Q12HR GABRIEL Administration Protocol Aripiprazole 10 mg 10/25/18 12:00 11/02/18 09:42 Abilify PO 10 mg QDAY GABRIEL Administration Aspirin 81 mg 10/27/18 15:00 11/02/18 09:43 Baby Aspirin PO 81 mg QDAY [facility] Administration Bupropion HCl 300 mg 10/25/18 12:00 11/01/18 10:55 Wellbutrin Xl PO 300 mg DAILY GABRIEL Administration Furosemide 40 mg 10/26/18 10:00 11/02/18 09:40 Lasix PO Not Given QAM [facility] Hydrophilic Ointment 1 applic 10/23/18 15:53 Vaseline Lip Therapy TP Q2HR PRN Dry Lips Hydrophilic Ointment 1 applic 10/28/18 19:19 Vaseline TP PRN PRN Dry Nasal Passages Levothyroxine Sodium 125 mcg 10/25/18 13:00 11/02/18 05:41 Synthroid PO 125 mcg DAILY@0600 GABRIEL Administration Lisinopril 2.5 mg 10/26/18 10:00 11/02/18 09:40 Zestril PO Not Given QDAY GABRIEL Loratadine 10 mg 10/25/18 13:00 11/02/18 09:43 Claritin PO 10 mg DAILY GABRIEL Administration Metoprolol Tartrate 12.5 mg 10/30/18 10:00 11/02/18 05:41 Lopressor PO 12.5 mg Q8HR GABRIEL Administration Multi-Ingred Cream/Lotion/Oil/Oint 1 applic 10/23/18 15:53 Artificial Tears Ophth Oint OU Q4HR PRN Dry Eye(s) Ondansetron HCl 4 mg 10/23/18 21:55 Zofran IV Q8H PRN Nausea And Vomiting Pravastatin Sodium 20 mg 10/25/18 22:00 11/01/18 22:07 Pravachol PO 20 mg QHS GABRIEL Administration Prednisone 2.5 mg 11/02/18 10:00 11/02/18 09:43 Deltasone PO 11/04/18 10:01 2.5 mg QDAY GABRIEL Administration Sodium Chloride 10 ml 10/23/18 22:00 11/01/18 22:10 Sodium Chloride Flush Syringe 10 Ml IV 10 ml BID GABRIEL Administration Sodium Chloride 10 ml 10/23/18 21:55 Sodium Chloride Flush Syringe 10 Ml IV PRN PRN LINE FLUSH Trazodone HCl 50 mg 10/25/18 22:00 11/01/18 22:06 Desyrel PO 50 mg HS GABRIEL Administration Nutrition/Malnutrition Assess - Dietary Evaluation Nutrition/Malnutrition Findings: Nutrition Notes Start: 10/25/18 16:29 Freq: Status: Active Protocol: Document 10/28/18 11:08 EB (Rec: 10/28/18 11:12 [id number]) Co-Sign 10/28/18 11:08 LP Nutrition Notes Initial or Follow up Reassessment Current Diagnosis COPD Current Diet Cardiac diet Labs/Tests Reviewed Pertinent Medications Lasix Height 5 ft 6 in Weight 77.7 kg [place] Body Weight (kg) 59.09 BMI 27.6 Subjective/Other Information F/u for intakes. Pt on nasal canula and eating 100% of meals and ONS. No reports of trouble chewing or swallowing. Percent of energy/protein needs met: 100%/100% Burn Absent Trauma Absent #1 Nutrition Diagnosis Inadequate oral intake As Evidenced by Signs and Symptoms Nasal canula placed yesterday and pt eating 100% meals and ONS supplements Diagnosis Progress(for reassessment Resolved documentation) Is patient on ventilator? No Is Patient Ambulatory and/or Out of Bed No REE-([facility]-confined to bed) 1605.900 Calculation Used for Recommendations [facility] Additional Notes protein (1-1.2g/kg): 78-94g fluid: 1mL/kcal Nutrition Intervention Change Diet Order: Continue cardiac diet Add Supplement/Snack (indicate name/kcal Ensure Enlive daily /protein ) Provides kCal: 350 Provides Protein (gm) 20 Goal #1 Continue to meet at least 75% cam[place] and pro needs via PO and ONS intake Anticipated Discharge Needs: Cardiac Follow-Up By: 11/04/18 Additional Comments F/u: PO and ONS intake
[2018-11-02] MEDS: SODIUM CHLORIDE FLUSH SYRINGE 10 ML IV SCH ×2 (14:33→22:11)
[2018-11-02] MEDS: PRAVACHOL PO SCH (22:10)
[2018-11-02] MEDS: DESYREL PO SCH (22:10)
[2018-11-03] MEDS: DUONEB *Not for PRN Use IH SCH ×3 (03:04→15:10)
[2018-11-03] MEDS: LOPRESSOR PO SCH (06:46)
[2018-11-03] MEDS: SYNTHROID PO SCH (06:47)
[2018-11-03] MEDS: CLARITIN PO SCH (10:50)
[2018-11-03] MEDS: BABY ASPIRIN PO SCH (10:50)
[2018-11-03] MEDS: ELIQUIS PO SCH (10:50)
[2018-11-03] MEDS: DELTASONE PO SCH (10:51)
[2018-11-03] MEDS: ZESTRIL PO SCH (10:51)
[2018-11-03] MEDS: LASIX PO SCH (10:51)
[2018-11-03] MEDS: DIAMOX PO SCH (10:52)
[2018-11-03] MEDS: WELLBUTRIN XL PO SCH (10:53)
[2018-11-03] MEDS: ABILIFY PO SCH (10:53)
[2018-11-03] MEDS: SODIUM CHLORIDE FLUSH SYRINGE 10 ML IV SCH (10:53)
--- NOTE | 2018-11-03 13:29 | Progress Note ---
Assessment and Plan Assessment and plan: 67-year-old woman with history of end-stage COPD on home oxygen, hypothyroid. She was brought to the hospital for decreased responsiveness. She was admitted for respiratory failure, she was intubated for airway protection and because she was obtunded. She was treated with the ventilator, steroids nebs. The patient improved. She was weaned of ventilator to nasal cannula oxygen. She continued to improve. She received pulmonology consult. She received echo which showed preserved EF. -She became bradycardic after initiation of carvedilol. Coreg was therefore discontinued. she was planned for discharge, but then went into rapid A. fib with heart rates in the 140s. She was then started on Cardizem drip on 10/27, on 10/28 she's converted to oral beta blockers. Cardiology input appreciated, the patient was also started on anticoagulation -has severe debility , receiving PT, awaiting ANDREA placement MRI cervical spine; multilevel bilateral neural foramina narrowing secondary to disc osteophyte complex and vertebral joint hypertrophy. No central canal spinal stenosis or cord edema. Chest x-ray; no infiltrate Diagnoses rapid afib with hypercoagulable states Acute on chronic hypoxic respiratory failure, requiring mechanical ventilator le ss than 96 hours COPD exacerbation Pneumonia was ruled out, with serial imaging Sepsis was ruled out SIRS without acute organ dysfunction Bradycardia, now resolved Ataxia, debility History Interval history: Review of systems Constitutional: No fevers, no malaise, no joint pains CVS: No chest pain, no orthopnea, no dyspnea on exertion, no pedal edema GI: No abdominal pain, no diarrhea, no vomiting, no constipation Respiratory: No shortness of breath, no wheezing, no coughing Hospitalist Physical - Physical exam Narrative exam: General.: Appears well, no distress, nontoxic HEENT: Moist mucous membranes, extraocular muscles intact, no lymphadenopathy Neck: supple Cardiac: S1-S2 heard Lungs: Diminished air entry Abdomen: soft , nontender, nondistended, bowel sounds positive Extremities: no edema clubbing or cyanosis Skin: no rash or lesion Neurologic: no gross focal deficits Psych: calm, and cooperative - Constitutional Vitals: Temp Pulse Resp BP Pulse Ox 99.2 F 86 18 119/75 98 11/03/18 07:53 11/03/18 08:29 11/03/18 08:00 11/03/18 07:53 11/03/18 10:00 General appearance: Present: no acute distress Results - Labs CBC & Chem 7: 10/28/18 04:45 10/29/18 05:11 Labs: Laboratory Last Values WBC 5.5 K/mm3 (4.5-11.0) 10/28/18 04:45 RBC 4.36 M/mm3 (3.65-5.03) 10/28/18 04:45 Hgb 10.1 gm/dl (10.1-14.3) 10/28/18 04:45 Hct 34.0 % (30.3-42.9) 10/28/18 04:45 MCV 78 fl (79-97) L 10/28/18 04:45 MCH 23 pg (28-32) L 10/28/18 04:45 MCHC 30 % (30-34) 10/28/18 04:45 RDW 16.5 % (13.2-15.2) H 10/28/18 04:45 Plt Count 186 K/mm3 (140-440) 10/28/18 04:45 Lymph % (Auto) 6.9 % (13.4-35.0) L 10/24/18 13:25 [place] % (Auto) 4.8 % (0.0-7.3) 10/24/18 13:25 Eos % (Auto) 0.0 % (0.0-4.3) 10/24/18 13:25 Baso % (Auto) 0.1 % (0.0-1.8) 10/24/18 13:25 Lymph # 0.6 K/mm3 (1.2-5.4) L 10/24/18 13:25 [place] # 0.4 K/mm3 (0.0-0.8) 10/24/18 13:25 Eos # 0.0 K/mm3 (0.0-0.4) 10/24/18 13:25 Baso # 0.0 K/mm3 (0.0-0.1) 10/24/18 13:25 Add Manual Diff Complete 10/28/18 04:45 Total Counted 100 10/28/18 04:45 Seg Neutrophils % Graphic Specialist 10/27/18 04:18 Seg Neuts % (Manual) 96.0 % (40.0-70.0) H 10/28/18 04:45 Band Neutrophils % 0 % 10/28/18 04:45 Lymphocytes % (Manual) 2.0 % (13.4-35.0) L 10/28/18 04:45 Reactive Lymphs % (Man) 0 % 10/28/18 04:45 Monocytes % (Manual) 2.0 % (0.0-7.3) 10/28/18 04:45 Eosinophils % (Manual) 0 % (0.0-4.3) 10/28/18 04:45 Basophils % (Manual) 0 % (0.0-1.8) 10/28/18 04:45 Metamyelocytes % 0 % 10/28/18 04:45 Myelocytes % 0 % 10/28/18 04:45 Promyelocytes % 0 % 10/28/18 04:45 Blast Cells % 0 % 10/28/18 04:45 Nucleated RBC % 2.0 % (0.0-0.9) H 10/28/18 04:45 Seg Neutrophils # 7.4 K/mm3 (1.8-7.7) 10/24/18 13:25 Seg Neutrophils # Man 5.3 K/mm3 (1.8-7.7) 10/28/18 04:45 Band Neutrophils # 0.0 K/mm3 10/28/18 04:45 Lymphocytes # (Manual) 0.1 K/mm3 (1.2-5.4) L 10/28/18 04:45 Abs React Lymphs (Man) 0.0 K/mm3 10/28/18 04:45 Monocytes # (Manual) 0.1 K/mm3 (0.0-0.8) 10/28/18 04:45 Eosinophils # (Manual) 0.0 K/mm3 (0.0-0.4) 10/28/18 04:45 Basophils # (Manual) 0.0 K/mm3 (0.0-0.1) 10/28/18 04:45 Metamyelocytes # 0.0 K/mm3 10/28/18 04:45 Myelocytes # 0.0 K/mm3 10/28/18 04:45 Promyelocytes # 0.0 K/mm3 10/28/18 04:45 Blast Cells # 0.0 K/mm3 10/28/18 04:45 WBC Morphology Not Reportable 10/28/18 04:45 Hypersegmented Neuts Not Reportable 10/28/18 04:45 Hyposegmented Neuts Not Reportable 10/28/18 04:45 Hypogranular Neuts Not Reportable 10/28/18 04:45 Smudge Cells Not Reportable 10/28/18 04:45 Toxic Granulation Not Reportable 10/28/18 04:45 Toxic Vacuolation Not Reportable 10/28/18 04:45 Dohle Bodies Not Reportable 10/28/18 04:45 Pelger-Huet Anomaly Not Reportable 10/28/18 04:45 Damien Rods Not Reportable 10/28/18 04:45 Platelet Estimate Consistent w auto 10/28/18 04:45 Clumped Platelets Not Reportable 10/28/18 04:45 Plt Clumps, EDTA Not Reportable 10/28/18 04:45 Large Platelets Not Reportable 10/28/18 04:45 Giant Platelets Not Reportable 10/28/18 04:45 Platelet Satelliting Not Reportable 10/28/18 04:45 Plt Morphology Comment Not Reportable 10/28/18 04:45 RBC Morphology Not Reportable 10/28/18 04:45 Dimorphic RBCs Not Reportable 10/28/18 04:45 Polychromasia Not Reportable 10/28/18 04:45 Hypochromasia 2+ 10/28/18 04:45 Poikilocytosis Not Reportable 10/28/18 04:45 Anisocytosis Not Reportable 10/28/18 04:45 Microcytosis Not Reportable 10/28/18 04:45 Macrocytosis Not Reportable 10/28/18 04:45 Spherocytes Not Reportable 10/28/18 04:45 Pappenheimer Bodies Not Reportable 10/28/18 04:45 Sickle Cells Not Reportable 10/28/18 04:45 Target Cells Not Reportable 10/28/18 04:45 Tear Drop Cells Not Reportable 10/28/18 04:45 Ovalocytes Not Reportable 10/28/18 04:45 Helmet Cells Not Reportable 10/28/18 04:45 Fong-Deming Bodies Not Reportable 10/28/18 04:45 Lowman Rings Not Reportable 10/28/18 04:45 [place] Cells Not Reportable 10/28/18 04:45 Bite Cells Not Reportable 10/28/18 04:45 Crenated Cell Not Reportable 10/28/18 04:45 Elliptocytes Not Reportable 10/28/18 04:45 Acanthocytes (Spur) Not Reportable 10/28/18 04:45 Rouleaux Not Reportable 10/28/18 04:45 Hemoglobin C Crystals Not Reportable 10/28/18 04:45 Schistocytes Not Reportable 10/28/18 04:45 Malaria parasites Not Reportable 10/28/18 04:45 Cayden Bodies Not Reportable 10/28/18 04:45 Hem Pathologist Commnt No 10/28/18 04:45 PT 12.0 Sec. (12.2-14.9) L 10/23/18 16:27 INR 0.84 (0.87-1.13) L 10/23/18 16:27 APTT 21.0 Sec. (24.2-36.6) L 10/23/18 16:27 POC ABG pH 7.498 (7.35-7.45) H 10/24/18 04:59 POC ABG pCO2 32.3 (35-45) L 10/24/18 04:59 POC ABG pO2 114 (80-105) H 10/24/18 04:59 POC ABG HCO3 25.1 (22-26 mml/L) 10/24/18 04:59 POC ABG Total CO2 26 (23-27mmol/L) 10/24/18 04:59 POC ABG O2 Sat 99 10/24/18 04:59 POC ABG Base Excess 2 ((-2) - (+3)mmol/L) 10/24/18 04:59 FiO2 40 % 10/24/18 04:59 Sodium 143 mmol/L (137-145) 10/29/18 05:11 Potassium 4.3 mmol/L (3.6-5.0) 10/29/18 05:11 Chloride 104.2 mmol/L (98-107) 10/29/18 05:11 Carbon Dioxide 35 mmol/L (22-30) H 10/29/18 05:11 Anion Gap 8 mmol/L 10/29/18 05:11 BUN 28 mg/dL (7-17) H 10/29/18 05:11 Creatinine 0.5 mg/dL (0.7-1.2) L 10/29/18 05:11 Estimated GFR > 60 ml/min 10/29/18 05:11 BUN/Creatinine Ratio 56 % 10/29/18 05:11 Glucose 90 mg/dL (65-100) 10/29/18 05:11 POC Glucose 138 (70-105) H 10/30/18 18:01 Lactic Acid 1.00 mmol/L (0.7-2.0) 10/24/18 13:25 Calcium 8.3 mg/dL (8.4-10.2) L 10/29/18 05:11 Magnesium 2.50 mg/dL (1.7-2.3) H 10/25/18 03:57 Total Bilirubin 0.20 mg/dL (0.1-1.2) 10/29/18 05:11 Direct Bilirubin < 0.2 mg/dL (0-0.2) 10/24/18 10:35 Indirect Bilirubin 0.2 mg/dL 10/24/18 10:35 AST 14 units/L (5-40) 10/29/18 05:11 ALT 30 units/L (7-56) 10/29/18 05:11 Alkaline Phosphatase 47 units/L (35-129) 10/29/18 05:11 Total Creatine Kinase 66 units/L (30-135) 10/23/18 16:27 Troponin T < 0.010 ng/mL (0.00-0.029) 10/23/18 16:27 NT-Pro-B Natriuret Pep 835.8 pg/mL (0-900) 10/24/18 13:25 Total Protein 5.1 g/dL (6.3-8.2) L 10/29/18 05:11 Albumin 2.8 g/dL (3.9-5) L 10/29/18 05:11 Albumin/Globulin Ratio 1.2 % 10/29/18 05:11 TSH 0.527 mlU/mL (0.270-4.200) 10/24/18 10:35 Free T4 1.10 ng/dL (0.76-1.46) 10/24/18 10:35 Urine Color Yellow (Yellow) 10/23/18 16:18 Urine Turbidity Slightly-cloudy (Clear) 10/23/18 16:18 Urine pH 5.0 (5.0-7.0) 10/23/18 16:18 Ur Specific [place] 1.016 (1.003-1.030) 10/23/18 16:18 Urine Protein <15 mg/dl mg/dL (Negative) 10/23/18 16:18 Urine Glucose (UA) Neg mg/dL (Negative) 10/23/18 16:18 Urine Ketones Neg mg/dL (Negative) 10/23/18 16:18 Urine Blood Neg (Negative) 10/23/18 16:18 Urine Nitrite Neg (Negative) 10/23/18 16:18 Urine Bilirubin Neg (Negative) 10/23/18 16:18 Urine Urobilinogen 2.0 mg/dL (<2.0) 10/23/18 16:18 Ur Leukocyte Esterase Neg (Negative) 10/23/18 16:18 Urine WBC (Auto) < 1.0 /HPF (0.0-6.0) 10/23/18 16:18 Urine RBC (Auto) 1.0 /HPF (0.0-6.0) 10/23/18 16:18 U Epithel Cells (Auto) < 1.0 /HPF (0-13.0) 10/23/18 16:18 Urine Mucus Few /HPF 10/23/18 16:18 Salicylates < 0.3 mg/dL (2.8-20.0) L 10/23/18 16:27 Urine Opiates Screen Presumptive negative 10/23/18 16:18 Urine Methadone Screen Presumptive negative 10/23/18 16:18 Acetaminophen < 5.0 ug/mL (10.0-30.0) L 10/23/18 16:27 Ur Barbiturates Screen Presumptive negative 10/23/18 16:18 Ur Phencyclidine Scrn Presumptive negative 10/23/18 16:18 Ur Amphetamines Screen Presumptive negative 10/23/18 16:18 U Benzodiazepines Scrn Presumptive negative 10/23/18 16:18 Urine Cocaine Screen Presumptive negative 10/23/18 16:18 U Marijuana (THC) Screen Presumptive negative 10/23/18 16:18 Drugs of Abuse Note Disclamer 10/23/18 16:18 Plasma/Serum Alcohol < 0.01 % (0-0.07) 10/23/18 16:27 Active Medications - Current Medications Current Medications: Generic Name Dose Route Start Last Admin Trade Name Freq PRN Reason Stop Dose Admin Acetaminophen 650 mg 10/23/18 21:55 10/29/18 05:14 Tylenol PO 650 mg Q4H PRN Administration Pain MILD(1-3)/Fever >100.5/LOU Acetazolamide 500 mg 10/25/18 22:00 11/03/18 10:52 Diamox PO 500 mg BID GABRIEL Administration Albuterol/Ipratropium 1 ampul 10/25/18 10:15 11/03/18 08:16 Duoneb *Not For Prn Use* IH 1 ampul Q6HRT GABRIEL Administration Apixaban 5 mg 10/28/18 22:00 11/03/18 10:50 Eliquis PO 5 mg Q12HR GABRIEL Administration Protocol Aripiprazole 10 mg 10/25/18 12:00 11/03/18 10:53 Abilify PO 10 mg QDAY GABRIEL Administration Aspirin 81 mg 10/27/18 15:00 11/03/18 10:50 Baby Aspirin PO 81 mg QDAY [facility] Administration Bupropion HCl 300 mg 10/25/18 12:00 11/03/18 10:53 Wellbutrin Xl PO 300 mg DAILY GABRIEL Administration Furosemide 40 mg 10/26/18 10:00 11/03/18 10:51 Lasix PO 40 mg QAM [facility] Administration Hydrophilic Ointment 1 applic 10/23/18 15:53 Vaseline Lip Therapy TP Q2HR PRN Dry Lips Hydrophilic Ointment 1 applic 10/28/18 19:19 Vaseline TP PRN PRN Dry Nasal Passages Levothyroxine Sodium 125 mcg 10/25/18 13:00 11/03/18 06:47 Synthroid PO 125 mcg DAILY@0600 [facility] Administration Lisinopril 2.5 mg 10/26/18 10:00 11/03/18 10:51 Zestril PO 2.5 mg QDAY [facility] Administration Loratadine 10 mg 10/25/18 13:00 11/03/18 10:50 Claritin PO 10 mg DAILY GABRIEL Administration Metoprolol Tartrate 12.5 mg 10/30/18 10:00 11/03/18 06:46 Lopressor PO Not Given Q8HR [facility] Multi-Ingred Cream/Lotion/Oil/Oint 1 applic 10/23/18 15:53 Artificial Tears Ophth Oint OU Q4HR PRN Dry Eye(s) Ondansetron HCl 4 mg 10/23/18 21:55 Zofran IV Q8H PRN Nausea And Vomiting Pravastatin Sodium 20 mg 10/25/18 22:00 11/02/18 22:10 Pravachol PO 20 mg QHS GABRIEL Administration Prednisone 2.5 mg 11/02/18 10:00 11/03/18 10:51 Deltasone PO 11/04/18 10:01 2.5 mg QDAY GABRIEL Administration Sodium Chloride 10 ml 10/23/18 22:00 11/03/18 10:53 Sodium Chloride Flush Syringe 10 Ml IV 10 ml BID GABRIEL Administration Sodium Chloride 10 ml 10/23/18 21:55 Sodium Chloride Flush Syringe 10 Ml IV PRN PRN LINE FLUSH Trazodone HCl 50 mg 10/25/18 22:00 11/02/18 22:10 Desyrel PO 50 mg HS GABRIEL Administration Nutrition/Malnutrition Assess - Dietary Evaluation Nutrition/Malnutrition Findings: Nutrition Notes Start: 10/25/18 16:29 Freq: Status: Active Protocol: Document 10/28/18 11:08 EB (Rec: 10/28/18 11:12 [id number]) Co-Sign 10/28/18 11:08 LP Nutrition Notes Initial or Follow up Reassessment Current Diagnosis COPD Current Diet Cardiac diet Labs/Tests Reviewed Pertinent Medications Lasix Height 5 ft 6 in Weight 77.7 kg [place] Body Weight (kg) 59.09 BMI 27.6 Subjective/Other Information F/u for intakes. Pt on nasal canula and eating 100% of meals and ONS. No reports of trouble chewing or swallowing. Percent of energy/protein needs met: 100%/100% Burn Absent Trauma Absent #1 Nutrition Diagnosis Inadequate oral intake As Evidenced by Signs and Symptoms Nasal canula placed yesterday and pt eating 100% meals and ONS supplements Diagnosis Progress(for reassessment Resolved documentation) Is patient on ventilator? No Is Patient Ambulatory and/or Out of Bed No REE-([facility]-confined to bed) 1605.900 Calculation Used for Recommendations [facility] Additional Notes protein (1-1.2g/kg): 78-94g fluid: 1mL/kcal Nutrition Intervention Change Diet Order: Continue cardiac diet Add Supplement/Snack (indicate name/kcal Ensure Enlive daily /protein ) Provides kCal: 350 Provides Protein (gm) 20 Goal #1 Continue to meet at least 75% [place] and pro needs via PO and ONS intake Anticipated Discharge Needs: Cardiac Follow-Up By: 11/04/18 Additional Comments F/u: PO and ONS intake
--- NOTE | 2018-11-03 14:19 | Discharge Summary ---
Providers - Providers Date of Admission: 10/23/18 21:55 Attending physician: PARAM CRANE MD 10/28/18 11:17 Physical Therapy Evaluation and Treat [CONS] Routine Comment: Reason For Exam: Deconditioning Hospitalization Condition: Critical Hospital course: 67-year-old woman with history of end-stage COPD on home oxygen, hypothyroid. She was brought to the hospital for decreased responsiveness. She was admitted for respiratory failure, she was intubated for airway protection and because she was obtunded. She was treated with the ventilator, steroids nebs. The patient improved. She was weaned of ventilator to nasal cannula oxygen. She continued to improve. She received pulmonology consult. She received echo which showed preserved EF. -She became bradycardic after initiation of carvedilol. Coreg was therefore discontinued. she was planned for discharge, but then went into rapid A. fib with heart rates in the 140s. She was then started on Cardizem drip on 10/27, on 10/28 she was converted to oral beta blockers. Cardiology input appreciated, the patient was also started on anticoagulation -has severe debility , receiving PT, being dc to [facility] -she received judicious doses of lasix MRI cervical spine; multilevel bilateral neural foramina narrowing secondary to disc osteophyte complex and vertebral joint hypertrophy. No central canal spinal stenosis or cord edema. Chest x-ray; no infiltrate Diagnoses rapid afib with hypercoagulable states Acute on chronic hypoxic respiratory failure, requiring mechanical ventilator less than 96 hours COPD exacerbation Pneumonia was ruled out, with serial imaging Sepsis was ruled out SIRS without acute organ dysfunction Bradycardia, now resolved Ataxia, debility Acute on chronic diastolic heart failure Disposition: [id number] [facility] Time spent for discharge: 33 mins Core Measure Documentation - Palliative Care Palliative Care/ Comfort Measures: Not Applicable - Core Measures Any of the following diagnoses?: heart failure - Heart Failure Discharge Requirements ELSA/ARB for LVSD if EF <40%: Not Applicable Beta carlita at discharge: Yes Exam - Constitutional Vitals: Temp Pulse Resp BP Pulse Ox 99.2 F 86 18 119/75 98 11/03/18 07:53 11/03/18 08:29 11/03/18 08:00 11/03/18 07:53 11/03/18 10:00 General appearance: Present: no acute distress, well-nourished - EENT Eyes: Present: PERRL (exophthalmus) ENT: hearing intact, clear oral mucosa - Neck Neck: Present: supple, normal ROM - Respiratory Respiratory effort: normal Respiratory: bilateral: CTA - Cardiovascular Heart Sounds: Present: S1 & S2. Absent: rub, click - Extremities Extremities: pulses symmetrical, No edema Peripheral Pulses: within normal limits - Abdominal General gastrointestinal: Present: soft, non-tender, non-distended, normal bowel sounds Female genitourinary: Present: normal - Integumentary Integumentary: Present: clear, warm, dry - Musculoskeletal Musculoskeletal: gait normal, strength equal bilaterally - Psychiatric Psychiatric: appropriate mood/affect, intact judgment & insight - Neurologic Neurologic: CNII-XII intact, moves all extremities Plan Follow up with: JESSICA MARTINEZ [Other] - 3-5 Days Prescriptions: Albuterol Sulfate [Albuterol 0.63% NEBS] 0.63 mg IH TID PRN #120 neb PRN Reason: Wheezing Aspirin EC [Aspirin Enteric Coated TAB] 81 mg PO QDAY #30 tablet. Furosemide [Lasix TAB] 40 mg PO QAM #30 tablet Tiotropium [place] [Spiriva Respimat] 1 each IH DAILY #1 mist.inhal
[2018-11-03 22:10] VITALS: BP 106/63
== END 2018-11-03 17:00 | DRG 208 ==
LOC: ED 15:21 → CC1 21:55 → IMCU 10-25 23:41 → 4A 10-29 13:57 → 2B-ACE 10-30 14:38
PROVIDERS: ADMIT Internal Medicine; ATTEND Internal Medicine
PROC: 5A1935Z Respiratory Ventilation, Less than 24 Consecutive Hours (ICD-10-PCS; principal; 2018-10-23)
PROC: 0BH17EZ Insertion of Endotracheal Airway into Trachea, Via Natural or Artificial Opening (ICD-10-PCS; 2018-10-23)
PROC: 4A033R1 Measurement of Arterial Saturation, Peripheral, Percutaneous Approach (ICD-10-PCS; 2018-10-23)
PROC: 5A09357 Assistance with Respiratory Ventilation, Less than 24 Consecutive Hours, Continuous Positive Airway Pressure (ICD-10-PCS; 2018-10-26)
PROC: 5A09457 Assistance with Respiratory Ventilation, 24-96 Consecutive Hours, Continuous Positive Airway Pressure (ICD-10-PCS; 2018-10-28)
PROC: 5A09357 Assistance with Respiratory Ventilation, Less than 24 Consecutive Hours, Continuous Positive Airway Pressure (ICD-10-PCS; 2018-11-01)
PROC: 5A09357 Assistance with Respiratory Ventilation, Less than 24 Consecutive Hours, Continuous Positive Airway Pressure (ICD-10-PCS; 2018-11-03)
DX: J96.21 Acute and chronic respiratory failure with hypoxia (principal); G93.41 Metabolic encephalopathy; J44.1 Chronic obstructive pulmonary disease with (acute) exacerbation; R65.10 Systemic inflammatory response syndrome (SIRS) of non-infectious origin without acute organ dysfunction; D68.59 Other primary thrombophilia; J96.22 Acute and chronic respiratory failure with hypercapnia; I11.0 Hypertensive heart disease with heart failure; I50.9 Heart failure, unspecified; Z87.891 Personal history of nicotine dependence; E03.9 Hypothyroidism, unspecified; E78.5 Hyperlipidemia, unspecified; F32.9 Major depressive disorder, single episode, unspecified; E83.41 Hypermagnesemia; Z88.8 Allergy status to other drugs, medicaments and biological substances; R00.1 Bradycardia, unspecified; I48.91 Unspecified atrial fibrillation; I25.10 Atherosclerotic heart disease of native coronary artery without angina pectoris; Z99.81 Dependence on supplemental oxygen; R68.0 Hypothermia, not associated with low environmental temperature; R27.0 Ataxia, unspecified; Z79.899 Other long term (current) drug therapy
CPT/HCPCS: 36415; 36600; 70450; 71045; 71046; 71275; 72125; 72141; 74177; 80048; 80053; 80076; 80307; 80320; 81001; 82140; 82550; 82803; 82962; 83735; 83880; 84439; 84443; 84484; 85007; 85025; 85027; 85610; 85730; 87040; 87070; 87086; 87205; 93005; 93010; 93306; 94002; 94003; 94640; 94660; 94760; 99292; G0378; A6250; A9270-GY; G0480; J0696; J1100; J1650; J1940; J2250; J2543; J2920; J2930; J3010; J3370; J3475; J7030; J7040; J7050; J7512; Q9967

== ENCOUNTER 2018-11-12 14:55 | Inpatient (IN) | payer MEDICARE ==
--- NOTE | 2018-11-12 16:14 | Emergency Department Report ---
ED Shortness of Breath HPI - General Chief Complaint: Dyspnea/Respdistress Stated Complaint: SOB Time Seen by Provider: 11/12/18 16:08 Source: patient, EMS Mode of arrival: Stretcher Limitations: No Limitations - History of Present Illness Initial Comments: Patient is a 67-year-old female that presents emergency room with complaints of shortness of breath and dyspnea on exertion and respiratory distress. Patient found to be hypoxic. Patient sent here via EMS from her senior living. Patient's sats for EMS 82% on room air. Patient placed on oxygen and given Solu-Medrol and albuterol in route the patient's sats improved. Patient is 99% on 3 L. Patient is A& O 1. Unclear on how reliable the patient is as a historian due to the patient's altered mental status and dementia. Patient at this time is complaining of abdominal pain in the right upper quadrant. MD Complaint: shortness of breath -: Sudden - Related Data Home Medications Medication Instructions Recorded Confirmed Last Taken ARIPiprazole [Abilify TAB] 5 mg PO DAILY 01/02/15 10/25/18 01/08/15 Acetaminophen [Acetaminophen TAB] 325 mg PO Q6HR PRN 01/02/15 10/30/18 01/07/15 Albuterol Sulfate [Proair Hfa] 2 puff IH TID 01/02/15 10/30/18 01/09/15 Budesoni/Formotero 160-4.5(Nf) 1 puff IH QDAY 01/02/15 10/30/18 01/09/15 [Symbicort 160-4.5 (Nf)] Cetirizine HCl [ZyrTEC] 10 mg PO QDAY 01/02/15 10/25/18 01/08/15 Levothyroxine [Synthroid] 0.125 mcg PO QAM 01/02/15 10/25/18 01/09/15 Lisinopril 2.5 mg PO QDAY 01/02/15 10/25/18 01/09/15 Simvastatin 5 mg PO QDAY 01/02/15 10/25/18 01/08/15 buPROPion XL [Wellbutrin XL] 300 mg PO QDAY 01/02/15 10/25/18 01/08/15 Omeprazole Magnesium [PriLOSEC Otc] 20 mg PO DAILY 10/25/18 10/25/18 Unknown acetaZOLAMIDE ER [Diamox Sequels] 500 mg PO Q12HR 10/25/18 10/25/18 Unknown traZODone [Desyrel] 50 mg PO HS 10/25/18 10/25/18 Unknown Previous Rx's Medication Instructions Recorded Last Taken Type Albuterol Sulfate [Albuterol 0.63% 0.63 mg IH TID PRN #120 neb 10/27/18 Unknown Rx NEBS] Aspirin EC [Aspirin Enteric Coated 81 mg PO QDAY #30 tablet.dr 10/27/18 Unknown Rx TAB] Furosemide [Lasix TAB] 40 mg PO QAM #30 tablet 10/27/18 Unknown Rx Tiotropium [place] [Spiriva 1 each IH DAILY #1 mist.inhal 10/27/18 Unknown Rx Respimat] Apixaban [Eliquis] 5 mg PO Q12HR tablet 11/03/18 Unknown Rx Metoprolol [Lopressor TAB] 12.5 mg PO Q8HR tablet 11/03/18 Unknown Rx predniSONE [Deltasone] 2.5 mg PO QDAY 7 Days tablet 11/03/18 Unknown Rx Allergies Allergy/AdvReac Type Severity Reaction Status Date / Time ibuprofen [From Motrin] AdvReac Shortness Verified 10/25/18 08:15 of Breath nickel AdvReac Rash Verified 10/25/18 08:15 ED Review of Systems ROS: Stated complaint: SOB Other details as noted in HPI Comment: Unobtainable due to pts medical conditions ED Past Medical Hx - Past Medical History Previous Medical History?: Yes Hx Hypertension: Yes (several meds took beta carlita today) Hx Heart Attack/AMI: (high cholesterol - no chest pain) Hx Congestive Heart Failure: Yes Hx Diabetes: No Hx Psychiatric Treatment: Yes (schitzophrenia) Hx Asthma: Yes Hx COPD: Yes Additional medical history: Afib, MDD, Hypothyroidism, - Surgical History Past Surgical History?: No - Family History Family history: no significant - Social History Smoking Status: Never Smoker Substance Use Type: None - Medications Home Medications: Home Medications Medication Instructions Recorded Confirmed Last Taken Type ARIPiprazole [Abilify TAB] 5 mg PO DAILY 01/02/15 10/25/18 01/08/15 History Acetaminophen [Acetaminophen TAB] 325 mg PO Q6HR PRN 01/02/15 10/30/1801/07/15 History Albuterol Sulfate [Proair Hfa] 2 puff IH TID 01/02/15 10/30/18 01/09/15 History Budesoni/Formotero 160-4.5(Nf) 1 puff IH QDAY 01/02/15 10/30/18 01/09/15 History [Symbicort 160-4.5 (Nf)] Cetirizine HCl [ZyrTEC] 10 mg PO QDAY 01/02/15 10/25/18 01/08/15 History Levothyroxine [Synthroid] 0.125 mcg PO QAM 01/02/15 10/25/18 01/09/15 History Lisinopril 2.5 mg PO QDAY 01/02/15 10/25/18 01/09/15 History Simvastatin 5 mg PO QDAY 01/02/15 10/25/18 01/08/15 History buPROPion XL [Wellbutrin XL] 300 mg PO QDAY 01/02/15 10/25/18 01/08/15 History Omeprazole Magnesium [PriLOSEC Otc] 20 mg PO DAILY 10/25/18 10/25/18 Unknown History acetaZOLAMIDE ER [Diamox Sequels] 500 mg PO Q12HR 10/25/18 10/25/18 Unknown History traZODone [Desyrel] 50 mg PO HS 10/25/18 10/25/18 Unknown History Albuterol Sulfate [Albuterol 0.63% 0.63 mg IH TID PRN #120 neb 10/27/18 Unknown Rx NEBS] Aspirin EC [Aspirin Enteric Coated 81 mg PO QDAY #30 tablet.dr 10/27/18 Unknown Rx TAB] Furosemide [Lasix TAB] 40 mg PO QAM #30 tablet 10/27/18 Unknown Rx Tiotropium [place] [Spiriva 1 each IH DAILY #1 mist.inhal 10/27/18 Unknown Rx Respimat] Apixaban [Eliquis] 5 mg PO Q12HR tablet 11/03/18 Unknown Rx Metoprolol [Lopressor TAB] 12.5 mg PO Q8HR tablet 11/03/18 Unknown Rx predniSONE [Deltasone] 2.5 mg PO QDAY 7 Days tablet 11/03/18 Unknown Rx ED Physical Exam - General Limitations: No Limitations General appearance: alert, in no apparent distress - Head Head exam: Present: atraumatic, normocephalic - Eye Eye exam: Present: normal appearance, PERRL Pupils: Present: normal accommodation - ENT ENT exam: Present: mucous membranes moist - Neck Neck exam: Present: normal inspection - Respiratory Respiratory exam: Present: normal lung sounds bilaterally, decreased breath sounds. Absent: respiratory distress - Cardiovascular Cardiovascular Exam: Present: regular rate, normal rhythm. Absent: systolic murmur, diastolic murmur, rubs, gallop - GI/Abdominal GI/Abdominal exam: Present: soft, tenderness (right upper quadrant tenderness), normal bowel sounds. Absent: distended - Rectal Rectal exam: Present: deferred - Extremities Exam Extremities exam: Present: normal inspection - Back Exam Back exam: Present: normal inspection - Neurological Exam Neurological exam: Present: alert, altered - Skin Skin exam: Present: warm, dry, intact, normal color. Absent: rash ED Course Vital Signs 11/12/18 11/12/18 11/12/18 15:27 15:30 15:46 Pulse Rate 80 74 85 Respiratory 31 H 31 H Rate Blood Pressure 90/54 90/54 87/49 O2 Sat by Pulse Oximetry 11/12/18 11/12/18 11/12/18 16:00 16:16 16:30 Pulse Rate 85 80 83 Respiratory 14 15 13 Rate Blood Pressure 97/59 93/52 94/58 O2 Sat by Pulse 100 95 Oximetry 11/12/18 11/12/18 11/12/18 16:58 17:00 17:16 Pulse Rate 82 79 72 Respiratory 35 H 12 24 Rate Blood Pressure 154/110 154/110 154/110 O2 Sat by Pulse 99 Oximetry 11/12/18 11/12/18 11/12/18 17:30 17:46 18:06 Pulse Rate 73 75 73 Respiratory 22 28 H 24 Rate Blood Pressure 154/110 154/110 154/110 O2 Sat by Pulse 95 97 97 Oximetry 11/12/18 11/12/18 11/12/18 18:15 18:30 18:45 Pulse Rate 72 73 77 Respiratory 25 H 26 H 27 H Rate Blood Pressure O2 Sat by Pulse 97 98 97 Oximetry 11/12/18 11/12/18 11/12/18 19:00 19:15 19:30 Pulse Rate 73 84 78 Respiratory 28 H 21 13 Rate Blood Pressure 87/57 106/61 O2 Sat by Pulse 98 96 76 L Oximetry 11/12/18 11/12/18 11/12/18 19:46 20:00 21:58 Pulse Rate 78 84 87 Respiratory 36 H 21 Rate Blood Pressure 103/50 95/56 O2 Sat by Pulse 95 Oximetry - Reevaluation(s) Reevaluation #1: Initial evaluation done. Patient O2 sat at 99% on 3 L. Patient will have a CT of the abdomen done. We will do labs. care home documents reviewed no history of dementia or altered mental status noted in her past medical history. Meds reviewed no dementia meds noted. 11/12/18 16:04 Discussed results with patient. Due to the patient's hypoxia and elevated troponin prior to Lovenox being given patient will have a CTA done. 11/12/18 19:46 CT is pending 11/12/18 20:26 - Consultations Consultation #1: Hospitalist consult for admission. Hospice was to admit patient. 11/12/18 19:26 ED Medical Decision Making - Lab Data Result diagrams: 11/12/18 17:14 11/12/18 17:14 - EKG Data -: EKG Interpreted by Ri EKG shows normal: sinus rhythm, intervals, QRS complexes Rate: normal - EKG Data Interpretation: other (right axis deviation, negative T waves noted) - Radiology Data Radiology results: report reviewed PROCEDURE: CT head without contrast. TECHNIQUE: Computerized tomography of the head was performed without contrast material. CT DOSE LENGTH PRODUCT: 1049.7 mGycm HISTORY: Altered mental status. COMPARISONS: CT head 10/23/2018. FINDINGS: The ventricles are normal in size. There is an old lacunar infarct in the deep white matter of the right frontal lobe. The person matter and white matter otherwise appear normal. There are no mass lesions. There is no intracranial hemorrhage. The calvarium appears intact. The mastoid air cells and visualized paranasal sinuses are well aerated. IMPRESSION: Normal study for age. PROCEDURE: CT abdomen and pelvis without contrast TECHNIQUE: Computerized axial tomography of the abdomen and pelvis was performed without intravenous contrast. This study is performed without intravascular contrast material and its sensitivity for abdominal and pelvic pathology, including neoplasms, inflammation, abscess, free fluid, thrombosis, arterial dissection and infarction, is reduced compared with a contrast enhanced study. CT DOSE LENGTH PRODUCT: 1048.9 mGycm HISTORY: Right upper quadrant abdominal pain. COMPARISONS: CT abdomen and pelvis 10/23/2018. FINDINGS: The lung bases are grossly clear. There are no pleural effusions. The heart size is mildly enlarged. The liver, pancreas and spleen are grossly normal. The gallbladder is present. There is no biliary dilatation. The adrenal glands are not enlarged. Both kidneys appear normal in size and configuration. The abdominal aorta has a normal caliber. There is no retroperitoneal adenopathy. The unopacified gastrointestinal tract is unremarkable. The appendix is not definitely visualized. The bladder is unremarkable. The uterus has been removed. 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 IMPRESSION: Degenerative disease in the lower lumbar spine. Previous hysterecto my. No evidence of acute disease in the abdomen or pelvis. PROCEDURE: XR CHEST 1V AP TECHNIQUE: AP view of the chest HISTORY: Dyspnea COMPARISONS: Comparison is October 29, 2018 FINDINGS: Cardiac and mediastinal contours are unremarkable. No focal pulmonary infiltrate identified. No pleural fluid collection seen. Pulmonary vasculature is unremarkable IMPRESSION: No acute abnormality identified. - Medical Decision Making Patient is a 67-year-old female that presents emergency room with altered mental status, shortness of breath, difficulties in breathing and abdominal pain. Patient was given in route by EMS Medrol and albuterol. Patient found to be hypoxic by EMS. Patient placed on oxygen and oxygenation improved. Patient found to have a COPD exacerbation and altered mental status. Patient found to have an elevated troponin. CTA was done as negative for acute finding and PE. She admitted to the hospitalist service. - Differential Diagnosis ams, sob. nandini. Hypoxia. COPD exac. Critical Care Time: Yes Critical care attestation.: If time is entered above; I have spent that time in minutes in the direct care of this critically ill patient, excluding procedure time. Critical Care Time: 55 minutes ED Disposition Clinical Impression: SOB (shortness of breath), Hypoxia, Respiratory distress, COPD exacerbation, NSTEMI (non-ST elevated myocardial infarction), Elevated troponin I level Altered mental state Qualifiers: Altered mental status type: unspecified Qualified Code(s): R41.82 - Altered mental status, unspecified Abdominal pain Qualifiers: Abdominal location: right upper quadrant Qualified Code(s): R10.11 - Right u pper quadrant pain CHF (congestive heart failure) Qualifiers: Heart failure type: unspecified Heart failure chronicity: unspecified Qualified Code(s): I50.9 - Heart failure, unspecified Anemia Qualifiers: Anemia type: unspecified type Qualified Code(s): D64.9 - Anemia, unspecified Disposition: 09 OP ADMIT IP TO THIS HOSP Is pt being admited?: Yes Does the pt Need Aspirin: No Condition: Critical Time of Disposition: 20:25
[2018-11-12] MEDS ORDERED: MORPHINE IV ONE (16:30)
--- NOTE | 2018-11-12 17:07 | Cat Scan Report ---
PROCEDURE: CT head without contrast. TECHNIQUE: Computerized tomography of the head was performed without contrast material. CT DOSE LENGTH PRODUCT: 1049.7 mGycm HISTORY: Altered mental status. COMPARISONS: CT head 10/23/2018. FINDINGS: The ventricles are normal in size. There is an old lacunar infarct in the deep white matter of the ri ght frontal lobe. The person matter and white matter otherwise appear normal. There are no mass lesions . There is no intracranial hemorrhage. The calvarium appears intact. The mastoid air cells and visual ized paranasal sinuses are well aerated. IMPRESSION: Normal study for age. This document is electronically signed by Scott Raymond MD., November 12 2018 05:05:32 PM ET
--- NOTE | 2018-11-12 17:15 | Cat Scan Report ---
PROCEDURE: CT abdomen and pelvis without contrast TECHNIQUE: Computerized axial tomography of the abdomen and pelvis was performed without intravenous contrast. This study is performed without intravascular contrast material and its sensitivity for ab dominal and pelvic pathology, including neoplasms, inflammation, abscess, free fluid, thrombosis, art erial dissection and infarction, is reduced compared with a contrast enhanced study. CT DOSE LENGTH PRODUCT: 1048.9 mGycm HISTORY: Right upper quadrant abdominal pain. COMPARISONS: CT abdomen and pelvis 10/23/2018. FINDINGS: The lung bases are grossly clear. There are no pleural effusions. The heart size is mildly enlarged. The liver, pancreas and spleen are grossly normal. The gallbladder is present. There is no biliary di latation. The adrenal glands are not enlarged. Both kidneys appear normal in size and configuration. The abdominal aorta has a normal caliber. There is no retroperitoneal adenopathy. The unopacified gas trointestinal tract is unremarkable. The appendix is not definitely visualized. The bladder is unrema rkable. The uterus has been removed. 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 IMPRESSION: Degenerative disease in the lower lumbar spine. Previous hysterectomy. No evidence of ac agdaagux disease in the abdomen or pelvis. This document is electronically signed by Scott Raymond MD., November 12 2018 05:13:29 PM ET
[2018-11-12 17:38] LABS: Basophils # (Auto) 0.1 K/mm3 (0.0-0.1); Basophils % (Auto) 1.4 % (0.0-1.8); Eosinophils % (Auto) 0.4 % (0.0-4.3); Lymphocytes # (Auto) 0.2 K/mm3 (1.2-5.4); Lymphocytes % (Auto) 5.4 % (13.4-35.0); Mean Corpuscular HGB Conc 30 % (30-34); Mean Corpuscular Volume 80 fl (79-97); Monocytes # (Auto) 0.2 K/mm3 (0.0-0.8); Monocytes % (Auto) 3.5 % (0.0-7.3); Platelet Count 199 K/mm3 (140-440); Red Cell Distribution Width 17.3 % (13.2-15.2)
[2018-11-12 17:39] LABS: Hematocrit 32.6 % (30.3-42.9); Hemoglobin 9.7 gm/dl (10.1-14.3)
[2018-11-12 18:05] LABS: Creatine Kinase MB 11.4 ng/mL (0.0-4.0)
[2018-11-12 18:08] LABS: Alanine Aminotransferase 32 units/L (7-56); Albumin 3.7 g/dL (3.9-5); BUN/Creatinine Ratio 50; Blood Urea Nitrogen 25 mg/dL (7-17); Calcium 8.8 mg/dL (8.4-10.2); Hemolysis Index 2
--- NOTE | 2018-11-12 18:14 | XRay Report ---
PROCEDURE: XR CHEST 1V AP TECHNIQUE: AP view of the chest HISTORY: Dyspnea COMPARISONS: Comparison is October 29, 2018 FINDINGS: Cardiac and mediastinal contours are unremarkable. No focal pulmonary infiltrate identified. No pleur al fluid collection seen. Pulmonary vasculature is unremarkable IMPRESSION: No acute abnormality identified. This document is electronically signed by Chalino Agosto MD., November 12 2018 06:12:39 PM ET
[2018-11-12 18:20] LABS: Chol/HDL Ratio 2.52 %; HDL Cholesterol 71 mg/dL (40-59); LDL Cholesterol,Direct 109 mg/dL (50-130)
[2018-11-12] MEDS ORDERED: CALCIUM CHLORIDE IVP ONE (18:42)
[2018-11-12] MEDS ORDERED: HumuLIN R IV ONE (18:42)
[2018-11-12] MEDS ORDERED: D50W (25GM) Syringe IV ONE (18:42)
[2018-11-12] MEDS ORDERED: NACL 0.9% 500 ML 500 ML IV ONE (19:18)
--- NOTE | 2018-11-12 19:40 | History and Physical Report ---
History of Present Illness Chief complaint: I cant breathe History of present illness: 67 YO Female Intermediate Facility Resident with COPD, HTN, Dementia, Chronic Respiratory Failure on 2L Home oxygen, HLD, Hypothyroidism, Depression, Schizophrenia, Atrial Fib on Therapeutic Anticoagulation (Eliquis) presents to ED for evaluation. The patient reports shortness of breath over the past 2 days with persistent symptoms over the same time frame. Pt was found to have a pulse oximetry of 82% on room air. EMS was was notified, and patient placed on supplemental oxygen and transported to [facility] ED. Pt seen and evaluated in ED and found to have COPD Exacerbation, as well as Acute on Chronic Respiratory Failure. Pt also found to have elevated troponin level but no evidence EKG abnormalities. Pt is lethargic but has a positive gag reflex and is able to protect her airway. Pt mental status improved with supportive care, supplemental oxygen and nebulizer therapy. Pt also reports abdominal discomfort. CT Abomen and pelvis was unremarkable for acute findings. Pt denies fever, chills, palpitations, NVD, Trauma, CP, Hemoptysis, BRBPR, Unintentional weight loss, prolonged travel/immobility, unilateral leg swelling, calf pain, or recent ill contacts. Pt admitted to telemetry. Cardiology consulted in ED. Previous a dmission 10/23/18 reviewed. All listed medication reconciled at time of admission. Past History Past Medical History: COPD, GERD, hypertension, hyperlipidemia, hypothyroidism, other (Dementia, Chronic Respiratory Failure) Past Surgical History: hysterectomy Social history: . denies: smoking, alcohol abuse, prescription drug abuse Family history: diabetes, hypertension Medications and Allergies Allergies Allergy/AdvReac Type Severity Reaction Status Date / Time ibuprofen [From Motrin] AdvReac Shortness Verified 10/25/18 08:15 of Breath nickel AdvReac Rash Verified 10/25/18 08:15 Home Medications Medication Instructions Recorded Confirmed Last Taken Type ARIPiprazole [Abilify TAB] 5 mg PO DAILY 01/02/15 10/25/18 01/08/15 History Acetaminophen [Acetaminophen TAB] 325 mg PO Q6HR PRN 01/02/15 10/30/18 01/07/15 History Albuterol Sulfate [Proair Hfa] 2 puff IH TID 01/02/15 10/30/18 01/09/15 History Budesoni/Formotero 160-4.5(Nf) 1 puff IH QDAY 01/02/15 10/30/18 01/09/15 History [Symbicort 160-4.5 (Nf)] Cetirizine HCl [ZyrTEC] 10 mg PO QDAY 01/02/15 10/25/18 01/08/15 History Levothyroxine [Synthroid] 0.125 mcg PO QAM 01/02/15 10/25/18 01/09/15 History Lisinopril 2.5 mg PO QDAY 01/02/15 10/25/18 01/09/15 History Simvastatin 5 mg PO QDAY 01/02/15 10/25/18 01/08/15 History buPROPion XL [Wellbutrin XL] 300 mg PO QDAY 01/02/15 10/25/18 01/08/15 History Omeprazole Magnesium [PriLOSEC Otc] 20 mg PO DAILY 10/25/18 10/25/18 Unknown History acetaZOLAMIDE ER [Diamox Sequels] 500 mg PO Q12HR 10/25/18 10/25/18 Unknown History traZODone [Desyrel] 50 mg PO HS 10/25/18 10/25/18 Unknown History Albuterol Sulfate [Albuterol 0.63% 0.63 mg IH TID PRN #120 neb 10/27/18 Unknown Rx NEBS] Aspirin EC [Aspirin Enteric Coated 81 mg PO QDAY #30 tablet.dr 10/27/18 Unknown Rx TAB] Furosemide [Lasix TAB] 40 mg PO QAM #30 tablet 10/27/18 Unknown Rx Tiotropium [place] [Spiriva 1 each IH DAILY #1 mist.inhal 10/27/18 Unknown Rx Respimat] Apixaban [Eliquis] 5 mg PO Q12HR tablet 11/03/18 Unknown Rx Metoprolol [Lopressor TAB] 12.5 mg PO Q8HR tablet 11/03/18 Unknown Rx predniSONE [Deltasone] 2.5 mg PO QDAY 7 Days tablet 11/03/18 Unknown Rx Active Meds: Active Medications Enoxaparin Sodium (Lovenox) 70 mg SUB-Q Q12HR GABRIEL Sodium Chloride (Nacl 0.9% 500 Ml) 500 mls @ 999 mls/hr IV BOLUS ONE Stop: 11/12/18 19:48 Review of Systems Constitutional: malaise, no weight loss, no weight gain, no fever, no chills Ears, nose, mouth and throat: no ear pain, no ear discharge, no tinnitis, no decreased hearing, no nose pain Breasts: no change in shape, no swelling, no mass Cardiovascular: shortness of breath, no chest pain, no orthopnea, no palpitations, no rapid/irregular heart beat Respiratory: shortness of breath, wheezing, no cough, no cough with sputum, no excessive sputum, no hemoptysis Gastrointestinal: no abdominal pain, no nausea, no vomiting, no diarrhea Genitourinary Female: no pelvic pain, no flank pain, no menorrhagia, no dysuria Rectal: no pain, no incontinence, no bleeding Musculoskeletal: no neck stiffness, no neck pain, no shooting arm pain, no arm numbness/tingling, no low back pain, no shooting leg pain Integumentary: no rash, no pruritis, no redness, no sores, no wounds Neurological: no paralysis, no weakness, no parathesias, no numbness, no tingling, no seizures Psychiatric: no anxiety, no memory loss, no change in sleep habits, no sleep disturbances, no insomnia, no hypersomnia Endocrine: no cold intolerance, no heat intolerance, no polyphagia, no excessive thirst, no polydipsia, no polyuria Hematologic/Lymphatic: no easy bruising, no easy bleeding, no lymphadenopathy, no lymphedema Allergic/Immunologic: no urticaria, no allergic rhinitis, no wheezing, no persistent infections, no anaphylaxis, no angioedema Exam - Constitutional Vitals: Temp Pulse Resp BP Pulse Ox 84 21 87/57 96 11/12/18 19:15 11/12/18 19:15 11/12/18 19:15 11/12/18 19:15 General appearance: Present: mild distress, well-nourished - EENT Eyes: Present: PERRL ENT: hearing intact, clear oral mucosa - Neck Neck: Present: supple, normal ROM - Respiratory Respiratory effort: normal Respiratory: bilateral: diminished, rhonchi - Cardiovascular Rhythm: irregularly irregular Heart Sounds: Present: S1 & S2. Absent: rub, click - Extremities Extremities: pulses symmetrical, No edema Peripheral Pulses: within normal limits - Abdominal General gastrointestinal: Present: soft, non-tender, non-distended, normal bowel sounds Female genitourinary: Present: normal - Integumentary Integumentary: Present: clear, warm, dry - Musculoskeletal Musculoskeletal: generalized weakness - Psychiatric Psychiatric: appropriate mood/affect, intact judgment & insight - Neurologic Neurologic: CNII-XII intact, moves all extremities, no gait normal Results - Labs CBC & Chem 7: 11/12/18 17:14 11/12/18 17:14 Labs: Abnormal lab results 11/12/18 11/12/18 11/12/18 Range/Units 17:14 17:14 17:14 WBC 4.4 L (4.5-11.0) K/mm3 Hgb 9.7 L (10.1-14.3) gm/dl MCH 24 L (28-32) pg RDW 17.3 H (13.2-15.2) % Lymph % (Auto) 5.4 L (13.4-35.0) % Lymph # 0.2 L (1.2-5.4) K/mm3 Seg Neutrophils % 89.3 H (40.0-70.0) % Chloride 97.1 L (98-107) mmol/L Carbon Dioxide 39 H (22-30) mmol/L BUN 25 H (7-17) mg/dL Creatinine 0.5 L (0.7-1.2) mg/dL Glucose 140 H (65-100) mg/dL Lactic Acid 0.60 L (0.7-2.0) mmol/L CK-MB (CK-2) 11.4 H (0.0-4.0) ng/mL CK-MB (CK-2) Rel Index 18.3 H (0-4) Troponin T 0.042 H (0.00-0.029) ng/mL Total Protein 6.1 L (6.3-8.2) g/dL Albumin 3.7 L (3.9-5) g/dL HDL Cholesterol 71 H (40-59) mg/dL Assessment and Plan - Patient Problems (1) Acute and chronic respiratory failure Current Visit: No Status: Acute Qualifiers: Respiratory failure complication: hypoxia Qualified Code(s): J96.21 - Acute and chronic respiratory failure with hypoxia Plan to address problem: Admit to telemetry, supplemental oxygen, pulse oximetry, NIPPV as clinically indicated, chest x ray, bmp, CTA chest (2) COPD exacerbation Current Visit: Yes Status: Acute Plan to address problem: supplemental oxygen, nebulizer therapy, IV steroid therapy, IV antibiotic thera py, pulse oximetry, chest x ray, (3) HLD (hyperlipidemia) Current Visit: Yes Status: Acute Qualifiers: Hyperlipidemia type: mixed hyperlipidemia Qualified Code(s): E78.2 - Mixed hyperlipidemia Plan to address problem: Statin therapy, low cholesterol diet (4) GERD (gastroesophageal reflux disease) Current Visit: Yes Status: Acute Qualifiers: Esophagitis presence: without esophagitis Qualified Code(s): K21.9 - Gastro -esophageal reflux disease without esophagitis Plan to address problem: PPI therapy, (5) HTN (hypertension) Current Visit: No Status: Chronic Qualifiers: Hypertension type: essential hypertension Qualified Code(s): I10 - Essential (primary) hypertension Plan to address problem: monitor bp q shift, continue medical management. (6) Atrial fibrillation Current Visit: Yes Status: Acute Qualifiers: Atrial fibrillation type: persistent Qualified Code(s): I48.1 - Persistent atrial fibrillation Plan to address problem: Cardiology consulted, continue therapeutic anticoagulation, rate control. (7) Elevated troponin Current Visit: Yes Status: Acute Plan to address problem: Admit to telemetry, cardiology consulted, serial cardiac enzymes, ekg. echo reviewed from 10/12. (8) DVT prophylaxis Current Visit: Yes Status: Acute Plan to address problem: SCD to BLE while in bed, continue therapeutic anticoagulation.
[2018-11-12] MEDS ORDERED: NON-FORMULARY (Albuterol Sulfate [Albuterol 0.63% Nebs] 0.63 MG) IH PRN (20:09)
[2018-11-12] MEDS ORDERED: TYLENOL PO PRN ×2 (20:09→20:11)
[2018-11-12] MEDS ORDERED: SODIUM CHLORIDE FLUSH SYRINGE 10 ML IV PRN ×2 (20:11)
[2018-11-12] MEDS ORDERED: ZOFRAN IV PRN (20:11)
[2018-11-12] MEDS ORDERED: PROVENTIL IH PRN (20:11)
[2018-11-12 20:28] LABS: Free T4 (Free Thyroxine) 1.07 ng/dL (0.76-1.46)
--- NOTE | 2018-11-12 21:00 | Cat Scan Report ---
PROCEDURE: CT ANGIO CHEST TECHNIQUE: Computerized tomographic angiography of the chest was performed after the IV injection of iodinated nonionic contrast including image processing. The image data was postprocessed using 2-di mensional multiplanar reformatted (MPR) and 3-dimensional (MIP and/or volume rendered) techniques. Au tomated exposure control, adjustment of mA and/or kV according to patient size, or iterative reconstr uction dose optimization techniques were utilized. CT DOSE LENGTH PRODUCT: 600.5 mGycm HISTORY: hypoxia. sob FINDINGS: Contrast-enhanced CT angiography of the chest was performed following the intravenous admin istration of iodinated contrast. Sagittal and coronal minute three-dimensional reformatted images wer e generated. Comparison is made to the prior examination of October 23, 2018 These images demonstrate no CT evidence of pulmonary thromboembolic disease. There is no aortic disse ction. The main pulmonary artery segment is larger than the aorta, which likely represents pulmonary hyperte nsion. This is unchanged from the prior exam. There is COPD. There is right middle lobe and lingular linear scar versus atelectasis. There is bibas ilar dependent atelectasis in the costophrenic sulcus left more than right. No acute consolidative pu lmonary infiltrate is seen. There is no pleural or pericardial effusion. In the upper abdomen, the visualized portion of the liver and spleen are unremarkable. IMPRESSION: Cardiomegaly No CT evidence of pulmonary thromboembolic disease COPD Suspected pulmonary hypertension This document is electronically signed by Vickey Robert MD., November 12 2018 08:59:02 PM ET
[2018-11-12] MEDS: LOVENOX SUB-Q SCH ×2 (21:12→23:15)
[2018-11-12] MEDS ORDERED: LOVENOX SUB-Q SCH ×2 (22:00)
[2018-11-12] MEDS: DIAMOX PO SCH (23:13)
[2018-11-12] MEDS: DESYREL PO SCH (23:14)
[2018-11-12] MEDS: ELIQUIS PO SCH (23:14)
[2018-11-12] MEDS: PRAVACHOL PO SCH (23:14)
[2018-11-12] MEDS: SODIUM CHLORIDE FLUSH SYRINGE 10 ML IV SCH (23:15)
[2018-11-13 04:47] LABS: Bilirubin,Urine NEG (Negative); Blood,Urine NEG (Negative); Color,Urine Yellow (Yellow); Protein,Urine <15 mg/dL mg/dL (Negative); Urobilinogen,Urine < 2.0 mg/dL (<2.0); WBC,Urine < 1.0 /HPF (0.0-6.0)
[2018-11-13] MEDS: ZITHROMAX 500 MG in NACL 0.9% 250ML 250 ML IV SCH (05:45)
[2018-11-13] MEDS: SYNTHROID PO SCH (05:45)
[2018-11-13] MEDS: BROVANA NEBU IH SCH ×2 (08:31→20:40)
[2018-11-13] MEDS: PULMICORT IH SCH ×2 (08:31→20:40)
[2018-11-13] MEDS: ELIQUIS PO SCH ×2 (09:52→21:54)
[2018-11-13] MEDS: ABILIFY PO SCH (09:52)
[2018-11-13] MEDS: CLARITIN PO SCH (09:52)
[2018-11-13] MEDS: HALFPRIN EC PO SCH (09:53)
[2018-11-13] MEDS: LASIX PO SCH (09:53)
[2018-11-13] MEDS: SODIUM CHLORIDE FLUSH SYRINGE 10 ML IV SCH ×2 (09:53→21:54)
[2018-11-13] MEDS: DIAMOX PO SCH ×2 (09:53→21:53)
[2018-11-13] MEDS: PROTONIX PO SCH (09:53)
[2018-11-13] MEDS: ZESTRIL PO SCH (09:54)
[2018-11-13] MEDS ORDERED: NON-FORMULARY (Budesoni/Formotero 160-4.5(Nf) 1 PUFF) IH SCH (10:00)
[2018-11-13] MEDS: SOLU-Medrol IV SCH ×2 (11:11→21:54)
[2018-11-13] MEDS: WELLBUTRIN XL PO SCH (11:11)
--- NOTE | 2018-11-13 14:54 | Progress Note ---
Subjective Date of service: 11/13/18 Interval history: Assessment and plan: COPD exacerbation: Patient denies any cough or shortness of breath at this time Continue neb treatments with DuoNeb solution budesonide and formoterol solutions by nebulizer. Continue steroids Acute on chronic respiratory failure: Patient is on 2 L oxygen via nasal cannula at home His O2 saturations at this time are above 90% Chest x-ray reviewed Chronic atrial fibrillation: Continue Eliquis Schizophrenia: Continue home medications Elevated troponin: Cardiology consult requested and it's pending at this time CTA of the chest Hyperlipidemia: Continue statin Subjective: Patient is awake and alert and at this time is not in any acute distress He denies any chest pain or shortness of breath Denies fever or chills or cough Denies nausea or vomiting abdominal pain Denies dysuria headache loss of consciousness Objective Gen. 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 no focal deficit Objective - Constitutional Vitals: Vital Signs - 12hr 11/13/18 11/13/18 11/13/18 05:24 08:15 08:31 Temperature 98.4 F Pulse Rate 77 Pulse Rate [ 70 Anterior Bilateral Throughout] Respiratory 20 Rate Respiratory 20 Rate [Anterior Bilateral Throughout] Blood Pressure 101/55 O2 Sat by Pulse 98 100 98 Oximetry 11/13/18 11/13/18 11/13/18 09:54 12:07 12:27 Temperature 98.0 F Pulse Rate 77 88 Pulse Rate [ Anterior Bilateral Throughout] Respiratory 18 Rate Respiratory Rate [Anterior Bilateral Throughout] Blood Pressure 101/50 129/58 114/58 O2 Sat by Pulse 91 Oximetry - Labs CBC & Chem 7: 11/12/18 17:14 11/12/18 17:14 Labs: Abnormal lab results 11/12/18 11/12/18 11/12/18 Range/Units 17:14 17:14 17:14 WBC 4.4 L (4.5-11.0) K/mm3 Hgb 9.7 L (10.1-14.3) gm/dl MCH 24 L (28-32) pg RDW 17.3 H (13.2-15.2) % Lymph % (Auto) 5.4 L (13.4-35.0) % Lymph # 0.2 L (1.2-5.4) K/mm3 Seg Neutrophils % 89.3 H (40.0-70.0) % Chloride 97.1 L (98-107) mmol/L Carbon Dioxide 39 H (22-30) mmol/L BUN 25 H (7-17) mg/dL Creatinine 0.5 L (0.7-1.2) mg/dL Glucose 140 H (65-100) mg/dL Lactic Acid 0.60 L (0.7-2.0) mmol/L CK-MB (CK-2) 11.4 H (0.0-4.0) ng/mL CK-MB (CK-2) Rel Index 18.3 H (0-4) Troponin T 0.042 H (0.00-0.029) ng/mL NT-Pro-B Natriuret Pep (0-900) pg/mL Total Protein 6.1 L (6.3-8.2) g/dL Albumin 3.7 L (3.9-5) g/dL HDL Cholesterol 71 H (40-59) mg/dL Ur Specific [place] (1.003-1.030) 11/12/18 11/12/18 11/13/18 Range/Units 18:13 19:49 03:47 WBC (4.5-11.0) K/mm3 Hgb (10.1-14.3) gm/dl MCH (28-32) pg RDW (13.2-15.2) % Lymph % (Auto) (13.4-35.0) % Lymph # (1.2-5.4) K/mm3 Seg Neutrophils % (40.0-70.0) % Chloride (98-107) mmol/L Carbon Dioxide (22-30) mmol/L BUN (7-17) mg/dL Creatinine (0.7-1.2) mg/dL Glucose (65-100) mg/dL Lactic Acid (0.7-2.0) mmol/L CK-MB (CK-2) (0.0-4.0) ng/mL CK-MB (CK-2) Rel Index (0-4) Troponin T (0.00-0.029) ng/mL NT-Pro-B Natriuret Pep 2696 H 2599 H (0-900) pg/mL Total Protein (6.3-8.2) g/dL Albumin (3.9-5) g/dL HDL Cholesterol (40-59) mg/dL Ur Specific [place] > 1.059 H (1.003-1.030)
--- NOTE | 2018-11-13 16:54 | Consultation ---
History of Present Illness Consult date: 11/13/18 Consult reason: abnormal cardiac enzymes History of present illness: 67 YO Female [facility] Resident with COPD, HTN, Dementia, Chronic Respiratory Failure on 2L Home oxygen, HLD, Hypothyroidism, Depression, Schizophrenia, Atrial Fib on Therapeutic Anticoagulation (Eliquis) presents to ED for evaluation Presents to emergency room with complaints of shortness of breath and dyspnea on exertion and respiratory distress. Patient found to be hypoxic. Patient sent here via EMS from her intermediate. Patient's sats for EMS 82% on room air. Patient placed on oxygen and given Solu-Medrol and albuterol in route the patient's sats improved. Patient is 99% on 3 L. Patient is A& O 1. Unclear on how reliable the patient is as a historian due to the patient's altered mental status and dementia. Patient at this time is complaining of abdominal pain in the right upper quadrant. MD Complaint: shortness of breath -: Sudden Past History Past Medical History: COPD, GERD, hypertension, hyperlipidemia, hypothyroidism, other (Dementia, Chronic Respiratory Failure) Past Surgical History: hysterectomy Social history: . denies: smoking, alcohol abuse, prescription drug abuse Family history: diabetes, hypertension Medications and Allergies Allergies Allergy/AdvReac Type Severity Reaction Status Date / Time ibuprofen [From Motrin] AdvReac Shortness Verified 10/25/18 08:15 of Breath nickel AdvReac Rash Verified 10/25/18 08:15 Home Medications Medication Instructions Recorded Confirmed Last Taken Type ARIPiprazole [Abilify TAB] 5 mg PO DAILY 01/02/15 11/13/18 01/08/15 History Acetaminophen [Acetaminophen TAB] 650 mg PO Q4H PRN 01/02/15 11/13/18 01/07/15 History Albuterol Sulfate [Proair Hfa] 2 puff IH Q8H PRN 01/02/15 11/13/18 01/09/15 History Budesoni/Formotero 160-4.5(Nf) 2 puff IH BID 01/02/15 11/13/18 01/09/15 History [Symbicort 160-4.5 (Nf)] Cetirizine HCl [ZyrTEC] 10 mg PO QDAY 01/02/15 11/13/18 01/08/15 History Levothyroxine [Synthroid] 0.125 mcg PO QAM 01/02/15 11/13/18 01/09/15 History Lisinopril 2.5 mg PO QDAY 01/02/15 11/13/18 01/09/15 History Simvastatin 5 mg PO QHS 01/02/15 11/13/18 01/08/15 History buPROPion XL [Wellbutrin XL] 300 mg PO QDAY 01/02/15 11/13/18 01/08/15 History Omeprazole Magnesium [PriLOSEC Otc] 20 mg PO DAILY 10/25/18 11/13/18 Unknown History acetaZOLAMIDE ER [Diamox Sequels] 500 mg PO Q12HR 10/25/18 11/13/18 Unknown History traZODone [Desyrel] 50 mg PO HS 10/25/18 11/13/18 Unknown History Albuterol Sulfate [Albuterol 0.63% 0.63 mg IH TID PRN #120 neb 10/27/18 11/13/18 Unknown Rx NEBS] Aspirin EC [Aspirin Enteric Coated 81 mg PO QDAY #30 tablet.dr 10/27/18 11/13/18 Unknown Rx TAB] Furosemide [Lasix TAB] 40 mg PO QAM #30 tablet 10/27/18 11/13/18 Unknown Rx Tiotropium [place] [Spiriva 1 each IH DAILY #1 mist.inhal 10/27/18 11/13/18 Unknown Rx Respimat] Apixaban [Eliquis] 5 mg PO Q12HR tablet 11/03/18 11/13/18 Unknown Rx Metoprolol [Lopressor TAB] 12.5 mg PO Q8HR tablet 11/03/18 11/13/18 Unknown Rx predniSONE [Deltasone] 2.5 mg PO QDAY 7 Days tablet 11/03/18 11/13/18 Unknown Rx Active Meds: Active Medications Acetaminophen (Tylenol) 325 mg PO Q6H PRN PRN Reason: Pain (1-3) Acetaminophen (Tylenol) 650 mg PO Q4H PRN PRN Reason: Pain MILD(1-3)/Fever >100.5/LOU Acetazolamide (Diamox) 250 mg PO BID GABRIEL Last Admin: 11/13/18 09:53 Dose: 250 mg Documented by: Albuterol (Proventil) 2.5 mg IH Q4HRT PRN PRN Reason: Shortness Of Breath Apixaban (Eliquis) 5 mg PO Q12HR [facility]; Protocol Last Admin: 11/13/18 09:52 Dose: 5 mg Documented by: Arformoterol Tartrate (Brovana Nebu) 15 mcg IH Q12HRT [facility] Last Admin: 11/13/18 08:31 Dose: 15 mcg Documented by: Aripiprazole (Abilify) 5 mg PO DAILY [facility] Last Admin: 11/13/18 09:52 Dose: 5 mg Documented by: Aspirin (Halfprin Ec) 81 mg PO QDAY [facility] Last Admin: 11/13/18 09:53 Dose: 81 mg Documented by: Budesonide (Pulmicort) 1 mg IH Q12HRT [facility] Last Admin: 11/13/18 08:31 Dose: 1 mg Documented by: Bupropion HCl (Wellbutrin Xl) 300 mg PO QDAY [facility] Last Admin: 11/13/18 11:11 Dose: 300 mg Documented by: Furosemide (Lasix) 40 mg PO QAM [facility] Last Admin: 11/13/18 09:53 Dose: 40 mg Documented by: Azithromycin 500 mg/ Sodium (Chloride) 250 mls @ 250 mls/hr IV Q24H [facility] Last Admin: 11/13/18 05:45 Dose: 250 mls/hr Documented by: Levothyroxine Sodium (Synthroid) 125 mcg PO QAM@0600 [facility] Last Admin: 11/13/18 05:45 Dose: 125 mcg Documented by: Lisinopril (Zestril) 2.5 mg PO QDAY [facility] Last Admin: 11/13/18 09:54 Dose: Not Given Documented by: Loratadine (Claritin) 10 mg PO QDAY [facility] Last Admin: 11/13/18 09:52 Dose: 10 mg Documented by: Methylprednisolone Sodium Succinate (Solu-Medrol) 20 mg IV Q12HR [facility] Last Admin: 11/13/18 11:11 Dose: 20 mg Documented by: Ondansetron HCl (Zofran) 4 mg IV Q8H PRN PRN Reason: Nausea And Vomiting Pantoprazole Sodium (Protonix) 20 mg PO DAILY [facility] Last Admin: 11/13/18 09:53 Dose: 20 mg Documented by: Pravastatin Sodium (Pravachol) 20 mg PO QHS [facility] Last Admin: 11/12/18 23:14 Dose: 20 mg Documented by: Sodium Chloride (Sodium Chloride Flush Syringe 10 Ml) 10 ml IV BID [facility] Last Admin: 11/13/18 09:53 Dose: 10 ml Documented by: Sodium Chloride (Sodium Chloride Flush Syringe 10 Ml) 10 ml IV PRN PRN PRN Reason: LINE FLUSH Tiotropium [place] (Spiriva) 1 puff IH Q24HR [facility] Trazodone HCl (Desyrel) 50 mg PO HS [facility] Last Admin: 11/12/18 23:14 Dose: 50 mg Documented by: Physical Examination Vital Signs Pulse BP 80 90/54 11/12/18 15:27 11/12/18 15:27 General appearance: mild distress HEENT: Positive: PERRL Neck: Positive: neck supple Cardiac: Positive: Reg Rate and Rhythm Lungs: Positive: Decreased Breath Sounds Neuro: Positive: Grossly Intact Extremities: Absent: edema Results 11/12/18 17:14 11/12/18 17:14 Cardiac Enzymes 11/12/18 Range/Units 17:14 AST 25 (5-40) units/L CK-MB (CK-2) 11.4 H (0.0-4.0) ng/mL Lipids 11/12/18 Range/Units 17:14 Triglycerides 67 (2-149) mg/dL Cholesterol 179 (50-199) mg/dL HDL Cholesterol 71 H (40-59) mg/dL Cholesterol/HDL Ratio 2.52 % CBC 11/12/18 Range/Units 17:14 WBC 4.4 L (4.5-11.0) K/mm3 RBC 4.10 (3.65-5.03) M/mm3 Hgb 9.7 L (10.1-14.3) gm/dl Hct 32.6 (30.3-42.9) % Plt Count 199 (140-440) K/mm3 Lymph # 0.2 L (1.2-5.4) K/mm3 [place] # 0.2 (0.0-0.8) K/mm3 Eos # 0.0 (0.0-0.4) K/mm3 Baso # 0.1 (0.0-0.1) K/mm3 Comprehensive Metabolic Panel 11/12/18 Range/Units 17:14 Sodium 140 (137-145) mmol/L Potassium 4.1 (3.6-5.0) mmol/L Chloride 97.1 L (98-107) mmol/L Carbon Dioxide 39 H (22-30) mmol/L BUN 25 H (7-17) mg/dL Creatinine 0.5 L (0.7-1.2) mg/dL Glucose 140 H (65-100) mg/dL Calcium 8.8 (8.4-10.2) mg/dL AST 25 (5-40) units/L ALT 32 (7-56) units/L Alkaline Phosphatase 79 (35-129) units/L Total Protein 6.1 L (6.3-8.2) g/dL Albumin 3.7 L (3.9-5) g/dL Assessment and Plan Patient was noted to have elevated troponin levels,however serial recordings are not c/w with acute myocardial injury,will trend few more sets to see this may be chronic elevation . - Patient Problems (1) Altered mental state Current Visit: Yes Status: Acute Qualifiers: Altered mental status type: unspecified Qualified Code(s): R41.82 - Altered mental status, unspecified (2) Anemia Current Visit: Yes Status: Acute Qualifiers: Anemia type: unspecified type Qualified Code(s): D64.9 - Anemia, unspecified (3) Atrial fibrillation Current Visit: Yes Status: Acute Qualifiers: Atrial fibrillation type: persistent Qualified Code(s): I48.1 - Persistent atrial fibrillation (4) COPD exacerbation Current Visit: Yes Status: Acute (5) Elevated troponin Current Visit: Yes Status: Acute
[2018-11-13] MEDS: SPIRIVA IH SCH (19:51)
[2018-11-13] MEDS: DESYREL PO SCH (21:53)
[2018-11-13] MEDS: PRAVACHOL PO SCH (21:54)
[2018-11-13 22:20] LABS: Creatine Kinase MB 4.8 ng/mL (0.0-4.0)
[2018-11-14] MEDS: ZITHROMAX 500 MG in NACL 0.9% 250ML 250 ML IV SCH (05:03)
[2018-11-14] MEDS: SYNTHROID PO SCH (05:04)
--- NOTE | 2018-11-14 08:08 | Progress Note ---
Assessment and Plan Assessment and plan: 67 YO Female [facility] Facility Resident with COPD, HTN, Dementia, Chronic Respiratory Failure on 2L Home oxygen, HLD, Hypothyroidism, Depression, Schizophrenia, Atrial Fib on Therapeutic Anticoagulation (Eliquis) presents to ED for evaluation. The patient reports shortness of breath over the past 2 days with persistent symptoms over the same time frame. Pt was found to have a pulse oximetry of 82% on room air. EMS was was notified, and patient placed on supplemental oxygen and transported to [facility] ED. Pt seen and evaluated in ED and found to have COPD Exacerbation, as well as Acute on Chronic Respiratory Failure. Pt also found to have elevated troponin level but no evidence EKG abnormalities. Pt is lethargic but has a positive gag reflex and is able to protect her airway. Pt mental status improved with supportive care, supplemental oxygen and nebulizer therapy. Pt also reports abdominal discomfort. CT [place] and pelvis was unremarkable for acute findings. Pt denies fever, chills, palp itations, NVD, Trauma, CP, Hemoptysis, BRBPR, Unintentional weight loss, prolonged travel/immobility, unilateral leg swelling, calf pain, or recent ill contacts. Pt admitted to telemetry. Cardiology consulted in ED. Previous admission 10/23/18 reviewed. All listed medication reconciled at time of ad mission. Review records from initial triage: EMS for ESTELA from [facility]. Per report, pt O2 sats were 82% on RA upon EMS arrival. 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 Pt sats now 99% on 3lpm. -Per son, Patient has declined since the beginning of this year and has not improved inbteween the admissions. she has had paradoxical breathing with abdominal muscles, mental status decline, deconditioning and unable to understand what she is saying at times. he also wants to be called with update. - Patient during the last admission was intubated for airway protection as she was obtunded, and also treated for Afib, was successfully extubated and discharged on BB and to Rehab due to severe Debility -MRI cervical spine; multilevel bilateral neural foramina narrowing secondary to disc osteophyte complex and vertebral joint hypertrophy. No central canal spinal stenosis or cord edema. Chest x-ray; no infiltrate CTA CHEST: Cardiomegaly. No CT evidence of pulmonary thromboembolic disease. COPD. Suspected pulmonary hypertension Diagnosis Atrial Fibrillation with hypercoagulable states: KAYLENE [place] Acute Metabolic Encephalopathy: obtain and MRI head ?Anxiety: Mental health consult Anemia: STABLE Acute on chronic hypoxic respiratory failure: Obtain Pulmonary consult, Nebs, steroids, Continue oxygen COPD exacerbation: Continue nebs, obtain Pulmonary eval SIRS without acute organ dysfunction: Bradycardia, now resolved: Hypothyroidism: synthroid Type 2 NSTEMI: Cardiology consulted Ataxia, Chronic debility: Continue neb treatments with DuoNeb solution budesonide and formoterol solutions by nebulizer. Continue steroids Acute on chronic diastolic heart failure ?Pulmonary HTN: reviewed last echo, EF 50-55%, Pulmonary pressures not recorded. Schizophrenia: Continue Current meds, Hyperlipidemia: Continue statin Chronic Debility: PT/OT DVT/GI: Prophy DENIS COHEN: [phone] History Interval history: Patient seen and examined, although she is resting comfortable she tells me that she came to the hospital because she was scared by the senior maintenance mechanic and they became short of breath. This morning she reports generalized ill feeling but non specific complaints. Hospitalist Physical - Physical exam Narrative exam: Gen. 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2-15.2) H 11/12/18 17:14 Plt Count 199 K/mm3 (140-440) 11/12/18 17:14 Lymph % (Auto) 5.4 % (13.4-35.0) L 11/12/18 17:14 [place] % (Auto) 3.5 % (0.0-7.3) 11/12/18 17:14 Eos % (Auto) 0.4 % (0.0-4.3) 11/12/18 17:14 Baso % (Auto) 1.4 % (0.0-1.8) 11/12/18 17:14 Lymph # 0.2 K/mm3 (1.2-5.4) L 11/12/18 17:14 [place] # 0.2 K/mm3 (0.0-0.8) 11/12/18 17:14 Eos # 0.0 K/mm3 (0.0-0.4) 11/12/18 17:14 Baso # 0.1 K/mm3 (0.0-0.1) 11/12/18 17:14 Seg Neutrophils % 89.3 % (40.0-70.0) H 11/12/18 17:14 Seg Neutrophils # 4.0 K/mm3 (1.8-7.7) 11/12/18 17:14 Sodium 140 mmol/L (137-145) 11/12/18 17:14 Potassium 4.1 mmol/L (3.6-5.0) 11/12/18 17:14 Chloride 97.1 mmol/L (98-107) L 11/12/18 17:14 Carbon Dioxide 39 mmol/L (22-30) H 11/12/18 17:14 Anion Gap 8 mmol/L 11/12/18 17:14 BUN 25 mg/dL (7-17) H 11/12/18 17:14 Creatinine 0.5 mg/dL (0.7-1.2) L 11/12/18 17:14 Estimated GFR > 60 ml/min 11/12/18 17:14 BUN/Creatinine Ratio 50 % 11/12/18 17:14 Glucose 140 mg/dL (65-100) H 11/12/18 17:14 Lactic Acid 0.60 mmol/L (0.7-2.0) L 11/12/18 17:14 Calcium 8.8 mg/dL (8.4-10.2) 11/12/18 17:14 Magnesium 1.90 mg/dL (1.7-2.3) 11/12/18 19:49 Total Bilirubin < 0.20 mg/dL (0.1-1.2) 11/12/18 17:14 AST 25 units/L (5-40) 11/12/18 17:14 ALT 32 units/L (7-56) 11/12/18 17:14 Alkaline Phosphatase 79 units/L (35-129) 11/12/18 17:14 Total Creatine Kinase 32 units/L (30-135) 11/13/18 21:30 CK-MB (CK-2) 4.8 ng/mL (0.0-4.0) H 11/13/18 21:30 CK-MB (CK-2) Rel Index 15.0 (0-4) H 11/13/18 21:30 Troponin T 0.010 ng/mL (0.00-0.029) 11/13/18 17:01 NT-Pro-B Natriuret Pep 2599 pg/mL (0-900) H 11/12/18 19:49 Total Protein 6.1 g/dL (6.3-8.2) L 11/12/18 17:14 Albumin 3.7 g/dL (3.9-5) L 11/12/18 17:14 Albumin/Globulin Ratio 1.5 % 11/12/18 17:14 Triglycerides 67 mg/dL (2-149) 11/12/18 17:14 Cholesterol 179 mg/dL (50-199) 11/12/18 17:14 LDL Cholesterol Direct 109 mg/dL (50-130) 11/12/18 17:14 HDL Cholesterol 71 mg/dL (40-59) H 11/12/18 17:14 Cholesterol/HDL Ratio 2.52 % 11/12/18 17:14 TSH 0.409 mlU/mL (0.270-4.200) 11/12/18 19:49 Free T4 1.07 ng/dL (0.76-1.46) 11/12/18 19:49 Urine Color Yellow (Yellow) 11/13/18 03:47 Urine Turbidity Clear (Clear) 11/13/18 03:47 Urine pH 6.0 (5.0-7.0) 11/13/18 03:47 Ur Specific [place] > 1.059 (1.003-1.030) H 11/13/18 03:47 Urine Protein <15 mg/dl mg/dL (Negative) 11/13/18 03:47 Urine Glucose (UA) Neg mg/dL (Negative) 11/13/18 03:47 Urine Ketones Neg mg/dL (Negative) 11/13/18 03:47 Urine Blood Neg (Negative) 11/13/18 03:47 Urine Nitrite Neg (Negative) 11/13/18 03:47 Urine Bilirubin Neg (Negative) 11/13/18 03:47 Urine Urobilinogen < 2.0 mg/dL (<2.0) 11/13/18 03:47 Ur Leukocyte Esterase Neg (Negative) 11/13/18 03:47 Urine WBC (Auto) < 1.0 /HPF (0.0-6.0) 11/13/18 03:47 Urine RBC (Auto) 1.0 /HPF (0.0-6.0) 11/13/18 03:47 U Epithel Cells (Auto) 1.0 /HPF (0-13.0) 11/13/18 03:47 Active Medications - Current Medications Current Medications: Generic Name Dose Route Start Last Admin Trade Name Freq PRN Reason Stop Dose Admin Acetaminophen 325 mg 11/12/18 20:09 Tylenol PO Q6H PRN Pain (1-3) Acetaminophen 650 mg 11/12/18 20:11 Tylenol PO Q4H PRN Pain MILD(1-3)/Fever >100.5/LOU Acetazolamide 250 mg 11/12/18 22:00 11/13/18 21:53 Diamox PO 250 mg BID GABRIEL Administration Albuterol 2.5 mg 11/12/18 20:11 Proventil IH Q4HRT PRN Shortness Of Breath Apixaban 5 mg 11/12/18 22:00 11/13/18 21:54 Eliquis PO 5 mg Q12HR GABRIEL Administration Protocol Arformoterol Tartrate 15 mcg 11/13/18 08:00 11/13/18 20:40 Ioana Lawsonu IH 15 mcg Q12HRT GABRIEL Administration Aripiprazole 5 mg 11/13/18 10:00 11/13/18 09:52 Abilify PO 5 mg DAILY GABRIEL Administration Aspirin 81 mg 11/13/18 10:00 11/13/18 09:53 Halfprin Ec PO 81 mg QDAY GABRIEL Administration Budesonide 0.5 mg 11/14/18 08:03 Pulmicort IH Q12HRT GABRIEL Bupropion HCl 300 mg 11/13/18 10:00 11/13/18 11:11 Wellbutrin Xl PO 300 mg QDAY GABRIEL Administration Furosemide 40 mg 11/13/18 10:00 11/13/18 09:53 Lasix PO 40 mg QAM GABRIEL Administration Azithromycin 500 mg/ Sodium 250 mls @ 250 mls/hr 11/13/18 06:00 11/14/18 05:03 Chloride IV 250 mls/hr Q24H GABRIEL Administration Levothyroxine Sodium 125 mcg 11/13/18 06:00 11/14/18 05:04 Synthroid PO 125 mcg QAM@0600 GABRIEL Administration Lisinopril 2.5 mg 11/13/18 10:00 11/13/18 09:54 Zestril PO Not Given QDAY GABRIEL Loratadine 10 mg 11/13/18 10:00 11/13/18 09:52 Claritin PO 10 mg QDAY GABRIEL Administration Methylprednisolone Sodium Succinate 20 mg 11/13/18 10:00 11/13/18 21:54 Solu-Medrol IV 20 mg Q12HR GABRIEL Administration Ondansetron HCl 4 mg 11/12/18 20:11 Zofran IV Q8H PRN Nausea And Vomiting Pantoprazole Sodium 20 mg 11/13/18 10:00 11/13/18 09:53 Protonix PO 20 mg DAILY GABRIEL Administration Pravastatin Sodium 20 mg 11/12/18 22:00 11/13/18 21:54 Pravachol PO 20 mg QHS GABRIEL Administration Sodium Chloride 10 ml 11/12/18 22:00 11/13/18 21:54 Sodium Chloride Flush Syringe 10 Ml IV 10 ml BID GABRIEL Administration Sodium Chloride 10 ml 11/12/18 20:11 Sodium Chloride Flush Syringe 10 Ml IV PRN PRN LINE FLUSH Tiotropium [place] 1 puff 11/13/18 10:00 11/13/18 19:51 Spiriva IH Not Given Q24HR GABRIEL Trazodone HCl 50 mg 11/12/18 22:00 11/13/18 21:53 Desyrel PO 50 mg HS GABRIEL Administration
[2018-11-14] MEDS: BROVANA NEBU IH SCH ×2 (08:29→21:28)
[2018-11-14] MEDS: PULMICORT IH SCH ×3 (08:31→21:28)
[2018-11-14] MEDS ORDERED: HumaLOG SUB-Q ONE (10:17)
[2018-11-14] MEDS: DIAMOX PO SCH ×2 (11:14→23:41)
[2018-11-14] MEDS: ABILIFY PO SCH (11:14)
[2018-11-14] MEDS: SOLU-Medrol IV SCH ×2 (11:15→22:26)
[2018-11-14] MEDS: ZESTRIL PO SCH (11:16)
[2018-11-14] MEDS: PROTONIX PO SCH (11:17)
[2018-11-14] MEDS: LASIX PO SCH (11:18)
[2018-11-14] MEDS: CLARITIN PO SCH (11:19)
[2018-11-14] MEDS: HALFPRIN EC PO SCH (11:19)
[2018-11-14] MEDS: WELLBUTRIN XL PO SCH (11:20)
[2018-11-14] MEDS: SODIUM CHLORIDE FLUSH SYRINGE 10 ML IV SCH ×2 (11:21→23:46)
[2018-11-14] MEDS: ELIQUIS PO SCH ×2 (11:24→22:25)
[2018-11-14 11:46] LABS: Creatine Kinase MB 4.7 ng/mL (0.0-4.0)
--- NOTE | 2018-11-14 14:19 | Progress Note ---
Assessment and Plan Patient was noted to have elevated troponin levels,however serial recordings are not c/w with acute myocardial injury,will trend few more sets to see this may be chronic elevation .patient was on Metoprolol 12.5 mg q 8hrs at home,will restart Metoprolol,continue apixaban. cardiac enzymes did not show acute injury pattern,continue present medical therapy.Patient being followed at [facility]. - Patient Problems (1) Altered mental state Current Visit: Yes Status: Acute Qualifiers: Altered mental status type: unspecified Qualified Code(s): R41.82 - Altered mental status, unspecified (2) Anemia Current Visit: Yes Status: Acute Qualifiers: Anemia type: unspecified type Qualified Code(s): D64.9 - Anemia, unspecified (3) Atrial fibrillation Current Visit: Yes Status: Acute Qualifiers: Atrial fibrillation type: persistent Qualified Code(s): I48.1 - Persistent atrial fibrillation (4) COPD exacerbation Current Visit: Yes Status: Acute (5) Elevated troponin Current Visit: Yes Status: Acute Subjective Date of service: 11/14/18 Interval history: Patient denies any palpitations,telemetry showed atrial fib with slightly increased VR. Discussed with patient's brother. Objective Vital Signs Temp Pulse Pulse Resp Resp Resp BP 11/14/18 13:13 98.3 F 92 H 30 H 99/63 11/14/18 11:16 80 11/14/18 08:41 89 20 11/14/18 08:31 94 H 20 11/14/18 04:16 97.6 F 15 119/65 11/14/18 04:00 108 H 16 11/13/18 23:01 97.5 F L 88 15 137/66 11/13/18 22:00 20 11/13/18 21:15 20 11/13/18 21:07 93 H 30 H 11/13/18 20:42 91 H 32 H 11/13/18 19:32 98.1 F 90 16 114/66 11/13/18 19:20 94 H 11/13/18 17:09 97.9 F 80 18 114/70 Pulse Ox 11/14/18 13:13 93 11/14/18 11:16 11/14/18 08:41 11/14/18 08:31 98 11/14/18 04:16 11/14/18 04:00 97 11/13/18 23:01 100 11/13/18 22:00 11/13/18 21:15 99 11/13/18 21:07 11/13/18 20:42 99 11/13/18 19:32 97 11/13/18 19:20 11/13/18 17:09 100 - Physical Examination HEENT: Positive: PERRL Neck: Positive: neck supple Cardiac: Positive: irregularly irregular Lungs: Positive: Decreased Breath Sounds Neuro: Positive: Grossly Intact Abdomen: Positive: Unremarkable Skin: Negative: Rash Extremities: Absent: edema - Labs and Meds Cardiac Enzymes 11/13/18 11/14/18 Range/Units 21:30 10:32 CK-MB (CK-2) 4.8 H 4.7 H (0.0-4.0) ng/mL - Telemetry EKG Rhythm: Atrial Fibrillation
[2018-11-14 15:16] LABS: Creatine Kinase MB 4.1 ng/mL (0.0-4.0)
[2018-11-14] MEDS: LOPRESSOR PO SCH ×3 (16:16→23:23)
[2018-11-14 22:12] LABS: Creatine Kinase MB 4.2 ng/mL (0.0-4.0)
[2018-11-14] MEDS: DESYREL PO SCH (22:25)
[2018-11-14] MEDS: PRAVACHOL PO SCH (23:46)
[2018-11-15] MEDS: ZITHROMAX 500 MG in NACL 0.9% 250ML 250 ML IV SCH (06:25)
[2018-11-15] MEDS: SYNTHROID PO SCH (06:29)
[2018-11-15] MEDS: PULMICORT IH SCH ×2 (09:17→21:04)
[2018-11-15] MEDS: BROVANA NEBU IH SCH ×2 (09:17→21:04)
[2018-11-15] MEDS ORDERED: SENOKOT S PO PRN (10:00)
[2018-11-15] MEDS: DIAMOX PO SCH ×2 (10:33→21:18)
[2018-11-15] MEDS: ABILIFY PO SCH (10:34)
[2018-11-15] MEDS: WELLBUTRIN XL PO SCH (10:35)
[2018-11-15] MEDS: LASIX PO SCH (10:37)
[2018-11-15] MEDS: CLARITIN PO SCH (10:37)
[2018-11-15] MEDS: ELIQUIS PO SCH ×2 (10:37→21:18)
[2018-11-15] MEDS: HALFPRIN EC PO SCH (10:38)
[2018-11-15] MEDS: PROTONIX PO SCH (10:38)
[2018-11-15] MEDS: SOLU-Medrol IV SCH ×3 (10:39→21:19)
[2018-11-15] MEDS: SODIUM CHLORIDE FLUSH SYRINGE 10 ML IV SCH ×2 (10:48→21:20)
[2018-11-15] MEDS: LOPRESSOR PO SCH ×2 (10:48→21:19)
[2018-11-15] MEDS: ZESTRIL PO SCH (10:49)
--- NOTE | 2018-11-15 11:15 | Progress Note ---
Assessment and Plan Continue current cardiac management. Patient has been seen in conjunction with Dr. Hawkins, who agrees with the assessment and plan of care. - Patient Problems (1) COPD exacerbation Current Visit: Yes Status: Acute (2) Acute and chronic respiratory failure Current Visit: Yes Status: Acute Qualifiers: Respiratory failure complication: hypoxia Qualified Code(s): J96.21 - Acute and chronic respiratory failure with hypoxia (3) End stage COPD Current Visit: Yes Status: Chronic (4) Paroxysmal A-fib Current Visit: Yes Status: Chronic (5) CAD (coronary artery disease) Current Visit: Yes Status: Chronic (6) HTN (hypertension) Current Visit: Yes Status: Chronic Qualifiers: Hypertension type: essential hypertension Qualified Code(s): I10 - Essential (primary) hypertension (7) Elevated troponin Current Visit: Yes Status: Acute Subjective Date of service: 11/15/18 Principal diagnosis: COPD Interval history: Patient lethargic on examination. Denies CP. Objective Last Vital Signs Temp 98.0 F 11/15/18 07:49 Pulse 104 H 11/15/18 10:49 Resp 24 11/15/18 09:28 BP 103/43 11/15/18 10:49 Pulse Ox 92 11/15/18 09:20 - Physical Examination General: Other (Lethargic) HEENT: Positive: PERRL Neck: Positive: neck supple Cardiac: Positive: Reg Rate and Rhythm, S1/S2 Lungs: Positive: Decreased Breath Sounds, Oxygen Neuro: Positive: Grossly Intact Abdomen: Positive: Unremarkable Skin: Negative: Rash Extremities: Absent: edema - Labs and Meds Cardiac Enzymes 11/14/18 11/14/18 11/14/18 Range/Units 10:32 14:43 21:32 CK-MB (CK-2) 4.7 H 4.1 H 4.2 H (0.0-4.0) ng/mL
[2018-11-15] MEDS: CEPHULAC PO SCH ×2 (13:26→17:25)
--- NOTE | 2018-11-15 14:22 | Consultation ---
History of Present Illness Consult date: 11/15/18 Requesting physician: TIP BROWN Reason for consult: COPD History of present illness: 67 y/o woman with known COPD, chronic respiratory failure readmitted several days ago with shortness of breath. concern for CAD, cards consulted. Pulmonary consulted today. We saw patient her last admit as she was intubated in the ED secondary to altered mental status and hypoxemia. She was extubated less than 18 hours later. Patient was transitioned to the floor and then sent back to her facility. Readmitted about 1 week later. On my exam she has increased WOB and using accessory muscles. Not able to speak in complete sentences. Sat was 85 on 3 liters. Called nursing and RT for bipap placement and then additional lasix dosing. Past History Past Medical History: COPD, GERD, hypertension, hyperlipidemia, hypothyroidism, other (Dementia, Chronic Respiratory Failure) Past Surgical History: hysterectomy Social history: . denies: smoking, alcohol abuse, prescription drug abuse Family history: diabetes, hypertension Medications and Allergies Allergies Allergy/AdvReac Type Severity Reaction Status Date / Time ibuprofen [From Motrin] AdvReac Shortness Verified 10/25/18 08:15 of Breath nickel AdvReac Rash Verified 10/25/18 08:15 Home Medications Medication Instructions Recorded Confirmed Last Taken Type ARIPiprazole [Abilify TAB] 5 mg PO DAILY 01/02/15 11/13/18 01/08/15 History Acetaminophen [Acetaminophen TAB] 650 mg PO Q4H PRN 01/02/15 11/13/18 01/07/15 History Albuterol Sulfate [Proair Hfa] 2 puff IH Q8H PRN 01/02/15 11/13/18 01/09/15 History Budesoni/Formotero 160-4.5(Nf) 2 puff IH BID 01/02/15 11/13/18 01/09/15 History [Symbicort 160-4.5 (Nf)] Cetirizine HCl [ZyrTEC] 10 mg PO QDAY 01/02/15 11/13/18 01/08/15 History Levothyroxine [Synthroid] 0.125 mcg PO QAM 01/02/15 11/13/18 01/09/15 History Lisinopril 2.5 mg PO QDAY 01/02/15 11/13/18 01/09/15 History Simvastatin 5 mg PO QHS 01/02/15 11/13/18 01/08/15 History buPROPion XL [Wellbutrin XL] 300 mg PO QDAY 01/02/15 11/13/18 01/08/15 History Omeprazole Magnesium [PriLOSEC Otc] 20 mg PO DAILY 10/25/18 11/13/18 Unknown History acetaZOLAMIDE ER [Diamox Sequels] 500 mg PO Q12HR 10/25/18 11/13/18 Unknown History traZODone [Desyrel] 50 mg PO HS 10/25/18 11/13/18 Unknown History Albuterol Sulfate [Albuterol 0.63% 0.63 mg IH TID PRN #120 neb 10/27/18 11/13/18 Unknown Rx NEBS] Aspirin EC [Aspirin Enteric Coated 81 mg PO QDAY #30 tablet. 10/27/18 11/13/18 Unknown Rx TAB] Furosemide [Lasix TAB] 40 mg PO QAM #30 tablet 10/27/18 11/13/18 Unknown Rx Tiotropium [place] [Spiriva 1 each IH DAILY #1 mist.inhal 10/27/18 11/13/18 Unknown Rx Respimat] Apixaban [Eliquis] 5 mg PO Q12HR tablet 11/03/18 11/13/18 Unknown Rx Metoprolol [Lopressor TAB] 12.5 mg PO Q8HR tablet 11/03/18 11/13/18 Unknown Rx predniSONE [Deltasone] 2.5 mg PO QDAY 7 Days tablet 11/03/18 11/13/18 Unknown Rx Active Meds: Active Medications Acetaminophen (Tylenol) 650 mg PO Q4H PRN PRN Reason: Pain MILD(1-3)/Fever >100.5/LOU Acetazolamide (Diamox) 250 mg PO BID [facility] Last Admin: 11/15/18 10:33 Dose: 250 mg Documented by: Albuterol (Proventil) 2.5 mg IH Q4HRT PRN PRN Reason: Shortness Of Breath Apixaban (Eliquis) 5 mg PO Q12HR GABRIEL; Protocol Last Admin: 11/15/18 10:37 Dose: 5 mg Documented by: Arformoterol Tartrate (Brovana Nebu) 15 mcg IH Q12HRT GABRIEL Last Admin: 11/15/18 09:17 Dose: 15 mcg Documented by: Aripiprazole (Abilify) 5 mg PO DAILY [facility] Last Admin: 11/15/18 10:34 Dose: 5 mg Documented by: Aspirin (Halfprin Ec) 81 mg PO QDAY [facility] Last Admin: 11/15/18 10:38 Dose: 81 mg Documented by: Azithromycin (Zithromax) 500 mg PO QDAY [facility] Stop: 11/17/18 10:01 Budesonide (Pulmicort) 0.5 mg IH Q12HRT [facility] Last Admin: 11/15/18 09:17 Dose: 0.5 mg Documented by: Bupropion HCl (Wellbutrin Xl) 300 mg PO QDAY [facility] Last Admin: 11/15/18 10:35 Dose: 300 mg Documented by: Furosemide (Lasix) 40 mg PO QAM [facility] Last Admin: 11/15/18 10:37 Dose: 40 mg Documented by: Lactulose (Cephulac) 20 gm PO Q6HR [facility] Stop: 11/15/18 18:01 Last Admin: 11/15/18 13:26 Dose: 20 gm Documented by: Levothyroxine Sodium (Synthroid) 125 mcg PO QAM@0600 [facility] Last Admin: 11/15/18 06:29 Dose: 125 mcg Documented by: Lisinopril (Zestril) 2.5 mg PO QDAY [facility] Last Admin: 11/15/18 10:49 Dose: Not Given Documented by: Loratadine (Claritin) 10 mg PO QDAY [facility] Last Admin: 11/15/18 10:37 Dose: 10 mg Documented by: Methylprednisolone Sodium Succinate (Solu-Medrol) 20 mg IV Q12HR [facility] Last Admin: 11/15/18 10:39 Dose: 20 mg Documented by: Metoprolol Tartrate (Lopressor) 25 mg PO BID [facility] Last Admin: 11/15/18 10:48 Dose: Not Given Documented by: Ondansetron HCl (Zofran) 4 mg IV Q8H PRN PRN Reason: Nausea And Vomiting Pantoprazole Sodium (Protonix) 20 mg PO DAILY [facility] Last Admin: 11/15/18 10:38 Dose: 20 mg Documented by: Pravastatin Sodium (Pravachol) 20 mg PO QHS [facility] Last Admin: 11/14/18 23:46 Dose: Not Given Documented by: Senna/Docusate Sodium (Senokot S) 2 tab PO Q12H PRN PRN Reason: Laxative Effect Sodium Chloride (Sodium Chloride Flush Syringe 10 Ml) 10 ml IV BID [facility] Last Admin: 11/15/18 10:48 Dose: 10 ml Documented by: Sodium Chloride (Sodium Chloride Flush Syringe 10 Ml) 10 ml IV PRN PRN PRN Reason: LINE FLUSH Tiotropium [place] (Spiriva) 1 puff IH Q24HR [facility] Last Admin: 11/13/18 19:51 Dose: Not Given Documented by: Trazodone HCl (Desyrel) 50 mg PO HS [facility] Last Admin: 11/14/18 22:25 Dose: 50 mg Documented by: Review of Systems All systems: negative Physical Examination Vital signs: Vital Signs Pulse BP 80 90/54 11/12/18 15:27 11/12/18 15:27 General appearance: alert, appears uncomfortable Eyes: non-icteric ENT: oropharynx moist Neck: supple Effort: mildly labored Ascultation: Bilateral: diminished breath sounds, wheezes Percussion: Bilateral: not dull Tactile fremitus: Bilateral: normal Cardiovascular: other (sinus tachycardia) Extremities: no edema, pink and warm Results - Laboratory Findings CBC and BMP: 11/12/18 17:14 11/12/18 17:14 Abnormal lab findings: Abnormal Labs 11/12/18 11/12/18 11/12/18 17:14 17:14 17:14 WBC 4.4 L Hgb 9.7 L MCH 24 L RDW 17.3 H Lymph % (Auto) 5.4 L Lymph # 0.2 L Seg Neutrophils % 89.3 H Chloride 97.1 L Carbon Dioxide 39 H BUN 25 H Creatinine 0.5 L Glucose 140 H Lactic Acid 0.60 L CK-MB (CK-2) 11.4 H CK-MB (CK-2) Rel Index 18.3 H Troponin T 0.042 H NT-Pro-B Natriuret Pep Total Protein 6.1 L Albumin 3.7 L HDL Cholesterol 71 H Ur Specific [place] 11/12/18 11/12/18 11/13/18 18:13 19:49 03:47 WBC Hgb MCH RDW Lymph % (Auto) Lymph # Seg Neutrophils % Chloride Carbon Dioxide BUN Creatinine Glucose Lactic Acid CK-MB (CK-2) CK-MB (CK-2) Rel Index Troponin T NT-Pro-B Natriuret Pep 2696 H 2599 H Total Protein Albumin HDL Cholesterol Ur Specific [place] > 1.059 H 11/13/18 11/14/18 11/14/18 21:30 10:32 14:43 WBC Hgb MCH RDW Lymph % (Auto) Lymph # Seg Neutrophils % Chloride Carbon Dioxide BUN Creatinine Glucose Lactic Acid CK-MB (CK-2) 4.8 H 4.7 H 4.1 H CK-MB (CK-2) Rel Index 15.0 H 14.6 H 11.7 H Troponin T NT-Pro-B Natriuret Pep Total Protein Albumin HDL Cholesterol Ur Specific [place] 11/14/18 21:32 WBC Hgb MCH RDW Lymph % (Auto) Lymph # Seg Neutrophils % Chloride Carbon Dioxide BUN Creatinine Glucose Lactic Acid CK-MB (CK-2) 4.2 H CK-MB (CK-2) Rel Index 13.5 H Troponin T NT-Pro-B Natriuret Pep Total Protein Albumin HDL Cholesterol Ur Specific [place] - Diagnostic Findings Chest x-ray: image reviewed CT scan - chest: image reviewed Assessment and Plan 67 y/o female with known COPD, and chronic respiratory failure admitted with dyspnea. 1. Bipap therapy for now and PRN and QHS 2. Lasix 20mg IV after 1500 today 3. Increase solumedrol to 60q6 4. Will speak with son and ask him to get necessary information from Dr. Spears
--- NOTE | 2018-11-15 15:33 | Progress Note ---
Assessment and Plan Assessment and plan: 67 YO Female [facility] Resident with COPD, HTN, Dementia, Chronic Respiratory Failure on 2L Home oxygen, HLD, Hypothyroidism, Depression, Schizophrenia, Atrial Fib on Therapeutic Anticoagulation (Eliquis) presents to ED for evaluation. The patient reports shortness of breath over the past 2 days with persistent symptoms over the same time frame. Pt was found to have a pulse oximetry of 82% on room air. EMS was was notified, and patient placed on supplemental oxygen and transported to [facility] ED. Pt seen and evaluated in ED and found to have COPD Exacerbation, as well as Acute on Chronic Respiratory Failure. Pt also found to have elevated troponin level but no evidence EKG abnormalities. Pt is lethargic but has a positive gag reflex and is able to protect her airway. Pt mental status improved with supportive care, supplemental oxygen and nebulizer therapy. Pt also reports abdominal discomfort. CT [place] and pelvis was unremarkable for acute findings. Pt denies fever, chills, palp itations, NVD, Trauma, CP, Hemoptysis, BRBPR, Unintentional weight loss, prolonged travel/immobility, unilateral leg swelling, calf pain, or recent ill contacts. Pt admitted to telemetry. Cardiology consulted in ED. Previous admission 10/23/18 reviewed. All listed medication reconciled at time of ad mission. Review records from initial triage: EMS for ESTEL[facility] from [facility]. Per report, pt O2 sats were 82% on RA upon EMS arrival. Pt given 125 solumedrol IV and 5 of albuterol NITRATE OPERATOR. Pt sats now 99% on 3lpm. -Per son, Patient has declined since the beginning of this year and has not improved inbteween the admissions. she has had paradoxical breathing with abdominal muscles, mental status decline, deconditioning and unable to understand what she is saying at times. He also mentioned that the patient fell at the senior living prompted this admission and worsening shortness of breath following the fall. he also wants to be called with update. - Patient during the last admission was intubated for airway protection as she was obtunded, and also treated for Afib, was successfully extubated and discharged on BB and to Rehab due to severe Debility -MRI cervical spine; multilevel bilateral neural foramina narrowing secondary to disc osteophyte complex and vertebral joint hypertrophy. No central canal spinal stenosis or cord edema. Chest x-ray; no infiltrate CTA CHEST: Cardiomegaly. No CT evidence of pulmonary thromboembolic disease. COPD. Suspected pulmonary hypertension . I have also discussed with Delimber Operator, he will try to obtain records from patients outside pulmonlogist. Diagnosis Atrial Fibrillation with hypercoagulable states: KAYLENE Rowland- Will discuss with cardiology if BB can be changed considering End stage COPD Acute Metabolic Encephalopathy: obtain and MRI head when medically stable. ?Anxiety: Mental health consult Anemia: STABLE Acute on chronic hypoxic respiratory failure: Pulmonary input noted, BIPAP started, Nebs, steroids, Continue oxygen COPD exacerbation: Continue nebs, as noted above, Continue neb treatments with DuoNeb solution budesonide and formoterol solutions by nebulizer. Continue steroids SIRS without acute organ dysfunction: Bradycardia, now resolved: Hypothyroidism: synthroid Type 2 NSTEMI: Cardiology consulted, input noted Ataxia, Chronic debility: PT/OT eval and treat Acute on chronic diastolic heart failure ?Pulmonary HTN: reviewed last echo, EF 50-55%, Pulmonary pressures not recorded. Schizophrenia: Continue Current meds, Hyperlipidemia: Continue statin Chronic Debility: PT/OT DVT/GI: Prophy DENIS COHEN: [phone] Patients Pulmonary Doctor is Dr Spears. Awaiting information from son on how to contract The high probability of a clinically significant, sudden or life threatening deterioration of the [Pulmonary] system(s) required my full and direct attention, intervention and personal management. The aggregate critical care time was [45] minutes. This time is in addition to time spent performing reported procedures but includes the following: [x] Data Review and interpretation [x] Patient assessment and monitoring of vital signs [x] Documentation [x] Medication orders and management History Interval history: Patient seen and examined, with noteable increased work of breathing this aftern oon. no chest pain reported Hospitalist Physical - Physical exam Narrative exam: Gen. 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 alert no focal deficit, poor historian - Constitutional Vitals: Temp Pulse Resp BP Pulse Ox 98.0 F 116 H 23 130/79 93 11/15/18 07:49 11/15/18 14:20 11/15/18 14:20 11/15/18 13:07 11/15/18 14:20 General appearance: Present: mild distress Results - Labs CBC & Chem 7: 11/12/18 17:14 11/12/18 17:14 Labs: Laboratory Last Values WBC 4.4 K/mm3 (4.5-11.0) L 11/12/18 17:14 RBC 4.10 M/mm3 (3.65-5.03) 11/12/18 17:14 Hgb 9.7 gm/dl (10.1-14.3) L 11/12/18 17:14 Hct 32.6 % (30.3-42.9) 11/12/18 17:14 MCV 80 fl (79-97) 11/12/18 17:14 MCH 24 pg (28-32) L 11/12/18 17:14 MCHC 30 % (30-34) 11/12/18 17:14 RDW 17.3 % (13.2-15.2) H 11/12/18 17:14 Plt Count 199 K/mm3 (140-440) 11/12/18 17:14 Lymph % (Auto) 5.4 % (13.4-35.0) L 11/12/18 17:14 [place] % (Auto) 3.5 % (0.0-7.3) 11/12/18 17:14 Eos % (Auto) 0.4 % (0.0-4.3) 11/12/18 17:14 Baso % (Auto) 1.4 % (0.0-1.8) 11/12/18 17:14 Lymph # 0.2 K/mm3 (1.2-5.4) L 11/12/18 17:14 [place] # 0.2 K/mm3 (0.0-0.8) 11/12/18 17:14 Eos # 0.0 K/mm3 (0.0-0.4) 11/12/18 17:14 Baso # 0.1 K/mm3 (0.0-0.1) 11/12/18 17:14 Seg Neutrophils % 89.3 % (40.0-70.0) H 11/12/18 17:14 Seg Neutrophils # 4.0 K/mm3 (1.8-7.7) 11/12/18 17:14 Sodium 140 mmol/L (137-145) 11/12/18 17:14 Potassium 4.1 mmol/L (3.6-5.0) 11/12/18 17:14 Chloride 97.1 mmol/L (98-107) L 11/12/18 17:14 Carbon Dioxide 39 mmol/L (22-30) H 11/12/18 17:14 Anion Gap 8 mmol/L 11/12/18 17:14 BUN 25 mg/dL (7-17) H 11/12/18 17:14 Creatinine 0.5 mg/dL (0.7-1.2) L 11/12/18 17:14 Estimated GFR > 60 ml/min 11/12/18 17:14 BUN/Creatinine Ratio 50 % 11/12/18 17:14 Glucose 140 mg/dL (65-100) H 11/12/18 17:14 Lactic Acid 0.60 mmol/L (0.7-2.0) L 11/12/18 17:14 Calcium 8.8 mg/dL (8.4-10.2) 11/12/18 17:14 Magnesium 1.90 mg/dL (1.7-2.3) 11/12/18 19:49 Total Bilirubin < 0.20 mg/dL (0.1-1.2) 11/12/18 17:14 AST 25 units/L (5-40) 11/12/18 17:14 ALT 32 units/L (7-56) 11/12/18 17:14 Alkaline Phosphatase 79 units/L (35-129) 11/12/18 17:14 Total Creatine Kinase 31 units/L (30-135) 11/14/18 21:32 CK-MB (CK-2) 4.2 ng/mL (0.0-4.0) H 11/14/18 21:32 CK-MB (CK-2) Rel Index 13.5 (0-4) H 11/14/18 21:32 Troponin T 0.010 ng/mL (0.00-0.029) 11/13/18 17:01 NT-Pro-B Natriuret Pep 2599 pg/mL (0-900) H 11/12/18 19:49 Total Protein 6.1 g/dL (6.3-8.2) L 11/12/18 17:14 Albumin 3.7 g/dL (3.9-5) L 11/12/18 17:14 Albumin/Globulin Ratio 1.5 % 11/12/18 17:14 Triglycerides 67 mg/dL (2-149) 11/12/18 17:14 Cholesterol 179 mg/dL (50-199) 11/12/18 17:14 LDL Cholesterol Direct 109 mg/dL (50-130) 11/12/18 17:14 HDL Cholesterol 71 mg/dL (40-59) H 11/12/18 17:14 Cholesterol/HDL Ratio 2.52 % 11/12/18 17:14 TSH 0.409 mlU/mL (0.270-4.200) 11/12/18 19:49 Free T4 1.07 ng/dL (0.76-1.46) 11/12/18 19:49 Urine Color Yellow (Yellow) 11/13/18 03:47 Urine Turbidity Clear (Clear) 11/13/18 03:47 Urine pH 6.0 (5.0-7.0) 11/13/18 03:47 Ur Specific Center > 1.059 (1.003-1.030) H 11/13/18 03:47 Urine Protein <15 mg/dl mg/dL (Negative) 11/13/18 03:47 Urine Glucose (UA) Neg mg/dL (Negative) 11/13/18 03:47 Urine Ketones Neg mg/dL (Negative) 11/13/18 03:47 Urine Blood Neg (Negative) 11/13/18 03:47 Urine Nitrite Neg (Negative) 11/13/18 03:47 Urine Bilirubin Neg (Negative) 11/13/18 03:47 Urine Urobilinogen < 2.0 mg/dL (<2.0) 11/13/18 03:47 Ur Leukocyte Esterase Neg (Negative) 11/13/18 03:47 Urine WBC (Auto) < 1.0 /HPF (0.0-6.0) 11/13/18 03:47 Urine RBC (Auto) 1.0 /HPF (0.0-6.0) 11/13/18 03:47 U Epithel Cells (Auto) 1.0 /HPF (0-13.0) 11/13/18 03:47 Active Medications - Current Medications Current Medications: Generic Name Dose Route Start Last Admin Trade Name Freq PRN Reason Stop Dose Admin Acetaminophen 650 mg 11/12/18 20:11 Tylenol PO Q4H PRN Pain MILD(1-3)/Fever >100.5/LOU Acetazolamide 250 mg 11/12/18 22:00 11/15/18 10:33 Diamox PO 250 mg BID GABRIEL Administration Albuterol 2.5 mg 11/12/18 20:11 Proventil IH Q4HRT PRN Shortness Of Breath Apixaban 5 mg 11/12/18 22:00 11/15/18 10:37 Eliquis PO 5 mg Q12HR GABRIEL Administration Protocol Arformoterol Tartrate 15 mcg 11/13/18 08:00 11/15/18 09:17 Brovana Nebu IH 15 mcg Q12HRT GABRIEL Administration Aripiprazole 5 mg 11/13/18 10:00 11/15/18 10:34 Abilify PO 5 mg DAILY GABRIEL Administration Aspirin 81 mg 11/13/18 10:00 11/15/18 10:38 Halfprin Ec PO 81 mg QDAY GABRIEL Administration Azithromycin 500 mg 11/16/18 10:00 Zithromax PO 11/17/18 10:01 QDAY GABRIEL Budesonide 0.5 mg 11/14/18 08:03 11/15/18 09:17 Pulmicort IH 0.5 mg Q12HRT GABRIEL Administration Bupropion HCl 300 mg 11/13/18 10:00 11/15/18 10:35 Wellbutrin Xl PO 300 mg QDAY GABRIEL Administration Furosemide 40 mg 11/13/18 10:00 11/15/18 10:37 Lasix PO 40 mg QAM GABRIEL Administration Furosemide 20 mg 11/15/18 16:00 Lasix IV 11/15/18 16:01 ONCE ONE Lactulose 20 gm 11/15/18 12:00 11/15/18 13:26 Cephulac PO 11/15/18 18:01 20 gm Q6HR GABRIEL Administration Levothyroxine Sodium 125 mcg 11/13/18 06:00 11/15/18 06:29 Synthroid PO 125 mcg QAM@0600 GABRIEL Administration Lisinopril 2.5 mg 11/13/18 10:00 11/15/18 10:49 Zestril PO Not Given QDAY GABRIEL Loratadine 10 mg 11/13/18 10:00 11/15/18 10:37 Claritin PO 10 mg QDAY GABRIEL Administration Methylprednisolone Sodium Succinate 60 mg 11/15/18 16:00 Solu-Medrol IV Q6H [facility] Metoprolol Tartrate 25 mg 11/14/18 15:00 11/15/18 10:48 Lopressor PO Not Given BID [facility] Ondansetron HCl 4 mg 11/12/18 20:11 Zofran IV Q8H PRN Nausea And Vomiting Pantoprazole Sodium 20 mg 11/13/18 10:00 11/15/18 10:38 Protonix PO 20 mg DAILY [facility] Administration Pravastatin Sodium 20 mg 11/12/18 22:00 11/14/18 23:46 Pravachol PO Not Given QHS [facility] Senna/Docusate Sodium 2 tab 11/15/18 10:00 Senokot S PO Q12H PRN Laxative Effect Sodium Chloride 10 ml 11/12/18 22:00 11/15/18 10:48 Sodium Chloride Flush Syringe 10 Ml IV 10 ml BID GABRIEL Administration Sodium Chloride 10 ml 11/12/18 20:11 Sodium Chloride Flush Syringe 10 Ml IV PRN PRN LINE FLUSH Tiotropium [place] 1 puff 11/13/18 10:00 11/13/18 19:51 Spiriva IH Not Given Q24HR [facility] Trazodone HCl 50 mg 11/12/18 22:00 11/14/18 22:25 Desyrel PO 50 mg HS GABRIEL Administration
[2018-11-15] MEDS ORDERED: LASIX IV ONE (16:00)
[2018-11-15] MEDS: SPIRIVA IH SCH (20:53)
[2018-11-15] MEDS: PRAVACHOL PO SCH (21:18)
[2018-11-15] MEDS: DESYREL PO SCH (21:19)
[2018-11-16] MEDS: SOLU-Medrol IV SCH ×4 (05:00→22:25)
[2018-11-16] MEDS: SYNTHROID PO SCH (05:12)
[2018-11-16] MEDS: PULMICORT IH SCH ×2 (07:52→20:09)
[2018-11-16] MEDS: BROVANA NEBU IH SCH ×2 (07:52→20:09)
[2018-11-16] MEDS: SODIUM CHLORIDE FLUSH SYRINGE 10 ML IV SCH ×2 (09:32→21:59)
[2018-11-16] MEDS: CLARITIN PO SCH (09:33)
[2018-11-16] MEDS: ELIQUIS PO SCH ×2 (09:33→21:57)
[2018-11-16] MEDS: HALFPRIN EC PO SCH (09:33)
[2018-11-16] MEDS: ZITHROMAX PO SCH (09:34)
[2018-11-16] MEDS: LASIX PO SCH (09:34)
[2018-11-16] MEDS: PROTONIX PO SCH (09:34)
[2018-11-16] MEDS: ABILIFY PO SCH (09:35)
[2018-11-16] MEDS: WELLBUTRIN XL PO SCH (09:36)
[2018-11-16] MEDS: DIAMOX PO SCH ×2 (09:37→22:00)
[2018-11-16] MEDS: LOPRESSOR PO SCH ×2 (09:38→21:56)
[2018-11-16] MEDS: ZESTRIL PO SCH (09:39)
--- NOTE | 2018-11-16 11:19 | Progress Note ---
Assessment and Plan 67 y/o female with known COPD, and chronic respiratory failure admitted with dyspnea. 1. Continue PRN and QHS bipap therapy 2. Will transfer to [facility] for closer monitoring 3. Continue steroids at 60q6 for now 4. continue BID pulmicort and brovana 5. Await BMP, but may need to stop diamox and use only lasix therapy. Assume this was started secondary to chronic metabolic alkalosis but this is compensatory for patients' COPD with hypercapnea. Subjective Date of service: 11/16/18 Principal diagnosis: COPD Interval history: Tolerated bipap therapy well, but remains dyspnic when speaking. Still using accessory muscles. Spoke with Brother Scott Zamora/Sirisha on the phone at bedside with patient. Objective Vital Signs - 12hr 11/16/18 11/16/18 11/16/18 02:27 04:00 07:21 Temperature 97.9 F 98.0 F Pulse Rate 80 60 53 L Pulse Rate [ Anterior Bilateral Throughout] Pulse Rate [ Throughout] Respiratory 20 23 20 Rate Respiratory Rate [Anterior Bilateral Throughout] Respiratory Rate [ Throughout] Blood Pressure 116/62 103/62 O2 Sat by Pulse 93 95 93 Oximetry 11/16/18 11/16/18 11/16/18 07:53 07:54 09:38 Temperature Pulse Rate Pulse Rate [ 60 Anterior Bilateral Throughout] Pulse Rate [ 64 Throughout] Respiratory Rate Respiratory 16 Rate [Anterior Bilateral Throughout] Respiratory 18 Rate [ Throughout] Blood Pressure 103/62 O2 Sat by Pulse 97 Oximetry 11/16/18 11/16/18 09:39 10:00 Temperature Pulse Rate 60 60 Pulse Rate [ Anterior Bilateral Throughout] Pulse Rate [ Throughout] Respiratory Rate Respiratory Rate [Anterior Bilateral Throughout] Respiratory Rate [ Throughout] Blood Pressure 103/62 O2 Sat by Pulse Oximetry Constitutional: alert, appears uncomfortable Eyes: non-icteric ENT: oropharynx moist Neck: supple Effort: mildly labored Ascultation: Bilateral: diminished breath sounds, wheezes Percussion: Bilateral: not dull Tactile fremitus: Bilateral: normal Cardiovascular: other (sinus tachycardia) Extremities: no edema, pink and warm CBC and BMP: 11/12/18 17:14 11/12/18 17:14 Abnormal lab findings: Abnormal Labs 11/12/18 11/12/18 11/12/18 17:14 17:14 17:14 WBC 4.4 L Hgb 9.7 L MCH 24 L RDW 17.3 H Lymph % (Auto) 5.4 L Lymph # 0.2 L Seg Neutrophils % 89.3 H Chloride 97.1 L Carbon Dioxide 39 H BUN 25 H Creatinine 0.5 L Glucose 140 H Lactic Acid 0.60 L CK-MB (CK-2) 11.4 H CK-MB (CK-2) Rel Index 18.3 H Troponin T 0.042 H NT-Pro-B Natriuret Pep Total Protein 6.1 L Albumin 3.7 L HDL Cholesterol 71 H Ur Specific [place] 11/12/18 11/12/18 11/13/18 18:13 19:49 03:47 WBC Hgb MCH RDW Lymph % (Auto) Lymph # Seg Neutrophils % Chloride Carbon Dioxide BUN Creatinine Glucose Lactic Acid CK-MB (CK-2) CK-MB (CK-2) Rel Index Troponin T NT-Pro-B Natriuret Pep 2696 H 2599 H Total Protein Albumin HDL Cholesterol Ur Specific [place] > 1.059 H 11/13/18 11/14/18 11/14/18 21:30 10:32 14:43 WBC Hgb MCH RDW Lymph % (Auto) Lymph # Seg Neutrophils % Chloride Carbon Dioxide BUN Creatinine Glucose Lactic Acid CK-MB (CK-2) 4.8 H 4.7 H 4.1 H CK-MB (CK-2) Rel Index 15.0 H 14.6 H 11.7 H Troponin T NT-Pro-B Natriuret Pep Total Protein Albumin HDL Cholesterol Ur Specific [place] 11/14/18 21:32 WBC Hgb MCH RDW Lymph % (Auto) Lymph # Seg Neutrophils % Chloride Carbon Dioxide BUN Creatinine Glucose Lactic Acid CK-MB (CK-2) 4.2 H CK-MB (CK-2) Rel Index 13.5 H Troponin T NT-Pro-B Natriuret Pep Total Protein Albumin HDL Cholesterol Ur Specific [place]
--- NOTE | 2018-11-16 11:43 | Progress Note ---
Assessment and Plan COPD exacerbation / end stage COPD Pulmonary following. Hospice may be an appropriate option at this point. This was d/w Dr. Silva yesterday. Will defer to primary / pulmonary. Acute on chronic respiratory failure Pulmonary following. Paroxysmal A-fib Currently in SR. Cont Eliquis and lopressor. CAD Lexiscan MPI stress test done 08/2018 showed partially reversible apical defect. LHC done 10/14/2018 showed 100% distal lcx, 100% distal LAD, EF 45%. Cont present medical management. HTN Stable. Minimally elevated troponin Pt denies chest pain, ECG with no acute ischemic changes. Currently nonspecific. Lexiscan MPI stress test done 08/2018 showed partially reversible apical defect. LHC done 10/14/2018 showed 100% distal lcx, 100% distal LAD, EF 45%. Medical management was recommended. Currently stable cardiac status. Nothing further to add from cardiac perspective at this time. Will sign off. Recommend that she follow up with either her primary cardiology team at [facility] or in our office with Dr. Coker within 1-2 weeks of hospital discharge ([phone]). The patient has been seen in conjunction with Dr. Negro who agrees with the assessment and plan of care. Subjective Date of service: 11/16/18 Principal diagnosis: COPD Interval history: pt sitting up in chair, attempting to exercise with PT but desats with minimal activity. Objective Last Vital Signs Temp 98.0 F 11/16/18 07:21 Pulse 60 11/16/18 10:00 Resp 16 11/16/18 07:54 BP 103/62 11/16/18 09:39 Pulse Ox 97 11/16/18 07:53 - Physical Examination General: No Apparent Distress HEENT: Positive: PERRL Neck: Positive: neck supple Cardiac: Positive: Reg Rate and Rhythm, S1/S2 Lungs: Positive: Decreased Breath Sounds, Wheezes, Oxygen Neuro: Positive: Grossly Intact Abdomen: Positive: Unremarkable Skin: Negative: Rash Extremities: Absent: edema - Telemetry EKG Rhythm: Sinus Rhythm
--- NOTE | 2018-11-16 12:37 | Progress Note ---
Assessment and Plan Assessment and plan: Patient is a 67 yo woman from [facility] with a history of HTN, Dementia, Chronic Respiratory Failure on 2L Home oxygen due to End-stage COPD, HLD, Hypothyroidism, Depression, Schizophrenia and Atrial Fib on Therapeutic Anticoagulation (Eliquis) presented to [facility] ED with SOB. Pt was found to have a pulse oximetry of 82% on room air. EMS was was notified, and patient placed on supplemental oxygen and transported to [facility] ED. Patient has been in and out of the hospital many times this year for COPD. She was recently admitted here on 10/23/18; during that last admission she was intubated due to COPD and also treated for Afib. She was successfully extubated and discharged on 11/03/18. She comes back on 11/12/18 with another COPD exacerbation. I d/w burn nurse, Dr. Waldron and he recommends LTAC but she has to have a 3 day stay in IMCU/ICU; so he recommends transferring to [facility]. * MRI cervical spine; multilevel bilateral neural foramina narrowing secondary to disc osteophyte complex and vertebral joint hypertrophy. No central canal spinal stenosis or cord edema. * Chest x-ray; no infiltrate * CTA CHEST: Cardiomegaly. No CT evidence of pulmonary thromboembolic disease. COPD. Suspected pulmonary hypertension . Acute on chronic respiratory failure: Nebs, steroids, Continue oxygen, pulmonology following, off bipap today Acute COPD exacerbation / end stage COPD: Nebs, steroids, Continue oxygen, pulmonology following, off bipap today P. Atrial Fibrillation with hypercoagulable states: Currently in SR. Cont Eliquis and lopressor. Acute Metabolic Encephalopathy: obtain and MRI head when medically stable. SIRS without acute organ dysfunction: continue to monitor Type 2 NSTEMI with CAD [facility] done 10/14/2018 showed 100% distal lcx, 100% distal LAD, EF 45%. Medical management was recommended. : Cardiology consulted, input noted Ataxia, Chronic debility: PT/OT eval and treat Acute on chronic diastolic heart failure, resolved: Cardiology did evaluate Pulmonary HTN: Last echo, EF 50-55%, Pulmonary pressures not recorded. Schizophrenia: Continue Current meds, Hyperlipidemia: Continue statin Chronic Debility: PT/OT Anxiety: Mental health consult Anemia: STABLE Bradycardia, now resolved Hypothyroidism: synthroid DVT/GI: Prophy Disposition: continue inpatient care, transfer to [facility] in order to qualify for LTAC for pulmonary rehab as patient has at least 5 admission for COPD this year. History Interval history: Patient was seen and examined. Follow-up on current diagnosis. Overnight uneventful. Patient denies any chest pain, shortness breath, nausea/vomiting or severe headaches. Imaging, nursing note, chart, labs and old chart reviewed. Discussed with patient. Gen: WDWN, NAD, Awake, Alert, Orientated HEENT: NCAT, EOMI, PERRL, OP Clear Neck: supple, no adenopathy, no thyromegaly, no JVD CVS/Heart: RRR, normal S1S2, pulses present bilaterally Chest/Lungs: CTA B, Symmetrical chest expansion, good air entry bilaterally GI/Abdomen: soft, NTND, good bowel sounds, no guarding or rebound /Bladder: no suprapubic tenderness, no CVA or paraspinal tenderness Extermity/Skin: no c/c/e, no obvious rash MSK: FROM x 4 Neuro: CN 2-12 grossly intact, no new focal deficits Psych: calm Hospitalist Physical - Constitutional Vitals: Temp Pulse Resp BP Pulse Ox 98.0 F 60 16 103/62 97 11/16/18 07:21 11/16/18 10:00 11/16/18 07:54 11/16/18 09:39 11/16/18 07:53 General appearance: Present: mild distress Results - Labs CBC & Chem 7: 11/12/18 17:14 11/12/18 17:14 Labs: Laboratory Last Values WBC 4.4 K/mm3 (4.5-11.0) L 11/12/18 17:14 RBC 4.10 M/mm3 (3.65-5.03) 11/12/18 17:14 Hgb 9.7 gm/dl (10.1-14.3) L 11/12/18 17:14 Hct 32.6 % (30.3-42.9) 11/12/18 17:14 MCV 80 fl (79-97) 11/12/18 17:14 MCH 24 pg (28-32) L 11/12/18 17:14 MCHC 30 % (30-34) 11/12/18 17:14 RDW 17.3 % (13.2-15.2) H 11/12/18 17:14 Plt Count 199 K/mm3 (140-440) 11/12/18 17:14 Lymph % (Auto) 5.4 % (13.4-35.0) L 11/12/18 17:14 [place] % (Auto) 3.5 % (0.0-7.3) 11/12/18 17:14 Eos % (Auto) 0.4 % (0.0-4.3) 11/12/18 17:14 Baso % (Auto) 1.4 % (0.0-1.8) 11/12/18 17:14 Lymph # 0.2 K/mm3 (1.2-5.4) L 11/12/18 17:14 [place] # 0.2 K/mm3 (0.0-0.8) 11/12/18 17:14 Eos # 0.0 K/mm3 (0.0-0.4) 11/12/18 17:14 Baso # 0.1 K/mm3 (0.0-0.1) 11/12/18 17:14 Seg Neutrophils % 89.3 % (40.0-70.0) H 11/12/18 17:14 Seg Neutrophils # 4.0 K/mm3 (1.8-7.7) 11/12/18 17:14 Sodium 140 mmol/L (137-145) 11/12/18 17:14 Potassium 4.1 mmol/L (3.6-5.0) 11/12/18 17:14 Chloride 97.1 mmol/L (98-107) L 11/12/18 17:14 Carbon Dioxide 39 mmol/L (22-30) H 11/12/18 17:14 Anion Gap 8 mmol/L 11/12/18 17:14 BUN 25 mg/dL (7-17) H 11/12/18 17:14 Creatinine 0.5 mg/dL (0.7-1.2) L 11/12/18 17:14 Estimated GFR > 60 ml/min 11/12/18 17:14 BUN/Creatinine Ratio 50 % 11/12/18 17:14 Glucose 140 mg/dL (65-100) H 11/12/18 17:14 Lactic Acid 0.60 mmol/L (0.7-2.0) L 11/12/18 17:14 Calcium 8.8 mg/dL (8.4-10.2) 11/12/18 17:14 Magnesium 1.90 mg/dL (1.7-2.3) 11/12/18 19:49 Total Bilirubin < 0.20 mg/dL (0.1-1.2) 11/12/18 17:14 AST 25 units/L (5-40) 11/12/18 17:14 ALT 32 units/L (7-56) 11/12/18 17:14 Alkaline Phosphatase 79 units/L (35-129) 11/12/18 17:14 Total Creatine Kinase 31 units/L (30-135) 11/14/18 21:32 CK-MB (CK-2) 4.2 ng/mL (0.0-4.0) H 11/14/18 21:32 CK-MB (CK-2) Rel Index 13.5 (0-4) H 11/14/18 21:32 Troponin T 0.010 ng/mL (0.00-0.029) 11/13/18 17:01 NT-Pro-B Natriuret Pep 2599 pg/mL (0-900) H 11/12/18 19:49 Total Protein 6.1 g/dL (6.3-8.2) L 11/12/18 17:14 Albumin 3.7 g/dL (3.9-5) L 11/12/18 17:14 Albumin/Globulin Ratio 1.5 % 11/12/18 17:14 Triglycerides 67 mg/dL (2-149) 11/12/18 17:14 Cholesterol 179 mg/dL (50-199) 11/12/18 17:14 LDL Cholesterol Direct 109 mg/dL (50-130) 11/12/18 17:14 HDL Cholesterol 71 mg/dL (40-59) H 11/12/18 17:14 Cholesterol/HDL Ratio 2.52 % 11/12/18 17:14 TSH 0.409 mlU/mL (0.270-4.200) 11/12/18 19:49 Free T4 1.07 ng/dL (0.76-1.46) 11/12/18 19:49 Urine Color Yellow (Yellow) 11/13/18 03:47 Urine Turbidity Clear (Clear) 11/13/18 03:47 Urine pH 6.0 (5.0-7.0) 11/13/18 03:47 Ur Specific [place] > 1.059 (1.003-1.030) H 11/13/18 03:47 Urine Protein <15 mg/dl mg/dL (Negative) 11/13/18 03:47 Urine Glucose (UA) Neg mg/dL (Negative) 11/13/18 03:47 Urine Ketones Neg mg/dL (Negative) 11/13/18 03:47 Urine Blood Neg (Negative) 11/13/18 03:47 Urine Nitrite Neg (Negative) 11/13/18 03:47 Urine Bilirubin Neg (Negative) 11/13/18 03:47 Urine Urobilinogen < 2.0 mg/dL (<2.0) 11/13/18 03:47 Ur Leukocyte Esterase Neg (Negative) 11/13/18 03:47 Urine WBC (Auto) < 1.0 /HPF (0.0-6.0) 11/13/18 03:47 Urine RBC (Auto) 1.0 /HPF (0.0-6.0) 11/13/18 03:47 U Epithel Cells (Auto) 1.0 /HPF (0-13.0) 11/13/18 03:47 Active Medications - Current Medications Current Medications: Generic Name Dose Route Start Last Admin Trade Name Freq PRN Reason Stop Dose Admin Acetaminophen 650 mg 11/12/18 20:11 Tylenol PO Q4H PRN Pain MILD(1-3)/Fever >100.5/LOU Acetazolamide 250 mg 11/12/18 22:00 11/16/18 09:37 Diamox PO 250 mg BID GABRIEL Administration Albuterol 2.5 mg 11/12/18 20:11 Proventil IH Q4HRT PRN Shortness Of Breath Apixaban 5 mg 11/12/18 22:00 11/16/18 09:33 Eliquis PO 5 mg Q12HR GABRIEL Administration Protocol Arformoterol Tartrate 15 mcg 11/13/18 08:00 11/16/18 07:52 Brovana Nebu IH 15 mcg Q12HRT GABRIEL Administration Aripiprazole 5 mg 11/13/18 10:00 11/16/18 09:35 Abilify PO 5 mg DAILY GABRIEL Administration Aspirin 81 mg 11/13/18 10:00 11/16/18 09:33 Halfprin Ec PO 81 mg QDAY GABRIEL Administration Azithromycin 500 mg 11/16/18 10:00 11/16/18 09:34 Zithromax PO 11/17/18 10:01 500 mg QDAY GABRIEL Administration Budesonide 0.5 mg 11/14/18 08:03 11/16/18 07:52 Pulmicort IH 0.5 mg Q12HRT AGBRIEL Administration Bupropion HCl 300 mg 11/13/18 10:00 11/16/18 09:36 Wellbutrin Xl PO 300 mg QDAY GABRIEL Administration Furosemide 40 mg 11/13/18 10:00 11/16/18 09:34 Lasix PO 40 mg QAM GABRIEL Administration Furosemide 20 mg 11/16/18 16:00 Lasix IV 11/16/18 16:01 ONCE ONE Levothyroxine Sodium 125 mcg 11/13/18 06:00 11/16/18 05:12 Synthroid PO 125 mcg QAM@0600 GABRIEL Administration Lisinopril 2.5 mg 11/13/18 10:00 11/16/18 09:39 Zestril PO Not Given QDAY GABRIEL Loratadine 10 mg 11/13/18 10:00 11/16/18 09:33 Claritin PO 10 mg QDAY [facility] Administration Methylprednisolone Sodium Succinate 60 mg 11/15/18 16:00 11/16/18 09:32 Solu-Medrol IV 60 mg Q6H GABRIEL Administration Metoprolol Tartrate 25 mg 11/14/18 15:00 11/16/18 09:38 Lopressor PO Not Given BID GABRIEL Ondansetron HCl 4 mg 11/12/18 20:11 Zofran IV Q8H PRN Nausea And Vomiting Pantoprazole Sodium 20 mg 11/13/18 10:00 11/16/18 09:34 Protonix PO 20 mg DAILY GABRIEL Administration Pravastatin Sodium 20 mg 11/12/18 22:00 11/15/18 21:18 Pravachol PO 20 mg QHS GABRIEL Administration Senna/Docusate Sodium 2 tab 11/15/18 10:00 Senokot S PO Q12H PRN Laxative Effect Sodium Chloride 10 ml 11/12/18 22:00 11/16/18 09:32 Sodium Chloride Flush Syringe 10 Ml IV 10 ml BID GABRIEL Administration Sodium Chloride 10 ml 11/12/18 20:11 Sodium Chloride Flush Syringe 10 Ml IV PRN PRN LINE FLUSH Tiotropium [place] 1 puff 11/13/18 10:00 11/15/18 20:53 Spiriva IH Not Given Q24HR GABRIEL Trazodone HCl 50 mg 11/12/18 22:00 11/15/18 21:19 Desyrel PO 50 mg HS GABRIEL Administration
[2018-11-16 13:33] LABS: BUN/Creatinine Ratio 44; Blood Urea Nitrogen 22 mg/dL (7-17); Calcium 9.1 mg/dL (8.4-10.2); Hemolysis Index 3
--- NOTE | 2018-11-16 13:42 | Consultation ---
History of Present Illness - Reason for Consult Consult date: 11/16/18 Reason for consult: [facility] Evaluation Requesting physician: TIP BROWN - Chief Complaint Chief complaint: "I am doing okay so far" - History of Present Psychiatric Illness 7-year-old AA female who presented to the ER vaishali BRADY. Psychiatry was consulted to see the patient for medication mgmt. Today the patient is calm and cooperative during the assessment. She stated that she was dx with depression several yrs ago when her son of a "heart attack." She stated that she have been antidepressants for several yrs. She stated that her current medication regime consist of Trazodone, Abilify, and Wellbutrin that has been effective. She stated that she is seen at [facility] for outpatient psy services. She denies any previous suicide attempts when asked. She denies SI/HI's and AVH's. She denies erratic sleep and a poor appetite. She denies recreational drug use and alcohol consumption (etoh). Medications and Allergies Allergies Allergy/AdvReac Type Severity Reaction Status Date / Time ibuprofen [From Motrin] AdvReac Shortness Verified 10/25/18 08:15 of Breath nickel AdvReac Rash Verified 10/25/18 08:15 Home Medications Medication Instructions Recorded Confirmed Last Taken Type ARIPiprazole [Abilify TAB] 5 mg PO DAILY 01/02/15 11/13/18 01/08/15 History Acetaminophen [Acetaminophen TAB] 650 mg PO Q4H PRN 01/02/15 11/13/18 01/07/15 History Albuterol Sulfate [Proair Hfa] 2 puff IH Q8H PRN 01/02/15 11/13/18 01/09/15 History Budesoni/Formotero 160-4.5(Nf) 2 puff IH BID 01/02/15 11/13/18 01/09/15 History [Symbicort 160-4.5 (Nf)] Cetirizine HCl [ZyrTEC] 10 mg PO QDAY 01/02/15 11/13/18 01/08/15 History Levothyroxine [Synthroid] 0.125 mcg PO QAM 01/02/15 11/13/18 01/09/15 History Lisinopril 2.5 mg PO QDAY 01/02/15 11/13/18 01/09/15 History Simvastatin 5 mg PO QHS 01/02/15 11/13/18 01/08/15 History buPROPion XL [Wellbutrin XL] 300 mg PO QDAY 01/02/15 11/13/18 01/08/15 History Omeprazole Magnesium [PriLOSEC Otc] 20 mg PO DAILY 10/25/18 11/13/18 Unknown History acetaZOLAMIDE ER [Diamox Sequels] 500 mg PO Q12HR 10/25/18 11/13/18 Unknown History traZODone [Desyrel] 50 mg PO HS 10/25/18 11/13/18 Unknown History Albuterol Sulfate [Albuterol 0.63% 0.63 mg IH TID PRN #120 neb 10/27/18 11/13/18 Unknown Rx NEBS] Aspirin EC [Aspirin Enteric Coated 81 mg PO QDAY #30 tablet. 10/27/18 11/13/18 Unknown Rx TAB] Furosemide [Lasix TAB] 40 mg PO QAM #30 tablet 10/27/18 11/13/18 Unknown Rx Tiotropium [place] [Spiriva 1 each IH DAILY #1 mist.inhal 10/27/18 11/13/18 Unknown Rx Respimat] Apixaban [Eliquis] 5 mg PO Q12HR tablet 11/03/18 11/13/18 Unknown Rx Metoprolol [Lopressor TAB] 12.5 mg PO Q8HR tablet 11/03/18 11/13/18 Unknown Rx predniSONE [Deltasone] 2.5 mg PO QDAY 7 Days tablet 11/03/18 11/13/18 Unknown Rx Active Meds: Active Medications Acetaminophen (Tylenol) 650 mg PO Q4H PRN PRN Reason: Pain MILD(1-3)/Fever >100.5/LOU Acetazolamide (Diamox) 250 mg PO BID [facility] Last Admin: 11/16/18 09:37 Dose: 250 mg Documented by: Albuterol (Proventil) 2.5 mg IH Q4HRT PRN PRN Reason: Shortness Of Breath Apixaban (Eliquis) 5 mg PO Q12HR GABRIEL; Protocol Last Admin: 11/16/18 09:33 Dose: 5 mg Documented by: Arformoterol Tartrate (Brovana Nebu) 15 mcg IH Q12HRT GABRIEL Last Admin: 11/16/18 07:52 Dose: 15 mcg Documented by: Aripiprazole (Abilify) 5 mg PO DAILY [facility] Last Admin: 11/16/18 09:35 Dose: 5 mg Documented by: Aspirin (Halfprin Ec) 81 mg PO QDAY [facility] Last Admin: 11/16/18 09:33 Dose: 81 mg Documented by: Azithromycin (Zithromax) 500 mg PO QDAY [facility] Stop: 11/17/18 10:01 Last Admin: 11/16/18 09:34 Dose: 500 mg Documented by: Budesonide (Pulmicort) 0.5 mg IH Q12HRT [facility] Last Admin: 11/16/18 07:52 Dose: 0.5 mg Documented by: Bupropion HCl (Wellbutrin Xl) 300 mg PO QDAY [facility] Last Admin: 11/16/18 09:36 Dose: 300 mg Documented by: Furosemide (Lasix) 40 mg PO QAM [facility] Last Admin: 11/16/18 09:34 Dose: 40 mg Documented by: Furosemide (Lasix) 20 mg IV ONCE ONE Stop: 11/16/18 16:01 Levothyroxine Sodium (Synthroid) 125 mcg PO QAM@0600 [facility] Last Admin: 11/16/18 05:12 Dose: 125 mcg Documented by: Lisinopril (Zestril) 2.5 mg PO QDAY [facility] Last Admin: 11/16/18 09:39 Dose: Not Given Documented by: Loratadine (Claritin) 10 mg PO QDAY [facility] Last Admin: 11/16/18 09:33 Dose: 10 mg Documented by: Methylprednisolone Sodium Succinate (Solu-Medrol) 60 mg IV Q6H [facility] Last Admin: 11/16/18 09:32 Dose: 60 mg Documented by: Metoprolol Tartrate (Lopressor) 25 mg PO BID [facility] Last Admin: 11/16/18 09:38 Dose: Not Given Documented by: Ondansetron HCl (Zofran) 4 mg IV Q8H PRN PRN Reason: Nausea And Vomiting Pantoprazole Sodium (Protonix) 20 mg PO DAILY [facility] Last Admin: 11/16/18 09:34 Dose: 20 mg Documented by: Pravastatin Sodium (Pravachol) 20 mg PO QHS [facility] Last Admin: 11/15/18 21:18 Dose: 20 mg Documented by: Senna/Docusate Sodium (Senokot S) 2 tab PO Q12H PRN PRN Reason: Laxative Effect Sodium Chloride (Sodium Chloride Flush Syringe 10 Ml) 10 ml IV BID [facility] Last Admin: 11/16/18 09:32 Dose: 10 ml Documented by: Sodium Chloride (Sodium Chloride Flush Syringe 10 Ml) 10 ml IV PRN PRN PRN Reason: LINE FLUSH Tiotropium [place] (Spiriva) 1 puff IH Q24HR [facility] Last Admin: 11/15/18 20:53 Dose: Not Given Documented by: Trazodone HCl (Desyrel) 50 mg PO HS [facility] Last Admin: 11/15/18 21:19 Dose: 50 mg Documented by: Past psychiatric history - Past Medical History Past Medical History: COPD, heart failure, hypertension, other (Asthma) Past Surgical History: No surgical history - past Psychiatric treatment and history psychiatric treatment history: Hx of depression. Denies a fam psy hx. - Social History Social history: lives with family Mental Status Exam - Vital signs Last Vital Signs Temp 98.0 F 11/16/18 07:21 Pulse 60 11/16/18 10:00 Resp 16 11/16/18 07:54 BP 103/62 11/16/18 09:39 Pulse Ox 97 11/16/18 07:53 - Exam Narrative exam: MSE: Appearance: calm, cooperative Behavior: regular eye contact Speech: regular rate and tone Mood: "well" Affect: congruent to mood Thought Process: linear Thought Content: denies SI/HI's and AVH's Motor Activity: sitting in the chair Cognition: A/O x3 Insight: appropriate Judgment: appropriate Results Result Diagrams: 11/12/18 17:14 11/16/18 12:34 Abnormal lab results 11/16/18 Range/Units 12:34 Chloride 90.8 L (98-107) mmol/L BUN 22 H (7-17) mg/dL Creatinine 0.5 L (0.7-1.2) mg/dL All other labs normal. Assessment and Plan Assessment and plan: Impression: Hx of Depression. Today the patient is calm and cooperative during the assessment . Recommendation/Plan: Continue home medications Abilify 5 mg PO daily for mood, Wellbutrin 300 mg po daily for depression, Trazodone 50 mg PO HS for sleep. Discussed possible suicidality/medication induced gaviota with the patient reference Trazodone. Also, discussed possible metabolic side effects of Abilify with the patient. Psy sign off. Dispo: The patient can follow up with [facility] for outpatient psy ser vices. Will staff with Dr Lorraine Salvador.
[2018-11-16] MEDS ORDERED: LASIX IV ONE (16:00)
[2018-11-16] MEDS: DESYREL PO SCH (21:56)
[2018-11-16] MEDS: PRAVACHOL PO SCH (21:59)
[2018-11-17] MEDS: SOLU-Medrol IV SCH ×4 (04:10→21:45)
[2018-11-17] MEDS: SYNTHROID PO SCH (06:26)
[2018-11-17] MEDS: PULMICORT IH SCH ×2 (08:56→19:46)
[2018-11-17] MEDS: BROVANA NEBU IH SCH ×2 (08:56→19:46)
[2018-11-17] MEDS: ABILIFY PO SCH (10:15)
[2018-11-17] MEDS: WELLBUTRIN XL PO SCH (10:15)
[2018-11-17] MEDS: DIAMOX PO SCH ×2 (10:15→21:46)
[2018-11-17] MEDS: ELIQUIS PO SCH ×2 (10:16→21:46)
[2018-11-17] MEDS: LASIX PO SCH (10:16)
[2018-11-17] MEDS: PROTONIX PO SCH (10:16)
[2018-11-17] MEDS: ZITHROMAX PO SCH (10:16)
[2018-11-17] MEDS: ZESTRIL PO SCH (10:17)
[2018-11-17] MEDS: LOPRESSOR PO SCH ×2 (10:17→21:46)
[2018-11-17] MEDS: SODIUM CHLORIDE FLUSH SYRINGE 10 ML IV SCH ×2 (10:18→21:49)
[2018-11-17] MEDS: CLARITIN PO SCH (10:18)
[2018-11-17] MEDS: HALFPRIN EC PO SCH (10:18)
--- NOTE | 2018-11-17 13:06 | Progress Note ---
Assessment and Plan 67 y/o female with known COPD, and chronic respiratory failure admitted with dyspnea. 1. Continue PRN and QHS bipap therapy 2. Continue IMCU monitoring given high risk of acute/chronic respiratory failure. 3. Continue steroids at 60q6 for now 4. continue BID pulmicort and brovana 5. Will continue diuretic therapy as is for now. Suggest repeat BMP either or Thursday 6. Will order PT consult. Subjective Date of service: 11/17/18 Principal diagnosis: COPD Interval history: No acute events. Stable in IMCU. Still with increased work of breathing above normal but stable. Sats vary in the high 80's. Patient has not been able to ambulate yet. Wore PPV last night and tolerated. Objective Vital Signs - 12hr 11/17/18 11/17/18 11/17/18 04:00 08:55 08:56 Temperature 98.6 F Pulse Rate [ Anterior Bilateral Throughout] Pulse Rate [ 86 Throughout] Respiratory Rate [Anterior Bilateral Throughout] Respiratory 25 H Rate [ Throughout] O2 Sat by Pulse 99 Oximetry 11/17/18 11/17/18 09:07 11:46 Temperature 98.7 F Pulse Rate [ 82 Anterior Bilateral Throughout] Pulse Rate [ 82 Throughout] Respiratory 22 Rate [Anterior Bilateral Throughout] Respiratory 22 Rate [ Throughout] O2 Sat by Pulse Oximetry Constitutional: alert, appears uncomfortable Eyes: non-icteric ENT: oropharynx moist Neck: supple Effort: mildly labored Ascultation: Bilateral: diminished breath sounds, wheezes Percussion: Bilateral: not dull Tactile fremitus: Bilateral: normal Cardiovascular: other (sinus tachycardia) Extremities: no edema, pink and warm CBC and BMP: 11/12/18 17:14 11/16/18 12:34 Abnormal lab findings: Abnormal Labs 11/12/18 11/12/18 11/12/18 17:14 17:14 17:14 WBC 4.4 L Hgb 9.7 L MCH 24 L RDW 17.3 H Lymph % (Auto) 5.4 L Lymph # 0.2 L Seg Neutrophils % 89.3 H Chloride 97.1 L Carbon Dioxide 39 H BUN 25 H Creatinine 0.5 L Glucose 140 H Lactic Acid 0.60 L CK-MB (CK-2) 11.4 H CK-MB (CK-2) Rel Index 18.3 H Troponin T 0.042 H NT-Pro-B Natriuret Pep Total Protein 6.1 L Albumin 3.7 L HDL Cholesterol 71 H Ur Specific [place] 11/12/18 11/12/18 11/13/18 18:13 19:49 03:47 WBC Hgb MCH RDW Lymph % (Auto) Lymph # Seg Neutrophils % Chloride Carbon Dioxide BUN Creatinine Glucose Lactic Acid CK-MB (CK-2) CK-MB (CK-2) Rel Index Troponin T NT-Pro-B Natriuret Pep 2696 H 2599 H Total Protein Albumin HDL Cholesterol Ur Specific [place] > 1.059 H 11/13/18 11/14/18 11/14/18 21:30 10:32 14:43 WBC Hgb MCH RDW Lymph % (Auto) Lymph # Seg Neutrophils % Chloride Carbon Dioxide BUN Creatinine Glucose Lactic Acid CK-MB (CK-2) 4.8 H 4.7 H 4.1 H CK-MB (CK-2) Rel Index 15.0 H 14.6 H 11.7 H Troponin T NT-Pro-B Natriuret Pep Total Protein Albumin HDL Cholesterol Ur Specific [place] 11/14/18 11/16/18 21:32 12:34 WBC Hgb MCH RDW Lymph % (Auto) Lymph # Seg Neutrophils % Chloride 90.8 L Carbon Dioxide 41 H* BUN 22 H Creatinine 0.5 L Glucose Lactic Acid CK-MB (CK-2) 4.2 H CK-MB (CK-2) Rel Index 13.5 H Troponin T NT-Pro-B Natriuret Pep Total Protein Albumin HDL Cholesterol Ur Specific [place]
--- NOTE | 2018-11-17 14:13 | Progress Note ---
Assessment and Plan Assessment and plan: Patient is a 67 yo woman from [facility] with a history of HTN, Dementia, Chronic Respiratory Failure on 2L Home oxygen due to End-stage COPD, HLD, Hypothyroidism, Depression, Schizophrenia and Atrial Fib on Therapeutic Anticoagulation (Eliquis) presented to [facility] ED with SOB. Pt was found to have a pulse oximetry of 82% on room air. EMS was was notified, and patient placed on supplemental oxygen and transported to [facility] ED. Patient has been in and out of the hospital many times this year for COPD. She was recently admitted here on 10/23/18; during that last admission she was intubated due to COPD and also treated for Afib. She was successfully extubated and discharged on 11/03/18. She comes back on 11/12/18 with another COPD exacerbation. I d/w police inspector, Dr. Waldron and he recommends LTAC but she has to have a 3 day stay in IMCU/ICU; so he recommends transferring to [facility]. * MRI cervical spine; multilevel bilateral neural foramina narrowing secondary to disc osteophyte complex and vertebral joint hypertrophy. No central canal spinal stenosis or cord edema. * Chest x-ray; no infiltrate * CTA CHEST: Cardiomegaly. No CT evidence of pulmonary thromboembolic disease. COPD. Suspected pulmonary hypertension Acute on chronic respiratory failure: Nebs, steroids, Continue oxygen, pulmonology following, off bipap today Acute COPD exacerbation/end stage COPD: Nebs, steroids, Continue oxygen, pulmonology following, off bipap today P. Atrial Fibrillation with hypercoagulable states: Currently in SR. Cont Eliquis and lopressor. Acute Metabolic Encephalopathy: obtain and MRI head when medically stable. SIRS without acute organ dysfunction: continue to monitor Type 2 NSTEMI with CAD [facility] done 10/14/2018 showed 100% distal lcx, 100% distal LAD, EF 45%. Medical management was recommended: Cardiology consulted, input noted Ataxia, Chronic debility: PT/OT eval and treat Acute on chronic diastolic heart failure, resolved: Cardiology did evaluate Pulmonary HTN: Last echo, EF 50-55%, Pulmonary pressures not recorded. Schizophrenia: Continue Current meds, Hyperlipidemia: Continue statin Chronic Debility: PT/OT Anxiety: Mental health consult Anemia: STABLE Bradycardia, now resolved Hypothyroidism: synthroid DVT/GI: Prophy Disposition: Continue inpatient care, transfer to [facility] in order to qualify for LTAC for pulmonary rehab as patient has at least 5 admission for COPD this year. 2:10pm d/w Brother, Scott Grimm @ [phone] History Interval history: Patient was seen and examined. Follow-up on current diagnosis. Overnight uneventful. Patient denies any chest pain, shortness breath, nausea/vomiting or severe headaches. Imaging, nursing note, chart, labs and old chart reviewed. Discussed with patient. Hospitalist Physical - Physical exam Narrative exam: Gen: WDWN, NAD, Awake, Alert, Orientated x 2 HEENT: NCAT, EOMI, PERRL, OP Clear Neck: supple, no adenopathy, no thyromegaly, no JVD CVS/Heart: RRR, normal S1S2, pulses present bilaterally Chest/Lungs: CTA B, Symmetrical chest expansion, good air entry bilaterally GI/Abdomen: soft, NTND, good bowel sounds, no guarding or rebound /Bladder: no suprapubic tenderness, no CVA or paraspinal tenderness Extermity/Skin: no c/c/e, no obvious rash MSK: FROM x 4 Neuro: CN 2-12 grossly intact, no new focal deficits Psych: calm - Constitutional Vitals: Temp Pulse Resp BP Pulse Ox 98.7 F 82 22 123/75 99 11/17/18 11:46 11/17/18 09:07 11/17/18 09:07 11/16/18 21:56 11/17/18 08:55 General appearance: Absent: mild distress Results - Labs CBC & Chem 7: 11/12/18 17:14 11/16/18 12:34 Labs: Laboratory Last Values WBC 4.4 K/mm3 (4.5-11.0) L 11/12/18 17:14 RBC 4.10 M/mm3 (3.65-5.03) 11/12/18 17:14 Hgb 9.7 gm/dl (10.1-14.3) L 11/12/18 17:14 Hct 32.6 % (30.3-42.9) 11/12/18 17:14 MCV 80 fl (79-97) 11/12/18 17:14 MCH 24 pg (28-32) L 11/12/18 17:14 MCHC 30 % (30-34) 11/12/18 17:14 RDW 17.3 % (13.2-15.2) H 11/12/18 17:14 Plt Count 199 K/mm3 (140-440) 11/12/18 17:14 Lymph % (Auto) 5.4 % (13.4-35.0) L 11/12/18 17:14 [place] % (Auto) 3.5 % (0.0-7.3) 11/12/18 17:14 Eos % (Auto) 0.4 % (0.0-4.3) 11/12/18 17:14 Baso % (Auto) 1.4 % (0.0-1.8) 11/12/18 17:14 Lymph # 0.2 K/mm3 (1.2-5.4) L 11/12/18 17:14 [place] # 0.2 K/mm3 (0.0-0.8) 11/12/18 17:14 Eos # 0.0 K/mm3 (0.0-0.4) 11/12/18 17:14 Baso # 0.1 K/mm3 (0.0-0.1) 11/12/18 17:14 Seg Neutrophils % 89.3 % (40.0-70.0) H 11/12/18 17:14 Seg Neutrophils # 4.0 K/mm3 (1.8-7.7) 11/12/18 17:14 Sodium 139 mmol/L (137-145) 11/16/18 12:34 Potassium 4.2 mmol/L (3.6-5.0) 11/16/18 12:34 Chloride 90.8 mmol/L (98-107) L 11/16/18 12:34 Carbon Dioxide 41 mmol/L (22-30) H* 11/16/18 12:34 Anion Gap 11 mmol/L 11/16/18 12:34 BUN 22 mg/dL (7-17) H 11/16/18 12:34 Creatinine 0.5 mg/dL (0.7-1.2) L 11/16/18 12:34 Estimated GFR > 60 ml/min 11/16/18 12:34 BUN/Creatinine Ratio 44 % 11/16/18 12:34 Glucose 87 mg/dL (65-100) 11/16/18 12:34 Lactic Acid 0.60 mmol/L (0.7-2.0) L 11/12/18 17:14 Calcium 9.1 mg/dL (8.4-10.2) 11/16/18 12:34 Phosphorus 3.60 mg/dL (2.5-4.5) 11/16/18 12:34 Magnesium 2.00 mg/dL (1.7-2.3) 11/16/18 12:34 Total Bilirubin < 0.20 mg/dL (0.1-1.2) 11/12/18 17:14 AST 25 units/L (5-40) 11/12/18 17:14 ALT 32 units/L (7-56) 11/12/18 17:14 Alkaline Phosphatase 79 units/L (35-129) 11/12/18 17:14 Total Creatine Kinase 31 units/L (30-135) 11/14/18 21:32 CK-MB (CK-2) 4.2 ng/mL (0.0-4.0) H 11/14/18 21:32 CK-MB (CK-2) Rel Index 13.5 (0-4) H 11/14/18 21:32 Troponin T 0.010 ng/mL (0.00-0.029) 11/13/18 17:01 NT-Pro-B Natriuret Pep 2599 pg/mL (0-900) H 11/12/18 19:49 Total Protein 6.1 g/dL (6.3-8.2) L 11/12/18 17:14 Albumin 3.7 g/dL (3.9-5) L 11/12/18 17:14 Albumin/Globulin Ratio 1.5 % 11/12/18 17:14 Triglycerides 67 mg/dL (2-149) 11/12/18 17:14 Cholesterol 179 mg/dL (50-199) 11/12/18 17:14 LDL Cholesterol Direct 109 mg/dL (50-130) 11/12/18 17:14 HDL Cholesterol 71 mg/dL (40-59) H 11/12/18 17:14 Cholesterol/HDL Ratio 2.52 % 11/12/18 17:14 TSH 0.409 mlU/mL (0.270-4.200) 11/12/18 19:49 Free T4 1.07 ng/dL (0.76-1.46) 11/12/18 19:49 Urine Color Yellow (Yellow) 11/13/18 03:47 Urine Turbidity Clear (Clear) 11/13/18 03:47 Urine pH 6.0 (5.0-7.0) 11/13/18 03:47 Ur Specific [place] > 1.059 (1.003-1.030) H 11/13/18 03:47 Urine Protein <15 mg/dl mg/dL (Negative) 11/13/18 03:47 Urine Glucose (UA) Neg mg/dL (Negative) 11/13/18 03:47 Urine Ketones Neg mg/dL (Negative) 11/13/18 03:47 Urine Blood Neg (Negative) 11/13/18 03:47 Urine Nitrite Neg (Negative) 11/13/18 03:47 Urine Bilirubin Neg (Negative) 11/13/18 03:47 Urine Urobilinogen < 2.0 mg/dL (<2.0) 11/13/18 03:47 Ur Leukocyte Esterase Neg (Negative) 11/13/18 03:47 Urine WBC (Auto) < 1.0 /HPF (0.0-6.0) 11/13/18 03:47 Urine RBC (Auto) 1.0 /HPF (0.0-6.0) 11/13/18 03:47 U Epithel Cells (Auto) 1.0 /HPF (0-13.0) 11/13/18 03:47 Active Medications - Current Medications Current Medications: Generic Name Dose Route Start Last Admin Trade Name Freq PRN Reason Stop Dose Admin Acetaminophen 650 mg 11/12/18 20:11 Tylenol PO Q4H PRN Pain MILD(1-3)/Fever >100.5/LOU Acetazolamide 250 mg 11/12/18 22:00 11/17/18 10:15 Diamox PO 250 mg BID GABRIEL Administration Albuterol 2.5 mg 11/12/18 20:11 11/16/18 14:00 Proventil IH 2.5 mg Q4HRT PRN Administration Shortness Of Breath Apixaban 5 mg 11/12/18 22:00 11/17/18 10:16 Eliquis PO 5 mg Q12HR GABRIEL Administration Protocol Arformoterol Tartrate 15 mcg 11/13/18 08:00 11/17/18 08:56 Brovana Nebu IH 15 mcg Q12HRT GABRIEL Administration Aripiprazole 5 mg 11/13/18 10:00 11/17/18 10:15 Abilify PO 5 mg DAILY GABRIEL Administration Aspirin 81 mg 11/13/18 10:00 11/17/18 10:18 Halfprin Ec PO 81 mg QDAY GABRIEL Administration Budesonide 0.5 mg 11/14/18 08:03 11/17/18 08:56 Pulmicort IH 0.5 mg Q12HRT GABRIEL Administration Bupropion HCl 300 mg 11/13/18 10:00 11/17/18 10:15 Wellbutrin Xl PO 300 mg QDAY GABRIEL Administration Furosemide 40 mg 11/13/18 10:00 11/17/18 10:16 Lasix PO 40 mg QAM GABRIEL Administration Levothyroxine Sodium 125 mcg 11/13/18 06:00 11/17/18 06:26 Synthroid PO 125 mcg QAM@0600 GABRIEL Administration Lisinopril 2.5 mg 11/13/18 10:00 11/17/18 10:17 Zestril PO 2.5 mg QDAY GABRIEL Administration Loratadine 10 mg 11/13/18 10:00 11/17/18 10:18 Claritin PO 10 mg QDAY GABRIEL Administration Methylprednisolone Sodium Succinate 60 mg 11/15/18 16:00 11/17/18 10:22 Solu-Medrol IV 60 mg Q6H GABRIEL Administration Metoprolol Tartrate 25 mg 11/14/18 15:00 11/17/18 10:17 Lopressor PO 25 mg BID GABRIEL Administration Ondansetron HCl 4 mg 11/12/18 20:11 Zofran IV Q8H PRN Nausea And Vomiting Pantoprazole Sodium 20 mg 11/13/18 10:00 11/17/18 10:16 Protonix PO 20 mg DAILY GABRIEL Administration Pravastatin Sodium 20 mg 11/12/18 22:00 11/16/18 21:59 Pravachol PO 20 mg QHS GABRIEL Administration Senna/Docusate Sodium 2 tab 11/15/18 10:00 Senokot S PO Q12H PRN Laxative Effect Sodium Chloride 10 ml 11/12/18 22:00 11/17/18 10:18 Sodium Chloride Flush Syringe 10 Ml IV 10 ml BID GABRIEL Administration Sodium Chloride 10 ml 11/12/18 20:11 Sodium Chloride Flush Syringe 10 Ml IV PRN PRN LINE FLUSH Tiotropium [place] 1 puff 11/13/18 10:00 11/15/18 20:53 Spiriva IH Not Given Q24HR GABRIEL Trazodone HCl 50 mg 11/12/18 22:00 11/16/18 21:56 Desyrel PO 50 mg HS GABRIEL Administration
[2018-11-17] MEDS: DESYREL PO SCH (21:45)
[2018-11-17] MEDS: PRAVACHOL PO SCH (21:47)
[2018-11-18] MEDS: SOLU-Medrol IV SCH ×4 (04:09→21:52)
[2018-11-18] MEDS: SYNTHROID PO SCH (06:10)
--- NOTE | 2018-11-18 06:31 | Progress Note ---
Assessment and Plan Assessment and plan: Patient is a 67 yo woman from [facility] with a history of HTN, Dementia, Chronic Respiratory Failure on 2L Home oxygen due to End-stage COPD, HLD, Hypothyroidism, Depression, Schizophrenia and Atrial Fib on Therapeutic Anticoagulation (Eliquis) presented to [facility] ED with SOB. Pt was found to have a pulse oximetry of 82% on room air. EMS was notified and patient placed on supplemental oxygen and transported to [facility] ED. Patient has been in and out of the hospital many times this year for COPD. She was recently admitted here on 10/23/18; during that last admission she was intubated due to COPD and also treated for Afib. She was successfully extubated and discharged on 11/03/18. She comes back on 11/12/18 with another COPD exacerbation. I discussed with communications planner, Dr. Waldron and he recommends LTAC but she needs a 3 day stay in IMCU/ICU; so she was transferred to [facility] on 11/16/18. * MRI cervical spine; multilevel bilateral neural foramina narrowing secondary to disc osteophyte complex and vertebral joint hypertrophy. No central canal spinal stenosis or cord edema. * Chest x-ray; no infiltrate * CTA CHEST: Cardiomegaly. No CT evidence of pulmonary thromboembolic disease. COPD. Suspected pulmonary hypertension Acute on chronic respiratory failure: Nebs, steroids, Continue oxygen, pulmonology following, off bipap today Acute COPD exacerbation/end stage COPD: Nebs, steroids, Continue oxygen, pulmonology following, off bipap today P. Atrial Fibrillation with hypercoagulable states: Currently in SR. Cont E liquis and lopressor. Acute Metabolic Encephalopathy: obtain and MRI head when medically stable. SIRS without acute organ dysfunction: continue to monitor Type 2 NSTEMI with CAD [facility] done 10/14/2018 showed 100% distal lcx, 100% distal LAD, EF 45%. Medical management was recommended: Cardiology consulted, input noted Ataxia, Chronic debility: PT/OT eval and treat Acute on chronic diastolic heart failure, resolved: Cardiology did evaluate Pulmonary HTN: Last echo, EF 50-55%, Pulmonary pressures not recorded. Schizophrenia: Continue Current meds, Hyperlipidemia: Continue statin Chronic Debility: PT/OT Anxiety: Mental health consult Anemia: STABLE Bradycardia, now resolved Hypothyroidism: Synthroid DVT/GI: Prophy on Eliquis Disposition: Continue inpatient care, d/c LTAC for pulmonary rehab as patient has been admitted at least 5x for COPD this year. 11/17/18 @ 2:10pm d/w Brother, Scott Grimm @ [phone] History Interval history: Patient was seen and examined. Follow-up on current diagnosis. Overnight uneventful. Patient denies any chest pain, shortness breath, nausea/vomiting or severe headaches. Imaging, nursing note, chart, labs and old chart reviewed. Discussed with patient. Hospitalist Physical - Physical exam Narrative exam: Gen: WDWN, NAD, Awake, Alert, Orientated x 2 HEENT: NCAT, EOMI, PERRL, OP Clear Neck: supple, no adenopathy, no thyromegaly, no JVD CVS/Heart: RRR, normal S1S2, pulses present bilaterally Chest/Lungs: CTA B, Symmetrical chest expansion, good air entry bilaterally GI/Abdomen: soft, NTND, good bowel sounds, no guarding or rebound /Bladder: no suprapubic tenderness, no CVA or paraspinal tenderness Extermity/Skin: no c/c/e, no obvious rash MSK: FROM x 4 Neuro: CN 2-12 grossly intact, no new focal deficits Psych: calm - Constitutional Vitals: Temp Pulse Resp BP Pulse Ox 99.0 F 78 35 H 114/74 96 11/18/18 04:00 11/18/18 01:48 11/18/18 01:48 11/18/18 01:48 11/18/18 01:48 General appearance: Absent: mild distress Results - Labs CBC & Chem 7: 11/12/18 17:14 11/16/18 12:34 Labs: Laboratory Last Values WBC 4.4 K/mm3 (4.5-11.0) L 11/12/18 17:14 RBC 4.10 M/mm3 (3.65-5.03) 11/12/18 17:14 Hgb 9.7 gm/dl (10.1-14.3) L 11/12/18 17:14 Hct 32.6 % (30.3-42.9) 11/12/18 17:14 MCV 80 fl (79-97) 11/12/18 17:14 MCH 24 pg (28-32) L 11/12/18 17:14 MCHC 30 % (30-34) 11/12/18 17:14 RDW 17.3 % (13.2-15.2) H 11/12/18 17:14 Plt Count 199 K/mm3 (140-440) 11/12/18 17:14 Lymph % (Auto) 5.4 % (13.4-35.0) L 11/12/18 17:14 [place] % (Auto) 3.5 % (0.0-7.3) 11/12/18 17:14 Eos % (Auto) 0.4 % (0.0-4.3) 11/12/18 17:14 Baso % (Auto) 1.4 % (0.0-1.8) 11/12/18 17:14 Lymph # 0.2 K/mm3 (1.2-5.4) L 11/12/18 17:14 [place] # 0.2 K/mm3 (0.0-0.8) 11/12/18 17:14 Eos # 0.0 K/mm3 (0.0-0.4) 11/12/18 17:14 Baso # 0.1 K/mm3 (0.0-0.1) 11/12/18 17:14 Seg Neutrophils % 89.3 % (40.0-70.0) H 11/12/18 17:14 Seg Neutrophils # 4.0 K/mm3 (1.8-7.7) 11/12/18 17:14 Sodium 139 mmol/L (137-145) 11/16/18 12:34 Potassium 4.2 mmol/L (3.6-5.0) 11/16/18 12:34 Chloride 90.8 mmol/L (98-107) L 11/16/18 12:34 Carbon Dioxide 41 mmol/L (22-30) H* 11/16/18 12:34 Anion Gap 11 mmol/L 11/16/18 12:34 BUN 22 mg/dL (7-17) H 11/16/18 12:34 Creatinine 0.5 mg/dL (0.7-1.2) L 11/16/18 12:34 Estimated GFR > 60 ml/min 11/16/18 12:34 BUN/Creatinine Ratio 44 % 11/16/18 12:34 Glucose 87 mg/dL (65-100) 11/16/18 12:34 Lactic Acid 0.60 mmol/L (0.7-2.0) L 11/12/18 17:14 Calcium 9.1 mg/dL (8.4-10.2) 11/16/18 12:34 Phosphorus 3.60 mg/dL (2.5-4.5) 11/16/18 12:34 Magnesium 2.00 mg/dL (1.7-2.3) 11/16/18 12:34 Total Bilirubin < 0.20 mg/dL (0.1-1.2) 11/12/18 17:14 AST 25 units/L (5-40) 11/12/18 17:14 ALT 32 units/L (7-56) 11/12/18 17:14 Alkaline Phosphatase 79 units/L (35-129) 11/12/18 17:14 Total Creatine Kinase 31 units/L (30-135) 11/14/18 21:32 CK-MB (CK-2) 4.2 ng/mL (0.0-4.0) H 11/14/18 21:32 CK-MB (CK-2) Rel Index 13.5 (0-4) H 11/14/18 21:32 Troponin T 0.010 ng/mL (0.00-0.029) 11/13/18 17:01 NT-Pro-B Natriuret Pep 2599 pg/mL (0-900) H 11/12/18 19:49 Total Protein 6.1 g/dL (6.3-8.2) L 11/12/18 17:14 Albumin 3.7 g/dL (3.9-5) L 11/12/18 17:14 Albumin/Globulin Ratio 1.5 % 11/12/18 17:14 Triglycerides 67 mg/dL (2-149) 11/12/18 17:14 Cholesterol 179 mg/dL (50-199) 11/12/18 17:14 LDL Cholesterol Direct 109 mg/dL (50-130) 11/12/18 17:14 HDL Cholesterol 71 mg/dL (40-59) H 11/12/18 17:14 Cholesterol/HDL Ratio 2.52 % 11/12/18 17:14 TSH 0.409 mlU/mL (0.270-4.200) 11/12/18 19:49 Free T4 1.07 ng/dL (0.76-1.46) 11/12/18 19:49 Urine Color Yellow (Yellow) 11/13/18 03:47 Urine Turbidity Clear (Clear) 11/13/18 03:47 Urine pH 6.0 (5.0-7.0) 11/13/18 03:47 Ur Specific [place] > 1.059 (1.003-1.030) H 11/13/18 03:47 Urine Protein <15 mg/dl mg/dL (Negative) 11/13/18 03:47 Urine Glucose (UA) Neg mg/dL (Negative) 11/13/18 03:47 Urine Ketones Neg mg/dL (Negative) 11/13/18 03:47 Urine Blood Neg (Negative) 11/13/18 03:47 Urine Nitrite Neg (Negative) 11/13/18 03:47 Urine Bilirubin Neg (Negative) 11/13/18 03:47 Urine Urobilinogen < 2.0 mg/dL (<2.0) 11/13/18 03:47 Ur Leukocyte Esterase Neg (Negative) 11/13/18 03:47 Urine WBC (Auto) < 1.0 /HPF (0.0-6.0) 11/13/18 03:47 Urine RBC (Auto) 1.0 /HPF (0.0-6.0) 11/13/18 03:47 U Epithel Cells (Auto) 1.0 /HPF (0-13.0) 11/13/18 03:47 Active Medications - Current Medications Current Medications: Generic Name Dose Route Start Last Admin Trade Name Michaelq PRN Reason Stop Dose Admin Acetaminophen 650 mg 11/12/18 20:11 Tylenol PO Q4H PRN Pain MILD(1-3)/Fever >100.5/LOU Acetazolamide 250 mg 11/12/18 22:00 11/17/18 21:46 Diamox PO 250 mg BID GABRIEL Administration Albuterol 2.5 mg 11/12/18 20:11 11/16/18 14:00 Proventil IH 2.5 mg Q4HRT PRN Administration Shortness Of Breath Apixaban 5 mg 11/12/18 22:00 11/17/18 21:46 Eliquis PO 5 mg Q12HR GABRIEL Administration Protocol Arformoterol Tartrate 15 mcg 11/13/18 08:00 11/17/18 19:46 Brovana Nebu IH 15 mcg Q12HRT GABRIEL Administration Aripiprazole 5 mg 11/13/18 10:00 11/17/18 10:15 Abilify PO 5 mg DAILY GABRIEL Administration Aspirin 81 mg 11/13/18 10:00 11/17/18 10:18 Halfprin Ec PO 81 mg QDAY GABRIEL Administration Budesonide 0.5 mg 11/14/18 08:03 11/17/18 19:46 Pulmicort IH 0.5 mg Q12HRT GABRIEL Administration Bupropion HCl 300 mg 11/13/18 10:00 11/17/18 10:15 Wellbutrin Xl PO 300 mg QDAY GABREIL Administration Furosemide 40 mg 11/13/18 10:00 11/17/18 10:16 Lasix PO 40 mg QAM GABRIEL Administration Levothyroxine Sodium 125 mcg 11/13/18 06:00 11/18/18 06:10 Synthroid PO 125 mcg QAM@0600 GABRIEL Administration Lisinopril 2.5 mg 11/13/18 10:00 11/17/18 10:17 Zestril PO 2.5 mg QDAY GABRIEL Administration Loratadine 10 mg 11/13/18 10:00 11/17/18 10:18 Claritin PO 10 mg QDAY GABRIEL Administration Methylprednisolone Sodium Succinate 60 mg 11/15/18 16:00 11/18/18 04:09 Solu-Medrol IV 60 mg Q6H GABRIEL Administration Metoprolol Tartrate 25 mg 11/14/18 15:00 11/17/18 21:46 Lopressor PO 25 mg BID GABRIEL Administration Ondansetron HCl 4 mg 11/12/18 20:11 Zofran IV Q8H PRN Nausea And Vomiting Pantoprazole Sodium 20 mg 11/13/18 10:00 11/17/18 10:16 Protonix PO 20 mg DAILY GABRIEL Administration Pravastatin Sodium 20 mg 11/12/18 22:00 11/17/18 21:47 Pravachol PO 20 mg QHS GABRIEL Administration Senna/Docusate Sodium 2 tab 11/15/18 10:00 Senokot S PO Q12H PRN Laxative Effect Sodium Chloride 10 ml 11/12/18 22:00 11/17/18 21:49 Sodium Chloride Flush Syringe 10 Ml IV 10 ml BID GABRIEL Administration Sodium Chloride 10 ml 11/12/18 20:11 Sodium Chloride Flush Syringe 10 Ml IV PRN PRN LINE FLUSH Tiotropium [place] 1 puff 11/13/18 10:00 11/15/18 20:53 Spiriva IH Not Given Q24HR GABRIEL Trazodone HCl 50 mg 11/12/18 22:00 11/17/18 21:45 Desyrel PO 50 mg HS GABRIEL Administration
[2018-11-18] MEDS: BROVANA NEBU IH SCH ×2 (09:02→20:09)
[2018-11-18] MEDS: PULMICORT IH SCH ×2 (09:02→20:09)
[2018-11-18] MEDS: ABILIFY PO SCH (09:55)
[2018-11-18] MEDS: DIAMOX PO SCH ×2 (09:56→21:51)
[2018-11-18] MEDS: LASIX PO SCH (09:56)
[2018-11-18] MEDS: ELIQUIS PO SCH ×2 (09:56→21:50)
[2018-11-18] MEDS: HALFPRIN EC PO SCH (09:56)
[2018-11-18] MEDS: CLARITIN PO SCH (09:56)
[2018-11-18] MEDS: WELLBUTRIN XL PO SCH (09:57)
[2018-11-18] MEDS: PROTONIX PO SCH (09:57)
[2018-11-18] MEDS: SODIUM CHLORIDE FLUSH SYRINGE 10 ML IV SCH ×2 (09:57→21:53)
[2018-11-18] MEDS: LOPRESSOR PO SCH ×2 (10:00→21:51)
[2018-11-18] MEDS: ZESTRIL PO SCH (10:00)
--- NOTE | 2018-11-18 11:47 | Progress Note ---
Assessment and Plan 67 y/o female with known COPD, and chronic respiratory failure admitted with dyspnea. 1. Continue PRN and QHS bipap therapy 2. Continue IMCU monitoring given high risk of acute/chronic respiratory failure. 3. Continue steroids at 60q6 for now, will assess tomorrow to consider weaning. 4. continue BID pulmicort and brovana 5. Will continue diuretic therapy as is for now. Suggest repeat BMP either or Thursday 6. Will order PT consult. Subjective Date of service: 11/18/18 Principal diagnosis: COPD Interval history: No acute events. Still with mild increase in work of breathing. Visible dyspnea at rest Objective Vital Signs - 12hr 11/18/18 11/18/18 11/18/18 00:00 01:48 04:00 Temperature 99.1 F 99.0 F Pulse Rate 78 Pulse Rate [ Anterior Bilateral Throughout] Pulse Rate [ Throughout] Respiratory 35 H Rate Respiratory Rate [Anterior Bilateral Throughout] Respiratory Rate [ Throughout] Blood Pressure 114/74 O2 Sat by Pulse 96 Oximetry 11/18/18 11/18/18 11/18/18 08:00 09:03 09:19 Temperature 98.0 F Pulse Rate Pulse Rate [ 88 93 H Anterior Bilateral Throughout] Pulse Rate [ 91 H 93 H Throughout] Respiratory 17 Rate Respiratory 20 20 Rate [Anterior Bilateral Throughout] Respiratory 20 20 Rate [ Throughout] Blood Pressure O2 Sat by Pulse 94 Oximetry 11/18/18 10:00 Temperature Pulse Rate 99 H Pulse Rate [ Anterior Bilateral Throughout] Pulse Rate [ Throughout] Respiratory Rate Respiratory Rate [Anterior Bilateral Throughout] Respiratory Rate [ Throughout] Blood Pressure O2 Sat by Pulse Oximetry Constitutional: alert, appears uncomfortable Eyes: non-icteric ENT: oropharynx moist Neck: supple Effort: mildly labored Ascultation: Bilateral: diminished breath sounds, wheezes Percussion: Bilateral: not dull Tactile fremitus: Bilateral: normal Cardiovascular: other (sinus tachycardia) Extremities: no edema, pink and warm CBC and BMP: 11/12/18 17:14 11/16/18 12:34 Abnormal lab findings: Abnormal Labs 11/12/18 11/12/18 11/12/18 17:14 17:14 17:14 WBC 4.4 L Hgb 9.7 L MCH 24 L RDW 17.3 H Lymph % (Auto) 5.4 L Lymph # 0.2 L Seg Neutrophils % 89.3 H Chloride 97.1 L Carbon Dioxide 39 H BUN 25 H Creatinine 0.5 L Glucose 140 H Lactic Acid 0.60 L CK-MB (CK-2) 11.4 H CK-MB (CK-2) Rel Index 18.3 H Troponin T 0.042 H NT-Pro-B Natriuret Pep Total Protein 6.1 L Albumin 3.7 L HDL Cholesterol 71 H Ur Specific [place] 11/12/18 11/12/18 11/13/18 18:13 19:49 03:47 WBC Hgb MCH RDW Lymph % (Auto) Lymph # Seg Neutrophils % Chloride Carbon Dioxide BUN Creatinine Glucose Lactic Acid CK-MB (CK-2) CK-MB (CK-2) Rel Index Troponin T NT-Pro-B Natriuret Pep 2696 H 2599 H Total Protein Albumin HDL Cholesterol Ur Specific [place] > 1.059 H 11/13/18 11/14/18 11/14/18 21:30 10:32 14:43 WBC Hgb MCH RDW Lymph % (Auto) Lymph # Seg Neutrophils % Chloride Carbon Dioxide BUN Creatinine Glucose Lactic Acid CK-MB (CK-2) 4.8 H 4.7 H 4.1 H CK-MB (CK-2) Rel Index 15.0 H 14.6 H 11.7 H Troponin T NT-Pro-B Natriuret Pep Total Protein Albumin HDL Cholesterol Ur Specific [place] 11/14/18 11/16/18 21:32 12:34 WBC Hgb MCH RDW Lymph % (Auto) Lymph # Seg Neutrophils % Chloride 90.8 L Carbon Dioxide 41 H* BUN 22 H Creatinine 0.5 L Glucose Lactic Acid CK-MB (CK-2) 4.2 H CK-MB (CK-2) Rel Index 13.5 H Troponin T NT-Pro-B Natriuret Pep Total Protein Albumin HDL Cholesterol Ur Specific [place]
[2018-11-18] MEDS: DESYREL PO SCH (21:48)
[2018-11-18] MEDS: PRAVACHOL PO SCH (21:50)
[2018-11-19] MEDS: SOLU-Medrol IV SCH ×4 (03:49→21:35)
[2018-11-19] MEDS: SYNTHROID PO SCH (05:12)
[2018-11-19 05:50] LABS: BUN/Creatinine Ratio 54; Blood Urea Nitrogen 27 mg/dL (7-17); Calcium 8.7 mg/dL (8.4-10.2); Hemolysis Index 11
[2018-11-19] MEDS: BROVANA NEBU IH SCH ×2 (08:32→19:52)
[2018-11-19] MEDS: PULMICORT IH SCH ×2 (08:33→19:52)
--- NOTE | 2018-11-19 09:48 | Progress Note ---
Assessment and Plan 67 y/o female with known COPD, and chronic respiratory failure admitted with dyspnea. 1. Continue PRN and QHS bipap therapy 2. Continue IMCU monitoring given high risk of acute/chronic respiratory failure. 3. Continue steroids at 60q6 for now. Will drop to 60q8 starting Thursday. 4. continue BID pulmicort and brovana 5. Will continue diuretic therapy as is for now. 6. Continue PT Subjective Date of service: 11/19/18 Principal diagnosis: COPD Interval history: No acute events. This am breathing looks very well. Was able to sit up in the chair on yesterday. Brother not at bedside. Objective Vital Signs - 12hr 11/18/18 11/18/18 11/18/18 21:51 22:00 22:30 Temperature Pulse Rate 67 134 H 61 Pulse Rate [ Throughout] Respiratory 24 Rate Respiratory Rate [ Throughout] Blood Pressure 114/64 103/61 O2 Sat by Pulse 99 Oximetry 11/19/18 11/19/18 11/19/18 00:00 01:25 04:00 Temperature 98.8 F 98.7 F Pulse Rate 51 L Pulse Rate [ Throughout] Respiratory 20 21 15 Rate Respiratory Rate [ Throughout] Blood Pressure 89/49 O2 Sat by Pulse 93 94 97 Oximetry 11/19/18 11/19/18 08:00 08:35 Temperature Pulse Rate Pulse Rate [ 52 L 50 L Throughout] Respiratory Rate Respiratory 21 26 H Rate [ Throughout] Blood Pressure O2 Sat by Pulse 94 Oximetry Constitutional: alert, appears uncomfortable Eyes: non-icteric ENT: oropharynx moist Neck: supple Effort: mildly labored Ascultation: Bilateral: diminished breath sounds, wheezes Percussion: Bilateral: not dull Tactile fremitus: Bilateral: normal Cardiovascular: other (sinus tachycardia) Extremities: no edema, pink and warm CBC and BMP: 11/12/18 17:14 11/19/18 04:53 Abnormal lab findings: Abnormal Labs 11/12/18 11/12/18 11/12/18 17:14 17:14 17:14 WBC 4.4 L Hgb 9.7 L MCH 24 L RDW 17.3 H Lymph % (Auto) 5.4 L Lymph # 0.2 L Seg Neutrophils % 89.3 H Chloride 97.1 L Carbon Dioxide 39 H BUN 25 H Creatinine 0.5 L Glucose 140 H Lactic Acid 0.60 L CK-MB (CK-2) 11.4 H CK-MB (CK-2) Rel Index 18.3 H Troponin T 0.042 H NT-Pro-B Natriuret Pep Total Protein 6.1 L Albumin 3.7 L HDL Cholesterol 71 H Ur Specific [place] 11/12/18 11/12/18 11/13/18 18:13 19:49 03:47 WBC Hgb MCH RDW Lymph % (Auto) Lymph # Seg Neutrophils % Chloride Carbon Dioxide BUN Creatinine Glucose Lactic Acid CK-MB (CK-2) CK-MB (CK-2) Rel Index Troponin T NT-Pro-B Natriuret Pep 2696 H 2599 H Total Protein Albumin HDL Cholesterol Ur Specific [place] > 1.059 H 11/13/18 11/14/18 11/14/18 21:30 10:32 14:43 WBC Hgb MCH RDW Lymph % (Auto) Lymph # Seg Neutrophils % Chloride Carbon Dioxide BUN Creatinine Glucose Lactic Acid CK-MB (CK-2) 4.8 H 4.7 H 4.1 H CK-MB (CK-2) Rel Index 15.0 H 14.6 H 11.7 H Troponin T NT-Pro-B Natriuret Pep Total Protein Albumin HDL Cholesterol Ur Specific [place] 11/14/18 11/16/18 11/19/18 21:32 12:34 04:53 WBC Hgb MCH RDW Lymph % (Auto) Lymph # Seg Neutrophils % Chloride 90.8 L 92.8 L Carbon Dioxide 41 H* 41 H* BUN 22 H 27 H Creatinine 0.5 L 0.5 L Glucose 134 H Lactic Acid CK-MB (CK-2) 4.2 H CK-MB (CK-2) Rel Index 13.5 H Troponin T NT-Pro-B Natriuret Pep Total Protein Albumin HDL Cholesterol Ur Specific [place]
[2018-11-19] MEDS: PROTONIX PO SCH (10:11)
[2018-11-19] MEDS: ABILIFY PO SCH (10:11)
[2018-11-19] MEDS: WELLBUTRIN XL PO SCH (10:11)
[2018-11-19] MEDS: LOPRESSOR PO SCH ×2 (10:12→21:36)
[2018-11-19] MEDS: ZESTRIL PO SCH (10:15)
[2018-11-19] MEDS: ELIQUIS PO SCH ×2 (10:15→21:35)
[2018-11-19] MEDS: HALFPRIN EC PO SCH (10:16)
[2018-11-19] MEDS: DIAMOX PO SCH ×2 (10:17→21:36)
[2018-11-19] MEDS: LASIX PO SCH (10:17)
[2018-11-19] MEDS: CLARITIN PO SCH (10:17)
[2018-11-19] MEDS: SODIUM CHLORIDE FLUSH SYRINGE 10 ML IV SCH ×2 (10:18→21:35)
--- NOTE | 2018-11-19 12:55 | Progress Note ---
Assessment and Plan Assessment and plan: Patient is a 67 yo woman from [facility] with a history of HTN, Dementia, Chronic Respiratory Failure on 2L Home oxygen due to End-stage COPD, HLD, Hypothyroidism, Depression, Schizophrenia and Atrial Fib on Therapeutic Anticoagulation (Eliquis) presented to [facility] ED with SOB. Pt was found to have a pulse oximetry of 82% on room air. EMS was notified and patient placed on supplemental oxygen and transported to [facility] ED. Patient has been in and out of the hospital many times this year for COPD. She was recently admitted here on 10/23/18; during that last admission she was intubated due to COPD and also treated for Afib. She was successfully extubated and discharged on 11/03/18. She comes back on 11/12/18 with another COPD exacerbation. I discussed with senior net c developer, Dr. Waldron and he recommends LTAC but she needs a 3 day stay in IMCU/ICU; so she was transferred to [facility] on 11/16/18. * MRI cervical spine; multilevel bilateral neural foramina narrowing secondary to disc osteophyte complex and vertebral joint hypertrophy. No central canal spinal stenosis or cord edema. * Chest x-ray; no infiltrate * CTA CHEST: Cardiomegaly. No CT evidence of pulmonary thromboembolic disease. COPD. Suspected pulmonary hypertension Acute on chronic respiratory failure: Nebs, steroids, Continue oxygen, pulmonology following, off bipap today Acute COPD exacerbation/end stage COPD: Nebs, steroids, Continue oxygen, pulmonology following, off bipap today P. Atrial Fibrillation with hypercoagulable states: Currently in SR. Cont E liquis and lopressor. Acute Metabolic Encephalopathy: obtain and MRI head when medically stable. SIRS without acute organ dysfunction: continue to monitor Type [address] [facility] done 10/14/2018 showed 100% distal lcx, 100% distal LAD, EF 45%. Medical management was recommended: Cardiology consulted, input noted Ataxia, Chronic debility: PT/OT eval and treat Acute on chronic diastolic heart failure, resolved: Cardiology did evaluate Pulmonary HTN: Last echo, EF 50-55%, Pulmonary pressures not recorded. Schizophrenia: Continue Current meds, Hyperlipidemia: Continue statin Chronic Debility: PT/OT Anxiety: Mental health consult Anemia: STABLE Bradycardia, now resolved Hypothyroidism: Synthroid DVT/GI: Prophy on Eliquis Disposition: Continue inpatient care, d/c LTAC for pulmonary rehab as patient has been admitted at least 5x for COPD this year. 11/17/18 @ 2:10pm d/w Brother, Scott Grimm @ [phone] 11/19/18 @ 12:55 d/w Brother, Scott Grimm , and gave her update History Interval history: Patient was seen and examined. Follow-up on current diagnosis. Overnight uneventful. Patient denies any chest pain, shortness breath, nausea/vomiting or severe headaches. Imaging, nursing note, chart, labs and old chart reviewed. Discussed with patient. Hospitalist Physical - Physical exam Narrative exam: Gen: WDWN, NAD, Awake, Alert, Orientated x 2 HEENT: NCAT, EOMI, PERRL, OP Clear Neck: supple, no adenopathy, no thyromegaly, no JVD CVS/Heart: RRR, normal S1S2, pulses present bilaterally Chest/Lungs: CTA B, Symmetrical chest expansion, good air entry bilaterally GI/Abdomen: soft, NTND, good bowel sounds, no guarding or rebound /Bladder: no suprapubic tenderness, no CVA or paraspinal tenderness Extermity/Skin: no c/c/e, no obvious rash MSK: FROM x 4 Neuro: CN 2-12 grossly intact, no new focal deficits Psych: calm - Constitutional Vitals: Temp Pulse Resp BP Pulse Ox 98.7 F 78 26 H 108/57 94 11/19/18 12:00 11/19/18 10:15 11/19/18 08:35 11/19/18 10:15 11/19/18 08:35 General appearance: Absent: mild distress Results - Labs CBC & Chem 7: 11/12/18 17:14 11/19/18 04:53 Labs: Laboratory Last Values WBC 4.4 K/mm3 (4.5-11.0) L 11/12/18 17:14 RBC 4.10 M/mm3 (3.65-5.03) 11/12/18 17:14 Hgb 9.7 gm/dl (10.1-14.3) L 11/12/18 17:14 Hct 32.6 % (30.3-42.9) 11/12/18 17:14 MCV 80 fl (79-97) 11/12/18 17:14 MCH 24 pg (28-32) L 11/12/18 17:14 MCHC 30 % (30-34) 11/12/18 17:14 RDW 17.3 % (13.2-15.2) H 11/12/18 17:14 Plt Count 199 K/mm3 (140-440) 11/12/18 17:14 Lymph % (Auto) 5.4 % (13.4-35.0) L 11/12/18 17:14 [place] % (Auto) 3.5 % (0.0-7.3) 11/12/18 17:14 Eos % (Auto) 0.4 % (0.0-4.3) 11/12/18 17:14 Baso % (Auto) 1.4 % (0.0-1.8) 11/12/18 17:14 Lymph # 0.2 K/mm3 (1.2-5.4) L 11/12/18 17:14 [place] # 0.2 K/mm3 (0.0-0.8) 11/12/18 17:14 Eos # 0.0 K/mm3 (0.0-0.4) 11/12/18 17:14 Baso # 0.1 K/mm3 (0.0-0.1) 11/12/18 17:14 Seg Neutrophils % 89.3 % (40.0-70.0) H 11/12/18 17:14 Seg Neutrophils # 4.0 K/mm3 (1.8-7.7) 11/12/18 17:14 Sodium 141 mmol/L (137-145) 11/19/18 04:53 Potassium 4.5 mmol/L (3.6-5.0) 11/19/18 04:53 Chloride 92.8 mmol/L (98-107) L 11/19/18 04:53 Carbon Dioxide 41 mmol/L (22-30) H* 11/19/18 04:53 Anion Gap 12 mmol/L 11/19/18 04:53 BUN 27 mg/dL (7-17) H 11/19/18 04:53 Creatinine 0.5 mg/dL (0.7-1.2) L 11/19/18 04:53 Estimated GFR > 60 ml/min 11/19/18 04:53 BUN/Creatinine Ratio 54 % 11/19/18 04:53 Glucose 134 mg/dL (65-100) H 11/19/18 04:53 Lactic Acid 0.60 mmol/L (0.7-2.0) L 11/12/18 17:14 Calcium 8.7 mg/dL (8.4-10.2) 11/19/18 04:53 Phosphorus 3.10 mg/dL (2.5-4.5) 11/19/18 04:53 Magnesium 2.20 mg/dL (1.7-2.3) 11/19/18 04:53 Total Bilirubin < 0.20 mg/dL (0.1-1.2) 11/12/18 17:14 AST 25 units/L (5-40) 11/12/18 17:14 ALT 32 units/L (7-56) 11/12/18 17:14 Alkaline Phosphatase 79 units/L (35-129) 11/12/18 17:14 Total Creatine Kinase 31 units/L (30-135) 11/14/18 21:32 CK-MB (CK-2) 4.2 ng/mL (0.0-4.0) H 11/14/18 21:32 CK-MB (CK-2) Rel Index 13.5 (0-4) H 11/14/18 21:32 Troponin T 0.010 ng/mL (0.00-0.029) 11/13/18 17:01 NT-Pro-B Natriuret Pep 2599 pg/mL (0-900) H 11/12/18 19:49 Total Protein 6.1 g/dL (6.3-8.2) L 11/12/18 17:14 Albumin 3.7 g/dL (3.9-5) L 11/12/18 17:14 Albumin/Globulin Ratio 1.5 % 11/12/18 17:14 Triglycerides 67 mg/dL (2-149) 11/12/18 17:14 Cholesterol 179 mg/dL (50-199) 11/12/18 17:14 LDL Cholesterol Direct 109 mg/dL (50-130) 11/12/18 17:14 HDL Cholesterol 71 mg/dL (40-59) H 11/12/18 17:14 Cholesterol/HDL Ratio 2.52 % 11/12/18 17:14 TSH 0.409 mlU/mL (0.270-4.200) 11/12/18 19:49 Free T4 1.07 ng/dL (0.76-1.46) 11/12/18 19:49 Urine Color Yellow (Yellow) 11/13/18 03:47 Urine Turbidity Clear (Clear) 11/13/18 03:47 Urine pH 6.0 (5.0-7.0) 11/13/18 03:47 Ur Specific [place] > 1.059 (1.003-1.030) H 11/13/18 03:47 Urine Protein <15 mg/dl mg/dL (Negative) 11/13/18 03:47 Urine Glucose (UA) Neg mg/dL (Negative) 11/13/18 03:47 Urine Ketones Neg mg/dL (Negative) 11/13/18 03:47 Urine Blood Neg (Negative) 11/13/18 03:47 Urine Nitrite Neg (Negative) 11/13/18 03:47 Urine Bilirubin Neg (Negative) 11/13/18 03:47 Urine Urobilinogen < 2.0 mg/dL (<2.0) 11/13/18 03:47 Ur Leukocyte Esterase Neg (Negative) 11/13/18 03:47 Urine WBC (Auto) < 1.0 /HPF (0.0-6.0) 11/13/18 03:47 Urine RBC (Auto) 1.0 /HPF (0.0-6.0) 11/13/18 03:47 U Epithel Cells (Auto) 1.0 /HPF (0-13.0) 11/13/18 03:47 Active Medications - Current Medications Current Medications: Generic Name Dose Route Start Last Admin Trade Name Freq PRN Reason Stop Dose Admin Acetaminophen 650 mg 11/12/18 20:11 Tylenol PO Q4H PRN Pain MILD(1-3)/Fever >100.5/LOU Acetazolamide 250 mg 11/12/18 22:00 11/19/18 10:17 Diamox PO 250 mg BID GABRIEL Administration Albuterol 2.5 mg 11/12/18 20:11 11/16/18 14:00 Proventil IH 2.5 mg Q4HRT PRN Administration Shortness Of Breath Apixaban 5 mg 11/12/18 22:00 11/19/18 10:15 Eliquis PO 5 mg Q12HR GABRIEL Administration Protocol Arformoterol Tartrate 15 mcg 11/13/18 08:00 11/19/18 08:32 Brodom Nebu IH 15 mcg Q12HRT GABRIEL Administration Aripiprazole 5 mg 11/13/18 10:00 11/19/18 10:11 Abilify PO 5 mg DAILY GABRIEL Administration Aspirin 81 mg 11/13/18 10:00 11/19/18 10:16 Halfprin Ec PO 81 mg QDAY GABRIEL Administration Budesonide 0.5 mg 11/14/18 08:03 11/19/18 08:33 Pulmicort IH 0.5 mg Q12HRT GABRIEL Administration Bupropion HCl 300 mg 11/13/18 10:00 11/19/18 10:11 Wellbutrin Xl PO 300 mg QDAY GABRIEL Administration Furosemide 40 mg 11/13/18 10:00 11/19/18 10:17 Lasix PO 40 mg QAM GABRIEL Administration Levothyroxine Sodium 125 mcg 11/13/18 06:00 11/19/18 05:12 Synthroid PO 125 mcg QAM@0600 GABRIEL Administration Lisinopril 2.5 mg 11/13/18 10:00 11/19/18 10:15 Zestril PO 2.5 mg QDAY GABRIEL Administration Loratadine 10 mg 11/13/18 10:00 11/19/18 10:17 Claritin PO 10 mg QDAY GABRIEL Administration Methylprednisolone Sodium Succinate 60 mg 11/15/18 16:00 11/19/18 10:20 Solu-Medrol IV 60 mg Q6H GABRIEL Administration Metoprolol Tartrate 25 mg 11/14/18 15:00 11/19/18 10:12 Lopressor PO 25 mg BID GABRIEL Administration Ondansetron HCl 4 mg 11/12/18 20:11 Zofran IV Q8H PRN Nausea And Vomiting Pantoprazole Sodium 20 mg 11/13/18 10:00 11/19/18 10:11 Protonix PO 20 mg DAILY GABRIEL Administration Pravastatin Sodium 20 mg 11/12/18 22:00 11/18/18 21:50 Pravachol PO 20 mg QHS GABRIEL Administration Senna/Docusate Sodium 2 tab 11/15/18 10:00 Senokot S PO Q12H PRN Laxative Effect Sodium Chloride 10 ml 11/12/18 22:00 11/19/18 10:18 Sodium Chloride Flush Syringe 10 Ml IV 10 ml BID GABRIEL Administration Sodium Chloride 10 ml 11/12/18 20:11 Sodium Chloride Flush Syringe 10 Ml IV PRN PRN LINE FLUSH Tiotropium [place] 1 puff 11/13/18 10:00 11/15/18 20:53 Spiriva IH Not Given Q24HR GABRIEL Trazodone HCl 50 mg 11/12/18 22:00 11/18/18 21:48 Desyrel PO 50 mg HS GABRIEL Administration Nutrition/Malnutrition Assess - Dietary Evaluation Nutrition/Malnutrition Findings: Nutrition Notes Start: 11/19/18 11:28 Freq: Status: Active Protocol: Document 11/19/18 11:29 CP (Rec: 11/19/18 11:43 CP [id number]) Co-Sign 11/19/18 11:29 LP Nutrition Notes Need for Assessment generated from: LOS Initial or Follow up Brief Note Current Diagnosis COPD,Respiratory Failure, Hyperlipidemia Other Pertinent Diagnosis DVT prophylaxis, atrial fibrillation, elevated troponin Current Diet Cardiac diet Labs/Tests BUN: 27 Glu: 134 Cr: 0.5 Pertinent Medications Lasix Height 5 ft 6 in Weight 73.2 kg [place] Body Weight (kg) 59.09 BMI 26.0 Intake Prior to Admission Poor Weight change and time frame Pt reported having a 5 pound weight loss in 1 month. Weight Status Overweight Subjective/Other Information RD screen for LOS. Pt stated that her appetite is "slowly increasing" and that she ate 75% of her tray. She reports no N/V/D/C and any swallowing or chewing difficulties. She did not know her UBW. Percent of energy/protein needs met: 100%/85% Burn Absent Trauma Absent Is patient on ventilator? No Is Patient Ambulatory and/or Out of Bed No REE-(Alexis-St. Jeor-confined to bed) 5962.277 Calculation Used for Recommendations Alexis-St Jeor Additional Notes Pro: 73-88g (1-1.2g/kg) Fluid: 1mL/kcal or per MD request Nutrition Intervention Goal #1 Pt to continue to meet at least 80% of energy and protein needs Anticipated Discharge Needs: Cardiac Revisit per MD consult or patient Sign Off request:
--- NOTE | 2018-11-19 13:05 | Discharge Summary ---
Providers - Providers Date of Admission: 11/12/18 20:11 Date of discharge: 11/22/18 Attending physician: VELASQUEZ MARTIN 11/12/18 Consult to Cardiac Rehabilitation [CONS] Routine Reason For Exam: Phase I 11/14/18 13:59 Consult to Physician [CONS] Routine Comment: called office/veto Consulting Provider: GARETT WALDRON Physician Instructions: Reason For Exam: copd exacerbation 11/14/18 14:00 Occupational Therapy Evaluate and Treat [CONS] Routine Comment: Reason For Exam: ataxia Physical Therapy Evaluation and Treat [CONS] Routine Comment: Reason For Exam: ataxia 11/14/18 14:02 Consult to Mental Health [CONS] Routine Reason For Exam: Anxiety and medication managment Place consult to:: mental health Notified:: yes Phone number called:: [phone] Was contact made?: Yes If yes, spoke with:: deondre Time called:: 09:22 Comment:: veto Primary care physician: TONIA DODD Hospitalization Condition: Stable Hospital course: Patient is a 67 yo woman from [facility] with a history of HTN, Dementia, Chronic Respiratory Failure on 2L Home oxygen due to End-stage COPD, HLD, Hypothyroidism, Depression, Schizophrenia and Atrial Fib on Therapeutic Anticoagulation (Eliquis) presented to [facility] ED with SOB. Pt was found to have a pulse oximetry of 82% on room air. EMS was notified and patient placed on supple mental oxygen and transported to [facility] ED. Patient has been in and out of the hospital many times this year for COPD. She was recently admitted here on 10/23/18; during that last admission she was intubated due to COPD and also treated for Afib. She was successfully extubated and discharged on 11/03/18. She comes back on 11/12/18 with another COPD exacerbation. I discussed with dispensary clerk, Dr. Waldron and he recommends LTAC but she needs a 3 day stay in IMCU/ICU; so she was transferred to [facility] on 11/16/18. * MRI cervical spine; multilevel bilateral neural foramina narrowing secondary to disc osteophyte complex and vertebral joint hypertrophy. No central canal spinal stenosis or cord edema. * Chest x-ray; no infiltrate * CTA CHEST: Cardiomegaly. No CT evidence of pulmonary thromboembolic disease. COPD. Suspected pulmonary hypertension Acute on chronic respiratory failure: Nebs, steroids, Continue oxygen, pulmonology following, off bipap today Acute COPD exacerbation/end stage COPD: Nebs, steroids, Continue oxygen, pulmonology following, off bipap today P. Atrial Fibrillation with hypercoagulable states: Currently in SR. Cont Eliquis and lopressor. Acute Metabolic Encephalopathy: obtain and MRI head when medically stable. SIRS without acute organ dysfunction: continue to monitor Type 2 NSTEMI with CAD [facility] done 10/14/2018 showed 100% distal lcx, 100% distal LAD, EF 45%. Medical management was recommended: Cardiology consulted, input noted Ataxia, Chronic debility: PT/OT eval and treat Acute on chronic diastolic heart failure, resolved: Cardiology did evaluate Pulmonary HTN: Last echo, EF 50-55%, Pulmonary pressures not recorded. Schizophrenia: Continue Current meds, Hyperlipidemia: Continue statin Chronic Debility: PT/OT Anxiety: Mental health consult Anemia: STABLE Bradycardia, now resolved Hypothyroidism: Synthroid DVT/GI: Prophy on Eliquis Disposition: Continue inpatient care, d/c LTAC for pulmonary rehab as patient has been admitted 5x for COPD this year. Insurance would not pay for LTACH, so back to [facility] today Brother updated per Lizbeth, correctional case records supervisor. Disposition: [id number] SNF W [facility] CERT Time spent for discharge: 34 minutes Core Measure Documentation - Palliative Care Palliative Care/ Comfort Measures: Not Applicable - Core Measures Any of the following diagnoses?: none - VTE Discharge Requirements Deep Vein Thrombosis/Pulmonary Embolism Present on Admission: No Has pt received <5 days of overlap therapy or INR<2.0: No Anticoagulant overlap therapy prescribed at discharge: No Contraindication No Overlap Therapy order at DC: Not Indicated Exam - Physical Exam Narrative exam: Gen: WDWN, NAD, Awake, Alert, Orientated x 2 HEENT: NCAT, EOMI, PERRL, OP Clear Neck: supple, no adenopathy, no thyromegaly, no JVD CVS/Heart: RRR, normal S1S2, pulses present bilaterally Chest/Lungs: CTA B, Symmetrical chest expansion, good air entry bilaterally GI/Abdomen: soft, NTND, good bowel sounds, no guarding or rebound /Bladder: no suprapubic tenderness, no CVA or paraspinal tenderness Extermity/Skin: no c/c/e, no obvious rash MSK: FROM x 4 Neuro: CN 2-12 grossly intact, no new focal deficits Psych: calm - Constitutional Vitals: Temp Pulse Resp BP Pulse Ox 98.7 F 78 26 H 108/57 94 11/19/18 12:00 11/19/18 10:15 11/19/18 08:35 11/19/18 10:15 11/19/18 08:35 Plan Activity: up only with assistance, fall precautions Diet: low salt Special Instructions: record daily BP diary Follow up with: TONIA DODD MD [Primary Care Provider] - 3-5 Days VANDA LACEY MD [Staff Physician] - 7 Days Prescriptions: predniSONE [Deltasone] 1 dose PO DAILY 31 Days tablet
[2018-11-19] MEDS: DESYREL PO SCH (21:36)
[2018-11-19] MEDS: PRAVACHOL PO SCH (21:36)
[2018-11-20] MEDS: SOLU-Medrol IV SCH ×4 (04:39→21:09)
[2018-11-20] MEDS: SYNTHROID PO SCH (07:08)
[2018-11-20] MEDS: PULMICORT IH SCH ×2 (09:27→21:12)
[2018-11-20] MEDS: BROVANA NEBU IH SCH ×2 (09:28→21:12)
[2018-11-20] MEDS: ELIQUIS PO SCH ×2 (09:58→21:09)
[2018-11-20] MEDS: LASIX PO SCH (09:58)
[2018-11-20] MEDS: CLARITIN PO SCH (09:58)
[2018-11-20] MEDS: PROTONIX PO SCH (10:00)
[2018-11-20] MEDS: DIAMOX PO SCH ×2 (10:01→21:08)
[2018-11-20] MEDS: WELLBUTRIN XL PO SCH (10:01)
[2018-11-20] MEDS: ABILIFY PO SCH (10:01)
[2018-11-20] MEDS: ZESTRIL PO SCH (10:02)
[2018-11-20] MEDS: HALFPRIN EC PO SCH (10:03)
[2018-11-20] MEDS: SODIUM CHLORIDE FLUSH SYRINGE 10 ML IV SCH ×2 (10:06→21:09)
[2018-11-20] MEDS: LOPRESSOR PO SCH ×2 (10:06→21:11)
--- NOTE | 2018-11-20 11:09 | Progress Note ---
Assessment and Plan Assessment and plan: Patient is a 67 yo woman from [facility] ([place]) with a history of HTN, Dementia, Chronic Respiratory Failure on 2L Home oxygen due to End-stage COPD, HLD, Hypothyroidism, Depression, Schizophrenia and Atrial Fib on Therapeutic Anticoagulation (Eliquis) presented to [facility] ED with SOB. Pt was found to have a pulse oximetry of 82% on room air. EMS was notified and patient placed on supplemental oxygen and transported to [facility] ED. Patient has been in and out of the hospital many times this year for COPD. She was recently admitted here on 10/23/18; during that last admission she was intubated due to COPD and also treated for Afib. She was successfully extubated and discharged on 11/03/18. She comes back on 11/12/18 with another COPD exacerbation. I discussed with marketing developer, Dr. Waldron and he recommends LTAC but she needs a 3 day stay in IMCU/ICU; so she was transferred to [facility] on 11/16/18. * MRI cervical spine; multilevel bilateral neural foramina narrowing secondary to disc osteophyte complex and vertebral joint hypertrophy. No central canal spinal stenosis or cord edema. * Chest x-ray; no infiltrate * CTA CHEST: Cardiomegaly. No CT evidence of pulmonary thromboembolic disease. COPD. Suspected pulmonary hypertension Acute on chronic respiratory failure: Nebs, steroids, Continue oxygen, pulmonology following, off bipap today Acute COPD exacerbation/end stage COPD: Nebs, steroids, Continue oxygen, pulmonology following, off bipap today P. Atrial Fibrillation with hypercoagulable states: Currently in SR. Cont E liquis and lopressor. Acute Metabolic Encephalopathy: obtain and MRI head when medically stable. SIRS without acute organ dysfunction: continue to monitor Type 2 NSTEMI with CAD [facility] done 10/14/2018 showed 100% distal lcx, 100% distal LAD, EF 45%. Medical management was recommended: Cardiology consulted, input noted Ataxia, Chronic debility: PT/OT eval and treat Acute on chronic diastolic heart failure, resolved: Cardiology did evaluate Pulmonary HTN: Last echo, EF 50-55%, Pulmonary pressures not recorded. Schizophrenia: Continue Current meds, Hyperlipidemia: Continue statin Chronic Debility: PT/OT Anxiety: Mental health consult Anemia: STABLE Bradycardia, now resolved Hypothyroidism: Synthroid DVT/GI: Prophy on Eliquis Disposition: Continue inpatient care, d/c LTAC for pulmonary rehab as patient has been admitted at least 5x for COPD this year. Awaiting insurance clearance, Dr. Waldron for peer to peer History Interval history: Patient was seen and examined. Follow-up on current diagnosis. Overnight uneventful. Patient denies any chest pain, shortness breath, nausea/vomiting or severe headaches. Imaging, nursing note, chart, labs and old chart reviewed. Discussed with patient. Hospitalist Physical - Physical exam Narrative exam: Gen: WDWN, NAD, Awake, Alert, Orientated x 2 HEENT: NCAT, EOMI, PERRL, OP Clear Neck: supple, no adenopathy, no thyromegaly, no JVD CVS/Heart: RRR, normal S1S2, pulses present bilaterally Chest/Lungs: CTA B, Symmetrical chest expansion, good air entry bilaterally GI/Abdomen: soft, NTND, good bowel sounds, no guarding or rebound /Bladder: no suprapubic tenderness, no CVA or paraspinal tenderness Extermity/Skin: no c/c/e, no obvious rash MSK: FROM x 4 Neuro: CN 2-12 grossly intact, no new focal deficits Psych: calm - Constitutional Vitals: Temp Pulse Resp BP Pulse Ox 97.5 F L 65 27 H 122/92 100 11/20/18 08:00 11/20/18 10:02 11/20/18 06:00 11/20/18 10:02 11/20/18 06:00 General appearance: Absent: mild distress Results - Labs CBC & Chem 7: 11/12/18 17:14 11/19/18 04:53 Labs: Laboratory Last Values WBC 4.4 K/mm3 (4.5-11.0) L 11/12/18 17:14 RBC 4.10 M/mm3 (3.65-5.03) 11/12/18 17:14 Hgb 9.7 gm/dl (10.1-14.3) L 11/12/18 17:14 Hct 32.6 % (30.3-42.9) 11/12/18 17:14 MCV 80 fl (79-97) 11/12/18 17:14 MCH 24 pg (28-32) L 11/12/18 17:14 MCHC 30 % (30-34) 11/12/18 17:14 RDW 17.3 % (13.2-15.2) H 11/12/18 17:14 Plt Count 199 K/mm3 (140-440) 11/12/18 17:14 Lymph % (Auto) 5.4 % (13.4-35.0) L 11/12/18 17:14 [place] % (Auto) 3.5 % (0.0-7.3) 11/12/18 17:14 Eos % (Auto) 0.4 % (0.0-4.3) 11/12/18 17:14 Baso % (Auto) 1.4 % (0.0-1.8) 11/12/18 17:14 Lymph # 0.2 K/mm3 (1.2-5.4) L 11/12/18 17:14 [place] # 0.2 K/mm3 (0.0-0.8) 11/12/18 17:14 Eos # 0.0 K/mm3 (0.0-0.4) 11/12/18 17:14 Baso # 0.1 K/mm3 (0.0-0.1) 11/12/18 17:14 Seg Neutrophils % 89.3 % (40.0-70.0) H 11/12/18 17:14 Seg Neutrophils # 4.0 K/mm3 (1.8-7.7) 11/12/18 17:14 Sodium 141 mmol/L (137-145) 11/19/18 04:53 Potassium 4.5 mmol/L (3.6-5.0) 11/19/18 04:53 Chloride 92.8 mmol/L (98-107) L 11/19/18 04:53 Carbon Dioxide 41 mmol/L (22-30) H* 11/19/18 04:53 Anion Gap 12 mmol/L 11/19/18 04:53 BUN 27 mg/dL (7-17) H 11/19/18 04:53 Creatinine 0.5 mg/dL (0.7-1.2) L 11/19/18 04:53 Estimated GFR > 60 ml/min 11/19/18 04:53 BUN/Creatinine Ratio 54 % 11/19/18 04:53 Glucose 134 mg/dL (65-100) H 11/19/18 04:53 Lactic Acid 0.60 mmol/L (0.7-2.0) L 11/12/18 17:14 Calcium 8.7 mg/dL (8.4-10.2) 11/19/18 04:53 Phosphorus 3.10 mg/dL (2.5-4.5) 11/19/18 04:53 Magnesium 2.20 mg/dL (1.7-2.3) 11/19/18 04:53 Total Bilirubin < 0.20 mg/dL (0.1-1.2) 11/12/18 17:14 AST 25 units/L (5-40) 11/12/18 17:14 ALT 32 units/L (7-56) 11/12/18 17:14 Alkaline Phosphatase 79 units/L (35-129) 11/12/18 17:14 Total Creatine Kinase 31 units/L (30-135) 11/14/18 21:32 CK-MB (CK-2) 4.2 ng/mL (0.0-4.0) H 11/14/18 21:32 CK-MB (CK-2) Rel Index 13.5 (0-4) H 11/14/18 21:32 Troponin T 0.010 ng/mL (0.00-0.029) 11/13/18 17:01 NT-Pro-B Natriuret Pep 2599 pg/mL (0-900) H 11/12/18 19:49 Total Protein 6.1 g/dL (6.3-8.2) L 11/12/18 17:14 Albumin 3.7 g/dL (3.9-5) L 11/12/18 17:14 Albumin/Globulin Ratio 1.5 % 11/12/18 17:14 Triglycerides 67 mg/dL (2-149) 11/12/18 17:14 Cholesterol 179 mg/dL (50-199) 11/12/18 17:14 LDL Cholesterol Direct 109 mg/dL (50-130) 11/12/18 17:14 HDL Cholesterol 71 mg/dL (40-59) H 11/12/18 17:14 Cholesterol/HDL Ratio 2.52 % 11/12/18 17:14 TSH 0.409 mlU/mL (0.270-4.200) 11/12/18 19:49 Free T4 1.07 ng/dL (0.76-1.46) 11/12/18 19:49 Urine Color Yellow (Yellow) 11/13/18 03:47 Urine Turbidity Clear (Clear) 11/13/18 03:47 Urine pH 6.0 (5.0-7.0) 11/13/18 03:47 Ur Specific [place] > 1.059 (1.003-1.030) H 11/13/18 03:47 Urine Protein <15 mg/dl mg/dL (Negative) 11/13/18 03:47 Urine Glucose (UA) Neg mg/dL (Negative) 11/13/18 03:47 Urine Ketones Neg mg/dL (Negative) 11/13/18 03:47 Urine Blood Neg (Negative) 11/13/18 03:47 Urine Nitrite Neg (Negative) 11/13/18 03:47 Urine Bilirubin Neg (Negative) 11/13/18 03:47 Urine Urobilinogen < 2.0 mg/dL (<2.0) 11/13/18 03:47 Ur Leukocyte Esterase Neg (Negative) 11/13/18 03:47 Urine WBC (Auto) < 1.0 /HPF (0.0-6.0) 11/13/18 03:47 Urine RBC (Auto) 1.0 /HPF (0.0-6.0) 11/13/18 03:47 U Epithel Cells (Auto) 1.0 /HPF (0-13.0) 11/13/18 03:47 Active Medications - Current Medications Current Medications: Generic Name Dose Route Start Last Admin Trade Name Freq PRN Reason Stop Dose Admin Acetaminophen 650 mg 11/12/18 20:11 Tylenol PO Q4H PRN Pain MILD(1-3)/Fever >100.5/LOU Acetazolamide 250 mg 11/12/18 22:00 11/20/18 10:01 Diamox PO 250 mg BID GABRIEL Administration Albuterol 2.5 mg 11/12/18 20:11 11/16/18 14:00 Proventil IH 2.5 mg Q4HRT PRN Administration Shortness Of Breath Apixaban 5 mg 11/12/18 22:00 11/20/18 09:58 Eliquis PO 5 mg Q12HR GABRIEL Administration Protocol Arformoterol Tartrate 15 mcg 11/13/18 08:00 11/20/18 09:28 Brovana Nebu IH 15 mcg Q12HRT GABRIEL Administration Aripiprazole 5 mg 11/13/18 10:00 11/20/18 10:01 Abilify PO 5 mg DAILY GABRIEL Administration Aspirin 81 mg 11/13/18 10:00 11/20/18 10:03 Halfprin Ec PO 81 mg QDAY GABRIEL Administration Budesonide 0.5 mg 11/14/18 08:03 11/20/18 09:27 Pulmicort IH 0.5 mg Q12HRT GABRIEL Administration Bupropion HCl 300 mg 11/13/18 10:00 11/20/18 10:01 Wellbutrin Xl PO 300 mg QDAY GABRIEL Administration Furosemide 40 mg 11/13/18 10:00 11/20/18 09:58 Lasix PO 40 mg QAM GABRIEL Administration Levothyroxine Sodium 125 mcg 11/13/18 06:00 11/20/18 07:08 Synthroid PO 125 mcg QAM@0600 GABRIEL Administration Lisinopril 2.5 mg 11/13/18 10:00 11/20/18 10:02 Zestril PO 2.5 mg QDAY GABRIEL Administration Loratadine 10 mg 11/13/18 10:00 11/20/18 09:58 Claritin PO 10 mg QDAY GABRIEL Administration Methylprednisolone Sodium Succinate 60 mg 11/15/18 16:00 11/20/18 10:05 Solu-Medrol IV 60 mg Q6H GABRIEL Administration Metoprolol Tartrate 25 mg 11/14/18 15:00 11/20/18 10:06 Lopressor PO Not Given BID GABRIEL Ondansetron HCl 4 mg 11/12/18 20:11 Zofran IV Q8H PRN Nausea And Vomiting Pantoprazole Sodium 20 mg 11/13/18 10:00 11/20/18 10:00 Protonix PO 20 mg DAILY GABRIEL Administration Pravastatin Sodium 20 mg 11/12/18 22:00 11/19/18 21:36 Pravachol PO 20 mg QHS GABRIEL Administration Senna/Docusate Sodium 2 tab 11/15/18 10:00 Senokot S PO Q12H PRN Laxative Effect Sodium Chloride 10 ml 11/12/18 22:00 11/20/18 10:06 Sodium Chloride Flush Syringe 10 Ml IV 10 ml BID GABRIEL Administration Sodium Chloride 10 ml 11/12/18 20:11 Sodium Chloride Flush Syringe 10 Ml IV PRN PRN LINE FLUSH Tiotropium [place] 1 puff 11/13/18 10:00 11/15/18 20:53 Spiriva IH Not Given Q24HR GABRIEL Trazodone HCl 50 mg 11/12/18 22:00 11/19/18 21:36 Desyrel PO 50 mg HS GABRIEL Administration Nutrition/Malnutrition Assess - Dietary Evaluation Nutrition/Malnutrition Findings: Nutrition Notes Start: 11/19/18 11:28 Freq: Status: Active Protocol: Document 11/19/18 11:29 CP (Rec: 11/19/18 11:43 CP [id number]) Co-Sign 11/19/18 11:29 LP Nutrition Notes Need for Assessment generated from: LOS Initial or Follow up Brief Note Current Diagnosis COPD,Respiratory Failure, Hyperlipidemia Other Pertinent Diagnosis DVT prophylaxis, atrial fibrillation, elevated troponin Current Diet Cardiac diet Labs/Tests BUN: 27 Glu: 134 Cr: 0.5 Pertinent Medications Lasix Height 5 ft 6 in Weight 73.2 kg [place] Body Weight (kg) 59.09 BMI 26.0 Intake Prior to Admission Poor Weight change and time frame Pt reported having a 5 pound weight loss in 1 month. Weight Status Overweight Subjective/Other Information RD screen for LOS. Pt stated that her appetite is "slowly increasing" and that she ate 75% of her tray. She reports no N/V/D/C and any swallowing or chewing difficulties. She did not know her UBW. Percent of energy/protein needs met: 100%/85% Burn Absent Trauma Absent Is patient on ventilator? No Is Patient Ambulatory and/or Out of Bed No REE-([facility]-confined to bed) 4021.960 Calculation Used for Recommendations [facility] Additional Notes Pro: 73-88g (1-1.2g/kg) Fluid: 1mL/kcal or per MD request Nutrition Intervention Goal #1 Pt to continue to meet at least 80% of energy and protein needs Anticipated Discharge Needs: Cardiac Revisit per MD consult or patient Sign Off request:
--- NOTE | 2018-11-20 14:05 | Progress Note ---
Assessment and Plan 67 y/o female with known COPD, and chronic respiratory failure admitted with dyspnea. 1. Continue PRN and QHS bipap therapy 2. Stable for transfer to floor 3. Will drop steroids to 60q8 today 4. continue BID pulmicort and brovana 5. Will continue diuretic therapy as is for now. 6. Continue PT Subjective Date of service: 11/20/18 Principal diagnosis: COPD Interval history: Insurance denied LTACH referral. I did peer to peer which really wasn't a peer to peer but the rep stated that the patient doesnt meet the strict criteria for LTACH placement. They suggested appeal to see if she would qualify there given her recurrent hospital stays. Objective Vital Signs - 12hr 11/20/18 11/20/18 11/20/18 03:00 04:00 04:27 Temperature 98.4 F Pulse Rate 55 L 45 L 62 Respiratory 21 21 21 Rate Blood Pressure 99/57 123/67 123/67 O2 Sat by Pulse 100 100 100 Oximetry 11/20/18 11/20/18 11/20/18 05:01 06:00 08:00 Temperature 97.5 F L Pulse Rate 54 L 63 Respiratory 20 27 H Rate Blood Pressure 104/78 99/69 O2 Sat by Pulse 99 100 Oximetry 11/20/18 11/20/18 10:02 12:00 Temperature 98.1 F Pulse Rate 65 Respiratory Rate Blood Pressure 122/92 O2 Sat by Pulse Oximetry Constitutional: alert, appears uncomfortable Eyes: non-icteric ENT: oropharynx moist Neck: supple Effort: mildly labored Ascultation: Bilateral: diminished breath sounds, wheezes Percussion: Bilateral: not dull Tactile fremitus: Bilateral: normal Cardiovascular: other (sinus tachycardia) Extremities: no edema, pink and warm CBC and BMP: 11/12/18 17:14 11/19/18 04:53 Abnormal lab findings: Abnormal Labs 11/12/18 11/12/18 11/12/18 17:14 17:14 17:14 WBC 4.4 L Hgb 9.7 L MCH 24 L RDW 17.3 H Lymph % (Auto) 5.4 L Lymph # 0.2 L Seg Neutrophils % 89.3 H Chloride 97.1 L Carbon Dioxide 39 H BUN 25 H Creatinine 0.5 L Glucose 140 H Lactic Acid 0.60 L CK-MB (CK-2) 11.4 H CK-MB (CK-2) Rel Index 18.3 H Troponin T 0.042 H NT-Pro-B Natriuret Pep Total Protein 6.1 L Albumin 3.7 L HDL Cholesterol 71 H Ur Specific [place] 11/12/18 11/12/18 11/13/18 18:13 19:49 03:47 WBC Hgb MCH RDW Lymph % (Auto) Lymph # Seg Neutrophils % Chloride Carbon Dioxide BUN Creatinine Glucose Lactic Acid CK-MB (CK-2) CK-MB (CK-2) Rel Index Troponin T NT-Pro-B Natriuret Pep 2696 H 2599 H Total Protein Albumin HDL Cholesterol Ur Specific [place] > 1.059 H 11/13/18 11/14/18 11/14/18 21:30 10:32 14:43 WBC Hgb MCH RDW Lymph % (Auto) Lymph # Seg Neutrophils % Chloride Carbon Dioxide BUN Creatinine Glucose Lactic Acid CK-MB (CK-2) 4.8 H 4.7 H 4.1 H CK-MB (CK-2) Rel Index 15.0 H 14.6 H 11.7 H Troponin T NT-Pro-B Natriuret Pep Total Protein Albumin HDL Cholesterol Ur Specific [place] 11/14/18 11/16/18 11/19/18 21:32 12:34 04:53 WBC Hgb MCH RDW Lymph % (Auto) Lymph # Seg Neutrophils % Chloride 90.8 L 92.8 L Carbon Dioxide 41 H* 41 H* BUN 22 H 27 H Creatinine 0.5 L 0.5 L Glucose 134 H Lactic Acid CK-MB (CK-2) 4.2 H CK-MB (CK-2) Rel Index 13.5 H Troponin T NT-Pro-B Natriuret Pep Total Protein Albumin HDL Cholesterol Ur Specific [place]
--- NOTE | 2018-11-20 14:49 | Event Note ---
Date: 11/20/18 Spoke to rep from Insurance who denied referral. They suggested we appeal as the appeal committee criteria may be different from theirs in regards to admission. Spoke with patient about this and will discuss with her brother.
[2018-11-20] MEDS: PRAVACHOL PO SCH (21:08)
[2018-11-20] MEDS: DESYREL PO SCH (21:09)
[2018-11-21] MEDS: SOLU-Medrol IV SCH ×4 (04:57→22:09)
[2018-11-21] MEDS: SYNTHROID PO SCH (05:44)
[2018-11-21] MEDS: BROVANA NEBU IH SCH ×2 (09:26→20:21)
[2018-11-21] MEDS: PULMICORT IH SCH ×2 (09:26→20:21)
[2018-11-21] MEDS: LOPRESSOR PO SCH ×2 (09:36→22:02)
[2018-11-21] MEDS: ZESTRIL PO SCH (09:37)
[2018-11-21] MEDS: PROTONIX PO SCH (09:38)
[2018-11-21] MEDS: LASIX PO SCH (09:38)
[2018-11-21] MEDS: ABILIFY PO SCH (09:38)
[2018-11-21] MEDS: HALFPRIN EC PO SCH (09:38)
[2018-11-21] MEDS: DIAMOX PO SCH ×2 (09:38→22:04)
[2018-11-21] MEDS: WELLBUTRIN XL PO SCH (09:39)
[2018-11-21] MEDS: CLARITIN PO SCH (09:39)
[2018-11-21] MEDS: ELIQUIS PO SCH ×2 (09:39→22:02)
[2018-11-21] MEDS: SODIUM CHLORIDE FLUSH SYRINGE 10 ML IV SCH ×2 (09:41→22:05)
--- NOTE | 2018-11-21 10:42 | Progress Note ---
Assessment and Plan Assessment and plan: Patient is a 67 yo woman from [facility] with a history of HTN, Dementia, Chronic Respiratory Failure on 2L Home oxygen due to End-stage COPD, HLD, Hypothyroidism, Depression, Schizophrenia and Atrial Fib on Therapeutic Anticoagulation (Eliquis) presented to [facility] ED with SOB. Pt was found to have a pulse oximetry of 82% on room air. EMS was notified and patient placed on supplemental oxygen and transported to [facility] ED. Patient has been in and out of the hospital many times this year for COPD. She was recently admitted here on 10/23/18; during that last admission she was intubated due to COPD and also treated for Afib. She was successfully extubated and discharged on 11/03/18. She comes back on 11/12/18 with another COPD exacerbation. I discussed with cloth piecer, Dr. Waldron and he recommends LTAC but she needs a 3 day stay in IMCU/ICU; so she was transferred to [facility] on 11/16/18. * MRI cervical spine; multilevel bilateral neural foramina narrowing secondary to disc osteophyte complex and vertebral joint hypertrophy. No central canal spinal stenosis or cord edema. * Chest x-ray; no infiltrate * CTA CHEST: Cardiomegaly. No CT evidence of pulmonary thromboembolic disease. COPD. Suspected pulmonary hypertension Acute on chronic respiratory failure: Nebs, steroids, Continue oxygen, pulmonology following, off bipap today Acute COPD exacerbation/end stage COPD: Nebs, steroids, Continue oxygen, pulmonology following, off bipap today P. Atrial Fibrillation with hypercoagulable states: Currently in SR. Cont E liquis and lopressor. Acute Metabolic Encephalopathy: obtain and MRI head when medically stable. SIRS without acute organ dysfunction: continue to monitor Type 2 NSTEMI with CAD [facility] done 10/14/2018 showed 100% distal lcx, 100% distal LAD, EF 45%. Medical management was recommended: Cardiology consulted, input noted Ataxia, Chronic debility: PT/OT eval and treat Acute on chronic diastolic heart failure, resolved: Cardiology did evaluate Pulmonary HTN: Last echo, EF 50-55%, Pulmonary pressures not recorded. Schizophrenia: Continue Current meds, Hyperlipidemia: Continue statin Chronic Debility: PT/OT Anxiety: Mental health consult Anemia: STABLE Bradycardia, now resolved Hypothyroidism: Synthroid DVT/GI: Prophy on Eliquis Disposition: Continue inpatient care, d/c LTAC for pulmonary rehab as patient has been admitted at least 5x for COPD this year. Awaiting insurance clearance, d/w Dr. Waldron still trying to get to LTAC, case management to appeal on Thursday. History Interval history: Patient was seen and examined. Follow-up on current diagnosis. Overnight uneventful. Patient denies any chest pain, shortness breath, nausea/vomiting or severe headaches. Imaging, nursing note, chart, labs and old chart reviewed. Discussed with patient. Hospitalist Physical - Physical exam Narrative exam: Gen: WDWN, NAD, Awake, Alert, Orientated x 2 HEENT: NCAT, EOMI, PERRL, OP Clear Neck: supple, no adenopathy, no thyromegaly, no JVD CVS/Heart: RRR, normal S1S2, pulses present bilaterally Chest/Lungs: CTA B, Symmetrical chest expansion, good air entry bilaterally GI/Abdomen: soft, NTND, good bowel sounds, no guarding or rebound /Bladder: no suprapubic tenderness, no CVA or paraspinal tenderness Extermity/Skin: no c/c/e, no obvious rash MSK: FROM x 4 Neuro: CN 2-12 grossly intact, no new focal deficits Psych: calm - Constitutional Vitals: Temp Pulse Resp BP Pulse Ox 98.5 F 73 20 121/69 100 11/21/18 08:00 11/21/18 09:40 11/21/18 09:40 11/21/18 09:37 11/21/18 09:39 General appearance: Absent: mild distress Results - Labs CBC & Chem 7: 11/12/18 17:14 11/19/18 04:53 Labs: Laboratory Last Values WBC 4.4 K/mm3 (4.5-11.0) L 11/12/18 17:14 RBC 4.10 M/mm3 (3.65-5.03) 11/12/18 17:14 Hgb 9.7 gm/dl (10.1-14.3) L 11/12/18 17:14 Hct 32.6 % (30.3-42.9) 11/12/18 17:14 MCV 80 fl (79-97) 11/12/18 17:14 MCH 24 pg (28-32) L 11/12/18 17:14 MCHC 30 % (30-34) 11/12/18 17:14 RDW 17.3 % (13.2-15.2) H 11/12/18 17:14 Plt Count 199 K/mm3 (140-440) 11/12/18 17:14 Lymph % (Auto) 5.4 % (13.4-35.0) L 11/12/18 17:14 [place] % (Auto) 3.5 % (0.0-7.3) 11/12/18 17:14 Eos % (Auto) 0.4 % (0.0-4.3) 11/12/18 17:14 Baso % (Auto) 1.4 % (0.0-1.8) 11/12/18 17:14 Lymph # 0.2 K/mm3 (1.2-5.4) L 11/12/18 17:14 [place] # 0.2 K/mm3 (0.0-0.8) 11/12/18 17:14 Eos # 0.0 K/mm3 (0.0-0.4) 11/12/18 17:14 Baso # 0.1 K/mm3 (0.0-0.1) 11/12/18 17:14 Seg Neutrophils % 89.3 % (40.0-70.0) H 11/12/18 17:14 Seg Neutrophils # 4.0 K/mm3 (1.8-7.7) 11/12/18 17:14 Sodium 141 mmol/L (137-145) 11/19/18 04:53 Potassium 4.5 mmol/L (3.6-5.0) 11/19/18 04:53 Chloride 92.8 mmol/L (98-107) L 11/19/18 04:53 Carbon Dioxide 41 mmol/L (22-30) H* 11/19/18 04:53 Anion Gap 12 mmol/L 11/19/18 04:53 BUN 27 mg/dL (7-17) H 11/19/18 04:53 Creatinine 0.5 mg/dL (0.7-1.2) L 11/19/18 04:53 Estimated GFR > 60 ml/min 11/19/18 04:53 BUN/Creatinine Ratio 54 % 11/19/18 04:53 Glucose 134 mg/dL (65-100) H 11/19/18 04:53 POC Glucose 121 (70-105) H 11/21/18 08:21 Lactic Acid 0.60 mmol/L (0.7-2.0) L 11/12/18 17:14 Calcium 8.7 mg/dL (8.4-10.2) 11/19/18 04:53 Phosphorus 3.10 mg/dL (2.5-4.5) 11/19/18 04:53 Magnesium 2.20 mg/dL (1.7-2.3) 11/19/18 04:53 Total Bilirubin < 0.20 mg/dL (0.1-1.2) 11/12/18 17:14 AST 25 units/L (5-40) 11/12/18 17:14 ALT 32 units/L (7-56) 11/12/18 17:14 Alkaline Phosphatase 79 units/L (35-129) 11/12/18 17:14 Total Creatine Kinase 31 units/L (30-135) 11/14/18 21:32 CK-MB (CK-2) 4.2 ng/mL (0.0-4.0) H 11/14/18 21:32 CK-MB (CK-2) Rel Index 13.5 (0-4) H 11/14/18 21:32 Troponin T 0.010 ng/mL (0.00-0.029) 11/13/18 17:01 NT-Pro-B Natriuret Pep 2599 pg/mL (0-900) H 11/12/18 19:49 Total Protein 6.1 g/dL (6.3-8.2) L 11/12/18 17:14 Albumin 3.7 g/dL (3.9-5) L 11/12/18 17:14 Albumin/Globulin Ratio 1.5 % 11/12/18 17:14 Triglycerides 67 mg/dL (2-149) 11/12/18 17:14 Cholesterol 179 mg/dL (50-199) 11/12/18 17:14 LDL Cholesterol Direct 109 mg/dL (50-130) 11/12/18 17:14 HDL Cholesterol 71 mg/dL (40-59) H 11/12/18 17:14 Cholesterol/HDL Ratio 2.52 % 11/12/18 17:14 TSH 0.409 mlU/mL (0.270-4.200) 11/12/18 19:49 Free T4 1.07 ng/dL (0.76-1.46) 11/12/18 19:49 Urine Color Yellow (Yellow) 11/13/18 03:47 Urine Turbidity Clear (Clear) 11/13/18 03:47 Urine pH 6.0 (5.0-7.0) 11/13/18 03:47 Ur Specific [place] > 1.059 (1.003-1.030) H 11/13/18 03:47 Urine Protein <15 mg/dl mg/dL (Negative) 11/13/18 03:47 Urine Glucose (UA) Neg mg/dL (Negative) 11/13/18 03:47 Urine Ketones Neg mg/dL (Negative) 11/13/18 03:47 Urine Blood Neg (Negative) 11/13/18 03:47 Urine Nitrite Neg (Negative) 11/13/18 03:47 Urine Bilirubin Neg (Negative) 11/13/18 03:47 Urine Urobilinogen < 2.0 mg/dL (<2.0) 11/13/18 03:47 Ur Leukocyte Esterase Neg (Negative) 11/13/18 03:47 Urine WBC (Auto) < 1.0 /HPF (0.0-6.0) 11/13/18 03:47 Urine RBC (Auto) 1.0 /HPF (0.0-6.0) 11/13/18 03:47 U Epithel Cells (Auto) 1.0 /HPF (0-13.0) 11/13/18 03:47 Active Medications - Current Medications Current Medications: Generic Name Dose Route Start Last Admin Trade Name Freq PRN Reason Stop Dose Admin Acetaminophen 650 mg 11/12/18 20:11 Tylenol PO Q4H PRN Pain MILD(1-3)/Fever >100.5/LOU Acetazolamide 250 mg 11/12/18 22:00 11/21/18 09:38 Diamox PO 250 mg BID GABRIEL Administration Albuterol 2.5 mg 11/12/18 20:11 11/16/18 14:00 Proventil IH 2.5 mg Q4HRT PRN Administration Shortness Of Breath Apixaban 5 mg 11/12/18 22:00 11/21/18 09:39 Eliquis PO 5 mg Q12HR GABRIEL Administration Protocol Arformoterol Tartrate 15 mcg 11/13/18 08:00 11/21/18 09:26 Brovana Nebu IH 15 mcg Q12HRT GABRIEL Administration Aripiprazole 5 mg 11/13/18 10:00 11/21/18 09:38 Abilify PO 5 mg DAILY GABRIEL Administration Aspirin 81 mg 11/13/18 10:00 11/21/18 09:38 Halfprin Ec PO 81 mg QDAY GABRIEL Administration Budesonide 0.5 mg 11/14/18 08:03 11/21/18 09:26 Pulmicort IH 0.5 mg Q12HRT GABRIEL Administration Bupropion HCl 300 mg 11/13/18 10:00 11/21/18 09:39 Wellbutrin Xl PO 300 mg QDAY GABRIEL Administration Furosemide 40 mg 11/13/18 10:00 11/21/18 09:38 Lasix PO 40 mg QAM GABRIEL Administration Levothyroxine Sodium 125 mcg 11/13/18 06:00 11/21/18 05:44 Synthroid PO 125 mcg QAM@0600 GABRIEL Administration Lisinopril 2.5 mg 11/13/18 10:00 11/21/18 09:37 Zestril PO 2.5 mg QDAY GABRIEL Administration Loratadine 10 mg 11/13/18 10:00 11/21/18 09:39 Claritin PO 10 mg QDAY GABRIEL Administration Methylprednisolone Sodium Succinate 60 mg 11/15/18 16:00 11/21/18 09:43 Solu-Medrol IV 60 mg Q6H GABRIEL Administration Metoprolol Tartrate 25 mg 11/14/18 15:00 11/21/18 09:36 Lopressor PO 25 mg BID GABRIEL Administration Ondansetron HCl 4 mg 11/12/18 20:11 Zofran IV Q8H PRN Nausea And Vomiting Pantoprazole Sodium 20 mg 11/13/18 10:00 11/21/18 09:38 Protonix PO 20 mg DAILY GABRIEL Administration Pravastatin Sodium 20 mg 11/12/18 22:00 11/20/18 21:08 Pravachol PO 20 mg QHS GABRIEL Administration Senna/Docusate Sodium 2 tab 11/15/18 10:00 Senokot S PO Q12H PRN Laxative Effect Sodium Chloride 10 ml 11/12/18 22:00 11/21/18 09:41 Sodium Chloride Flush Syringe 10 Ml IV 10 ml BID GABRIEL Administration Sodium Chloride 10 ml 11/12/18 20:11 Sodium Chloride Flush Syringe 10 Ml IV PRN PRN LINE FLUSH Tiotropium [place] 1 puff 11/13/18 10:00 11/15/18 20:53 Spiriva IH Not Given Q24HR GABRIEL Trazodone HCl 50 mg 11/12/18 22:00 11/20/18 21:09 Desyrel PO 50 mg HS GABRIEL Administration Nutrition/Malnutrition Assess - Dietary Evaluation Nutrition/Malnutrition Findings: Nutrition Notes Start: 11/19/18 11:2 8 Freq: Status: Active Protocol: Document 11/19/18 11:29 CP (Rec: 11/19/18 11:43 CP [id number]) Co-Sign 11/19/18 11:29 LP Nutrition Notes Need for Assessment generated from: LOS Initial or Follow up Brief Note Current Diagnosis COPD,Respiratory Failure, Hyperlipidemia Other Pertinent Diagnosis DVT prophylaxis, atrial fibrillation, elevated troponin Current Diet Cardiac diet Labs/Tests BUN: 27 Glu: 134 Cr: 0.5 Pertinent Medications Lasix Height 5 ft 6 in Weight 73.2 kg [place] Body Weight (kg) 59.09 BMI 26.0 Intake Prior to Admission Poor Weight change and time frame Pt reported having a 5 pound weight loss in 1 month. Weight Status Overweight Subjective/Other Information RD screen for LOS. Pt stated that her appetite is "slowly increasing" and that she ate 75% of her tray. She reports no N/V/D/C and any swallowing or chewing difficulties. She did not know her UBW. Percent of energy/protein needs met: 100%/85% Burn Absent Trauma Absent Is patient on ventilator? No Is Patient Ambulatory and/or Out of Bed No REE-([place]-St. Jeor-confined to bed) [phone] Calculation Used for Recommendations [place] Je[place] Additional Notes Pro: 73-88g (1-1.2g/kg) Fluid: 1mL/kcal or per MD request Nutrition Intervention Goal #1 Pt to continue to meet at least 80% of energy and protein needs Anticipated Discharge Needs: Cardiac Revisit per MD consult or patient Sign Off request:
--- NOTE | 2018-11-21 13:46 | Progress Note ---
Assessment and Plan 67 y/o female with known COPD, and chronic respiratory failure admitted with dyspnea. 1. Continue PRN and QHS bipap therapy 2. Stable for transfer to floor 3. Will drop steroids to 60q8 today 4. continue BID pulmicort and brovana 5. Will continue diuretic therapy as is for now. 6. Continue PT 7. Follow up with CM about Appeal for LTACH. patient would greatly benefit from this as this is her 5th hospital stay in under 5 months time frame. Subjective Date of service: 11/21/18 Principal diagnosis: COPD Interval history: No acute events. Objective Vital Signs - 12hr 11/21/18 11/21/18 11/21/18 02:00 03:00 03:22 Temperature Pulse Rate 51 L 46 L 61 Pulse Rate [ Anterior Bilateral Throughout] Pulse Rate [ Left Dorsalis Pedis] Pulse Rate [ Throughout] Respiratory 10 L 13 15 Rate Respiratory Rate [Anterior Bilateral Throughout] Respiratory Rate [ Throughout] Blood Pressure 138/67 121/64 121/64 O2 Sat by Pulse 97 Oximetry 11/21/18 11/21/18 11/21/18 04:00 05:01 06:00 Temperature 97.8 F Pulse Rate 43 L 45 L 43 L Pulse Rate [ Anterior Bilateral Throughout] Pulse Rate [ 43 L Left Dorsalis Pedis] Pulse Rate [ Throughout] Respiratory 10 L 19 16 Rate Respiratory Rate [Anterior Bilateral Throughout] Respiratory Rate [ Throughout] Blood Pressure 117/56 124/66 135/69 O2 Sat by Pulse 98 Oximetry 11/21/18 11/21/18 11/21/18 07:00 08:00 09:00 Temperature 98.5 F Pulse Rate 49 L 43 L 64 Pulse Rate [ Anterior Bilateral Throughout] Pulse Rate [ 79 Left Dorsalis Pedis] Pulse Rate [ Throughout] Respiratory 19 16 13 Rate Respiratory Rate [Anterior Bilateral Throughout] Respiratory Rate [ Throughout] Blood Pressure 118/72 118/64 133/68 O2 Sat by Pulse 96 98 Oximetry 11/21/18 11/21/18 11/21/18 09:25 09:36 09:37 Temperature Pulse Rate 56 L 56 L Pulse Rate [ 72 Anterior Bilateral Throughout] Pulse Rate [ Left Dorsalis Pedis] Pulse Rate [ 72 Throughout] Respiratory Rate Respiratory 28 H Rate [Anterior Bilateral Throughout] Respiratory 28 H Rate [ Throughout] Blood Pressure 121/69 121/69 O2 Sat by Pulse Oximetry 04/11/21/18 11/21/18 09:39 09:40 10:00 Temperature Pulse Rate 60 Pulse Rate [ 73 Anterior Bilateral Throughout] Pulse Rate [ Left Dorsalis Pedis] Pulse Rate [ 73 Throughout] Respiratory 32 H Rate Respiratory 20 Rate [Anterior Bilateral Throughout] Respiratory 23 Rate [ Throughout] Blood Pressure 118/66 O2 Sat by Pulse 100 97 Oximetry 11/21/18 11/21/18 11:01 12:00 Temperature 98.2 F Pulse Rate 76 78 Pulse Rate [ Anterior Bilateral Throughout] Pulse Rate [ 75 Left Dorsalis Pedis] Pulse Rate [ Throughout] Respiratory 33 H 33 H Rate Respiratory Rate [Anterior Bilateral Throughout] Respiratory Rate [ Throughout] Blood Pressure 121/69 O2 Sat by Pulse 93 94 Oximetry Constitutional: alert, appears uncomfortable Eyes: non-icteric ENT: oropharynx moist Neck: supple Effort: mildly labored Ascultation: Bilateral: diminished breath sounds, wheezes Percussion: Bilateral: not dull Tactile fremitus: Bilateral: normal Cardiovascular: other (sinus tachycardia) Extremities: no edema, pink and warm CBC and BMP: 11/12/18 17:14 11/19/18 04:53 Abnormal lab findings: Abnormal Labs 11/12/18 11/12/18 11/12/18 17:14 17:14 17:14 WBC 4.4 L Hgb 9.7 L MCH 24 L RDW 17.3 H Lymph % (Auto) 5.4 L Lymph # 0.2 L Seg Neutrophils % 89.3 H Chloride 97.1 L Carbon Dioxide 39 H BUN 25 H Creatinine 0.5 L Glucose 140 H POC Glucose Lactic Acid 0.60 L CK-MB (CK-2) 11.4 H CK-MB (CK-2) Rel Index 18.3 H Troponin T 0.042 H NT-Pro-B Natriuret Pep Total Protein 6.1 L Albumin 3.7 L HDL Cholesterol 71 H Ur Specific [place] 11/12/18 11/12/18 11/13/18 18:13 19:49 03:47 WBC Hgb MCH RDW Lymph % (Auto) Lymph # Seg Neutrophils % Chloride Carbon Dioxide BUN Creatinine Glucose POC Glucose Lactic Acid CK-MB (CK-2) CK-MB (CK-2) Rel Index Troponin T NT-Pro-B Natriuret Pep 2696 H 2599 H Total Protein Albumin HDL Cholesterol Ur Specific [place] > 1.059 H 11/13/18 11/14/18 11/14/18 21:30 10:32 14:43 WBC Hgb MCH RDW Lymph % (Auto) Lymph # Seg Neutrophils % Chloride Carbon Dioxide BUN Creatinine Glucose POC Glucose Lactic Acid CK-MB (CK-2) 4.8 H 4.7 H 4.1 H CK-MB (CK-2) Rel Index 15.0 H 14.6 H 11.7 H Troponin T NT-Pro-B Natriuret Pep Total Protein Albumin HDL Cholesterol Ur Specific [place] 11/14/18 11/16/18 11/19/18 21:32 12:34 04:53 WBC Hgb MCH RDW Lymph % (Auto) Lymph # Seg Neutrophils % Chloride 90.8 L 92.8 L Carbon Dioxide 41 H* 41 H* BUN 22 H 27 H Creatinine 0.5 L 0.5 L Glucose 134 H POC Glucose Lactic Acid CK-MB (CK-2) 4.2 H CK-MB (CK-2) Rel Index 13.5 H Troponin T NT-Pro-B Natriuret Pep Total Protein Albumin HDL Cholesterol Ur Specific [place] 11/21/18 11/21/18 08:21 11:48 WBC Hgb MCH RDW Lymph % (Auto) Lymph # Seg Neutrophils % Chloride Carbon Dioxide BUN Creatinine Glucose POC Glucose 121 H 207 H Lactic Acid CK-MB (CK-2) CK-MB (CK-2) Rel Index Troponin T NT-Pro-B Natriuret Pep Total Protein Albumin HDL Cholesterol Ur Specific [place]
[2018-11-21] MEDS: DESYREL PO SCH (22:02)
[2018-11-21] MEDS: SPIRIVA IH SCH (22:03)
[2018-11-21] MEDS: PRAVACHOL PO SCH (22:04)
[2018-11-22] MEDS: SYNTHROID PO SCH (05:47)
[2018-11-22] MEDS: SOLU-Medrol IV SCH ×2 (05:48→13:25)
[2018-11-22] MEDS: BROVANA NEBU IH SCH (09:06)
[2018-11-22] MEDS: PULMICORT IH SCH (09:06)
[2018-11-22] MEDS: LASIX PO SCH (10:15)
[2018-11-22] MEDS: PROTONIX PO SCH (10:15)
[2018-11-22] MEDS: HALFPRIN EC PO SCH (10:15)
[2018-11-22] MEDS: ELIQUIS PO SCH (10:16)
[2018-11-22] MEDS: LOPRESSOR PO SCH (10:16)
[2018-11-22] MEDS: ZESTRIL PO SCH (10:16)
[2018-11-22] MEDS: CLARITIN PO SCH (10:17)
[2018-11-22] MEDS: DIAMOX PO SCH (10:17)
[2018-11-22] MEDS: WELLBUTRIN XL PO SCH (10:17)
[2018-11-22] MEDS: ABILIFY PO SCH (10:17)
--- NOTE | 2018-11-22 10:48 | Progress Note ---
Assessment and Plan COPD exacerbation. Chronic respiratory failure, multiple admissions/intubations in the past year Tobacco abuse Schizophrenia Recommendations Continue PRN and QHS bipap therapy Decrease steroids to 60 q8h as tolerated Continue BID pulmicort and brovana Ambulate patient and monitor oximetry. Add portable oxygen 2 L/m if oximetry below 89% on room air. Inhaler therapy including LAMA, LABA/ICS therap (example Pulmicort/budesonide/Spiriva), per GOLD guidelines Nutritional support, asking for Boost or other supplement BMI under 19 Continue PT Follow up with CM about Appeal for LTACH. patient would greatly benefit from this as this is her 5th hospital stay in under 5 months time frame. Subjective Date of service: 11/22/18 Principal diagnosis: COPD Interval history: Feels weak, short of breath on minimal exertion this morning. Claims to have used BiPAP last night. Has a unit at home, [facility]? Objective Vital Signs - 12hr 11/21/18 11/22/18 11/22/18 23:40 02:24 07:43 Temperature 98.3 F 97.8 F Pulse Rate 75 Pulse Rate [ Anterior Bilateral Throughout] Respiratory 23 20 18 Rate Respiratory Rate [Anterior Bilateral Throughout] Blood Pressure 111/59 131/83 O2 Sat by Pulse 95 Oximetry 11/22/18 11/22/18 11/22/18 09:05 09:06 09:19 Temperature Pulse Rate Pulse Rate [ 95 H 100 H Anterior Bilateral Throughout] Respiratory Rate Respiratory 20 20 Rate [Anterior Bilateral Throughout] Blood Pressure O2 Sat by Pulse 96 Oximetry Constitutional: alert Eyes: non-icteric ENT: oropharynx moist Neck: supple, no JVD Effort: mildly labored Ascultation: Bilateral: clear, diminished breath sounds Percussion: Bilateral: not dull Tactile fremitus: Bilateral: normal Cardiovascular: regular rate and rhythm Extremities: no edema, pink and warm Neurologic: normal mental status, non-focal exam, pupils equal and round, CN II- XII normal Psychiatric: anxious CBC and BMP: 11/12/18 17:14 11/19/18 04:53 Abnormal lab findings: Abnormal Labs 11/12/18 11/12/18 11/12/18 17:14 17:14 17:14 WBC 4.4 L Hgb 9.7 L MCH 24 L RDW 17.3 H Lymph % (Auto) 5.4 L Lymph # 0.2 L Seg Neutrophils % 89.3 H Chloride 97.1 L Carbon Dioxide 39 H BUN 25 H Creatinine 0.5 L Glucose 140 H POC Glucose Lactic Acid 0.60 L CK-MB (CK-2) 11.4 H CK-MB (CK-2) Rel Index 18.3 H Troponin T 0.042 H NT-Pro-B Natriuret Pep Total Protein 6.1 L Albumin 3.7 L HDL Cholesterol 71 H Ur Specific [place] 11/12/18 11/12/18 11/13/18 18:13 19:49 03:47 WBC Hgb MCH RDW Lymph % (Auto) Lymph # Seg Neutrophils % Chloride Carbon Dioxide BUN Creatinine Glucose POC Glucose Lactic Acid CK-MB (CK-2) CK-MB (CK-2) Rel Index Troponin T NT-Pro-B Natriuret Pep 2696 H 2599 H Total Protein Albumin HDL Cholesterol Ur Specific [place] > 1.059 H 11/13/18 11/14/18 11/14/18 21:30 10:32 14:43 WBC Hgb MCH RDW Lymph % (Auto) Lymph # Seg Neutrophils % Chloride Carbon Dioxide BUN Creatinine Glucose POC Glucose Lactic Acid CK-MB (CK-2) 4.8 H 4.7 H 4.1 H CK-MB (CK-2) Rel Index 15.0 H 14.6 H 11.7 H Troponin T NT-Pro-B Natriuret Pep Total Protein Albumin HDL Cholesterol Ur Specific [place] 11/14/18 11/16/18 11/19/18 21:32 12:34 04:53 WBC Hgb MCH RDW Lymph % (Auto) Lymph # Seg Neutrophils % Chloride 90.8 L 92.8 L Carbon Dioxide 41 H* 41 H* BUN 22 H 27 H Creatinine 0.5 L 0.5 L Glucose 134 H POC Glucose Lactic Acid CK-MB (CK-2) 4.2 H CK-MB (CK-2) Rel Index 13.5 H Troponin T NT-Pro-B Natriuret Pep Total Protein Albumin HDL Cholesterol Ur Specific [place] 11/21/18 11/21/18 11/21/18 08:21 11:48 17:02 WBC Hgb MCH RDW Lymph % (Auto) Lymph # Seg Neutrophils % Chloride Carbon Dioxide BUN Creatinine Glucose POC Glucose 121 H 207 H 157 H Lactic Acid CK-MB (CK-2) CK-MB (CK-2) Rel Index Troponin T NT-Pro-B Natriuret Pep Total Protein Albumin HDL Cholesterol Ur Specific [place]
--- NOTE | 2018-11-22 11:39 | Progress Note ---
Assessment and Plan Assessment and plan: Patient is a 67 yo woman from [facility] with a history of HTN, Dementia, Chronic Respiratory Failure on 2L Home oxygen due to End-stage COPD, HLD, Hypothyroidism, Depression, Schizophrenia and Atrial Fib on Therapeutic Anticoagulation (Eliquis) presented to [facility] ED with SOB. Pt was found to have a pulse oximetry of 82% on room air. EMS was notified and patient placed on supplemental oxygen and transported to [facility] ED. Patient has been in and out of the hospital many times this year for COPD. She was recently admitted here on 10/23/18; during that last admission she was intubated due to COPD and also treated for Afib. She was successfully extubated and discharged on 11/03/18. She comes back on 11/12/18 with another COPD exacerbation. I discussed with circulator, Dr. Waldron and he recommends LTAC but she needs a 3 day stay in IMCU/ICU; so she was transferred to [facility] on 11/16/18. * MRI cervical spine; multilevel bilateral neural foramina narrowing secondary to disc osteophyte complex and vertebral joint hypertrophy. No central canal spinal stenosis or cord edema. * Chest x-ray; no infiltrate * CTA CHEST: Cardiomegaly. No CT evidence of pulmonary thromboembolic disease. COPD. Suspected pulmonary hypertension Acute on chronic respiratory failure: Nebs, steroids, Continue oxygen, pulmonology following, off bipap today Acute COPD exacerbation/end stage COPD: Nebs, steroids, Continue oxygen, pulmonology following, off bipap today P. Atrial Fibrillation with hypercoagulable states: Currently in SR. Cont E liquis and lopressor. Acute Metabolic Encephalopathy: obtain and MRI head when medically stable. SIRS without acute organ dysfunction: continue to monitor Type 2 NSTEMI with CAD [facility] done 10/14/2018 showed 100% distal lcx, 100% distal LAD, EF 45%. Medical management was recommended: Cardiology consulted, input noted Ataxia, Chronic debility: PT/OT eval and treat Acute on chronic diastolic heart failure, resolved: Cardiology did evaluate Pulmonary HTN: Last echo, EF 50-55%, Pulmonary pressures not recorded. Schizophrenia: Continue Current meds, Hyperlipidemia: Continue statin Chronic Debility: PT/OT Anxiety: Mental health consult Anemia: STABLE Bradycardia, now resolved Hypothyroidism: Synthroid DVT/GI: Prophy on Eliquis Disposition: Continue inpatient care, d/c LTAC for pulmonary rehab as patient has been admitted 5x for COPD this year. Awaiting insurance clearance, d/w Dr. Waldron still trying to get to LTAC, case management to appeal on Thursday. History Interval history: Patient was seen and examined. Follow-up on current diagnosis. Overnight uneventful. Patient denies any chest pain, shortness breath, nausea/vomiting or severe headaches. Imaging, nursing note, chart, labs and old chart reviewed. Discussed with patient. Hospitalist Physical - Physical exam Narrative exam: Gen: WDWN, NAD, Awake, Alert, Orientated x 2 HEENT: NCAT, EOMI, PERRL, OP Clear Neck: supple, no adenopathy, no thyromegaly, no JVD CVS/Heart: RRR, normal S1S2, pulses present bilaterally Chest/Lungs: CTA B, Symmetrical chest expansion, good air entry bilaterally GI/Abdomen: soft, NTND, good bowel sounds, no guarding or rebound /Bladder: no suprapubic tenderness, no CVA or paraspinal tenderness Extermity/Skin: no c/c/e, no obvious rash MSK: FROM x 4 Neuro: CN 2-12 grossly intact, no new focal deficits Psych: calm - Constitutional Vitals: Temp Pulse Resp BP Pulse Ox 97.8 F 100 H 20 131/83 96 11/22/18 07:43 11/22/18 09:19 11/22/18 09:19 11/22/18 07:43 11/22/18 09:05 General appearance: Absent: mild distress Results - Labs CBC & Chem 7: 11/12/18 17:14 11/19/18 04:53 Labs: Laboratory Last Values WBC 4.4 K/mm3 (4.5-11.0) L 11/12/18 17:14 RBC 4.10 M/mm3 (3.65-5.03) 11/12/18 17:14 Hgb 9.7 gm/dl (10.1-14.3) L 11/12/18 17:14 Hct 32.6 % (30.3-42.9) 11/12/18 17:14 MCV 80 fl (79-97) 11/12/18 17:14 MCH 24 pg (28-32) L 11/12/18 17:14 MCHC 30 % (30-34) 11/12/18 17:14 RDW 17.3 % (13.2-15.2) H 11/12/18 17:14 Plt Count 199 K/mm3 (140-440) 11/12/18 17:14 Lymph % (Auto) 5.4 % (13.4-35.0) L 11/12/18 17:14 [place] % (Auto) 3.5 % (0.0-7.3) 11/12/18 17:14 Eos % (Auto) 0.4 % (0.0-4.3) 11/12/18 17:14 Baso % (Auto) 1.4 % (0.0-1.8) 11/12/18 17:14 Lymph # 0.2 K/mm3 (1.2-5.4) L 11/12/18 17:14 [place] # 0.2 K/mm3 (0.0-0.8) 11/12/18 17:14 Eos # 0.0 K/mm3 (0.0-0.4) 11/12/18 17:14 Baso # 0.1 K/mm3 (0.0-0.1) 11/12/18 17:14 Seg Neutrophils % 89.3 % (40.0-70.0) H 11/12/18 17:14 Seg Neutrophils # 4.0 K/mm3 (1.8-7.7) 11/12/18 17:14 Sodium 141 mmol/L (137-145) 11/19/18 04:53 Potassium 4.5 mmol/L (3.6-5.0) 11/19/18 04:53 Chloride 92.8 mmol/L (98-107) L 11/19/18 04:53 Carbon Dioxide 41 mmol/L (22-30) H* 11/19/18 04:53 Anion Gap 12 mmol/L 11/19/18 04:53 BUN 27 mg/dL (7-17) H 11/19/18 04:53 Creatinine 0.5 mg/dL (0.7-1.2) L 11/19/18 04:53 Estimated GFR > 60 ml/min 11/19/18 04:53 BUN/Creatinine Ratio 54 % 11/19/18 04:53 Glucose 134 mg/dL (65-100) H 11/19/18 04:53 POC Glucose 157 (70-105) H 11/21/18 17:02 Lactic Acid 0.60 mmol/L (0.7-2.0) L 11/12/18 17:14 Calcium 8.7 mg/dL (8.4-10.2) 11/19/18 04:53 Phosphorus 3.10 mg/dL (2.5-4.5) 11/19/18 04:53 Magnesium 2.20 mg/dL (1.7-2.3) 11/19/18 04:53 Total Bilirubin < 0.20 mg/dL (0.1-1.2) 11/12/18 17:14 AST 25 units/L (5-40) 11/12/18 17:14 ALT 32 units/L (7-56) 11/12/18 17:14 Alkaline Phosphatase 79 units/L (35-129) 11/12/18 17:14 Total Creatine Kinase 31 units/L (30-135) 11/14/18 21:32 CK-MB (CK-2) 4.2 ng/mL (0.0-4.0) H 11/14/18 21:32 CK-MB (CK-2) Rel Index 13.5 (0-4) H 11/14/18 21:32 Troponin T 0.010 ng/mL (0.00-0.029) 11/13/18 17:01 NT-Pro-B Natriuret Pep 2599 pg/mL (0-900) H 11/12/18 19:49 Total Protein 6.1 g/dL (6.3-8.2) L 11/12/18 17:14 Albumin 3.7 g/dL (3.9-5) L 11/12/18 17:14 Albumin/Globulin Ratio 1.5 % 11/12/18 17:14 Triglycerides 67 mg/dL (2-149) 11/12/18 17:14 Cholesterol 179 mg/dL (50-199) 11/12/18 17:14 LDL Cholesterol Direct 109 mg/dL (50-130) 11/12/18 17:14 HDL Cholesterol 71 mg/dL (40-59) H 11/12/18 17:14 Cholesterol/HDL Ratio 2.52 % 11/12/18 17:14 TSH 0.409 mlU/mL (0.270-4.200) 11/12/18 19:49 Free T4 1.07 ng/dL (0.76-1.46) 11/12/18 19:49 Urine Color Yellow (Yellow) 11/13/18 03:47 Urine Turbidity Clear (Clear) 11/13/18 03:47 Urine pH 6.0 (5.0-7.0) 11/13/18 03:47 Ur Specific Lyle > 1.059 (1.003-1.030) H 11/13/18 03:47 Urine Protein <15 mg/dl mg/dL (Negative) 11/13/18 03:47 Urine Glucose (UA) Neg mg/dL (Negative) 11/13/18 03:47 Urine Ketones Neg mg/dL (Negative) 11/13/18 03:47 Urine Blood Neg (Negative) 11/13/18 03:47 Urine Nitrite Neg (Negative) 11/13/18 03:47 Urine Bilirubin Neg (Negative) 11/13/18 03:47 Urine Urobilinogen < 2.0 mg/dL (<2.0) 11/13/18 03:47 Ur Leukocyte Esterase Neg (Negative) 11/13/18 03:47 Urine WBC (Auto) < 1.0 /HPF (0.0-6.0) 11/13/18 03:47 Urine RBC (Auto) 1.0 /HPF (0.0-6.0) 11/13/18 03:47 U Epithel Cells (Auto) 1.0 /HPF (0-13.0) 11/13/18 03:47 Active Medications - Current Medications Current Medications: Generic Name Dose Route Start Last Admin Trade Name Freq PRN Reason Stop Dose Admin Acetaminophen 650 mg 11/12/18 20:11 Tylenol PO Q4H PRN Pain MILD(1-3)/Fever >100.5/LOU Acetazolamide 250 mg 11/12/18 22:00 11/22/18 10:17 Diamox PO 250 mg BID GABRIEL Administration Albuterol 2.5 mg 11/12/18 20:11 11/16/18 14:00 Proventil IH 2.5 mg Q4HRT PRN Administration Shortness Of Breath Apixaban 5 mg 11/12/18 22:00 11/22/18 10:16 Eliquis PO 5 mg Q12HR GABRIEL Administration Protocol Arformoterol Tartrate 15 mcg 11/13/18 08:00 11/22/18 09:06 Brovana Nebu IH 15 mcg Q12HRT GABRIEL Administration Aripiprazole 5 mg 11/13/18 10:00 11/22/18 10:17 Abilify PO 5 mg DAILY GABRIEL Administration Aspirin 81 mg 11/13/18 10:00 11/22/18 10:15 Halfprin Ec PO 81 mg QDAY GABRIEL Administration Budesonide 0.5 mg 11/14/18 08:03 11/22/18 09:06 Pulmicort IH 0.5 mg Q12HRT GABRIEL Administration Bupropion HCl 300 mg 11/13/18 10:00 11/22/18 10:17 Wellbutrin Xl PO 300 mg QDAY GABRIEL Administration Furosemide 40 mg 11/13/18 10:00 11/22/18 10:15 Lasix PO 40 mg QAM GABRIEL Administration Levothyroxine Sodium 125 mcg 11/13/18 06:00 11/22/18 05:47 Synthroid PO 125 mcg QAM@0600 GABRIEL Administration Lisinopril 2.5 mg 11/13/18 10:00 11/22/18 10:16 Zestril PO 2.5 mg QDAY GABRIEL Administration Loratadine 10 mg 11/13/18 10:00 11/22/18 10:17 Claritin PO 10 mg QDAY GABRIEL Administration Methylprednisolone Sodium Succinate 60 mg 11/21/18 14:00 11/22/18 05:48 Solu-Medrol IV 60 mg Q8H GABRIEL Administration Metoprolol Tartrate 25 mg 11/14/18 15:00 11/22/18 10:16 Lopressor PO 25 mg BID GABRIEL Administration Ondansetron HCl 4 mg 11/12/18 20:11 Zofran IV Q8H PRN Nausea And Vomiting Pantoprazole Sodium 20 mg 11/13/18 10:00 11/22/18 10:15 Protonix PO 20 mg DAILY GABRIEL Administration Pravastatin Sodium 20 mg 11/12/18 22:00 11/21/18 22:04 Pravachol PO 20 mg QHS GABRIEL Administration Senna/Docusate Sodium 2 tab 11/15/18 10:00 Senokot S PO Q12H PRN Laxative Effect Sodium Chloride 10 ml 11/12/18 22:00 11/21/18 22:05 Sodium Chloride Flush Syringe 10 Ml IV 10 ml BID GABRIEL Administration Sodium Chloride 10 ml 11/12/18 20:11 Sodium Chloride Flush Syringe 10 Ml IV PRN PRN LINE FLUSH Tiotropium [place] 1 puff 11/13/18 10:00 11/21/18 22:03 Spiriva IH Not Given Q24HR GABRIEL Trazodone HCl 50 mg 11/12/18 22:00 11/21/18 22:02 Desyrel PO 50 mg HS GABRIEL Administration Nutrition/Malnutrition Assess - Dietary Evaluation Nutrition/Malnutrition Findings: Nutrition Notes Start: 11/19/18 11:28 Freq: Status: Active Protocol: Document 11/19/18 11:29 CP (Rec: 11/19/18 11:43 CP [id number]) Co-Sign 11/19/18 11:29 LP Nutrition Notes Need for Assessment generated from: LOS Initial or Follow up Brief Note Current Diagnosis COPD,Respiratory Failure, Hyperlipidemia Other Pertinent Diagnosis DVT prophylaxis, atrial fibrillation, elevated troponin Current Diet Cardiac diet Labs/Tests BUN: 27 Glu: 134 Cr: 0.5 Pertinent Medications Lasix Height 5 ft 6 in Weight 73.2 kg [place] Body Weight (kg) 59.09 BMI 26.0 Intake Prior to Admission Poor Weight change and time frame Pt reported having a 5 pound weight loss in 1 month. Weight Status Overweight Subjective/Other Information RD screen for LOS. Pt stated that her appetite is "slowly increasing" and that she ate 75% of her tray. She reports no N/V/D/C and any swallowing or chewing difficulties. She did not know her UBW. Percent of energy/protein needs met: 100%/85% Burn Absent Trauma Absent Is patient on ventilator? No Is Patient Ambulatory and/or Out of Bed No REE-(Edmonson-St. Jeor-confined to bed) 1197.965 Calculation Used for Recommendations Edmonson-St Jeor Additional Notes Pro: 73-88g (1-1.2g/kg) Fluid: 1mL/kcal or per MD request Nutrition Intervention Goal #1 Pt to continue to meet at least 80% of energy and protein needs Anticipated Discharge Needs: Cardiac Revisit per MD consult or patient Sign Off request:
[2018-11-22] MEDS: SODIUM CHLORIDE FLUSH SYRINGE 10 ML IV SCH (13:26)
[2018-11-22 14:44] VITALS: BP 103/72
== END 2018-11-22 17:00 | DRG 280 ==
LOC: ED 14:55 → 4A 20:11 → 2B-ACE 11-14 21:57 → IMCU 11-16 15:53 → 2B-ACE 11-21 17:38
PROVIDERS: ADMIT Internal Medicine; ATTEND Internal Medicine
PROC: 5A09557 Assistance with Respiratory Ventilation, Greater than 96 Consecutive Hours, Continuous Positive Airway Pressure (ICD-10-PCS; principal; 2018-11-15)
DX: I21.A1 Myocardial infarction type 2 (principal); G93.41 Metabolic encephalopathy; I50.33 Acute on chronic diastolic (congestive) heart failure; J96.21 Acute and chronic respiratory failure with hypoxia; J44.1 Chronic obstructive pulmonary disease with (acute) exacerbation; D68.59 Other primary thrombophilia; R65.10 Systemic inflammatory response syndrome (SIRS) of non-infectious origin without acute organ dysfunction; I48.1 Persistent atrial fibrillation; F03.90 Unspecified dementia, unspecified severity, without behavioral disturbance, psychotic disturbance, mood disturbance, and anxiety; I11.0 Hypertensive heart disease with heart failure; E03.9 Hypothyroidism, unspecified; F32.9 Major depressive disorder, single episode, unspecified; I27.20 Pulmonary hypertension, unspecified; R27.0 Ataxia, unspecified; R53.81 Other malaise; F20.9 Schizophrenia, unspecified; E78.2 Mixed hyperlipidemia; F17.200 Nicotine dependence, unspecified, uncomplicated; F41.9 Anxiety disorder, unspecified; D64.9 Anemia, unspecified; R00.1 Bradycardia, unspecified; K21.9 Gastro-esophageal reflux disease without esophagitis; Z99.81 Dependence on supplemental oxygen; Z79.01 Long term (current) use of anticoagulants; Z90.710 Acquired absence of both cervix and uterus; Z82.49 Family history of ischemic heart disease and other diseases of the circulatory system; Z83.3 Family history of diabetes mellitus; Z79.899 Other long term (current) drug therapy; Z79.82 Long term (current) use of aspirin
CPT/HCPCS: 36415; 70450; 71045; 71275; 74176; 80048; 80053; 80061; 81001; 82140; 82550; 82553; 82962; 83735; 83880; 84100; 84439; 84443; 84484; 85025; 87116; 93005; 93010; 94640; 94660; 94760; G0378; A9270-GY; J0456; J1650; J1815; J1940; J2270; J2920; J2930; J7050; Q9967

== ENCOUNTER 2018-11-26 07:01 | Emergency (ER) | payer MEDICARE ==
--- NOTE | 2018-11-26 07:32 | Emergency Department Report ---
ED CPR HPI - General Stated Complaint: UNRESPONSIVE Time Seen by Provider: 11/26/18 07:01 Source: EMS, old records reviewed (pt was recently d/kathryn for copd exacerbation) Mode of arrival: Stretcher Limitations: Altered Mental Status, Physical Limitation - History of Present Illness Initial Comments: 67-year-old female with multiple chronic conditions the hospital unresponsive [facility] post cardiopulmonary arrest. Patient resides at [facility]. Patient was found unresponsive in the bathroom by staff. Bystanders CPR initiated. Upon EMS arrival at approximately 6:15 AM patient was in asystole. Patient was intubated and the ET tube and right IO placed. Patient received 4 epinephrine and 1 amp of sodium bicarbonate prior to arrival. Patient also had Accu-Chek in the 200s. Patient remained in asystole upon arrival despite resuscitation efforts. - Related Data Home Medications Medication Instructions Recorded Confirmed Last Taken Lisinopril 2.5 mg PO QDAY 01/02/15 11/13/18 01/09/15 Simvastatin 5 mg PO QHS 01/02/15 11/13/18 01/08/15 Omeprazole Magnesium [PriLOSEC Otc] 20 mg PO DAILY 10/25/18 11/13/18 Unknown traZODone [Desyrel] 50 mg PO HS 10/25/18 11/13/18 Unknown Previous Rx's Medication Instructions Recorded Last Taken Type Aspirin EC [Aspirin Enteric Coated 81 mg PO QDAY #30 tablet.dr 10/27/18 Unknown Rx TAB] Furosemide [Lasix TAB] 40 mg PO QAM #30 tablet 10/27/18 Unknown Rx Tiotropium [place] [Spiriva 1 each IH DAILY #1 mist.inhal 10/27/18 Unknown Rx Respimat] ALBUTEROL NEB's [Proventil 0.083% 2.5 mg IH Q4HRT PRN nebu 11/19/18 Unknown Rx NEBS] ARIPiprazole [Abilify TAB] 5 mg PO DAILY #30 11/19/18 01/08/15 Rx Acetaminophen [Acetaminophen TAB] 650 mg PO Q4H PRN tablet 11/19/18 Unknown Rx Apixaban [Eliquis] 5 mg PO Q12HR #60 tablet 11/19/18 Unknown Rx Arformoterol Nebu [Brovana Nebu] 15 mcg IH Q12HRT ml 11/19/18 Unknown Rx Budesonide [Pulmicort Respules] 0.5 mg IH Q12HRT #60 nebu 11/19/18 Unknown Rx Cetirizine HCl [ZyrTEC] 10 mg PO QDAY #30 11/19/18 01/08/15 Rx Levothyroxine [Synthroid] 0.125 mcg PO QAM #30 tab 11/19/18 01/09/15 Rx Metoprolol [Lopressor TAB] 25 mg PO BID #60 tablet 11/19/18 Unknown Rx Sennosides/Docusate [Senokot S] 2 tab PO Q12H PRN tablet 11/19/18 Unknown Rx acetaZOLAMIDE ER [Diamox Sequels] 500 mg PO Q12HR #60 tab 11/19/18 Unknown Rx buPROPion XL [Wellbutrin XL] 300 mg PO QDAY #30 11/19/18 01/08/15 Rx predniSONE [Deltasone] 1 dose PO DAILY 31 Days tablet 11/22/18 Unknown Rx Allergies Allergy/AdvReac Type Severity Reaction Status Date / Time ibuprofen [From Motrin] AdvReac Shortness Verified 10/25/18 08:15 of Breath nickel AdvReac Rash Verified 10/25/18 08:15 ED Review of Systems ROS: Stated complaint: UNRESPONSIVE Other details as noted in HPI Comment: Unobtainable due to pts medical conditions ED Past Medical Hx - Past Medical History Hx Hypertension: Yes Hx Heart Attack/AMI: Yes Hx Congestive Heart Failure: Yes Hx Diabetes: No Hx Psychiatric Treatment: Yes (schitzophrenia) Hx Asthma: Yes Hx COPD: Yes (Home O2 2L/NC) Additional medical history: Afib, MDD, Hypothyroidism, - Social History Smoking Status: Never Smoker Substance Use Type: None - Medications Home Medications: Home Medications Medication Instructions Recorded Confirmed Last Taken Type Lisinopril 2.5 mg PO QDAY 01/02/15 11/13/18 01/09/15 History Simvastatin 5 mg PO QHS 01/02/15 11/13/18 01/08/15 History Omeprazole Magnesium [PriLOSEC Otc] 20 mg PO DAILY 10/25/18 11/13/18 Unknown History traZODone [Desyrel] 50 mg PO HS 10/25/18 11/13/18 Unknown History Aspirin EC [Aspirin Enteric Coated 81 mg PO QDAY #30 tablet. 10/27/18 11/13/18 Unknown Rx TAB] Furosemide [Lasix TAB] 40 mg PO QAM #30 tablet 10/27/18 11/13/18 Unknown Rx Tiotropium [place] [Spiriva 1 each IH DAILY #1 mist.inhal 10/27/18 11/13/18 Unkn own Rx Respimat] ALBUTEROL NEB's [Proventil 0.083% 2.5 mg IH Q4HRT PRN nebu 11/19/18 Unknown Rx NEBS] ARIPiprazole [Abilify TAB] 5 mg PO DAILY #30 11/19/18 11/13/18 01/08/15 Rx Acetaminophen [Acetaminophen TAB] 650 mg PO Q4H PRN tablet 11/19/18 Unknown Rx Apixaban [Eliquis] 5 mg PO Q12HR #60 tablet 11/19/18 11/13/18 Unknown Rx Arformoterol Nebu [Brovana Nebu] 15 mcg IH Q12HRT ml 11/19/18 Unknown Rx Budesonide [Pulmicort Respules] 0.5 mg IH Q12HRT #60 nebu 11/19/18 Unknown Rx Cetirizine HCl [ZyrTEC] 10 mg PO QDAY #30 11/19/18 11/13/18 01/08/15 Rx Levothyroxine [Synthroid] 0.125 mcg PO QAM #30 tab 11/19/18 11/13/18 01/09/15 Rx Metoprolol [Lopressor TAB] 25 mg PO BID #60 tablet 11/19/18 Unknown Rx Sennosides/Docusate [Senokot S] 2 tab PO Q12H PRN tablet 11/19/18 Unknown Rx acetaZOLAMIDE ER [Diamox Sequels] 500 mg PO Q12HR #60 tab 11/19/18 11/13/18 Unknown Rx buPROPion XL [Wellbutrin XL] 300 mg PO QDAY #30 11/19/18 11/13/18 01/08/15 Rx predniSONE [Deltasone] 1 dose PO DAILY 31 Days tablet 11/22/18 Unknown Rx ED Physical Exam - Other Other exam information: General: Unresponsive Head exam: Atraumatic, normocephalic Eyes exam: Pupils fixed and dilated ENT: Orally intubated Neck exam: Normal inspection Respiratory exam: No spontaneous respiration, equal breath sounds bilaterally with bagging Cardiovascular: Pulseless Abdomen: Soft, nondistended, no breath sounds of epigastric Extremity: IO and right tibia with subcutaneous edema likely infiltration of the line Back: Normal Inspection Neurologic: GCS = 3 Psychiatric: Unresponsive Skin: Warm, dry, intact ED Course Vital Signs 11/26/18 07:01 Pulse Rate 0 L Respiratory 0 L Rate Blood Pressure 0/0 - EJ/Peripheral Line Neck L Time Out Performed: Yes Indications: nurses unable to establis Skin Cleansed in Sterile Fashion: Yes Size: 18 Dressing Placed: Tegaderm, tape Patient Tolerated Procedure: well, no complications ED Medical Decision Making - Medical Decision Making At time of arrival at 7 AM patient has been in asystole for period of approximately 45 minutes. Right tibia IO noted to be infiltrated. I placed a left EJ and administer an additional epinephrine. Patient remained in asystole with fixed and dilated pupils after this additional dose. Time of 7:03 AM Family informed of pt's - Differential Diagnosis AL, PE, hypoxia, CO2 retention, arrhythmia Critical Care Time: Yes Critical care time in (mins) excluding proc time.: 10 Critical care attestation.: If time is entered above; I have spent that time in minutes in the direct care of this critically ill patient, excluding procedure time. ED Disposition Clinical Impression: Cardiopulmonary arrest Disposition: [id number] Is pt being admited?: No Time of Disposition: 07:34
[2018-11-26 07:50] VITALS: BP 0/0
[2018-11-26] MEDS ORDERED: ADRENALIN ONE (10:55)
== END 2018-11-26 08:00 ==
LOC: ED 07:01
DX: I46.9 Cardiac arrest, cause unspecified (principal); I11.0 Hypertensive heart disease with heart failure; I25.2 Old myocardial infarction; I50.9 Heart failure, unspecified; F20.9 Schizophrenia, unspecified; J44.9 Chronic obstructive pulmonary disease, unspecified; E03.9 Hypothyroidism, unspecified; I48.91 Unspecified atrial fibrillation
CPT/HCPCS: 36569; 92950; 99285; J0171